=== PATIENT | male | born 1955 | race Caucasian/White ===

== ENCOUNTER → 2019-08-14 10:23 | Outpatient (CLI) | payer MEDICARE, OTHER, SELFPAY ==
[2019-05-09 13:14] VITALS: BMI 26.5
[2019-08-14 12:20] LABS: Absolute Lymphocyte Count 1.13 X10^3/uL (0.83-4.51); Absolute Neutrophil Count 4.6 X10^3/uL (2.0-7.7); Basophil# 0.07 X10^3/uL; Basophil% 1.1 % (0-1); Eosinophil# 0.27 X10^3/uL; Eosinophils% 4.1 % (0-5); Hematocrit 37.7 % (40-54); Hemoglobin 12.5 g/dL (13.0-16.5); Lymphocyte # 1.13 X10^3/ul (4.0); Lymphocyte % 17.1 % (19-41); Mean Corp Hgb Conc 33.2 g/dL (32-36); Mean Corpuscular Hgb 30.3 pg (27.0-32.0); Mean Corpuscular Volume 91.3 fL (80-94); Monocyte# 0.56 X10^3/uL; Monocyte% 8.5 % (0-10); NRBC Flagged by Analyzer 0 % (0-5); Neutrophil # 4.58 X10^3/uL (2.7-7.7); Platelet Count 262 K/mm3 (150-450); RBC Distribution Width CV 12.3 % (11.6-14.6); RBC Distribution Width SD 40.7 fl (35.1-43.9); Red Blood Count 4.13 M/mm3 (4.6-6.2); White Blood Count 6.6 K/mm3 (4.4-11.0)
[2019-08-14 12:30] LABS: ALB/GLOB Ratio 0.8 RATIO (0.9-2.4); AST(SGOT) 10 U/L (15-37); Alanine Aminotransfer ALT/SGPT 13 U/L (16-61); Albumin, Serum 3.4 g/dL (3.2-5.0); Alkaline Phosphatase 93 U/L (45-117); Anion Gap 8 (5-15); BUN 64 mg/dL (7-18); BUN/Creat Ratio 16.9 RATIO (10-20); Calcium,Total 8.8 mg/dL (8.5-10.1); Chloride 106 mmol/L (98-107); Creatinine, Serum 3.79 mg/dL (0.70-1.30); EST Glomerular Filtration Rate 17 mL/min (>60); Est Glom Filt Rate - Afr Amer 21 mL/min (>60); Globulin 4.1 g/dL (2.2-4.2); Glucose 101 mg/dL (74-106); PSA,Total - Annual Screen 3.96 ng/mL (0.00-4.00); Potassium 4.3 mmol/L (3.5-5.1); Protein, Total 7.5 g/dL (6.4-8.2); Sodium Level 141 mmol/L (136-145); Thyroid Stim Hormone (TSH) 0.98 uIU/mL (0.358-3.74)
[2019-08-14 13:09] LABS: Hepatitis C Antibody Non-Reactive (Nonreactive)
== END ==
PROVIDERS: Visit Provider Family Medicine Geriatric Medicine
DX: I10 Essential (primary) hypertension (principal); Z12.5 Encounter for screening for malignant neoplasm of prostate; Z13.89 Encounter for screening for other disorder
CPT/HCPCS: 36415; 80053; 84153; 84443; 85025; 86803; G0103

== ENCOUNTER → 2019-08-15 11:09 | Outpatient (CLI) | payer MEDICARE, OTHER, SELFPAY ==
[2019-05-09 13:14] VITALS: BMI 26.5
[2019-08-15 11:42] LABS: Hematocrit 39.1 % (40-54); Mean Corp Hgb Conc 33.2 g/dL (32-36); Mean Corpuscular Hgb 30.2 pg (27.0-32.0); Mean Corpuscular Volume 90.9 fL (80-94); Mean Platelet Vol. 11.3 fl (6.2-12.0); Platelet Count 273 K/mm3 (150-450); RBC Distribution Width CV 12.5 % (11.6-14.6); RBC Distribution Width SD 41.1 fl (35.1-43.9); White Blood Count 6.4 K/mm3 (4.4-11.0)
[2019-08-15 11:48] LABS: International Normalized Ratio 1.1; Prothrombin Time (Protime)PT. 14.1 SECONDS (11.7-14.9)
[2019-08-15 11:53] LABS: Protein, Urine (Random) 223.6 mg/dL (<11.9); Protein:Creat Ratio 2717 mg/g CRE (0-200)
[2019-08-15 14:19] LABS: Partial Thromboplast Time 33.9 Seconds (24.1-36.2)
== END ==
PROVIDERS: Visit Provider Internal Medicine Nephrology
DX: N18.4 Chronic kidney disease, stage 4 (severe) (principal)
CPT/HCPCS: 36415; 82570; 84156; 85027; 85610; 85730

== ENCOUNTER → 2019-08-20 10:02 | Outpatient (CLI) | payer MEDICARE, OTHER, SELFPAY ==
[2019-05-09 13:14] VITALS: BMI 26.5
[2019-08-20] VITALS (9 sets, daily range): BP systolic 162–222; BP diastolic 51–90; PULSE 50–87; RESP 15–18; TEMP 36.6; O2SAT 93–100; BMI 26.4
--- NOTE | 2019-08-20 | KI_PTH ---
PATIENT: JOSELITO LAWSON LOC: CT U#:[id number] AGE/SX: 70/M ROOM: RE08/20/[address]: Dr. Karina Ervin DO : 1955 BED: DIS: SPEC #: [id number] RECD: 08/20/19 12:12 STATUS: LENNY CHAVISTahir #: [id number] SUSAN: 08/20/19 00:[address]: Karina Ervin DEPT: SURGICAL PATHOLOGY RECD BY: Mame Knight ENTERED: 08/20/19 14:10 SP TYPE: KIDNEY BX OTHR DR: Dr. Damion Leroy MD Tissues: Kidney, NOS Procedures: Electron Microscopy (ACH) Fluorescent Antibody (ACH) Sp St Grp II Kidney (ACH) Kidney Biopsy (ACH) Fluorescent antibody (ACH) add'l HEADER OPERATION: CT guided kidney biopsy PRE-OP DIAGNOSIS: Nephrotic range, proteinuria, R80.8 TISSUE SUBMITTED: Left kidney, 18 gauge core x4 MICROSCOPIC DIAGNOSIS Kidney, left, CT-guided biopsies: Renal tissue showing diffuse glomerulosclerosis, moderate interstitial inflammation and fibrosis, and markedly thickened vasculature; compatible with arterionephrosclerotic chronic renal disease. See comment. COMMENT Correlate clinically with history and onset of symptoms. Findings are compatible with chronic renal disease in the context of atherosclerotic and hypertensive changes. The immunofluorescent findings are nonspecific. CLINICAL INFORMATION: A 64-year-old male for chronic kidney disease stage IV. Evaluated for medical clearance for hernia repair and noticed marked increased creatine at 3.8. Long-standing history of hypertension, diet-controlled since age 39, and tobacco use. Elevated blood pressure despite treatment. Normal complement. SPEP shows no M spike. Bilateral echogenic kidneys. Abnormal PAYAM. Hematuria. Nephrotic range proteinuria. Carotid arteriosclerosis. Peripheral vascular disease. MICROSCOPIC DESCRIPTION Light microscopy examined with H & E, PAS, Page silver and trichrome stains yields renal cortical tissue showing diffuse glomerulosclerosis. There are 22 glomeruli; of which 13 are globally sclerosed. The remaining glomeruli show focal glomerulomegaly and partial sclerosis with thickened feeding vessels. Examination of the arterioles and capillary show significant intimal layer thickening and arteriosclerotic changes with some asymmetry. The interstitium shows marked inflammation comprised primarily of lymphocytes with scattered eosinophils and neutrophils present. Trichrome stain supports moderate interstitial fibrosis. The tubules show extensive atrophy changes with foci of end-stage dilated tubules with heavy Tamm-Horsfall like proteinaceous material; so-called thyroidization changes. Congo red stain is negative for any evidence of amyloid deposition. Renal medullary tissue is also present and shows edematous changes, lipofuscin pigment and lymphocytic infiltrate. Special stain positive controls are reviewed and deemed adequate. IMMUNOFLUORESCENCE: Tissue frozen and submitted for immunofluorescence evaluation yields four glomeruli, of which two are partially sclerosed. IgM shows a 1+ speckled mesangial signal. There is background glomerular and cortex signal with IgG, albumin, fibrin, kappa and lambda. Lambda and kappa also highlight tubule casts; lambda slightly stronger than kappa. C3 shows only focal nonspecific peripheral glomerular signal. IgA and C1q are negative. Positive and negative immunofluorescence controls are reviewed and deemed adequate. ELECTRON MICROSCOPY: Toluidine blue semithin sections yields four glomeruli, of which two are globally sclerosed and two are partially sclerosed. Ultrastructure examination shows marked collapse of capillary loops with expansion and sclerotic changes to the mesangial matrix. There are both glomerular basement membrane and mesangial foci of protein trapping with no evidence of deposits. The podocyte foot processes show variable hypertrophic changes and effacement. The tubules show degenerative changes. GROSS DESCRIPTION The specimen is sent entirely to [facility] for diagnosis. Received in a test tube with poly-transport medium are four cores of vasquez renal tissue ranging in length from 2.1 cm down to 0.8 cm. Each of which is approximately 0.1 cm in width. Numerous glomeruli are seen under the dissecting microscope. The specimen is divided for electron microscopy, immuno-fluorescence and light microscopy.
--- NOTE | 2019-08-20 10:49 | US_ITS ---
PROCEDURES: ULTRASOUND AORTA REASON FOR EXAM: Male, 64 years old. Abdominal aortic aneurysm TECHNIQUE: Ultrasound evaluation of the aorta was performed with real-time and static stern-scale imaging. COMPARISON: None. FINDINGS: There is no elongation or tortuosity of the abdominal aorta. Aorta measures: Proximal 2.5 cm. Middle 2.3 cm. Distal 2.4 cm. Aorta measure transversely: Proximal 2.2 cm. Middle 2.4 cm. Distal 2.6 cm. Right iliac artery measures: 1.0 cm. Right iliac artery measure transversely: 1.0 cm. Left iliac artery measures: 0.9 cm. Left iliac artery measure transversely: 1.0 cm. There is no demonstrated aneurysm.. Scattered echogenic plaque. US/Aorta IMPRESSION: No aneurysm. Scattered plaque. Electronically Signed: Omid Walters MD at 22:37 EDT , Service support ,
--- NOTE | 2019-08-20 11:20 | CT_ITS ---
PROCEDURE: CT GUIDED PERCUTANEOUS KIDNEY BIOPSY. DATE: August 20, 2019. INDICATION: Male, 64 years old. Proteinuria. PHYSICIAN: Cam Mckeon M.D. MEDICATIONS: 2 mg of Versed and 50 mcg of fentanyl intravenously. Conscious sedation protocol was followed. Conscious sedation was started 11:24 AM estimated 11:43 AM. The patient was monitored independently by the department. ACCESS SITE: Lower pole of the left kidney. NEEDLE: 18-gauge core biopsy needle. SPECIMEN: 4 18-gauge cores. EBL: None. COMPLICATIONS: None immediate. RADIATION DOSAGE (If Supplied By Facility): CTDIvol = ( 16 ) mGy, DLP = ( 302.60 ) mGycm The risks, benefits, and alternatives to the procedure and sedation were explained to the patient. The specific risk of hemorrhage requiring further treatment or intervention was detailed and accepted. Written informed consent was obtained. The patient was placed on the CT table in the prone position. Multiple axial images were obtained from the lung base through the caudal extent of the kidneys. An appropriate entry site was identified and a roslyn made on the skin. The skin overlying the [ left] posterior flank was prepped and draped in sterile fashion. 1% lidocaine was administered subcutaneously for local anesthesia. Initially, a 22 gauge needle was advanced and CT images confirmed good needle position. The 22 gauge needle was then exchanged for an 17 gauge introducer needle which was advanced. Repeat CT images confirmed good needle trajectory and tip position. The introducer needle was then advanced into the periphery of the inferior renal pole, and CT images were again obtained to confirm exact tip location. The inner stylet of the introducer needle was then removed and an 18 gauge coaxial needle was advanced thru the introducer needle and biopsy performed. A total of [ 4] passes were performed and the specimen collected was sent to Pathology for further evaluation. The needle was withdrawn. Hemostasis was achieved with manual compression and a sterile dressing was applied. Repeat CT images of the biopsy area was performed which demonstrated no gross bleeding or hematoma. The patient tolerated the procedure well without immediate complications. The patient was transported to the [floor/recovery area] in stable condition. CT/Biopsy/Inj or Needle Placement IMPRESSION: Successful CT guided percutaneous kidney biopsy. Electronically Signed: Cam Mckeon, at 12:40 EDT , Service support ,
[2019-08-20] MEDS: Midazolam 2 MG/2 ML Syringe IV (11:25)
[2019-08-20] MEDS: fentaNYL 100 MCG/2 ML Ampul IV (11:28)
== END ==
PROVIDERS: Family Provider Family Medicine Geriatric Medicine; PCP Family Medicine Geriatric Medicine; Referring Provider Internal Medicine Nephrology; Visit Provider Internal Medicine Nephrology
DX: R80.8 Other proteinuria (principal)
CPT/HCPCS: 50200; 76775; 77012; 88305; 88313; 88346; 88348; 88350; 99156; 99157; J7040; A4216

== ENCOUNTER → 2019-08-26 15:43 | Outpatient (CLI) | payer MEDICARE, OTHER, SELFPAY ==
[2019-05-09 13:14] VITALS: BMI 26.5
[2019-08-20 10:23] VITALS: BMI 26.4
--- NOTE | 2019-08-26 15:45 | CT_ITS ---
STUDY: LOW DOSE CT LUNG CANCER SCREENING REASON FOR EXAM: Male, 64 years old. Screening for lung cancer RADIATION DOSAGE (If Supplied By Facility): CTDIvol = ( 2.55 ) mGy, DLP = ( 103.34 ) mGycm TECHNIQUE: No contrast was administered. Low dose technique was utilized (average mAS-38 and kVp 120). 1.25 mm axial source images with a slice interval of 1.25-mm were reconstructed in lung windows. 2.5 mm axial source images with a slice interval of 2.5-mm were reconstructed in lung windows. 5.0 mm axial source images with a slice interval of 5.0-mm were reconstructed in soft tissue windows. Nodule measured using lung windows on PACS and/or independent workstation with automated measurement of minimum and maximum diameter. Nodule measurement reported as average diameter rounded to the nearest whole number. Growth is defined as an increase ins size of greater than 1.5 mm. COMPARISON: None. Findings: There are no high risk focal pulmonary findings. There is minor right middle lobe and lingular atelectasis. Pleural surfaces and airways are clear. There is severe coronary artery disease. Thoracic spine is intact and aligned. There is superior endplate LUMBAR vertebral body focal compression. CT/Low Dose CT Lung Screening IMPRESSION: 1. LUNG-RADS category 1. Negative screening. Return to screening in 1 year. 2. Advanced coronary artery disease. Cardiology referral advised. IMPORTANT NOTES FOR USE: ACR Lung-RADS Version 1.0 Assessment Categories Release Date: March 17, 2014 Category: Coded 0-4 bases on nodule(s) with highest degree of suspicion. Negative screen is defined as categories 1 and 2; a positive screen is defined as categories 3 and 4. Category 3 and 4A nodules that are unchanged on interval CT should be coded as category 2, and individuals returned to screening in 12 months. Category 4X: Category 3 or 4 nodules with additional imaging findings that increase the suspicion of lung cancer, such as spiculation, GGN that doubles in size in 1 year, enlarged lymph notes, etc. Category Modifiers: S (significant finding unrelated to lung cancer) and C (prior history of treated lung cancer) may be added to the 0-4 Lung-RADS Electronically Signed: Socorro Rasmussen, at 16:36 EDT Tel , Service support ,
== END ==
PROVIDERS: Family Provider Family Medicine Geriatric Medicine; PCP Family Medicine Geriatric Medicine; Referring Provider Family Medicine Geriatric Medicine; Visit Provider Family Medicine Geriatric Medicine
DX: Z12.2 Encounter for screening for malignant neoplasm of respiratory organs (principal); Z87.891 Personal history of nicotine dependence
CPT/HCPCS: G0297

== ENCOUNTER → 2019-09-03 11:47 | Outpatient (CLI) | payer MEDICARE, OTHER, SELFPAY ==
[2019-05-09 13:14] VITALS: BMI 26.5
[2019-08-20 10:23] VITALS: BMI 26.4
[2019-09-03 13:09] LABS: Albumin, Serum 3.4 g/dL (3.2-5.0); BUN 76 mg/dL (7-18); BUN/Creat Ratio 18.5 RATIO (10-20); Chloride 105 mmol/L (98-107); Creatinine, Serum 4.11 mg/dL (0.70-1.30); EST Glomerular Filtration Rate 16 mL/min (>60); Est Glom Filt Rate - Afr Amer 19 mL/min (>60); Glucose 98 mg/dL (74-106); Phosphorus 4.8 mg/dL (2.5-4.9); Potassium 4.6 mmol/L (3.5-5.1); Rheumatoid Factor < 10.0 IU/mL (<15); Sodium Level 138 mmol/L (136-145)
[2019-09-03 13:10] LABS: 24HR. UA Prot. Total Volume 2600 mL; Urine Protein (24 Hour) 182.8 mg/dL (<11.9)
[2019-09-03 13:11] LABS: Creat.Clear Total Volume 2600 mL; Creatinine Clearance 24 ml/min (100-200); Creatinine Serum Creat 4.1 mg/dL (0.8-1.3); Creatinine Urine 55.5 mg/dL (NO RANGE EST.); EST Glomerular Filtration Rate 16 mL/min (>60); Est Glom Filt Rate - Afr Amer 19 mL/min (>60)
[2019-09-04 15:22] LABS: ANTINUCLEAR ANTIBODIES DIRECT Negative (Negative); Anti-dsDNA Ab <1 IU/mL (0-9)
== END ==
PROVIDERS: Visit Provider Internal Medicine Nephrology
DX: N18.4 Chronic kidney disease, stage 4 (severe) (principal); R31.9 Hematuria, unspecified; R80.8 Other proteinuria
CPT/HCPCS: 36415; 80069; 82575; 84156; 86038; 86225; 86431

== ENCOUNTER → 2019-10-16 13:13 | Outpatient (CLI) | payer MEDICARE, OTHER, SELFPAY ==
[2019-08-20 10:23] VITALS: BMI 26.4
[2019-10-16 15:24] LABS: Albumin, Serum 3.4 g/dL (3.2-5.0); BUN 75 mg/dL (7-18); BUN/Creat Ratio 16.9 RATIO (10-20); Calcium,Total 8.8 mg/dL (8.5-10.1); Chloride 108 mmol/L (98-107); Creatinine, Serum 4.45 mg/dL (0.70-1.30); EST Glomerular Filtration Rate 14 mL/min (>60); Est Glom Filt Rate - Afr Amer 17 mL/min (>60); Glucose 111 mg/dL (74-106); Potassium 4.4 mmol/L (3.5-5.1); Sodium Level 142 mmol/L (136-145)
[2019-10-18 13:55] LABS: PTHIN 121.8 pg/mL (18.4-80.1)
== END ==
PROVIDERS: Family Provider Family Medicine Geriatric Medicine; PCP Family Medicine Geriatric Medicine; Visit Provider Internal Medicine Nephrology
DX: N18.4 Chronic kidney disease, stage 4 (severe) (principal)
CPT/HCPCS: 36415; 80069; 83970

== ENCOUNTER → 2019-11-25 13:43 | Outpatient (CLI) | payer MEDICARE, OTHER, SELFPAY ==
[2019-11-06 10:47] VITALS: BMI 27.0
--- NOTE | 2019-11-25 13:45 | ECHOD_ITS ---
Reason For Study: CAD/ASHD Procedure This was a 2D Doppler, Color Flow transthoracic echocardiogram. Exam performed in department. Left Ventricle Normal LV size. Moderate concentric left ventricular hypertrophy. Left ventricular systolic function is normal. The estimated ejection fraction is 55 %. Stage 2 diastolic dysfunction. No regional wall motion abnormalities noted. Right Ventricle Normal RV size. Normal systolic function. Atria The left atrium is mildly enlarged. Normal right atrium. Mitral Valve Normal mitral valve. Tricuspid Valve Normal tricuspid valve. Aortic Valve Trisinus/trileaflet aortic valve. Mild (1+) aortic valve insufficiency. Pulmonic Valve Normal pulmonic valve. Great Vessels Normal aortic root. The pulmonary artery is normal size. Normal inferior vena cava. Pericardium/Pleural No pericardial effusion. MMode/2D Measurements & Calculations LVIDd: 5.7 cm IVSd: 1.6 cm Ao root diam: 3.3 cm LVIDs: 4.2 cm LVPWd: 1.3 cm RVDd: 3.5 cm FS: 27.7 % LAV(MOD-bp): 85.9 ml LA A4 area: 24.6 cm2 LA dimension(2D): 4.1 cm LAV(MOD-bp) Indexed: 42.1 ml/m2 LAV(MOD-sp2): 84.0 ml LAV(MOD-sp4): 84.4 ml RA A4 area: 16.7 cm2 Time Measurements MV dec time: 0.18 sec Doppler Measurements & Calculations MV E max nirav: 107.9 cm/sec Lat Peak E' Nirav: 6.6 cm/sec Med Peak E' Nirav: 7.4 cm/sec MV A max nirav: 89.6 cm/sec E/E' lat: 16.4 E/E' med: 14.7 MV E/A: 1.2 Ao V2 max: 148.6 cm/sec AI max nirav: 475.7 cm/sec LV V1 max: 110.1 cm/sec Ao max P.8 mmHg AI max P.5 mmHg LV V1 max P.8 mmHg AI dec slope: 226.1 cm/sec2 AI P1/2t: 616.2 msec PA V2 max: 88.5 cm/sec Interpretation Summary Normal LV size. Moderate concentric left ventricular hypertrophy. Left ventricular systolic function is normal. The estimated ejection fraction is 55 %. Stage 2 diastolic dysfunction. Mild (1+) aortic valve insufficiency. Ordering Physician: Carlito Keyes Referring Physician: Damion Leroy Chi Performed By: Natasha Mcdaniel, ARASHCS, RVT
== END ==
PROVIDERS: Family Provider Family Medicine Geriatric Medicine; PCP Family Medicine Geriatric Medicine; Referring Provider Internal Medicine Cardiovascular Disease; Visit Provider Internal Medicine Cardiovascular Disease
DX: Z01.810 Encounter for preprocedural cardiovascular examination (principal); I25.10 Atherosclerotic heart disease of native coronary artery without angina pectoris
CPT/HCPCS: 93306

== ENCOUNTER → 2019-12-09 15:52 | Outpatient (CLI) | payer MEDICARE, OTHER, SELFPAY ==
[2019-12-09 14:31] VITALS: BMI 26.2
[2019-12-09 17:09] LABS: Hematocrit 35.4 % (40-54); Hemoglobin 12.2 g/dL (13.0-16.5); Mean Corp Hgb Conc 34.5 g/dL (32-36); Mean Corpuscular Hgb 31.4 pg (27.0-32.0); Mean Corpuscular Volume 91.2 fL (80-94); Mean Platelet Vol. 10.9 fl (6.2-12.0); Platelet Count 261 K/mm3 (150-450); RBC Distribution Width CV 12.3 % (11.6-14.6); RBC Distribution Width SD 40.4 fl (35.1-43.9); Red Blood Count 3.88 M/mm3 (4.6-6.2); White Blood Count 6.3 K/mm3 (4.4-11.0)
[2019-12-09 17:39] LABS: ALB/GLOB Ratio 0.9 RATIO (0.9-2.4); AST(SGOT) 10 U/L (15-37); Alanine Aminotransfer ALT/SGPT 15 U/L (16-61); Albumin, Serum 3.5 g/dL (3.2-5.0); Alkaline Phosphatase 80 U/L (45-117); Anion Gap 7 (5-15); BUN 73 mg/dL (7-18); BUN/Creat Ratio 15.9 RATIO (10-20); Calcium,Total 8.7 mg/dL (8.5-10.1); Chloride 105 mmol/L (98-107); Creatinine, Serum 4.59 mg/dL (0.70-1.30); EST Glomerular Filtration Rate 14 mL/min (>60); Est Glom Filt Rate - Afr Amer 17 mL/min (>60); Globulin 4.1 g/dL (2.2-4.2); Glucose 98 mg/dL (74-106); Potassium 4.3 mmol/L (3.5-5.1); Protein, Total 7.6 g/dL (6.4-8.2); Sodium Level 139 mmol/L (136-145)
== END ==
PROVIDERS: PCP Family Medicine Geriatric Medicine; Referring Provider Surgery; Visit Provider Surgery
DX: Z01.818 Encounter for other preprocedural examination (principal); N18.4 Chronic kidney disease, stage 4 (severe)
CPT/HCPCS: 36415; 80053; 85027

== ENCOUNTER → 2019-12-18 14:33 | Outpatient (CLI) | payer MEDICARE, OTHER, SELFPAY ==
[2019-08-20 10:23] VITALS: BMI 26.4
[2019-12-09 14:31] VITALS: BMI 26.2
[2019-12-18 17:23] LABS: Albumin, Serum 3.3 g/dL (3.2-5.0); BUN 83 mg/dL (7-18); BUN/Creat Ratio 17.7 RATIO (10-20); Calcium,Total 8.6 mg/dL (8.5-10.1); Chloride 104 mmol/L (98-107); Creatinine, Serum 4.69 mg/dL (0.70-1.30); EST Glomerular Filtration Rate 13 mL/min (>60); Est Glom Filt Rate - Afr Amer 16 mL/min (>60); Glucose 98 mg/dL (74-106); Phosphorus 4.2 mg/dL (2.5-4.9); Potassium 4.5 mmol/L (3.5-5.1); Sodium Level 137 mmol/L (136-145)
[2019-12-18 17:30] LABS: Vitamin D,25 Hydroxy 13.5 ng/mL (29.95-100.01)
[2019-12-19 11:25] LABS: PTHIN 196.1 pg/mL (18.4-80.1)
== END ==
PROVIDERS: Family Provider Family Medicine Geriatric Medicine; PCP Family Medicine Geriatric Medicine; Visit Provider Internal Medicine Nephrology
DX: N18.4 Chronic kidney disease, stage 4 (severe) (principal); E55.9 Vitamin D deficiency, unspecified
CPT/HCPCS: 36415; 80069; 82306; 83970

== ENCOUNTER 2020-01-08 10:27 | Day surgery (SDC) | payer MEDICARE, OTHER, SELFPAY ==
--- NOTE | 2019-12-09 04:52 | HP_ITS ---
Intake Vital Signs 12/09/19 Blood Pressure Location Rt brachial 12/09/19 Position Sitting 12/09/19 Height 5 ft 10.5 in 12/09/19 Weight: 185 lb 12/09/19 BMI 26.2 12/09/19 BP 190/67 H 12/09/19 Blood Pressure Location Rt brachial 12/09/19 Position Sitting 12/09/19 Respiration 16 Intake Visit Reasons: Inguinal Hernia Chief Complaint: bilateral inguinal Outbound Sales Representative Required: No Is patient in pain?: Yes (bilateral groin) Allergies atorvastatin [From Lipitor] Adverse Reaction (Verified 12/09/19 14:31) unstable gait, myalgia rosuvastatin [From Crestor] Adverse Reaction (Verified 12/09/19 14:31) unstable gait, myalgia Medications amlodipine 10 mg tablet 10 mg PO DAILY 05/09/19 [History Confirmed 12/09/19] sertraline 50 mg tablet 50 mg PO DAILY 05/09/19 [History Confirmed 12/09/19] Bisoprolol/Hydrochlorothiazide [Bisoprolol-Hctz 10-6.25 mg Tab] 1 ea PO DAILY 08/20/19 [History Confirmed 12/09/19] clonidine HCl 0.1 mg tablet 0.1 mg PO BID tab 11/06/19 [History Confirmed 12/09/19] aspirin 81 mg tablet,delayed release 81 mg PO DAILY 12/09/19 [History Confirmed 12/09/19] PFS Medical History Essential (primary) hypertension (Chronic) Hypercholesteremia (Chronic) Chronic kidney disease, stage 4 (severe) (Chronic) Anxiety (Chronic) History of diverticulitis (Resolved) White coat syndrome with hypertension (Resolved) Myocardial infarction (Inactive) Surgical History History of colonoscopy (Resolved 2009) History of colostomy reversal (Resolved) History of partial colectomy (Resolved) Family History Mother Heart disease Father Hypertension Cardiac arrest Social History (Updated 12/09/19 @ 17:02 by Ronen Joiner MD) Smoking Status: Former smoker quit date: 09/25/18 pack-years: 65 alcohol intake: current alcohol intake frequency: a few times a month HPI HPI HPI: JOSELITO LAWSON, is a 64 M who presents to the office today for HPI HPI Surgical H&P: Yes HPI: JOSELITO LAWSON, is a 64 M who presents to the office today for surgical consultation regarding bilateral inguinal hernias. The patient also has stage IV renal insufficiency. Patient is referred by Dr. Karina Ervin and a written copy of my surgical consult recommendations will be returned to her as well as forwarded on to the patient's primary care physician Dr. Leroy This actually is a very complicated 64-year-old gentleman. By report he is previously had perforated diverticulitis requiring a colectomy that was performed at [place], [place] within a colostomy that was reversed 6 months afterwards. The patient claims that during the first hospitalization he occurred a myocardial infarction.. Unfortunate he likely has a hostile abdomen from the surgical intervention. Most recent laboratory October 16, 2019 performed at the [facility] demonstrates a glucose of 111 BUN of 75 and a creatinine of 4.45 with a estimated GFR of 14. Potassium was 4.4. PTH 121.8. White count 6.4 with a hemoglobin 13 hematocrit of 39.1 platelet count 273,000. To further complicate his presentation his blood pressure today was 190/67. He states that his entire life he has been hypertensive. He states that if he gets below 140 systolic that he becomes dizzy and lightheaded. Combination of Dr. Ervin and Dr. Leroy have been working recently on his malignant hypertension. His previous physician apparently had not ordered routine laboratory and the diagnosis of the stage IV renal insufficiency is newer. The patient was previously seen by Dr. Morgan on May 09, 2019 who recommended bilateral inguinal hernia repair at that time. The patient was not medically fit at that setting. On November 25, 2019 the patient had an echocardiogram showing normal left ventricular size with moderate concentric left ventricular hypertrophy and an ejection fraction of 55%. The patient has been seen by Dr. Carlito Keyes and he is felt to be appropriate for surgical intervention. The patient has had a 4-year history of a very large right inguinal hernia and according to him a new history of a 1-year-old left inguinal hernia. He has concerns that they are becoming more tender and he has additional concerns that they will in the future prohibit him from potentially having a renal transplant. I did have to discuss with him that the next step would likely be a AV fistula to facilitate hemodialysis ROS General General: No weight change, appetite, fatigue, colon cancer, breast cancer or weakness HEENT HEENT: No difficulty swallowing, eye injury, eye surgery, swollen glands or hoarseness Endo Endocrine: No thyroid disease, diabetes mellitus, thyroid cancer, Hair loss, heat intolerance or cold intolerance Skin Skin: No rash or changing moles Breast Breast: No left breast lump, right breast lump, nipple discharge, breast pain, abnormal mammogram, abnormal US or breast enlargement Musc Musculoskeletal: Yes back problems; no arthritis, rheumatoid arthritis, gout or joint pain Cardio Cardiovascular: Yes high blood pressure and heart attack; no murmur, pacemaker, heart disease, atrial fibrillation, heart stent, palpitations, shortness of breat with exertion or chest pain Psych Psychiatric: Yes depression; no anxiety or hearing voices Resp Respiratory: Yes shortness of breath, No sleep apnea, No cough, No COPD, No asthma, No emphysema, No wheezing Gastro Gastrointestinal: No abdominal pain, No nausea or vomiting, No diarrhea, No constipation, No blood in stool, No acid reflux, No hemorrhoids, No ulcers, No gallbladder problem, No black,tarry stools Bean Hematologic: No blood thinners, No blood disorders, No bleeding, No anemia, No blood clots Neuro Neurologic: No system reviewed and no additional complaints, except as docu, No as per HPI, No abnormal walking, No abnormal hearing, No abnormal movements, No abnormal speech, No behavioral changes, No burning sensations, No confusion, No seizure-like activity, No unsteadiness, No dizziness, No localized weakness, No frequent falls, No headache(s), No lack of coordination, No loss of vision, No memory loss, No numbness, No other visual disturbances, No radiating pain, No restless legs, No sensory deficit, No fainting, No tingling, No tremor(s), No weakness, No other Exam Const General: cooperative, comfortable, no acute distress Nutritional Appearance: average body habitus Orientation: alert, awake, oriented x3 HENMT Head: normal to inspection Eyes General: appearance normal, both eyes and all related structures Chest Breast Palpation: No nipple discharge Resp Effort & Inspection: normal respiratory effort Auscultation: clear to auscultation bilaterally Cardio Rate: regular rate Rhythm: regular rhythm Heart Sounds: no murmurs GI Other: Soft, long midline incision, well-healed transverse incision right lower quadrant, slightly tight, normal bowel sounds, Other: Very large bilateral groin hernias right greater than the left. The right side is not completely reducible. The left side is reducible. Bilateral testicles are without mass but are atrophic. The patient's abdominal compartment seems small and difficult to get multiple loops of bowel back reduced inside Skin General: no rashes or lesions noted Neuro Cognition: normal cognition Extrem General: no calf tenderness bilaterally Psych Affect: normal affect Assessment & Plan Problems 1. Essential (primary) hypertension I10 2. Chronic kidney disease, stage 4 (severe) N18.4 3. Non-recurrent bilateral inguinal hernia without obstruction or gangrene K40.20 Plan Complicated 64-year-old gentleman. He has had previous abdominal surgery for perforated diverticulitis that required a diverting colostomy. This would likely lead to a hostile surgical abdomen. He has had a long-term history of malignant hypertension and control is still difficult. He has more recent finding of stage IV chronic renal insufficiency. He has progressively enlarging right greater than left inguinal hernias with significant bowel involvement in each. He claims that over the past 2 months he has had some bowel habit change with progressive constipation which is felt likely be secondary to the hernias. I have initially offered him a staged approach to his inguinal hernias. I do not feel comfortable approaching this laparoscopically because of his likely hostile abdomen. He may indeed have a degree of ascites related to his renal failure. I would propose a Snow approach to the right inguinal hernia. It is of note that I could not get this completely reduced in the office. We will try to perform this under monitored anesthesia care and local anesthetic but no guarantees have been offered to the patient. He is aware that I would anticipate utilizing a mesh repair. Pending his recovery we could then proceed with a staged left inguinal hernia repair. However having reviewed his laboratory now becomes pertinent that he may actually need to have a AV fistula created as his first operative intervention. We will obtain bilateral upper extremity vein mapping.. We will contact Dr. Leroy and Dr. Ervin for ongoing assistance regarding the patient's malignant hypertension. We will inquire of Dr. Ervin her recommendations regarding the order of surgical procedures to be performed. The patient has had an opportunity to ask and have questions answered. We will schedule and proceed at his discretion. If a fistula is requested that the patient will be seen back in the office subsequent to his vein mapping to evaluate and treat for this. Cc: Dr. Damion Leroy and Dr. Karina Joiner M.D., F.A.C.S. Orders Orders: Comprehensive Metabolic Profil Today N18.4, Z01.818 CBC-Complete Blood Cnt No Diff Today Z01.818 Saphenous Vein Mapping, Bilat Today N18.4, Z01.818 Coding Level of Care Code 09550 Diagnoses Essential (primary) hypertension I10 Chronic kidney disease, stage 4 (severe) N18.4 Non-recurrent bilateral inguinal hernia without obstruction or gangrene K40.20 ??Recurrence: non-recurrent 12/09/19 1702 <Electronically signed by Ronen ba MD> Date _ Ronen Joiner MD I have re-examined the patient. There are no clinical changes since date of exam.
[2019-12-09 14:31] VITALS: BMI 26.2
[2020-01-03 13:54] LABS: Hematocrit 33.2 % (40-54); Hemoglobin 11.2 g/dL (13.0-16.5); Mean Corp Hgb Conc 33.7 g/dL (32-36); Mean Corpuscular Hgb 30.7 pg (27.0-32.0); Mean Platelet Vol. 11.1 fl (6.2-12.0); Platelet Count 244 K/mm3 (150-450); RBC Distribution Width CV 12.2 % (11.6-14.6); Red Blood Count 3.65 M/mm3 (4.6-6.2); White Blood Count 7.4 K/mm3 (4.4-11.0)
[2020-01-03 14:13] LABS: Anion Gap 6 (5-15); BUN 81 mg/dL (7-18); BUN/Creat Ratio 16.1 RATIO (10-20); Calcium,Total 8.2 mg/dL (8.5-10.1); Chloride 105 mmol/L (98-107); Creatinine, Serum 5.04 mg/dL (0.70-1.30); EST Glomerular Filtration Rate 12 mL/min (>60); Est Glom Filt Rate - Afr Amer 15 mL/min (>60); Glucose 96 mg/dL (74-106); Potassium 4.4 mmol/L (3.5-5.1); Sodium Level 141 mmol/L (136-145)
[2020-01-08] VITALS (8 sets, daily range): BP systolic 142–198; BP diastolic 61–96; PULSE 45–53; RESP 16–18; TEMP 36.4–36.7; O2SAT 97–99; BMI 27.2
--- NOTE | 2020-01-08 10:37 | EKG12_ITS ---
Test Reason : Blood Pressure : / mmHG Vent. Rate : 051 BPM Atrial Rate : 051 BPM P-R Int : 154 ms QRS Dur : 100 ms QT Int : 494 ms P-R-T Axes : 056 008 -29 degrees QTc Int : 455 ms Sinus bradycardia Nonspecific ST abnormality Abnormal ECG No previous ECGs available Confirmed by AIDE WILSON ([id number]), film editor supervisor TREY ELIZONDO ([id number]) on 01/09/2020 9:50:48 AM Referred By: Ronen Joiner Confirmed By:AIDE WILSON
[2020-01-08] MEDS: Bupivacaine Mpf 0.5% 30 ML VIAL (10:44)
[2020-01-08] MEDS: Lactated Ringers 1,000 ML 100 ML IV (10:52)
--- NOTE | 2020-01-08 10:54 | HP.PCM_ITS ---
Problem List (1) Chronic kidney disease, stage 4 (severe) Status: Chronic History and Physical Date of Admission: 01/08/20 [facility] Medical Records Department [address] [place] [address] History and Physical 01/08/2020 MR#: [id number] Acct: [id number] Name: JOSELITO LAWSON Rep #:[id number] : 1955 64 From: Rocío Tate PA-C PCP: Rad LIVE,Damion Chi Status:PRE SDC Location: SDC Intake Vital Signs 01/08/20 Blood Pressure Location Rt brachial 01/08/20 Position Supine 01/08/20 Height 5 ft 10 in 01/08/20 Weight: 189 lb 01/08/20 BMI 26.2 01/08/20 BP 142/75 H 01/08/20 Blood Pressure Location Rt brachial 01/08/20 Position Supine 01/08/20 Respiration 18 Intake Visit Reasons: Inguinal Hernia Chief Complaint: bilateral inguinal Inside Polisher Required: No Is patient in pain?: Yes (bilateral groin) Allergies atorvastatin [From Lipitor] Adverse Reaction (Verified 12/09/19 14:31) unstable gait, myalgia rosuvastatin [From Crestor] Adverse Reaction (Verified 12/09/19 14:31) unstable gait, myalgia Medications amlodipine 10 mg tablet 10 mg PO DAILY 05/09/19 [History Confirmed 12/09/19] sertraline 50 mg tablet 50 mg PO DAILY 05/09/19 [History Confirmed 12/09/19] Bisoprolol/Hydrochlorothiazide [Bisoprolol-Hctz 10-6.25 mg Tab] 1 ea PO DAILY [History Confirmed 12/09/19] clonidine HCl 0.1 mg tablet 0.1 mg PO BID tab 11/06/19 [History Confirmed 12/09/19] aspirin 81 mg tablet,delayed release 81 mg PO DAILY 12/09/19 [History Confirmed 12/09/19] [facility] Medical History Essential (primary) hypertension (Chronic) Hypercholesteremia (Chronic) Chronic kidney disease, stage 4 (severe) (Chronic) Anxiety (Chronic) History of diverticulitis (Resolved) White coat syndrome with hypertension (Resolved) Myocardial infarction (Inactive) Surgical History History of colonoscopy (Resolved 2009) History of colostomy reversal (Resolved) History of partial colectomy (Resolved) Family History Mother Heart disease Father Hypertension Cardiac arrest Social History (Updated 12/09/19 @ 17:02 by Ronen Joiner MD) Smoking Status: Former smoker quit date: 09/25/18 pack-years: 65 alcohol intake: current alcohol intake frequency: a few times a month HPI HPI Surgical H&P: Yes HPI: Patient is a 64 y/o M I am seeing for an update history and physical. Patient denies recent hospitalization or illnesses. Patient denies previous complications with anesthesia. Patient's previous history per Dr. Joiner: JOSELITO LAWSON, is a 64 M who presents to the office today for surgical consultation regarding bilateral inguinal hernias. The patient also has stage IV renal insufficiency. Patient is referred by Dr. Karina Ervin and a written copy of my surgical consult recommendations will be returned to her as well as forwarded on to the patient's primary care physician Dr. Leroy This actually is a very complicated 64-year-old gentleman. By report he is previously had perforated diverticulitis requiring a colectomy that was performed at [place], [place] within a colostomy that was reversed 6 months afterwards. The patient claims that during the first hospitalization he occurred a myocardial infarction.. Unfortunate he likely has a hostile abdomen from the surgical intervention. Most recent laboratory October 16, 2019 performed at the [facility] demonstrates a glucose of 111 BUN of 75 and a creatinine of 4.45 with a estimated GFR of 14. Potassium was 4.4. PTH 121.8. White count 6.4 with a hemoglobin 13 hematocrit of 39.1 platelet count 273,000. To further complicate his presentation his blood pressure today was 190/67. He states that his entire life he has been hypertensive. He states that if he gets below 140 systolic that he becomes dizzy and lightheaded. Combination of Dr. Ervin and Dr. Leroy have been working recently on his malignant hypertension. His previous physician apparently had not ordered routine laboratory and the diagnosis of the stage IV renal insufficiency is newer. The patient was previously seen by Dr. Morgan on May 09, 2019 who recommended bilateral inguinal hernia repair at that time. The patient was not medically fit at that setting. On November 25, 2019 the patient had an echocardiogram showing normal left ventricular size with moderate concentric left ventricular hypertrophy and an ejection fraction of 55%. The patient has been seen by Dr. Carlito Keyes and he is felt to be appropriate for surgical intervention. The patient has had a 4-year history of a very large right inguinal hernia and according to him a new history of a 1-year-old left inguinal hernia. He has concerns that they are becoming more tender and he has additional concerns that they will in the future prohibit him from potentially having a renal transplant. I did have to discuss with him that the next step would likely be a AV fistula to facilitate hemodialysis ROS General General: No weight change, appetite, fatigue, colon cancer, breast cancer or weakness HEENT HEENT: No difficulty swallowing, eye injury, eye surgery, swollen glands or hoarseness Endo Endocrine: No thyroid disease, diabetes mellitus, thyroid cancer, Hair loss, heat intolerance or cold intolerance Skin Skin: No rash or changing moles Breast Breast: No left breast lump, right breast lump, nipple discharge, breast pain, abnormal mammogram, abnormal US or breast enlargement Musc Musculoskeletal: Yes back problems; no arthritis, rheumatoid arthritis, gout or joint pain Cardio Cardiovascular: Yes high blood pressure and heart attack; no murmur, pacemaker, heart disease, atrial fibrillation, heart stent, palpitations, shortness of breat with exertion or chest pain Psych Psychiatric: Yes depression; no anxiety or hearing voices Resp Respiratory: Yes shortness of breath, No sleep apnea, No cough, No COPD, No asthma, No emphysema, No wheezing Gastro Gastrointestinal: No abdominal pain, No nausea or vomiting, No diarrhea, No constipation, No blood in stool, No acid reflux, No hemorrhoids, No ulcers, No gallbladder problem, No black,tarry stools Bean Hematologic: No blood thinners, No blood disorders, No bleeding, No anemia, No blood clots Neuro Neurologic: No system reviewed and no additional complaints, except as docu, No as per HPI, No abnormal walking, No abnormal hearing, No abnormal movements, No abnormal speech, No behavioral changes, No burning sensations, No confusion, No seizure-like activity, No unsteadiness, No dizziness, No localized weakness, No frequent falls, No headache(s), No lack of coordination, No loss of vision, No memory loss, No numbness, No other visual disturbances, No radiating pain, No restless legs, No sensory deficit, No fainting, No tingling, No tremor(s), No weakness, No other Exam Const General: cooperative, comfortable, no acute distress Nutritional Appearance: average body habitus Orientation: alert, awake, oriented x3 HENMT Head: normal to inspection Eyes General: appearance normal, both eyes and all related structures Chest Breast Palpation: No nipple discharge Resp Effort & Inspection: normal respiratory effort Auscultation: clear to auscultation bilaterally Cardio Rate: regular rate Rhythm: regular rhythm Heart Sounds: no murmurs GI Other: Soft, long midline incision, well-healed transverse incision right lower quadrant. Normal bowel sounds Other: Very large bilateral groin hernias right greater than the left. The right side is not completely reducible. The left side is reducible. Skin General: no rashes or lesions noted Neuro Cognition: normal cognition Extrem General: no calf tenderness bilaterally Psych Affect: normal affect Assessment & Plan Problems 1. Essential (primary) hypertension I10 2. Chronic kidney disease, stage 4 (severe) N18.4 3. Non-recurrent bilateral inguinal hernia without obstruction or gangrene K40.20 Plan: Dr. Joiner will plan to perform an open right inguinal hernia repair with mesh under MAC local. This will be followed by a staged open left inguinal hernia repair at a separate setting. Procedure details risks and benefits have been reviewed. Patient has had the opportunity to ask and have questions answered. Patient verbally understands and agrees with the plan. Code Visit Inpatient E&M: 69947 [facility] L[facility] - Update H&P. No charge.
[2020-01-08] MEDS: Cefazolin 2 GM in 0.9% Normal Saline 100 ML IV (11:15)
--- NOTE | 2020-01-08 11:21 | DCINST_ITS ---
Discharge Diet: Light diet - advance as tolerated - if you have questions about your diet instructions, please talk to you doctor. Discharge Activity: May Not Drive - for 3-5 days or while taking narcotic pain medicine. May shower in (days): 1 Lifting Restrictions: 10 pounds Call your doctor if your incision/area has: Continuous Slow Oozing, Sudden Increased Bleeding, Increased Pain/ Swelling, Increased Redness, Foul Smelling Discharge Call your doctor if you observe: Fever of 101 or Higher Suture Line Care: Avoid Pulling/Pushing, Avoid Pinching/Bending Additional Dressing/Incision Instructions:: Change or remove dressing in 4 days. Leave steri-strips in place for 1 week. Allergies/Adverse Reactions: Allergies atorvastatin [From Lipitor] Adverse Reaction (Verified 01/08/20 10:39) unstable gait, myalgia rosuvastatin [From Crestor] Adverse Reaction (Verified 01/08/20 10:39) unstable gait, myalgia Medications to take at Discharge amlodipine 10 mg tablet 10 mg PO DAILY 05/09/19 sertraline 50 mg tablet 50 mg PO DAILY 05/09/19 Bisoprolol/Hydrochlorothiazide [Bisoprolol-Hctz 10-6.25 mg Tab] 1 ea PO DAILY 08/20/19 clonidine HCl 0.1 mg tablet 0.1 mg PO BID tab 11/06/19 aspirin 81 mg tablet,delayed release 81 mg PO DAILY 12/09/19 Orders to be completed after discharge: Basic Metabolic Profile (BMP) Time Frame: 01/02/20, Facility: [facility], Location: Laboratory Primary Care Physician: Damion Leroy Chi, MD [Primary Care Provider] - Test Results: Test results from this visit will be discussed in further detail at your follow- up appointment, if applicable. Please Follow Up With: Ronen Joiner MD - [phone] When: Call to make an appointment to be seen in about 10 days.
--- NOTE | 2020-01-08 12:25 | HERN_PTH ---
PATIENT: JOSELITO LAWSON LOC: [facility] [place] U#:[id number] AGE/SX: 64/M ROOM: RE01/08/[address]: Dr. Ronen Joiner MD : 1955 BED: DIS: 01/08/2020 SPEC #: [id number] RECD: 01/08/20 13:38 STATUS: LENNY RETahir #: [id number] SUSAN: 01/08/20 12:[address]: Ronen Joiner DEPT: SURGICAL PATHOLOGY RECD BY: Mame Knight ENTERED: 01/08/20 14:08 SP TYPE: Hernia OTHR DR: MD Dr. Damion Worrell Chi, MD Tissues: HERNIA Procedures: Surgery Specimen Level II HEADER OPERATION: Hernia, inguinal with mesh PRE-OP DIAGNOSIS: Nonrecurrent right inguinal hernia without obstruction or gangrene TISSUE SUBMITTED: Hernia sac and contents MICROSCOPIC DIAGNOSIS Soft tissue of left inguinal region, excision: Hernia sac with fibrosis and minimal chronic inflammation. AM:herrera 01/09/20 COMMENT Case has been reviewed in consultation with Dr. Jay who concurs with the above diagnosis. IDC:[email or web address] MICROSCOPIC DESCRIPTION Slides are reviewed. GROSS DESCRIPTION Received in fixative is one container labeled with the patient's name and designated hernia sac and contents. The specimen consists of a piece of vasquez soft tissue measuring 4 x 4 x 1 cm. A small piece of tissue is also noted measuring 1.5 x 0.5 x 0.2 cm. Sections do not reveal any mass lesion. Weight Reducing Technician sections are submitted in one cassette. / KATLYN:herrera 01/08/20 TC:5 CPT: 63937
--- NOTE | 2020-01-08 12:57 | OP.PCM_ITS ---
Problem List (1) Bilateral inguinal hernia without obstruction or gangrene Status: Acute Qualifiers: Recurrence: non-recurrent Qualified Code(s): K40.20 - Bilateral inguinal hernia, without obstruction or gangrene, not specified as recurrent Report of Operation Date of Procedure: 01/08/20 Pre-Operative Diagnosis: Bilateral inguinal hernias without obstruction, symptomatic on the right Post-Operative Diagnosis: Same Surgery/Procedure Performed:: Snow right inguinal herniorrhaphy Description of Surgical Findings:: Timeout and informed consent was obtained. 64-year-old gentleman was taken the operating placement table underwent monitored anesthesia care. Ancef 2 g given intravenously. The right groin was sterilely prepped and draped. 1% lidocaine mixed 50-50 with 0.5% Marcaine was used as a local anesthetic. Throughout the procedure a total of 29 cc was used. Local was instilled. Transverse incision was made in the right groin. Sharp dissection carried down through the subcutaneous tissues. Hemostasis team electrocautery. There was a very large right inguinal hernia with copious amount of large bowel and small bowel. The sac was incised and that allowed for careful reduction of the bowel. No evidence of any injury. Circumferential control was obtained the cord structures. The sac was then tediously dissected free. Having achieved back to the internal ring then as it was an indirect hernia I was able to look inside the sac ~sac to been high ligated with 2-0 Vicryl ligatures x2. The remnants of the sac was submitted as specimen. The direct space indirect space has been dissected free. The transversalis fascia from the pubic tubercle to the internal ring was approximated with a running 3-0 Ethibond. A preshaped keyhole Bard mesh 10 x 4.5 cm was placed around the internal ring and secured its to itself with the Ethibond. It was then places to overlap the pubic tubercle shelving edge of Poupart's and inguinal ligament. The tails were tucked beneath the external oblique laterally. The ileal nerve had been protected with cord structures. The mesh was then secured in place with multiple simple sutures of 3-0 Ethibond. Good coverage and securement was achieved. The external oblique was then approximated with simple sutures of 3-0 Vicryl. Cypress that excellent securement and reduction of the hernia has been achieved. Subcutaneous tissues approximated with running 3-0 Vicryl. Skin edges proximal running septic or 4-0 Monocryl. Steri-Strips Telfa and OpSite dressings applied. Sponge and instrument and needle counts were reported to the surgeon be correct. Blood loss minimal. Specimens hernia sac. Drains none. Blood loss minimal. He was taken to the recovery area in satisfactory edition without apparent complication Ronen Joiner M.D., F.A.C.S. Type of Anesthesia:: Local MAC Anesthesiologist: Marcus Aguilar
== END 2020-01-08 15:27 | disposition home or self-care (01) ==
LOC: SDC 10:27 → AC 10:29
PROVIDERS: PCP Family Medicine Geriatric Medicine; Referring Provider Surgery; Visit Provider Surgery
PROC: (CPT 49505; principal; 2020-01-08 12:10)
DX: K40.20 Bilateral inguinal hernia, without obstruction or gangrene, not specified as recurrent (principal); I12.9 Hypertensive chronic kidney disease with stage 1 through stage 4 chronic kidney disease, or unspecified chronic kidney disease; N18.4 Chronic kidney disease, stage 4 (severe); E78.00 Pure hypercholesterolemia, unspecified; F32.9 Major depressive disorder, single episode, unspecified; F41.9 Anxiety disorder, unspecified; I25.2 Old myocardial infarction; Z79.82 Long term (current) use of aspirin; Z79.899 Other long term (current) drug therapy; Z87.891 Personal history of nicotine dependence; Z90.49 Acquired absence of other specified parts of digestive tract
CPT/HCPCS: 00830; 49505; 36415; 80048; 85027; 88302; 93005; J7120; C1781

== ENCOUNTER → 2020-02-11 13:20 | Outpatient (CLI) | payer MEDICARE, OTHER, SELFPAY ==
[2019-12-09 14:31] VITALS: BMI 26.2
[2020-01-08 10:46] VITALS: BMI 27.2
[2020-02-11 14:18] LABS: Hematocrit 32.1 % (40-54); Hemoglobin 10.7 g/dL (13.0-16.5); Mean Corp Hgb Conc 33.3 g/dL (32-36); Mean Corpuscular Hgb 30.3 pg (27.0-32.0); Mean Corpuscular Volume 90.9 fL (80-94); Mean Platelet Vol. 10.8 fl (6.2-12.0); Platelet Count 252 K/mm3 (150-450); RBC Distribution Width CV 12.4 % (11.6-14.6); RBC Distribution Width SD 40.6 fl (35.1-43.9); Red Blood Count 3.53 M/mm3 (4.6-6.2); White Blood Count 5.7 K/mm3 (4.4-11.0)
[2020-02-11 14:42] LABS: Albumin, Serum 3.1 g/dL (3.2-5.0); BUN 74 mg/dL (7-18); BUN/Creat Ratio 15.4 RATIO (10-20); Calcium,Total 8.2 mg/dL (8.5-10.1); Chloride 103 mmol/L (98-107); Creatinine, Serum 4.82 mg/dL (0.70-1.30); EST Glomerular Filtration Rate 13 mL/min (>60); Est Glom Filt Rate - Afr Amer 16 mL/min (>60); Glucose 89 mg/dL (74-106); PTHIN 198.9 pg/mL (18.4-80.1); Phosphorus 4.3 mg/dL (2.5-4.9); Potassium 4.2 mmol/L (3.5-5.1); Sodium Level 140 mmol/L (136-145)
[2020-02-11 14:46] LABS: Vitamin D,25 Hydroxy 50.2 ng/mL
== END ==
LOC: LAB.FUTURE 13:23 → LAB 13:28
PROVIDERS: PCP Family Medicine Geriatric Medicine; Referring Provider Internal Medicine Nephrology; Visit Provider Internal Medicine Nephrology
DX: N18.4 Chronic kidney disease, stage 4 (severe) (principal); E55.9 Vitamin D deficiency, unspecified; N25.81 Secondary hyperparathyroidism of renal origin
CPT/HCPCS: 36415; 80069; 82306; 83970; 85027

== ENCOUNTER → 2020-02-18 12:58 | Outpatient (CLI) | payer MEDICARE, OTHER, SELFPAY ==
[2020-01-08 10:46] VITALS: BMI 27.2
[2020-02-18 15:34] LABS: Ferritin 88 ng/mL (26-388); Iron 86 ug/dL (65-175); Iron Binding Capacity,Total 231 ug/dL (250-450)
== END ==
PROVIDERS: PCP Family Medicine Geriatric Medicine; Visit Provider Family Medicine Geriatric Medicine
DX: D64.9 Anemia, unspecified (principal)
CPT/HCPCS: 36415; 82728; 83540; 83550

== ENCOUNTER → 2020-02-26 12:58 | Outpatient (CLI) | payer MEDICARE, OTHER, SELFPAY ==
[2020-01-08 10:46] VITALS: BMI 27.2
--- NOTE | 2020-02-26 13:01 | VDUE_ITS ---
Reason For Study: CKD, Pre op Right Arm Left Arm Right cephalic vein is compressible. Left cephalic vein is compressible. Right Cephalic Vein at the shoulder Left Cephalic Vein at the shoulder measures .41 x .44 cm. measures .38 x .39 cm. Right Cephalic Vein mid bicep measures .46 Left Cephalic Vein at mid bicep measures .4 x .51 cm. x .37 cm. Right Cephalic Vein above antecub Left Cephalic Vein above antecub measures .53 measures .52 x .55 cm. x .54 cm. Right Cephalic Vein below antecub Left Cephalic Vein below antecub measures .46 measures .23 x .27 cm. x .44 cm. Right Cephalic Vein in the forearm Left Cephalic Vein in the forearm measures .23 x .25 cm. measures .36 x .37 cm. Right Cephalic Vein at the wrist measures .2 Left Cephalic Vein at the wrist measures .36 x .23 cm. x .37 cm. Right basilic vein is compressible. Left basilic vein is compressible. Right Basilic Vein mid bicep measures .36 Basilic vein at bicep measures .27 x .31 cm. x .37 cm. Basilic vein above antecub measures .34 x .34 Right Basilic Vein above antecub measures .36 cm. x .42 cm. Basilic vein below antecub measures .16 x .16 Right Basilic Vein below antecub measures .26 cm. x .3 cm. Basilic vein in the forearm measures .16 Right Basilic Vein in the forearm x .15 cm. measures .21 x .23 cm. Basilic vein at the wrist measures .11 x .11 Right Basilic Vein at the wrist measures .15 cm. x .16 cm. Brachial Artery .57 x .50 cm. Brachial Artery .51 x .56 cm. Brachial Artery 138.1 cm/s. Brachial Artery 109.0 cm/s. Radial Artery .23 x .26 cm. Radial Artery .22 x .22 cm. Radial Artery 108.7 cm/s. Radial Artery 88.1 cm/s. Interpretation Summary Patent, compressible bilateral cephalic and basilic veins with dimensions as noted. Adequate diameter and flow bilateral radial and brachial arteries Ordering Physician: Ronen Joiner Performed By: Nino Moe RVT ?
== END ==
PROVIDERS: PCP Family Medicine Geriatric Medicine; Referring Provider Surgery; Visit Provider Surgery
DX: Z01.818 Encounter for other preprocedural examination (principal); N18.4 Chronic kidney disease, stage 4 (severe)
CPT/HCPCS: 93970

== ENCOUNTER 2020-03-09 06:00 | Day surgery (SDC) | payer MEDICARE, OTHER, SELFPAY ==
[2020-02-28 09:58] VITALS: BMI 27.2
--- NOTE | 2020-02-28 10:24 | HP_ITS ---
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 Is patient in pain?: No Allergies atorvastatin [From Lipitor] Adverse Reaction (Verified 02/28/20 09:58) unstable gait, myalgia rosuvastatin [From Crestor] Adverse Reaction (Verified 02/28/20 09:58) unstable gait, myalgia Medications amlodipine 10 mg tablet 10 mg PO DAILY 05/09/19 [History Confirmed 02/28/20] sertraline 50 mg tablet 50 mg PO DAILY 05/09/19 [History Confirmed 02/28/20] Bisoprolol/Hydrochlorothiazide [Bisoprolol-Hctz 10-6.25 mg Tab] 1 ea PO DAILY 08/20/19 [History Confirmed 02/28/20] clonidine HCl 0.1 mg tablet 0.1 mg PO BID tab 11/06/19 [History Confirmed 02/28/20] ergocalciferol (vitamin D2) 1,250 mcg (50,000 unit) capsule PO 02/28/20 [History Confirmed 02/28/20] [facility] Medical History Bilateral inguinal hernia without obstruction or gangrene (Acute) Essential (primary) hypertension (Chronic) Hypercholesteremia (Chronic) Chronic kidney disease, stage 4 (severe) (Chronic) Anxiety (Chronic) History of diverticulitis (Resolved) White coat syndrome with hypertension (Resolved) Myocardial infarction (Inactive) Surgical History History of right inguinal hernia repair (Acute ~01/08/20) History of colonoscopy (Resolved 2009) History of colostomy reversal (Resolved) History of partial colectomy (Resolved) Family History Mother Heart disease Father Hypertension Cardiac arrest Social History (Updated 02/28/20 @ 10:[address] Ronen Joiner MD) Smoking Status: Former smoker quit date: 09/25/18 pack-years: 65 alcohol intake: current alcohol intake frequency: a few times a month substance use type: does not use caffeine: Yes what type of physical activity do you participate in: none frequency: does not exercise HPI HPI HPI: JOSELITO LAWSON is a 64 M who presents to the office today for HPI HPI Surgical H&P: Yes HPI: JOSELITO LAWSON is a 64 M who presents to the office today for surgical consultation regarding placement of an arteriovenous fistula for hemodialysis. This is a separate and completely unrelated office appointment during a postoperative period. On January 08, 2020 the patient had a Snow right inguinal herniorrhaphy per myself. That was for a significantly symptomatic right inguinal hernia. He still has a non-surgically treated left inguinal hernia which is intermittently symptomatic. It is felt however that his need for potential hemodialysis secondary to his stage IV chronic renal insufficiency is now of prime concern. There is stage IV disease is chronic and not related to his recent surgical intervention. On February 26, 2020 the patient had bilateral upper extremity vein mapping as noted below. The patient states that he is ambidextrous but more right-handed. It is of note that he has no specific complaints regarding the right inguinal hernia repair at this time. The patient is referred by his carpentry specialist Dr. Karina Ervin and a written copy of my surgical consult and recommendations will be returned to her. The patient's GFR is currently 12 cc/min based upon laboratory February 11, 2020 MR#: [id number]:[id number] Name:JOSELITO LAWSON [facility] #:[id number] : 1955 64From:Ronen Joiner MD Attending Dr: OSMAN Driscolltatus: REG CLI Ordering Dr: Ronen Joiner MDDate: 02/26/20 [facility] Admitted: Reason For Study: CKD, Pre op Right Arm Left Arm Right cephalic vein is compressible. Left cephalic vein is compressible. Right Cephalic Vein at the shoulder Left Cephalic Vein at the shoulder measures .41 x .44 cm. measures .38 x .39 cm. Right Cephalic Vein mid bicep measures .46 Left Cephalic Vein at mid bicep measures .4 x .51 cm. x .37 cm. Right Cephalic Vein above antecub Left Cephalic Vein above antecub measures .53 measures .52 x .55 cm. x .54 cm. Right Cephalic Vein below antecub Left Cephalic Vein below antecub measures .46 measures .23 x .27 cm. x .44 cm. Right Cephalic Vein in the forearm Left Cephalic Vein in the forearm measures .23 x .25 cm. measures .36 x .37 cm. Right Cephalic Vein at the wrist measures .2 Left Cephalic Vein at the wrist measures .36 x .23 cm. x .37 cm. Right basilic vein is compressible. Left basilic vein is compressible. Right Basilic Vein mid bicep measures .36 Basilic vein at bicep measures .27 x .31 cm. x .37 cm. Basilic vein above antecub measures .34 x .34 Right Basilic Vein above antecub measures .36 cm. x .42 cm. Basilic vein below antecub measures .16 x .16 Right Basilic Vein below antecub measures .26 cm. x .3 cm. Basilic vein in the forearm measures .16 Right Basilic Vein in the forearm x .15 cm. measures .21 x .23 cm. Basilic vein at the wrist measures .11 x .11 Right Basilic Vein at the wrist measures .15 cm. x .16 cm. Brachial Artery .57 x .50 cm. Brachial Artery .51 x .56 cm. Brachial Artery 138.1 cm/s. Brachial Artery 109.0 cm/s. Radial Artery .23 x .26 cm. Radial Artery .22 x .22 cm. Radial Artery 108.7 cm/s. Radial Artery 88.1 cm/s. Interpretation Summary Patent, compressible bilateral cephalic and basilic veins with dimensions as noted. Adequate diameter and flow bilateral radial and brachial arteries ROS General General: No weight change, appetite, fatigue, colon cancer, breast cancer or weakness HEENT HEENT: No difficulty swallowing, eye injury, eye surgery, swollen glands or hoarseness Endo Endocrine: No thyroid disease, diabetes mellitus, thyroid cancer, Hair loss, heat intolerance or cold intolerance Skin Skin: No rash or changing moles Breast Breast: No left breast lump, right breast lump, nipple discharge, breast pain, abnormal mammogram, abnormal US or breast enlargement Musc Musculoskeletal: Yes back problems; no arthritis, rheumatoid arthritis, gout or joint pain Cardio Cardiovascular: Yes high blood pressure and heart attack; no murmur, pacemaker, heart disease, atrial fibrillation, heart stent, palpitations, shortness of breat with exertion or chest pain Psych Psychiatric: Yes depression; no anxiety or hearing voices Resp Respiratory: Yes shortness of breath, No sleep apnea, No cough, No COPD, No asthma, No emphysema, No wheezing Gastro Gastrointestinal: No abdominal pain, No nausea or vomiting, No diarrhea, No constipation, No blood in stool, No acid reflux, No hemorrhoids, No ulcers, No gallbladder problem, No black,tarry stools Bean Hematologic: No blood thinners, No blood disorders, No bleeding, No anemia, No blood clots Neuro Neurologic: No weakness Exam Const General: cooperative, comfortable, no acute distress Nutritional Appearance: average body habitus Orientation: alert, awake, oriented x3 HENMT Head: normal to inspection Eyes General: appearance normal, both eyes and all related structures Chest Breast Palpation: No nipple discharge Resp Effort & Inspection: normal respiratory effort Auscultation: clear to auscultation bilaterally Cardio Rate: regular rate Rhythm: regular rhythm Heart Sounds: no murmurs GI Palpation: soft, no hepatosplenomegaly Auscultation: normal bowel sounds Neuro General: alert, awake Cognition: normal cognition Extrem Other: Left upper extremity visualized with ultrasound. The cephalic vein is of nice diameter and is patent and compressible. 3+ left radial artery. Normal ulnar flow Psych Affect: normal affect Assessment & Plan Problems 1. Chronic kidney disease, stage 4 (severe) N18.4 Plan I had a discussion with the patient today regarding dialysis access. It is of note that the patient's had a previous history of perforated diverticulitis requiring a Kartik procedure diverting colostomy and subsequently had a takedown of the colostomy. It is for that reason that I did not offer him a laparoscopic repair of bilateral inguinal hernias simultaneously. It is for that reason that we performed an open Snow right inguinal herniorrhaphy. The patient inquires at this setting regarding peritoneal dialysis catheters. Again based upon his previous history I would have concerns about the potential of a hostile abdomen. He also is presenting during the pandemic. In order to put laparoscopic catheters in he would have to be under general anesthetic potentially placing all operative personnel at risk. My proposal for him is a left forearm radial to cephalic arteriovenous hemodialysis fistula creation which can be done under monitored anesthesia care and local anesthetic. I have described the technique, benefit, risk, alternatives. No guarantees of success have been offered. He has had an opportunity to ask and have questions answered. We will schedule and proceed at his discretion Procedure essential: Yes On 02/04/2020 the [place] Department of Health ([facility]) Public Order signed by [facility] Director Denise Walker M.D., regarding the Management of Non-Essential Surgeries and Procedures for the purpose of preserving Personal Protective Equipment (PPE) and critical hospital capacity and resources within [place] went into effect as of 02/05/2020 at 5:00PM. According to the [facility] Public Order: This action will remain in full force and effect until the State of Emergency declared by the Governor no longer exists or the Director of the [facility] rescinds or modifies this Order. This [facility] order stated all non-essential or elective surgeries and procedures that utilize PPE should be delayed unless there is undue risk to the current or future health of a patient. After reviewing the aforementioned [facility] Public Order and the patients clinical case, I have determined that the scheduled procedure meets the criteria to go forward. Reason for performing procedure: There is a threat to the patient?s life if the surgery or procedure is not performed. There is a threat of permanent dysfunction of an extremity or organ system. There is a risk of metastasis or progression of staging. There is a risk of rapidly worsening to severe symptoms (time sensitive). Avoidance of placing tunneled dialysis catheters placing operative personnel at the head neck and placing prosthetic device increasing his risk for infection and sepsis to be avoided. Cc: Dr. Karina Joiner M.D., F.A.C.S. Medications Discontinued: aspirin Discontinued Reason: Pt no longer taking 81 mg PO DAILY Coding Level of Care Code Attention Manager Project Diagnoses Chronic kidney disease, stage 4 (severe) N18.4 Comment [id number] 02/28/20 1024 <Electronically signed by Ronen ba MD> Date _ Ronen Joiner MD I have re-examined the patient. There are no clinical changes since date of exam.
[2020-03-09 06:43] VITALS: BP 168/66; PULSE 57; RESP 16; TEMP 37.1; O2SAT 98; BMI 27.6
[2020-03-09] MEDS: 0.45% Normal Saline 1,000 ML 15 ML IV (06:50)
--- NOTE | 2020-03-09 07:31 | DCINST_ITS ---
Discharge Diet: Renal Diet Discharge Activity: May Not Drive - for 2-3 days or while taking narcotic pain medications., May Shower, May Take a Tub Bath - in 5 days. Lifting Restrictions: 5 pounds Keep extremity elevated above heart level: - - Keep arm elevated above the heart level for 3 days. Additional Activity Instructions:: Exercise hand vigorously with a stress ball. Call your doctor if your incision/area has: Continuous Slow Oozing, Sudden Increased Bleeding - apply pressure and call your doctor., Increased Pain/ Swelling, Increased Redness, Foul Smelling Discharge Call your doctor if you observe: Fever of 101 or Higher Suture Line Care: Avoid Pulling/Pushing, Avoid Pinching/Bending Cleanse incision/area with: Keep Dressing Clean & Dry Additional Dressing/Incision Instructions:: Change or remove dressing in two days. May protect with a gauze bandaid. You may remove the steri strips in 8 days. Allergies/Adverse Reactions: Allergies atorvastatin [From Lipitor] Adverse Reaction (Verified 03/05/20 10:42) unstable gait, myalgia rosuvastatin [From Crestor] Adverse Reaction (Verified 03/05/20 10:42) unstable gait, myalgia Medications to take at Discharge amlodipine 10 mg tablet 10 mg PO DAILY 05/09/19 sertraline 50 mg tablet 50 mg PO DAILY 05/09/19 Bisoprolol/Hydrochlorothiazide [Bisoprolol-Hctz 10-6.25 mg Tab] 1 ea PO DAILY 08/20/19 clonidine HCl 0.1 mg tablet 0.1 mg PO BID tab 11/06/19 ergocalciferol (vitamin D2) 1,250 mcg (50,000 unit) capsule 1,250 mg PO DAILY 02/28/20 Primary Care Physician: Damion Leroy Chi, MD [Primary Care Provider] - Test Results: Test results from this visit will be discussed in further detail at your follow- up appointment, if applicable. Please Follow Up With: Ronen Joiner MD - [phone] When: Call to make an appointment for suture removal and follow up in 3 weeks.
[2020-03-09] MEDS: Heparin Injection (Vial) 5,000 UNIT/ML VIAL 5000 UNIT (08:00)
[2020-03-09] MEDS: Bupivacaine Mpf 0.5% 30 ML VIAL (08:40)
--- NOTE | 2020-03-09 08:44 | OP.PCM_ITS ---
Problem List (1) Chronic kidney disease, stage 4 (severe) Status: Chronic Report of Operation Date of Procedure: 03/09/20 Pre-Operative Diagnosis: Stage IV chronic renal insufficiency unrelated to recent hernia repair Post-Operative Diagnosis: Same Surgery/Procedure Performed:: Left forearm radiocephalic arteriovenous fistula creation Description of Surgical Findings:: Timeout and informed consent was obtained. 64-year-old gent was taken the operating placed by the table. He underwent monitored anesthesia care. Clean case no antibiotics required. The left forearm was sterilely prepped and draped. 1% lidocaine mixed 50-50 with 0.5% Marcaine was used as a local anesthetic. Throughout the procedure a total of 10 cc was used. A transverse oblique incision was made the radial aspect of the left forearm sharp blunt dissection was used to identify the cephalic vein it was circumferentially dissected free and then it was marked. Sharp and blunt dissection was used to identify the radial artery. This was carefully elevated. The patient then received 8000 units of heparin weight-based. The vein was secured distally with a Hemoclip. It was spatulated. Peripheral vascular clamps were placed on the radial artery. A 11 blade was used to make an arteriotomy which was extended with Dye scissors. A end-to-side anastomosis created with a running 7-0 Prolene. Prior to completion of there is good antegrade retrograde flow. The anastomosis was completed. There was good flow of the fistula. The hand appeared to be nice and viable. Subcutaneous flaps were raised so as to not interfere with the fistula and the vein was slightly mobilized to allow for even better position alignment. The wound was closed with a deep layer of interrupted 3-0 Vicryl. Skin edges ap proximated running septic or 4-0 Monocryl. Steri-Strips Telfa OpSite dressings applied. Sponge and instrument and needle counts reported to the surgeon to be correct. Specimens none. Blood loss minimal. Drains none. The patient was taken to the recovery area at the sites of the condition without apparent complication Ronen Joiner M.D., F.A.C.S. Type of Anesthesia:: Local MAC Anesthesiologist: Kathia Kirkland
[2020-03-09 08:51] VITALS: BP 166/98; BP 168/66; PULSE 57; RESP 20; TEMP 36.4; O2SAT 100
[2020-03-09 08:55] VITALS: BP 168/66; BP 187/64; PULSE 60; RESP 16; O2SAT 100
[2020-03-09 09:00] VITALS: BP 168/66; BP 185/78; PULSE 57; RESP 16; O2SAT 99
[2020-03-09 09:06] VITALS: BP 168/66; BP 191/77; PULSE 58; RESP 16; TEMP 36.6; O2SAT 99
[2020-03-09] MEDS: Acetaminophen 325 MG Tablet 650 MG PO (09:39)
[2020-03-09 10:11] VITALS: BP 168/66
== END 2020-03-09 10:15 | disposition home or self-care (01) ==
LOC: SDC 06:02 → AC 06:04
PROVIDERS: PCP Family Medicine Geriatric Medicine; Referring Provider Surgery; Visit Provider Surgery
PROC: (CPT 36821; principal; 2020-03-09 07:15)
DX: I12.9 Hypertensive chronic kidney disease with stage 1 through stage 4 chronic kidney disease, or unspecified chronic kidney disease (principal); N18.4 Chronic kidney disease, stage 4 (severe); Z99.2 Dependence on renal dialysis; K40.90 Unilateral inguinal hernia, without obstruction or gangrene, not specified as recurrent; E78.00 Pure hypercholesterolemia, unspecified; G47.30 Sleep apnea, unspecified; F32.9 Major depressive disorder, single episode, unspecified; F41.9 Anxiety disorder, unspecified; Z79.82 Long term (current) use of aspirin; Z79.899 Other long term (current) drug therapy; I25.2 Old myocardial infarction; Z87.891 Personal history of nicotine dependence
CPT/HCPCS: 36821

== ENCOUNTER → 2020-04-20 13:23 | Outpatient (CLI) | payer MEDICARE, OTHER, SELFPAY ==
[2020-04-20 12:57] VITALS: BMI 27.6
[2020-04-20 15:08] LABS: Hematocrit 33.5 % (40-54); Hemoglobin 10.9 g/dL (13.0-16.5); Mean Corp Hgb Conc 32.5 g/dL (32-36); Mean Corpuscular Hgb 30.5 pg (27.0-32.0); Mean Corpuscular Volume 93.8 fL (80-94); Mean Platelet Vol. 11.5 fl (6.2-12.0); Platelet Count 250 K/mm3 (150-450); RBC Distribution Width CV 12.7 % (11.6-14.6); RBC Distribution Width SD 43.6 fl (35.1-43.9); Red Blood Count 3.57 M/mm3 (4.6-6.2); White Blood Count 5.8 K/mm3 (4.4-11.0)
[2020-04-20 15:57] LABS: Albumin, Serum 3.1 g/dL (3.2-5.0); BUN 88 mg/dL (7-18); BUN/Creat Ratio 14.8 RATIO (10-20); Calcium,Total 8.4 mg/dL (8.5-10.1); Chloride 107 mmol/L (98-107); Creatinine, Serum 5.95 mg/dL (0.70-1.30); EST Glomerular Filtration Rate 10 mL/min (>60); Est Glom Filt Rate - Afr Amer 12 mL/min (>60); Glucose 91 mg/dL (74-106); Phosphorus 5.2 mg/dL (2.5-4.9); Potassium 4.5 mmol/L (3.5-5.1); Sodium Level 141 mmol/L (136-145)
[2020-04-21 09:27] LABS: PTHIN 256.3 pg/mL (18.4-80.1)
== END ==
PROVIDERS: PCP Family Medicine Geriatric Medicine; Referring Provider Internal Medicine Nephrology; Visit Provider Internal Medicine Nephrology
DX: N18.4 Chronic kidney disease, stage 4 (severe) (principal); D64.9 Anemia, unspecified; N25.81 Secondary hyperparathyroidism of renal origin
CPT/HCPCS: 36415; 80069; 83970; 85027

== ENCOUNTER → 2020-05-27 15:31 | Outpatient (CLI) | payer MEDICARE, OTHER, SELFPAY ==
[2020-04-20 12:57] VITALS: BMI 27.6
[2020-05-27 15:54] LABS: Hematocrit 33.6 % (40-54); Hemoglobin 11.1 g/dL (13.0-16.5); Mean Corpuscular Hgb 30.6 pg (27.0-32.0); Mean Corpuscular Volume 92.6 fL (80-94); Mean Platelet Vol. 10.5 fl (6.2-12.0); Platelet Count 238 K/mm3 (150-450); RBC Distribution Width CV 12.5 % (11.6-14.6); RBC Distribution Width SD 43.2 fl (35.1-43.9); Red Blood Count 3.63 M/mm3 (4.6-6.2); White Blood Count 6.1 K/mm3 (4.4-11.0)
[2020-05-27 16:33] LABS: Albumin, Serum 3.1 g/dL (3.2-5.0); BUN 91 mg/dL (7-18); BUN/Creat Ratio 14.5 RATIO (10-20); Calcium,Total 8.1 mg/dL (8.5-10.1); Chloride 107 mmol/L (98-107); Creatinine, Serum 6.26 mg/dL (0.70-1.30); EST Glomerular Filtration Rate 10 mL/min (>60); Est Glom Filt Rate - Afr Amer 12 mL/min (>60); Glucose 105 mg/dL (74-106); Phosphorus 5.2 mg/dL (2.5-4.9); Sodium Level 139 mmol/L (136-145)
[2020-05-28 09:13] LABS: PTHIN 245.6 pg/mL (18.4-80.1)
[2020-05-28 09:31] LABS: Hepatitis B Surface Antigen Non-Reactive (Nonreactive)
== END ==
PROVIDERS: PCP Family Medicine Geriatric Medicine; Referring Provider Internal Medicine Nephrology; Visit Provider Internal Medicine Nephrology
DX: N18.5 Chronic kidney disease, stage 5 (principal); N25.81 Secondary hyperparathyroidism of renal origin
CPT/HCPCS: 36415; 80069; 83970; 85027; 87340

== ENCOUNTER → 2020-11-11 17:15 | Outpatient (CLI) | payer MEDICARE, OTHER, SELFPAY ==
[2020-04-20 12:57] VITALS: BMI 27.6
== END ==
PROVIDERS: PCP Family Medicine Geriatric Medicine; Visit Provider Internal Medicine Nephrology
DX: U07.1 COVID-19 (principal)
CPT/HCPCS: 87635; C9803; U0003

== ENCOUNTER → 2020-12-02 14:43 | Outpatient (CLI) | payer MEDICARE, OTHER, SELFPAY ==
[2020-04-20 12:57] VITALS: BMI 27.6
[2020-12-02 16:37] LABS: Absolute Lymphocyte Count 1.88 X10^3/uL (0.83-4.51); Absolute Neutrophil Count 3.6 X10^3/uL (2.0-7.7); Basophil# 0.04 X10^3/uL; Basophil% 0.6 % (0-1); Eosinophil# 0.31 X10^3/uL; Eosinophils% 4.9 % (0-5); Hematocrit 30.1 % (40-54); Hemoglobin 10.5 g/dL (13.0-16.5); Lymphocyte # 1.88 X10^3/ul (4.0); Lymphocyte % 29.7 % (19-41); Mean Corp Hgb Conc 34.9 g/dL (32-36); Mean Corpuscular Volume 97.4 fL (80-94); Mean Platelet Vol. 10.4 fl (6.2-12.0); Monocyte# 0.52 X10^3/uL; Monocyte% 8.2 % (0-10); NRBC Flagged by Analyzer 0 % (0-5); Neutrophil # 3.55 X10^3/uL (2.7-7.7); Platelet Count 302 K/mm3 (150-450); RBC Distribution Width CV 12.5 % (11.6-14.6); RBC Distribution Width SD 43.3 fl (35.1-43.9); Red Blood Count 3.09 M/mm3 (4.6-6.2); White Blood Count 6.3 K/mm3 (4.4-11.0)
[2020-12-02 17:16] LABS: Vitamin D,25 Hydroxy 51.4 ng/mL
[2020-12-02 17:21] LABS: ALB/GLOB Ratio 0.8 RATIO (0.9-2.4); AST(SGOT) 13 U/L (15-37); Alanine Aminotransfer ALT/SGPT 26 U/L (16-61); Albumin, Serum 3.5 g/dL (3.2-5.0); Alkaline Phosphatase 84 U/L (45-117); Anion Gap 10 (5-15); BUN 66 mg/dL (7-18); BUN/Creat Ratio 8.3 RATIO (10-20); Calcium,Total 8.7 mg/dL (8.5-10.1); Chloride 103 mmol/L (98-107); Creatinine, Serum 7.96 mg/dL (0.70-1.30); EST Glomerular Filtration Rate 7 mL/min (>60); Est Glom Filt Rate - Afr Amer 9 mL/min (>60); Globulin 4.2 g/dL (2.2-4.2); Glucose 89 mg/dL (74-106); Protein, Total 7.7 g/dL (6.4-8.2); Sodium Level 136 mmol/L (136-145); Thyroid Stim Hormone (TSH) 1.04 uIU/mL (0.358-3.74)
== END ==
PROVIDERS: PCP Family Medicine Geriatric Medicine; Visit Provider Family Medicine Geriatric Medicine
DX: I10 Essential (primary) hypertension (principal); E55.9 Vitamin D deficiency, unspecified; Z12.5 Encounter for screening for malignant neoplasm of prostate
CPT/HCPCS: 36415; 80053; 82306; 84153; 84443; 85025; G0103

== ENCOUNTER 2020-12-28 01:29 | Inpatient (IN) | payer MEDICARE, OTHER, SELFPAY ==
[2020-04-20 12:57] VITALS: BMI 27.6
[2020-12-28] VITALS (45 sets, daily range): BP systolic 100–181; BP diastolic 45–106; PULSE 91–130; RESP 12–36; TEMP 35.7–37.1; O2SAT 89–100; BMI 27.2; BMI 26.6
--- NOTE | 2020-12-28 01:34 | RAD_ITS ---
STUDY: X-RAY CHEST REASON FOR EXAM: Male, 65 years old. C/O SOB AND BACK PAIN TECHNIQUE: Single AP portable view of the chest. COMPARISON: None. FINDINGS: The lungs are normally expanded with bilateral diffuse interstitial opacities and curly B lines consistent with interstitial pneumonia versus interstitial pulmonary edema. There is no demonstrated pleural abnormality. There is borderline cardiomegaly. Normal mediastinum and prince. Normal visualized pulmonary arteries. There is atherosclerotic calcification of the aortic arch with tortuosity. Normal visualized thoracic spine. There is degenerative osteoarthritis of the bilateral shoulders. There is no demonstrated abnormality of the visualized soft tissue structures of the upper abdomen. RAD/Chest 1 View (Portable) IMPRESSION: Diffuse interstitial pneumonitis versus interstitial pulmonary edema, clinical correlation recommended. Electronically Signed: Enedelia Arriola MD at 1:58 EST , Service support ,
--- NOTE | 2020-12-28 01:34 | EKG12_ITS ---
Test Reason : REPEAT Blood Pressure : / mmHG Vent. Rate : 123 BPM Atrial Rate : 123 BPM P-R Int : 152 ms QRS Dur : 112 ms QT Int : 324 ms P-R-T Axes : 065 054 248 degrees QTc Int : 463 ms Sinus tachycardia Incomplete left bundle branch block Left ventricular hypertrophy with repolarization abnormality Abnormal ECG Confirmed by CRAMEN LIVE, ANNIKA ([id number]), deputy editor in chief TREY ELIZONDO ([id number]) on 12/29/2020 8:27:07 AM Referred By: CLARA Confirmed By:ANNIKA MORALES MD
--- NOTE | 2020-12-28 01:45 | ED.VISSUMM ---
- ER Visit Summary Date of Service: 12/28/20 Chief Complaint: Shortness of breath History of Present Illness: The patient is a 65 M who presents with shortness of breath. He states that started this afternoon. He states that shortness of breath is worse with exertion and better with rest. He denies a cough or fever. He has no other URI-like symptoms. He denies any chest pain but does state he has some burning. This started only after he vomited on the car on the way here. He was positive for coronavirus in October along with his . He has a history of end-stage renal disease and he was on dialysis but he states he stopped it 1 month ago because he felt fine and did not return for any subsequent dialysis treatments. [place] any leg swelling. Physical Examination: Vital signs reviewed. HEENT exam unremarkable. Heart is tachycardic and regular rhythm without murmurs. Lungs have rales in the bases bilaterally. The patient is also tachypneic. Abdomen is soft and nontender. Extremities reveal no edema. Skin exam normal. Neurologic exam normal. Test Results: ABG shows a pH of 7.38/26/63/15.7. EKG is sinus tachycardia with a rate of 122. There are nonspecific ST-T wave changes with some lateral ST depressions. Chest x-ray shows interstitial pneumonitis versus pulmonary edema. Hemoglobin is 10.3, potassium 5.5, BUN 84 and creatinine 9.25. Creatinine glucose 148. INR 1.2. D-dimer 0.89 and troponin is 4.21. BNP is 2593. CTA of the chest shows no evidence of PE or dissection. There are bilateral pleural effusions and CHF noted. Emergency Department Course and Treatment: Upon arrival the patient was placed on nasal cannula oxygen. His initial chest x-ray showed either interstitial pneumonitis or pulmonary edema. My concern is with his recent Covid diagnosis is that he could be in CHF due to a possible PE. He does have EKG changes as well. Once his laboratory studies returned with a high troponin patient was given aspirin and started on a heparin infusion. When he returned from CAT scan his respiratory rate increased and his pulse ox dropped into the high 80s on nasal cannula oxygen. He was then started on BiPAP and was given sublingual nitroglycerin and morphine. His heart rate went down to the 1 teens and his respiratory rate improved. I did discuss with cardiology, Dr. Davis. He was in agreement with the current treatment plan but did not want any antiplatelet started until after cardiac catheterization will be performed later this morning. An echocardiogram was also recommended as well. I did discuss with the hospitalist for an ICU admission. He requested I speak with nephrology. I did speak with his front end developer javascript html css, Dr. Ervin. She is aware that the patient has been noncompliant with his dialysis. Since his respiratory status is stable on BiPAP and his heart rate is decreasing she is going to set up for dialysis to be done later this morning as I do not feel it needs to be emergently performed currently at 3:45 AM. The patient will be admitted to ICU on BiPAP. Treatment Plan: [] Disposition: Admit Impression: NSTEMI, CHF, acute respiratory failure Critical care time 55 minutes This note was generated with [employer] dictation software. It may contain incorrect words, spelling, and punctuation that were not noted in review of the chart prior to signing ED Disposition - Plan for ED Patient: Referrals: Damion Leroy Chi, MD [Primary Care Provider] -
[2020-12-28 01:56] LABS: Absolute Neutrophil Count 8.9 X10^3/uL (2.0-7.7); Basophil# 0.03 X10^3/uL; Basophil% 0.3 % (0-1); Eosinophil# 0.03 X10^3/uL; Eosinophils% 0.3 % (0-5); Hematocrit 30.8 % (40-54); Hemoglobin 10.3 g/dL (13.0-16.5); Lymphocyte % 9.1 % (19-41); Mean Corp Hgb Conc 33.4 g/dL (32-36); Mean Corpuscular Hgb 33.1 pg (27.0-32.0); Mean Platelet Vol. 10.5 fl (6.2-12.0); Monocyte# 0.96 X10^3/uL; Monocyte% 8.8 % (0-10); NRBC Flagged by Analyzer 0 % (0-5); Platelet Count 224 K/mm3 (150-450); RBC Distribution Width CV 13.7 % (11.6-14.6); RBC Distribution Width SD 49.8 fl (35.1-43.9); Red Blood Count 3.11 M/mm3 (4.6-6.2)
[2020-12-28 02:06] LABS: Allen Test Positive; Base Excess -10 mmol/L (-2 to +2); Bicarbonate 15.7 mmol/L (22-26); Blood Gas Specimen Type ART; FI02 21; PO2 63 mmHG (75-100); SITE R Radial; SO2 92 % (95-99); Total Carbon Dioxide 17 mmol/L; pCO2 26.8 mmHg (35-45); pH 7.38 (7.35-7.45)
[2020-12-28 02:06] LABS: International Normalized Ratio 1.2; Prothrombin Time (Protime)PT. 15.1 SECONDS (11.7-14.9)
[2020-12-28 02:13] LABS: Partial Thromboplast Time 31.9 Seconds (24.1-36.2)
[2020-12-28 02:14] LABS: D-Dimer Quantitative (DVT/PE) 0.89 FEU/ug/m (0.27-0.49)
[2020-12-28 02:20] LABS: ALB/GLOB Ratio 0.9 RATIO (0.9-2.4); AST(SGOT) 37 U/L (15-37); Alanine Aminotransfer ALT/SGPT 22 U/L (16-61); Albumin, Serum 3.8 g/dL (3.2-5.0); Alkaline Phosphatase 80 U/L (45-117); Anion Gap 11 (5-15); BUN 84 mg/dL (7-18); BUN/Creat Ratio 9.1 RATIO (10-20); Calcium,Total 9.2 mg/dL (8.5-10.1); Chloride 107 mmol/L (98-107); Creatinine, Serum 9.25 mg/dL (0.70-1.30); EST Glomerular Filtration Rate 6 mL/min (>60); Est Glom Filt Rate - Afr Amer 7 mL/min (>60); Estimated Creatinine Clearance 8.11 ml/min; Globulin 4.4 g/dL (2.2-4.2); Glucose 148 mg/dL (74-106); Potassium 5.5 mmol/L (3.5-5.1); Protein, Total 8.2 g/dL (6.4-8.2); Sodium Level 136 mmol/L (136-145)
--- NOTE | 2020-12-28 02:23 | CT_ITS ---
STUDY: CTA CHEST REASON FOR EXAM: Male, 65 years old. SOB/ELEV DDIMER.Hx of HTN, HLD, [place] and dialysis RADIATION DOSAGE (If Supplied By Facility): CTDIvol = ( 10.34 ) mGy, DLP = ( 537.37 ) mGycm TECHNIQUE: The examination was performed with the intravenous administration of IV 100mL Isovue-370. Post-processing of the angiographic images was performed, with multiplanar reformation and 3D reconstruction. Individualized dose optimization techniques were used for this CT. COMPARISON: None. FINDINGS: Normal enhancement of the main pulmonary artery and right and left pulmonary arteries. Normal enhancement of the bilateral peripheral pulmonary arteries. There is no demonstrated pulmonary embolism. There is atherosclerotic calcification of the aortic arch with tortuosity. There is no demonstrated aortic dissection. Normal heart and pericardium. Normal mediastinum. Normal hilar regions. Normal visualized trachea and bronchi. The lungs are well expanded. Diffuse interstitial thickening through the subcarinal region with airspace disease suggestive of pulmonary edema. Patchy groundglass opacities scattered through the lung aguilar and bilateral lower lobes does not exclude superimposed multifocal pneumonitis. Mild to moderate bilateral pleural effusions, right larger than left. Normal chest wall structures. Normal osseous structures. Normal visualized upper abdomen. CT/CTA Chest W/WO Contrast IMPRESSION: Negative CTA chest examination, without a demonstrated pulmonary embolism or arterial dissection. Bilateral pleural effusions with likely congestive heart failure/interstitial pulmonary edema. Possible superimposed multifocal pneumonitis. Clinical correlation recommended. Electronically Signed: Enedelia Arriola MD at 3:16 EST , Service support ,
[2020-12-28] MEDS: Aspirin 81 MG TAB.CHEW 324 MG PO (02:45)
[2020-12-28] MEDS: HEPARIN/D5w 25,000 UNITS 25,000 UNITS/250 ML IV.SOLN. 12 UNITS IV (02:47)
[2020-12-28] MEDS: Heparin Injection (Vial) 5,000 UNIT/ML VIAL 6000 UNIT IV (02:49)
--- NOTE | 2020-12-28 03:01 | ED.RN ---
pt's pulse ox 86 percent,resp 30's. o2 was increased to 5l nc. md made aware. order to place pt on bipap. rt made aware.
[2020-12-28] MEDS: Morphine 4 MG/ML Syringe IV (03:07)
[2020-12-28] MEDS: Nitroglycerin SL (ED/IMG/CATH) 0.4 MG TABLET SUBLINGUAL (03:09)
--- NOTE | 2020-12-28 03:13 | ED.RN ---
PT ON BIPAP FI02 45%, I--18,E--9, PULSE OX 93%.
--- NOTE | 2020-12-28 03:32 | CPS ---
increased fio2 to 55% due to low sat-dr aware
[2020-12-28] MEDS: Nitroglycerin Oint 1 INCH PACKET TD (04:14)
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
[2020-12-28] MEDS: Ondansetron 4 MG/2 ML Vial IV (04:30)
--- NOTE | 2020-12-28 04:44 | EKG12_ITS ---
Test Reason : CP Blood Pressure : / mmHG Vent. Rate : 122 BPM Atrial Rate : 122 BPM P-R Int : 140 ms QRS Dur : 110 ms QT Int : 342 ms P-R-T Axes : 051 023 197 degrees QTc Int : 487 ms Sinus tachycardia Possible Left atrial enlargement Left ventricular hypertrophy with repolarization abnormality Abnormal ECG Confirmed by CARMEN LIVE, ANNIKA ([id number]), editor index TREY ELIZONDO ([id number]) on 12/29/2020 8:27:21 AM Referred By: CLARA Confirmed By:ANNIKA MORALES MD
[2020-12-28 04:54] LABS: Cholesterol 267 mg/dL (200); High Density Lipoprotein 56 mg/dL; Triglycerides 141 mg/dL; Very Low Density Lipoprotein 28 mg/dL (5-40)
[2020-12-28] MEDS: Morphine 2 MG/ML Syringe IV (05:06)
[2020-12-28] MEDS: 0.9% Saline Lock 10 ML Syringe IV ×3 (05:10→13:10)
[2020-12-28 05:50] LABS: Reflex Lactate? Y
--- NOTE | 2020-12-28 06:54 | PCS.PANDOC ---
PANDEMIC DOCUMENTATION INITIATED: Date: 12/28/20 Time: 042
--- NOTE | 2020-12-28 07:29 | PN_ITS ---
Patient Problems: Active and Suspected Problems (Last Reviewed 12/28/20 @ 05:[address] Raul Griffin MD) Flash pulmonary edema (Acute) Non-STEMI (non-ST elevated myocardial infarction) (Acute) Heart failure with preserved ejection fraction (Acute) End stage renal disease (Acute) Reason for Visit: Acute congestive heart failure Pulmonary edema Acute non-STEMI Subjective: Patient is a 65-year-old gentleman with multiple comorbidities admitted with aggressive shortness of breath and assessment of acute congestive heart failure made admitted to the intensive care unit for further management Objective: GENERAL: cooperative HEENT: Atraumatic; EYES; Anicteric, Normal Conjunctiva NECK; supple, normal thyroid, RESPIRATORY: Diminished to auscultation CARDIOVASCULAR: Regular S1 S2, GI: soft, normoactive bowel sounds, : No Renal angle tenderness; EXTREMITIES: No edema, no clubbing, MUSCULOSKELETAL: no muscle waisting NEURO: Awake; no lateralizing signs. SKIN: No Rash PSYCH; Flat affect Vitals/I&O's: Vital Signs Temp Pulse Resp BP Pulse Ox 96.2 F L 91 17 119/67 98 12/28/20 04:45 12/28/20 06:30 12/28/20 06:30 12/28/20 06:30 12/28/20 06:30 Oxygen Flow Rate (L/min) 6 Oxygen Delivery Method Bi-pap Weight: 84.1 kg Body Mass Index (BMI) 26.6 Intake and Output for Last 24 Hours 12/26/20 12/27/20 12/28/20 23:59 23:59 23:59 Intake Total 23.6 / 23.6 Output Total 0 / 0 Balance 23.6 / 23.6 Laboratory Results 12/28/20 01:45: WBC 11.0, RBC 3.11 L, Hgb 10.3 L, Hct 30.8 L, MCV 99.0 H, MCH 33.1 H, MCHC 33.4, RDW Std Deviation 49.8 H, RDW Coeff of Steven 13.7, Plt Count 224, MPV 10.5, Immature Gran % (Auto) 0.500, Neut % (Auto) 81.0 H, Lymph % (Auto) 9.1 L, [place] % (Auto) 8.8, Eos % (Auto) 0.3, Baso % (Auto) 0.3, Absolute Neuts (auto) 8.9 H, Absolute Lymphs (auto) 1.00, Nucleated RBC % 0 12/28/20 01:45: PT 15.1 H, INR 1.2, APTT 31.9, D-Dimer Quant (PE/DVT) 0.89 H* 12/28/20 01:45: Sodium 136, Potassium 5.5 H, Chloride 107, Carbon Dioxide 18.0 L , Anion Gap 11, BUN 84 H, Creatinine 9.25 H*, Estim Creat Clear Calc 8.11, Est GFR (MDRD) Af Amer 7 L, Est GFR (MDRD) Non-Af 6 L, BUN/Creatinine Ratio 9.1 L, Glucose 148 H, Calcium 9.2, Total Bilirubin 0.60, AST 37, ALT 22, Alkaline Phosphatase 80, Troponin I 4.210 H*, Total Protein 8.2, Albumin 3.8, Globulin 4.4 H, Albumin/Globulin Ratio 0.9 12/28/20 01:45: Lactic Acid 2.0 12/28/20 01:45: B-Natriuretic Peptide 2593.0 H 12/28/20 01:45: Triglycerides 141, Cholesterol 267 H, LDL Cholesterol 183 H, VLDL Cholesterol 28, HDL Cholesterol 56 12/28/20 02:00: Specimen Type ART, Sample Site R Radial, pH 7.38, Bicarbonate Actual 15.7 L, Total CO2 17, Base Excess -10 L, O2 Saturation 92 L, O2 % 21, ABG pCO2 26.8 L, ABG pO2 63 L, Sherif Test Positive 12/28/20 04:40: Troponin I 6.620 H* Current Medications Acetaminophen (Acetaminophen 325 Mg Tablet) 650 mg PO Q6H PRN PRN PRN Reason: Pain Score 1-10/Temp > 100.7 F Amlodipine Besylate (Amlodipine 10 Mg Tablet) 10 mg PO DAILY [facility] Aspirin (Aspirin 81 Mg Tab.Chew) 81 mg PO DAILY@0800 [facility] Heparin Sodium (Porcine) (Heparin Injection (Vial) 5,000 Unit/Ml Vial) 0 unit IV UD PRN; Protocol PRN Reason: dose adjustment Heparin Sodium/Dextrose () 25,000 units in 250 mls @ 12 mls/hr IV .[id number] [facility]; Protocol Last Titration: 12/28/20 04:45 Dose: 1,200 units/hr, 12 mls/hr Documented by: Sodium Chloride () 250 mls @ 15 mls/hr IV .[id number] PRN PRN Reason: Saline Flush Sodium Chloride () 250 mls @ 15 mls/hr IV .[id number] PRN PRN Reason: Additional IVPB Infusion Melatonin (Melatonin 3 Mg Tablet) 3 mg PO QHS PRN PRN PRN Reason: INSOMNIA Morphine Sulfate (Morphine 2 Mg/Ml Syringe) 2 mg IV Q4H PRN PRN PRN Reason: Dyspnea Last Admin: 12/28/20 05:06 Dose: 2 mg Documented by: Multivit/Ca Carb/B Cmplx/FA/Prenat (Folic Acid/Vitamin B Comp W-C 1 Capsule) 1 capsule PO DAILY [facility] Ondansetron HCl (Ondansetron 4 Mg/2 Ml Vial) 4 mg IV Q8H PRN PRN PRN Reason: NAUSEA/VOMITING Last Admin: 12/28/20 04:30 Dose: 4 mg Documented by: Sertraline HCl (Sertraline 50 Mg Tablet) 50 mg PO DAILY [facility] Sodium Chloride (0.9% Saline Lock 10 Ml Syringe) 10 - 40 ml IV UD PRN PRN Reason: SALINE FLUSH Last Admin: 12/28/20 05:10 Dose: 30 ml Documented by: STROKE Vital Signs/Narrative: Vital Signs Temp Pulse Resp BP BP Pulse Ox 12/28/20 06:30 91 17 119/67 98 12/28/20 06:00 96 17 123/74 H 97 12/28/20 05:30 103 H 19 H 147/83 H 97 12/28/20 05:15 104 H 19 H 153/86 H 95 12/28/20 05:00 114 H 29 H 149/82 H 89 12/28/20 04:45 96.2 F L 118 H 35 H 143/86 H 91 12/28/20 04:44 90 12/28/20 04:38 120 H 12/28/20 04:14 108 H 154/93 H 12/28/20 04:09 97.6 F L 106 H 24 H 151/78 H 100 12/28/20 03:32 112 H 27 H 93 Medical Necessity - Tobacco Use Smoking Status: Former smoker Assessment/Plan All Active Problems (Last Reviewed 12/28/20 @ 05:[address] Raul Griffin MD) Flash pulmonary edema (Acute) Non-STEMI (non-ST elevated myocardial infarction) (Acute) Heart failure with preserved ejection fraction (Acute) End stage renal disease (Acute) Patient is a 65-year-old gentleman with multiple comorbidities admitted with aggressive shortness of breath and assessment of acute congestive heart failure made admitted to the intensive care unit for further management 1. Acute on chronic congestive heart failure with preserved ejection fraction Imaging studies obtained on admission demonstrated interstitial pulmonary edema consistent with acute congestive heart failure. Admitted to the intensive care unit where patient fluid overload is currently being managed with dialysis. 2. Acute non-STEMI ?Troponin on admission was 4.2 has risen to 10.6. With heparin, aspirin. Patient not on statin therapy due to reported allergies to atorvastatin as well as rosuvastatin consult placed to cardiology. Plan is for patient to undergo left heart catheterization following dialysis 3. Hypertension - Blood pressure controlled, home medications continued with dose adjustment as needed 4. Depression with anxiety ?patient is on SSRI sertraline 5. DVT prophylaxis - Patient on heparin Advance planning; did discuss with the patientregarding advanced directives as well as CODE STATUS. Did explain the various scenarios involved ( FULL CODE, DNR CCA, DNR CCA with no intubation, and DNR CC and what each meant) patient code with CPR and intubation if needed. Order was placed. Time spent on discussion 18 minutes. Clinical Impression(s) from Imaging Studies Chest X-Ray 12/28/20 01:34 IMPRESSION: Diffuse interstitial pneumonitis versus interstitial pulmonary edema, clinical correlation recommended. Electronically Signed: Enedelia Arriola MD at 1:58 EST , Service support , Chest CTA 12/28/20 02:23 IMPRESSION: Negative CTA chest examination, without a demonstrated pulmonary embolism or arterial dissection. Bilateral pleural effusions with likely congestive heart failure/interstitial pulmonary edema. Possible superimposed multifocal pneumonitis. Clinical correlation recommended. Electronically Signed: Enedelia Arriola MD at 3:16 EST , Service support , Inpatient E&M: 21490 Subs Hosp L3 Procedures: 46221 Advncd Care Plan 30 Min
--- NOTE | 2020-12-28 07:38 | EKG12_ITS ---
Test Reason : AM EKG Blood Pressure : / mmHG Vent. Rate : 110 BPM Atrial Rate : 110 BPM P-R Int : 152 ms QRS Dur : 110 ms QT Int : 348 ms P-R-T Axes : 047 060 -75 degrees QTc Int : 470 ms Sinus tachycardia Anterior infarct , age undetermined ST & T wave abnormality, consider inferior ischemia Abnormal ECG Confirmed by CARMEN LIVE, ANNIKA ([id number]), food expeditor TREY ELIZONDO ([id number]) on 12/29/2020 8:31:36 AM Referred By: CARMEN Confirmed By:ANNIKA MORALES MD
[2020-12-28] MEDS: proMETHazine 25 MG/ML Syringe 12.5 MG IM (07:59)
--- NOTE | 2020-12-28 08:01 | CON.PCM_ITS ---
Reason for Consult Date of Consultation: 12/28/20 Reason for Consultation: Abnormal cardiac enzymes History of Present Illness: The patient is a 65 year old M with a history of end-stage renal disease, hypertension, medication and treatment noncompliance who presented to the hospital this weekend with generalized fatigue shortness of breath and appearing to need dialysis. He had a cardiac enzyme performed which was noted to be markedly abnormal. He however denies any chest pain or shortness of breath or paroxysmal nocturnal dyspnea or pedal edema. He has complained of fatigue. His electrocardiogram which was performed demonstrated sinus tachycardia with a rate of 110 bpm and evidence of left ventricular hypertrophy. He has had a previous history of calcified coronary arteries noted on his CT scan. Cardiology was called to evaluate him. [] Past Medical History Allergies/Adverse Reactions: Allergies atorvastatin [From Lipitor] Adverse Reaction (Verified 12/28/20 01:32) unstable gait, myalgia rosuvastatin [From Crestor] Adverse Reaction (Verified 12/28/20 01:32) unstable gait, myalgia Home Medications: Ambulatory Orders Medication Instructions Recorded amlodipine 10 mg tablet 10 mg PO DAILY 05/09/19 sertraline 50 mg tablet 50 mg PO DAILY 05/09/19 Calcium Acetate 667 mg PO TID 12/28/20 Vit B Comp No.3/Folic/C/Biotin 1 ea PO DAILY 12/28/20 [Nephro-Tyson Rx Tablet] Past Medical History (Chronic Problems): Chronic Problems (Last Reviewed 12/28/20 @ 05:[address] Raul Griffin MD) Bilateral inguinal hernia without obstruction or gangrene (Chronic) Essential (primary) hypertension (Chronic) Hypercholesteremia (Chronic) - *Family History Maternal Family History: Family History (Last Reviewed 12/28/20 @ 05:[address] Raul Griffin MD) Mother Heart disease Father Hypertension Cardiac arrest Smoking Status: Former smoker Alcohol: None Drugs: None Review of Systems - Review of Systems General: Reports: Fatigue. Denies: Fever, Night Sweats HEENT: Denies: Vision Change Cardiovascular: Reports: Shortness of Breath. Denies: Chest Discomfort, Orthopnea, PND, Peripheral Edema, Palpitations, Lightheadedness, Dizziness, Near Syncope, Syncope Respiratory: Denies: Cough, Sputum Production, Hemoptysis Gastrointestinal: Denies: Hematemesis, Hematochezia, Melena Genitourinary: Denies: Dysuria, Hematuria Skin: Denies: Rash Neurological: Reports: Weakness Psychiatric: Denies: Anxiety Endocrine: Denies: Unexplained Weight Loss Hematologic/ Lymphatic: Reports: Anemia Subjectve: Pleasant gentleman in no distress at this particular time. Objective: Vital Signs Temp Pulse Resp BP Pulse Ox 96.2 F L 91 17 119/67 98 12/28/20 04:45 12/28/20 06:30 12/28/20 06:30 12/28/20 06:30 12/28/20 06:30 Oxygen Flow Rate (L/min) 6 Oxygen Delivery Method Bi-pap Weight: 185 lb 6.54 oz Body Mass Index (BMI) 26.6 Intake and Output for Last 24 Hours 12/26/20 12/27/20 12/28/20 23:59 23:59 23:59 Intake Total 23.6 / 23.6 Output Total 0 / 0 Balance 23.6 / 23.6 General: Awake, Alert, Oriented x 3 HEENT: PERRL, EOMI, Sclera Non Icteric Neck: Supple, Good ROM, No Lymph Node Enlargement Lungs: Clear to auscultation Cardiovascular: Regular Rhythm, Normal S1, Normal S2, No Murmurs, No Rubs, No Gallops Vascular: No Carotid Bruits, Normal Femoral Pulses, Normal Radial Pulses, Normal Dorsalis Pedal Pulse, Normal Posterior Tibial Pulses Abdomen: Bowel Sounds Present, Soft, Non Tender, No HSM, No Organomegaly Extremities: No Cyanosis, No Clubbing, No edema Musculoskeletal: No Erythema Skin: No Rashes Lymphatic: No Lymph Node Enlargement Neurological: No Focal Motor or Sensory Deficit Psych/Mental Status: Appropriate 12/28/20 01:45: WBC 11.0, RBC 3.11 L, Hgb 10.3 L, Hct 30.8 L, MCV 99.0 H, MCH 33.1 H, MCHC 33.4, Plt Count 224, MPV 10.5, Immature Gran % (Auto) 0.500, Neut % (Auto) 81.0 H, Lymph % (Auto) 9.1 L, Evans % (Auto) 8.8, Eos % (Auto) 0.3, Baso % (Auto) 0.3, Absolute Neuts (auto) 8.9 H, Nucleated RBC % 0 12/28/20 01:45: PT 15.1 H, INR 1.2, APTT 31.9, D-Dimer Quant (PE/DVT) 0.89 H* 12/28/20 01:45: Sodium 136, Potassium 5.5 H, Chloride 107, Carbon Dioxide 18.0 L , Anion Gap 11, BUN 84 H, Creatinine 9.25 H*, Est GFR (MDRD) Af Amer 7 L, Est GFR (MDRD) Non-Af 6 L, BUN/Creatinine Ratio 9.1 L, Glucose 148 H, Calcium 9.2, Total Bilirubin 0.60, Troponin I 4.210 H* 12/28/20 01:45: Lactic Acid 2.0 12/28/20 01:45: B-Natriuretic Peptide 2593.0 H 12/28/20 01:45: Triglycerides 141, Cholesterol 267 H, LDL Cholesterol 183 H, VLDL Cholesterol 28, HDL Cholesterol 56 12/28/20 02:00: pH 7.38, Bicarbonate Actual 15.7 L, Base Excess -10 L, O2 Saturation 92 L, ABG pCO2 26.8 L, ABG pO2 63 L, Sherif Test Positive 12/28/20 04:40: Troponin I 6.620 H* Rhythm: EKG: Sinus tachycardia with no acute changes ECHO: Pending Stress Test: Cardiac Cath: PCI: CT Surgery: Holter monitor: EPS: PPM: CXR: Chest CT Scan: Assessment/Plan 1. Non-ST elevation myocardial infarction * He presents with a non-ST elevation myocardial infarction. These numbers appear to be rather high for demand ischemia. He has previously documented calcified coronary arteries. At this juncture my recommendation be for us to dialyze him today since he has skipped dialysis for over a month. * We will then plan on performing a left heart catheterization later today and then have him dialyzed afterwards. Depending on the results further recommendations will be made. * 2. Hypertension * His blood pressure appears to be under good control at this particular time I would not recommend that we make any other major changes. * An echocardiogram will be performed to assess his ventricular function. * 3. End-stage renal disease * He does have evidence of end-stage renal disease and has not been compliant with dialysis. He is getting dialysis today and hopefully he will be encouraged to continue with the same. * * Thank you for allowing me to participate in the care of your patient. Please don't hesitate to call if any issues arise. * * * * Addendum: Cardiac catheterization performed with limited contrast demonstrates a 60 to 70% distal left main stenosis with aneurysmal dilatation of the proximal LAD. Mild LAD disease. Mild left circumflex disease. Totally occluded right coronary artery with [id number] collaterals. Based on the above angiographic findings would seek an opinion regarding bypass surgery. Certainly his renal dialysis does pose significant concern for the above.
--- NOTE | 2020-12-28 08:07 | ECHOL_ITS ---
Reason For Study: CAD Procedure This was a limited 2D transthoracic echocardiogram. Patient was scanned in supine position during reflux assessment. s/p LHC-/ Jacquard Loom Fixer. Exam performed in department. Left Ventricle Normal LV size. Mild concentric left ventricular hypertrophy. The estimated ejection fraction is 30 %. Infero-Basal: Akinetic. Mid-inferoseptal : Akinetic. Right Ventricle Normal RV size. Normal systolic function. Atria Normal left atrium. Normal right atrium. Mitral Valve There is moderate mitral annular calcification. Mild (1+) eccentric mitral valve insufficiency. Tricuspid Valve Normal tricuspid valve. Aortic Valve Trisinus/trileaflet aortic valve. Pulmonic Valve Normal pulmonic valve. Great Vessels Normal aortic root. The pulmonary artery is normal size. Inferior vena cava collapse with respiration. Pericardium/Pleural No pericardial effusion. MMode/2D Measurements & Calculations LVIDd: 5.5 cm IVSd: 1.3 cm LAV(MOD-sp4): 61.6 ml LVIDs: 4.3 cm LVPWd: 1.4 cm FS: 21.1 % LVAd ap4: 36.8 cm2 SV(MOD-sp4): 52.7 ml SV(sp4-el): 53.5 ml EDV(MOD-sp4): 124.1 ml EDV(sp4-el): 129.0 ml LVAs ap4: 26.2 cm2 ESV(MOD-sp4): 71.5 ml ESV(sp4-el): 75.5 ml EF(MOD-sp4): 42.4 % EF(sp4-el): 41.5 % LA A4 area: 21.1 cm2 RA A4 area: 10.5 cm2 Doppler Measurements & Calculations TR max ruslan: 189.7 cm/sec TR max P.4 mmHg Interpretation Summary Normal LV size. Mild concentric left ventricular hypertrophy. The estimated ejection fraction is 30 %. Infero-Basal: Akinetic. There is moderate mitral annular calcification. Compared to previous study, the left ventricular systolic function has worsened.. Ordering Physician: Carlito Keyes Referring Physician: LYSSA PHAM Performed By: Talia Chaidez, RDCS, RVT
--- NOTE | 2020-12-28 08:43 | CASEMGMT ---
Pt had stated to admitting RN Nikkie is POA, he has LW/POA forms but unable to bring in forms at this time. JHON Figueroa
[2020-12-28 09:15] LABS: Partial Thromboplast Time 91.2 Seconds (24.1-36.2)
--- NOTE | 2020-12-28 11:06 | PCM.CONS.R ---
Consultation - Renal 12/28/20 PCP/ Referring MD: Requesting physician: [] Primary care physician: Dr. Damion Leroy MD Reason for Consultation:: ESRD HD TTS. Last dialysis Nov 28, 2020 due to noncompliance - History of Present Illness History of Present Illness: The patient is a 65 year old M with ESRD due to chronic hypertensive, arterionephrosclerosis, noncompliant with dialysis with last treatment on 11/28/20 admitted via ED for CHF, SOB, NSTEMI with troponin 4.4 increased to 10. He was called multiple times by the dialysis center to come in for his treatments but refused. I called patient as well and told them he at risk for sudden cardiac at home if did not come for his dialysis. STates felt fine without dialysis up until Monday morning when his symptoms worsened. States feels weak after dialysis. Offered home dialysis that is more gentler dialysis but refused. Offered kidney transplant referral but declined that as well. He is under going hemodialysis with minimal fluid removal tolerated at 1kg so far. His tachycardia improved as well as his hypoxia. He was placed on BIPAP in ER. He was diagnosed with COVID 11/11/20. He is scheduled for a heart cath later today. - Allergies Allergies: Allergies atorvastatin [From Lipitor] Adverse Reaction (Verified 12/28/20 01:32) unstable gait, myalgia rosuvastatin [From Crestor] Adverse Reaction (Verified 12/28/20 01:32) unstable gait, myalgia - Current Medications Current Medications: Current Medications Acetaminophen (Acetaminophen 325 Mg Tablet) 650 mg PO Q6H PRN PRN PRN Reason: Pain Score 1-10/Temp > 100.7 F Amlodipine Besylate (Amlodipine 10 Mg Tablet) 10 mg PO DAILY [facility] Aspirin (Aspirin 81 Mg Tab.Chew) 81 mg PO DAILY@0800 [facility] Heparin Sodium (Porcine) (Heparin Injection (Vial) 5,000 Unit/Ml Vial) 0 unit IV UD PRN; Protocol PRN Reason: dose adjustment Heparin Sodium/Dextrose () 25,000 units in 250 mls @ 12 mls/hr IV .[id number] [facility]; Protocol Last Titration: 12/28/20 09:16 Dose: 1,100 units/hr, 11 mls/hr Documented by: Sodium Chloride () 250 mls @ 15 mls/hr IV .[id number] PRN PRN Reason: Saline Flush Sodium Chloride () 250 mls @ 15 mls/hr IV .[id number] PRN PRN Reason: Additional IVPB Infusion Melatonin (Melatonin 3 Mg Tablet) 3 mg PO QHS PRN PRN PRN Reason: INSOMNIA Morphine Sulfate (Morphine 2 Mg/Ml Syringe) 2 mg IV Q4H PRN PRN PRN Reason: Dyspnea Last Admin: 12/28/20 05:06 Dose: 2 mg Documented by: Multivit/Ca Carb/B Cmplx/FA/Prenat (Folic Acid/Vitamin B Comp W-C 1 Capsule) 1 capsule PO DAILY [facility] Ondansetron HCl (Ondansetron 4 Mg/2 Ml Vial) 4 mg IV Q8H PRN PRN PRN Reason: NAUSEA/VOMITING Last Admin: 12/28/20 04:30 Dose: 4 mg Documented by: Sertraline HCl (Sertraline 50 Mg Tablet) 50 mg PO DAILY [facility] Sodium Chloride (0.9% Saline Lock 10 Ml Syringe) 10 - 40 ml IV UD PRN PRN Reason: SALINE FLUSH Last Admin: 12/28/20 05:10 Dose: 30 ml Documented by: - Past Medical History Past Medical History (Chronic Problems): Chronic Problems (Last Updated 12/28/20 @ 16:00 by Alanna Bee) Bilateral inguinal hernia without obstruction or gangrene (Chronic) Essential (primary) hypertension (Chronic) Hypercholesteremia (Chronic) - Social History Smoking Status: Former smoker Alcohol: None Drugs: None - Family History Maternal Family History: Family History (Last Reviewed 12/28/20 @ 05:[address] Raul Griffin MD) Mother Heart disease Father Hypertension Cardiac arrest Review of Systems Constitutional: Denies: Anorexia, Chills, Fever, Weakness, Fatigue Cardiovascular: Denies: Chest Pain, Edema, Heaviness, Syncope Respiratory: Reports: Shortness of Breath, Shortness of breath at rest. Denies: Cough Gastrointestinal: Reports: Nausea, - - dry heaves. Denies: Abdominal Pain Genitourinary: Denies: Dysuria Musculoskeletal: Reports: Back Pain Neurological: Denies: Tremor, Seizures Hematologic/ Lymphatic: Reports: Anemia Patient Problems: Active and Suspected Problems (Last Updated 12/28/20 @ 16:00 by Alanna Bee) Flash pulmonary edema (Acute) Non-STEMI (non-ST elevated myocardial infarction) (Acute) End stage renal disease (Acute) - Physical Exam Vitals/I&O's: Vital Signs Temp Pulse Resp BP Pulse Ox 97.1 F L 110 H 17 103/62 99 12/28/20 08:00 12/28/20 10:00 12/28/20 10:00 12/28/20 10:00 12/28/20 10:00 Oxygen Flow Rate (L/min) 6 Oxygen Delivery Method Nasal Cannula Weight: 84.1 kg Body Mass Index (BMI) 26.6 Intake and Output for Last 24 Hours 12/26/20 12/27/20 12/28/20 23:59 23:59 23:59 Intake Total 77.8 / 77.8 Output Total 0 / 0 Balance 77.8 / 77.8 General: Alert, Oriented x3, Cooperative Lungs: Clear to auscultation Cardiovascular: Tachycardic Abdomen: Bowel Sounds Present, Soft, Non Tender, Non-Distended Extremities: No edema Neurological: Cranial nerves II-XII grossly intact Psych/Mental Status: Normal Affect, Appropriate, Alert and oriented to time, place, person, mood and affect Laboratory Results 12/28/20 01:45: WBC 11.0, RBC 3.11 L, Hgb 10.3 L, Hct 30.8 L, MCV 99.0 H, MCH 33.1 H, MCHC 33.4, RDW Std Deviation 49.8 H, RDW Coeff of Steven 13.7, Plt Count 224, MPV 10.5, Immature Gran % (Auto) 0.500, Neut % (Auto) 81.0 H, Lymph % (Auto) 9.1 L, [place] % (Auto) 8.8, Eos % (Auto) 0.3, Baso % (Auto) 0.3, Absolute Neuts (auto) 8.9 H, Absolute Lymphs (auto) 1.00, Nucleated RBC % 0 12/28/20 01:45: PT 15.1 H, INR 1.2, APTT 31.9, D-Dimer Quant (PE/DVT) 0.89 H* 12/28/20 01:45: Sodium 136, Potassium 5.5 H, Chloride 107, Carbon Dioxide 18.0 L, Anion Gap 11, BUN 84 H, Creatinine 9.25 H*, Estim Creat Clear Calc 8.11, Est GFR (MDRD) Af Amer 7 L, Est GFR (MDRD) Non-Af 6 L, BUN/Creatinine Ratio 9.1 L, Glucose 148 H, Calcium 9.2, Total Bilirubin 0.60, AST 37, ALT 22, Alkaline Phosphatase 80, Troponin I 4.210 H*, Total Protein 8.2, Albumin 3.8, Globulin 4.4 H, Albumin/Globulin Ratio 0.9 12/28/20 01:45: Lactic Acid 2.0 12/28/20 01:45: B-Natriuretic Peptide 2593.0 H 12/28/20 01:45: Triglycerides 141, Cholesterol 267 H, LDL Cholesterol 183 H, VLDL Cholesterol 28, HDL Cholesterol 56 12/28/20 02:00: Specimen Type ART, Sample Site R Radial, pH 7.38, Bicarbonate Actual 15.7 L, Total CO2 17, Base Excess -10 L, O2 Saturation 92 L, O2 % 21, ABG pCO2 26.8 L, ABG pO2 63 L, Sherif Test Positive 12/28/20 04:40: Troponin I 6.620 H* 12/28/20 08:13: Troponin I 10.600 H* 12/28/20 08:51: APTT 91.2 H* Clinical Impression(s) from Imaging Studies Chest X-Ray 12/28/20 01:34 IMPRESSION: Diffuse interstitial pneumonitis versus interstitial pulmonary edema, clinical correlation recommended. Electronically Signed: Enedelia Arriola MD at 1:58 EST , Service support , Chest CTA 12/28/20 02:23 IMPRESSION: Negative CTA chest examination, without a demonstrated pulmonary embolism or arterial dissection. Bilateral pleural effusions with likely congestive heart failure/interstitial pulmonary edema. Possible superimposed multifocal pneumonitis. Clinical correlation recommended. Electronically Signed: Enedelia Arriola MD at 3:16 EST , Service support , Current Medications Acetaminophen (Acetaminophen 325 Mg Tablet) 650 mg PO Q6H PRN PRN PRN Reason: Pain Score 1-10/Temp > 100.7 F Amlodipine Besylate (Amlodipine 10 Mg Tablet) 10 mg PO DAILY [facility] Aspirin (Aspirin 81 Mg Tab.Chew) 81 mg PO DAILY@0800 [facility] Heparin Sodium (Porcine) (Heparin Injection (Vial) 5,000 Unit/Ml Vial) 0 unit IV UD PRN; Protocol PRN Reason: dose adjustment Heparin Sodium/Dextrose () 25,000 units in 250 mls @ 12 mls/hr IV .[id number] [facility]; Protocol Last Titration: 12/28/20 09:16 Dose: 1,100 units/hr, 11 mls/hr Documented by: Sodium Chloride () 250 mls @ 15 mls/hr IV .[id number] PRN PRN Reason: Saline Flush Sodium Chloride () 250 mls @ 15 mls/hr IV .[id number] PRN PRN Reason: Additional IVPB Infusion Melatonin (Melatonin 3 Mg Tablet) 3 mg PO QHS PRN PRN PRN Reason: INSOMNIA Morphine Sulfate (Morphine 2 Mg/Ml Syringe) 2 mg IV Q4H PRN PRN PRN Reason: Dyspnea Last Admin: 12/28/20 05:06 Dose: 2 mg Documented by: Multivit/Ca Carb/B Cmplx/FA/Prenat (Folic Acid/Vitamin B Comp W-C 1 Capsule) 1 capsule PO DAILY [facility] Ondansetron HCl (Ondansetron 4 Mg/2 Ml Vial) 4 mg IV Q8H PRN PRN PRN Reason: NAUSEA/VOMITING Last Admin: 12/28/20 04:30 Dose: 4 mg Documented by: Sertraline HCl (Sertraline 50 Mg Tablet) 50 mg PO DAILY [facility] Sodium Chloride (0.9% Saline Lock 10 Ml Syringe) 10 - 40 ml IV UD PRN PRN Reason: SALINE FLUSH Last Admin: 12/28/20 05:10 Dose: 30 ml Documented by: Assessment/Plan All Active Problems (Last Updated 12/28/20 @ 16:00 by Alanna Bee) Acute HFrEF (heart failure with reduced ejection fraction) (Acute) Ischemic cardiomyopathy (Acute) Flash pulmonary edema (Acute) Non-STEMI (non-ST elevated myocardial infarction) (Acute) End stage renal disease (Acute) 1. ESRD noncompliance with HD TTS. Last dialysis Nov 28. Dialysis today for CHF, hypoxia vs pna. Off BIPAP. 2. NSTEMI +troponin, cardiology consult, cath today 3. HTN stable 4. STach, CTA negative for PE 5. COVID positive 11/11/20
--- NOTE | 2020-12-28 12:30 | CASEMGMT ---
ADELITA CM Note: attempted x 2 to see patient. He is receiving dialysis, then will be going to slab miller operator. Will defer assessment today. Austen FOOTEN RN ACM
--- NOTE | 2020-12-28 13:03 | NURSING ---
to landscape and yardwork laborer, landscape and yardwork laborer staff in attendance
--- NOTE | 2020-12-28 13:09 | DIALYSIS ---
HD x 3 hours and 45 minutes complete. Tolerated tx well. Ran on 2k bath. UF of 1327ml. Used left forearm access. [employer] removed post tx and pressure applied x 10 minutes. Hemostasis achieved. Fresh gauze and tape applied. Report was given to ADELITA Mendoza.
--- NOTE | 2020-12-28 14:16 | CL.D_ITS ---
Patient Name: JOSELITO LAWSON Study Date: 12/28/2020 Performing: Carlito Keyes MD Ht: 70 inches 178 cm : 1955 Wt: 185.4 lbs 84 kg Age: 65 Gender: male BSA: 2.02 PROCEDURE(S) PERFORMED [id number] CLINICAL PROFILE AND INDICATIONS Indications: Suspected CAD Heart Failure: None Stress/Imaging Stress/Image Study Performed: No CONCLUSIONS Distal left main coronary artery of 60 to 70% with proximal LAD aneurysmal formation. RECOMMENDATIONS Consider CABG or high risk PCI DESCRIPTION OF PROCEDURE The patient arrived to the procedure lab. The risks and benefits of the procedure as well as a full d escription of our services here and current unavailability of surgical backup were fully explained to the patient and/or their significant other prior to the catheterization. The Timeout was completed, verifying the correct patient and procedure. The patient's procedural site was prepped and draped in the usual fashion. Local anesthetic was given subcutaneously to right radial region with Lidocaine 2% . Using a modified Seldinger technique, arterial access was obtained via the right radial artery, a 6 Fr sheath was inserted. Left Coronary Artery selective angiography was performed in multiple views u sing a 5 Fr. 4.0 [place]ale catheter. Right Coronary Artery selective angiography was then performed in mu ltiple views using a 5 Fr. 4.0 [place]ale catheter. LV to AO pullback pressures were then recorded.The art erial sheath was pulled and a TR Band was applied for hemostasis 13cc air CORONARY ANGIOGRAPHY DOMINANCE: Co- Dominant LEFT HEART ASSESSMENT Left Ventricular Ejection Fraction: by Echo pending % LEFT MAIN: Distal left main coronary artery of 60 to 70% with proximal LAD aneurysmal formation. LEFT ANTERIOR DESCENDING ARTERY: Mild luminal irregularities CIRCUMFLEX ARTERY: Mild luminal irregularities RIGHT CORONARY ARTERY: PROX RCA: is occluded COLLATERAL FLOW: Collateral flow from Left to Right COMPLICATIONS No Complications PROCEDURE MEDICATIONS Fentanyl 50 mcg IV Versed 1 mg IV Oxygen: 2 L/min via nasal cannula Heparin diluted in 23cc Heparinized saline. Patient given 10cc IA of this solution. 12/28/2020 13:43:1 8 Verapamil 2.5mg, Ntg 100mcgs, 2000 units of Heparin diluted in 23cc Heparinized saline. Patient give n 10cc IA of this solution. 12/28/2020 13:43:18 SUMMARY OF HEMODYNAMIC DATA Time AIR REST ECG 13:19:44 Art 144/60 (77) 13:43:04 AO 115/63 (80) SA 13:51:36 LV 109/6, 13 13:55:53 LV 115/5, 14 13:55:58 LVp 109/6, 17 13:56:03 AOp 117/60 (78) 13:56:09 Signed By Carlito Keyes MD On 12/28/2020 2:15:44 PM Carlito Keyes MD
--- NOTE | 2020-12-28 15:04 | EKG12_ITS ---
Test Reason : AM EKG Blood Pressure : / mmHG Vent. Rate : 097 BPM Atrial Rate : 097 BPM P-R Int : 134 ms QRS Dur : 100 ms QT Int : 410 ms P-R-T Axes : 059 048 206 degrees QTc Int : 520 ms Sinus rhythm with occasional Premature ventricular complexes Left ventricular hypertrophy with repolarization abnormality Prolonged QT Abnormal ECG Confirmed by DUNIA LIVE, ANA ([id number]), scientific editor TREY ELIZONDO ([id number]) on 01/01/2021 8:55:42 AM Referred By: CARMEN Confirmed By:MALINDA DUQUE MD
[2020-12-28] MEDS: amLODIPine 10 MG Tablet PO (16:05)
--- NOTE | 2020-12-28 17:18 | NURSING ---
report called to FLEET SERVICE CLERK. to [id number] per bed
[2020-12-28] MEDS: Sertraline 50 MG Tablet PO (17:59)
[2020-12-29] VITALS (12 sets, daily range): BP systolic 117–156; BP diastolic 56–88; PULSE 90–111; RESP 16–18; TEMP 36.8–37.6; O2SAT 91–97
--- NOTE | 2020-12-29 03:07 | PHA.PHARE_ITS ---
Consult Pharmacy has been consulted to manage selected antiobiotic: Vancomycin Type of Consult: New start Suspected Infection: Other Prior Doses of Antibiotics Received/Current Regimen: Medications Vancomycin HCl 2,000 mg/ (Sodium Chloride) 540 mls @ 250 mls/hr IV X1 ONE Stop: 12/29/20 03:39 Last Admin: 12/29/20 02:15 Dose: 250 mls/hr Labs: Sodium 136 mmol/L (136-145) 12/28/20 01:45 Potassium 5.5 mmol/L (3.5-5.1) H 12/28/20 01:45 Chloride 107 mmol/L (98-107) 12/28/20 01:45 Carbon Dioxide 18.0 mmol/L (21.0-32.0) L 12/28/20 01:45 Anion Gap 11 (5-15) 12/28/20 01:45 BUN 84 mg/dL (7-18) H 12/28/20 01:45 Creatinine 9.25 mg/dL (0.70-1.30) H* 12/28/20 01:45 Est GFR (MDRD) Af Amer 7 mL/min (>60) L 12/28/20 01:45 Est GFR (MDRD) Non-Af 6 mL/min (>60) L 12/28/20 01:45 BUN/Creatinine Ratio 9.1 RATIO (10-20) L 12/28/20 01:45 Glucose 148 mg/dL (74-106) H 12/28/20 01:45 Microbiology: Microbiology 12/28/20 01:52 Blood Culture (Wb) - Anticubital Left Bacteria Detection (PCR) - Preliminary Coag Negative Staph 12/28/20 01:52 Blood Culture (Wb) - Anticubital Left Blood Culture - Preliminary Weight used for dosin.1 kg Estimated Creatinine Clearance: 8.11 Goal Trough: 15-20 mcg/mL Pharmacy Plan for Drug Dosing: Vancomycin loading dose of 2000mg was given 12/29/20. Next dose will be scheduled for after next dialysis session, and further dosing will be determined by pre- dialysis vancomycin levels. Pharmacy Service will continue to monitor and adjust dosing as required.
[2020-12-29 05:18] LABS: Absolute Lymphocyte Count 1.82 X10^3/uL (0.83-4.51); Absolute Neutrophil Count 4.3 X10^3/uL (2.0-7.7); Basophil# 0.05 X10^3/uL; Basophil% 0.7 % (0-1); Eosinophils% 2.8 % (0-5); Hematocrit 27.3 % (40-54); Lymphocyte # 1.82 X10^3/ul (4.0); Lymphocyte % 25.7 % (19-41); Mean Corpuscular Hgb 31.7 pg (27.0-32.0); Mean Corpuscular Volume 96.1 fL (80-94); Mean Platelet Vol. 10.8 fl (6.2-12.0); Monocyte# 0.65 X10^3/uL; Monocyte% 9.2 % (0-10); NRBC Flagged by Analyzer 0 % (0-5); Neutrophil # 4.33 X10^3/uL (2.7-7.7); Neutrophil % 61.3 % (47-70); Platelet Count 211 K/mm3 (150-450); RBC Distribution Width CV 13.8 % (11.6-14.6); RBC Distribution Width SD 49.2 fl (35.1-43.9); Red Blood Count 2.84 M/mm3 (4.6-6.2); White Blood Count 7.1 K/mm3 (4.4-11.0)
[2020-12-29 06:10] LABS: ALB/GLOB Ratio 0.7 RATIO (0.9-2.4); AST(SGOT) 68 U/L (15-37); Alanine Aminotransfer ALT/SGPT 22 U/L (16-61); Albumin, Serum 2.8 g/dL (3.2-5.0); Alkaline Phosphatase 63 U/L (45-117); Anion Gap 10 (5-15); BUN 51 mg/dL (7-18); Calcium,Total 7.8 mg/dL (8.5-10.1); Chloride 99 mmol/L (98-107); Creatinine, Serum 6.37 mg/dL (0.70-1.30); EST Glomerular Filtration Rate 9 mL/min (>60); Est Glom Filt Rate - Afr Amer 11 mL/min (>60); Estimated Creatinine Clearance 11.78 ml/min; Globulin 3.8 g/dL (2.2-4.2); Glucose 86 mg/dL (74-106); Potassium 4.3 mmol/L (3.5-5.1); Protein, Total 6.6 g/dL (6.4-8.2); Sodium Level 136 mmol/L (136-145)
--- NOTE | 2020-12-29 07:46 | PN_ITS ---
Patient Problems: Active and Suspected Problems (Last Updated 12/28/20 @ 16:00 by Alanna Bee) Flash pulmonary edema (Acute) Non-STEMI (non-ST elevated myocardial infarction) (Acute) End stage renal disease (Acute) Reason for Visit: Acute non-STEMI Pulmonary edema Subjective: -12/29/2020 underwent left heart catheterization on 12/28/2020 was treated distal left main coronary artery with 60 to 70% lesion with proximal LAD aneurysmal formation -Cultures obtained on admission came back positive for coagulase-negative staph awaiting final identification and sensitivities?? Contaminant Objective: GENERAL: cooperative HEENT: Atraumatic; EYES; Anicteric, Normal Conjunctiva NECK; supple, normal thyroid, RESPIRATORY: Diminished to auscultation CARDIOVASCULAR: Regular S1 S2, GI: soft, normoactive bowel sounds, : No Renal angle tenderness; EXTREMITIES: No edema, no clubbing, MUSCULOSKELETAL: no muscle waisting NEURO: Awake; no lateralizing signs. SKIN: No Rash PSYCH; Flat affect Vitals/I&O's: Vital Signs Temp Pulse Resp BP Pulse Ox 99.3 F H 97 16 134/76 H 93 12/29/20 06:23 12/29/20 07:00 12/29/20 06:23 12/29/20 06:23 12/29/20 06:23 Oxygen Flow Rate (L/min) 2 Oxygen Delivery Method Room Air Weight: 83.3 kg Body Mass Index (BMI) 26.6 Intake and Output for Last 24 Hours 12/27/20 12/28/20 12/29/20 23:59 23:59 23:59 Intake Total 96.87 / 96.87 660 / 660 Output Total 1327 / 1327 Balance -1230.13 / -1230.13 660 / 660 Microbiology Past 72 Hours 12/28/20 01:52 Blood Culture (Wb) - Anticubital Left Bacteria Detection (PCR) - Final Coag Negative Staph 12/28/20 01:52 Blood Culture (Wb) - Anticubital Left Blood Culture - Preliminary Laboratory Results 12/28/20 08:13: Troponin I 10.600 H* 12/28/20 08:51: APTT 91.2 H* 12/29/20 05:00: Sodium 136, Potassium 4.3, Chloride 99, Carbon Dioxide 27.0, Anion Gap 10, BUN 51 H, Creatinine 6.37 H, Estim Creat Clear Calc 11.78, Est GFR (MDRD) Af Amer 11 L, Est GFR (MDRD) Non-Af 9 L, BUN/Creatinine Ratio 8.0 L, Gluc ose 86, Calcium 7.8 L, Magnesium 2.0, Total Bilirubin 0.50, AST 68 H, ALT 22, Alkaline Phosphatase 63, Total Protein 6.6, Albumin 2.8 L, Globulin 3.8, Albumin/Globulin Ratio 0.7 L 12/29/20 05:00: WBC 7.1, RBC 2.84 L, Hgb 9.0 L, Hct 27.3 L, MCV 96.1 H, MCH 31.7, MCHC 33.0, RDW Std Deviation 49.2 H, RDW Coeff of Steven 13.8, Plt Count 211, MPV 10.8, Immature Gran % (Auto) 0.300, Neut % (Auto) 61.3, Lymph % (Auto) 25.7, Davis % (Auto) 9.2, Eos % (Auto) 2.8, Baso % (Auto) 0.7, Absolute Neuts (auto) 4.3, Absolute Lymphs (auto) 1.82, Nucleated RBC % 0 Current Medications Acetaminophen (Acetaminophen 325 Mg Tablet) 650 mg PO Q6H PRN PRN PRN Reason: Pain Score 1-10/Temp > 100.7 F Amlodipine Besylate (Amlodipine 10 Mg Tablet) 10 mg PO DAILY [facility] Last Admin: 12/28/20 16:05 Dose: 10 mg Documented by: Aspirin (Aspirin 81 Mg Tab.Chew) 81 mg PO DAILY@0800 [facility] Heparin Sodium (Porcine) (Heparin Injection (Vial) 5,000 Unit/Ml Vial) 0 unit IV UD PRN; Protocol PRN Reason: dose adjustment Sodium Chloride () 250 mls @ 15 mls/hr IV .[id number] PRN PRN Reason: Saline Flush Sodium Chloride () 250 mls @ 15 mls/hr IV .[id number] PRN PRN Reason: Additional IVPB Infusion Vancomycin IV Pharmacy to Dose (1 ea/ Sodium Chloride) 500 mls @ 250 mls/hr IV PRN PRN; Protocol PRN Reason: Rx to Dose Melatonin (Melatonin 3 Mg Tablet) 3 mg PO QHS PRN PRN PRN Reason: INSOMNIA Morphine Sulfate (Morphine 2 Mg/Ml Syringe) 2 mg IV Q4H PRN PRN PRN Reason: Dyspnea Last Admin: 12/28/20 05:06 Dose: 2 mg Documented by: Multivit/Ca Carb/B Cmplx/FA/Prenat (Folic Acid/Vitamin B Comp W-C 1 Capsule) 1 capsule PO DAILY [facility] Last Admin: 12/28/20 17:59 Dose: Not Given Documented by: Ondansetron HCl (Ondansetron 4 Mg/2 Ml Vial) 4 mg IV Q8H PRN PRN PRN Reason: NAUSEA/VOMITING Last Admin: 12/28/20 04:30 Dose: 4 mg Documented by: Sertraline HCl (Sertraline 50 Mg Tablet) 50 mg PO DAILY [facility] Last Admin: 12/28/20 17:59 Dose: 50 mg Documented by: Sodium Chloride (0.9% Saline Lock 10 Ml Syringe) 10 - 40 ml IV UD PRN PRN Reason: SALINE FLUSH Last Admin: 12/28/20 13:10 Dose: 10 ml Documented by: STROKE Vital Signs/Narrative: Vital Signs Temp Pulse Resp BP Pulse Ox 12/29/20 07:00 97 12/29/20 06:23 99.3 F H 98 16 134/76 H 93 Medical Necessity - Tobacco Use Smoking Status: Former smoker Assessment/Plan All Active Problems (Last Updated 12/28/20 @ 16:00 by Alanna Bee) Acute HFrEF (heart failure with reduced ejection fraction) (Acute) Ischemic cardiomyopathy (Acute) Flash pulmonary edema (Acute) Non-STEMI (non-ST elevated myocardial infarction) (Acute) End stage renal disease (Acute) Patient is a 65-year-old gentleman with multiple comorbidities admitted with aggressive shortness of breath and assessment of acute congestive heart failure made admitted to the intensive care unit for further management 1. Acute on chronic congestive heart failure with preserved ejection fraction Imaging studies obtained on admission demonstrated interstitial pulmonary edema consistent with acute congestive heart failure. Admitted to the intensive care unit where patient fluid overload is currently being managed with dialysis. 2. Acute non-STEMI ?Troponin on admission was 4.2 has risen to 10.6. With heparin, aspirin. Patient not on statin therapy due to reported allergies to atorvastatin as well as rosuvastatin consult placed to cardiology. Plan is for patient to undergo left heart catheterization following dialysis -12/29/2020 underwent left heart catheterization on 12/28/2020 was treated distal left main coronary artery with 60 to 70% lesion with proximal LAD aneurysmal formation. Was discussed with cardiology Dr. Keyes. Plan is for patient's films to be reviewed cardiothoracic surgery for decision to be made regarding treatment options (bypass, high risk PCI and or medical management) 3. Hypertension - Blood pressure controlled, home medications continued with dose adjustment as needed 4. Depression with anxiety ?patient is on SSRI sertraline 5. DVT prophylaxis - Patient on heparin 6. End-stage renal disease ?Patient is a hemodialysis consult placed to patient's chief of party Dr. Ervin for dialysis orders Inpatient E&M: [id number] [facility] L3
--- NOTE | 2020-12-29 08:45 | PN.CARD_ITS ---
Subjectve: Patient seen and evaluated. Appears to doing much better this morning. Underwent dialysis yesterday. Objective: Vital Signs Temp Pulse Resp BP Pulse Ox 99.3 F H 97 16 134/76 H 91 12/29/20 06:23 12/29/20 07:00 12/29/20 06:23 12/29/20 06:23 12/29/20 07:04 Oxygen Flow Rate (L/min) 2 Oxygen Delivery Method Room Air Weight: 183 lb 10.321 oz Body Mass Index (BMI) 26.6 Intake and Output for Last 24 Hours 12/27/20 12/28/20 12/29/20 23:59 23:59 23:59 Intake Total 96.87 / 96.87 660 / 660 Output Total 1327 / 1327 Balance -1230.13 / -1230.13 660 / 660 General: Awake, Alert, Oriented x 3 HEENT: PERRL, EOMI, Sclera Non Icteric Neck: Supple, Good ROM, No Lymph Node Enlargement Lungs: Clear to auscultation Cardiovascular: Regular Rhythm, Normal S1, Normal S2, No Murmurs, No Rubs, No Gallops Vascular: No Carotid Bruits, Normal Femoral Pulses, Normal Radial Pulses, Normal Dorsalis Pedal Pulse, Normal Posterior Tibial Pulses Abdomen: Bowel Sounds Present, Soft, Non Tender, No HSM, No Organomegaly Extremities: No Cyanosis, No Clubbing, No edema Musculoskeletal: No Erythema Skin: No Rashes Neurological: No Focal Motor or Sensory Deficit 12/28/20 08:13: Troponin I 10.600 H* 12/28/20 08:51: APTT 91.2 H* 12/29/20 05:00: Sodium 136, Potassium 4.3, Chloride 99, Carbon Dioxide 27.0, Anion Gap 10, BUN 51 H, Creatinine 6.37 H, Est GFR (MDRD) Af Amer 11 L, Est GFR (MDRD) Non-Af 9 L, BUN/Creatinine Ratio 8.0 L, Glucose 86, Calcium 7.8 L, Magnesium 2.0, Total Bilirubin 0.50 12/29/20 05:00: WBC 7.1, RBC 2.84 L, Hgb 9.0 L, Hct 27.3 L, MCV 96.1 H, MCH 31.7, MCHC 33.0, Plt Count 211, MPV 10.8, Immature Gran % (Auto) 0.300, Neut % (Auto) 61.3, Lymph % (Auto) 25.7, Jasper % (Auto) 9.2, Eos % (Auto) 2.8, Baso % (Auto) 0.7, Absolute Neuts (auto) 4.3, Nucleated RBC % 0 Rhythm: EKG: ECHO: Stress Test: Cardiac Cath: PCI: CT Surgery: Holter monitor: EPS: PPM: CXR: Chest CT Scan: Medical Necessity - Tobacco Use Smoking Status: Former smoker Assessment/Plan 1. Non-ST elevation myocardial infarction Cardiac catheterization performed with limited contrast demonstrates a 60 to 70% distal left main stenosis with aneurysmal dilatation of the proximal LAD. Mild LAD disease. Mild left circumflex disease. Totally occluded right coronary artery with ppyr-wa-[id number] collaterals. Based on the above angiographic findings would seek an opinion regarding bypass surgery. The films are being evaluated by cardiac surgery and a decision will be made later on this afternoon. Certainly his renal dialysis does pose significant concern for the above. * 2. Hypertension * His blood pressure appears to be under good control at this particular time I would not recommend that we make any other major changes. * An echocardiogram was performed to assess his ventricular function and there is demonstrated an ejection fraction of approximately 30%. * 3. End-stage renal disease * He does have evidence of end-stage renal disease and has not been compliant with dialysis. He is getting dialysis today and hopefully he will be encouraged to continue with the same. * * Thank you for allowing me to participate in the care of your patient. Please don't hesitate to call if any issues arise. *
[2020-12-29] MEDS: Folic Acid/Vitamin B Comp W-C 1 Capsule 1 CAP PO (09:06)
[2020-12-29] MEDS: Sertraline 50 MG Tablet PO (09:06)
[2020-12-29] MEDS: Aspirin 81 MG TAB.CHEW PO (09:06)
--- NOTE | 2020-12-29 10:50 | CASEMGMT ---
ADELITA SULLIVAN assessment: Face to Face with patient for initial transition planning/care coordination assessment. RN NATE introduced self and role at [facility], pt voices understanding and consents to assessment at this time. Pt is sitting up in bed in no distress getting dialysis at this time. Pt is A/Ox 4 at this time and answers all questions appropriately at this time. Care providers, pharmacy, and demographics verified at this time. Presentation: SOB since this afternoon, vomited in car on way here. No cough. 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 LNOK: Nikkie Frazier, Living Arrangements: Pt states lives with in 1 story home and states no concerns at home at this time. Pt states is independent with ADL's. Transportation: Pt states drives self and states no transportation concerns at this time. DME/HHC: Pt states no current DME or need for any at this time. Pt states no hx of HHC or SNF in the past. Pt states has OP dialysis set up with [facility] on TTS at 1040. Pt states no concerns with going home at time of discharge. Pt states is retired. Pt states does not smoke cigarettes or drink ETOH. Pt states no further concerns/needs at this time. CM to follow for any further discharge planning/needs. Advised pt to ask for CM if any further questions/concerns/needs arise, voices understanding. Pt Goal: Home Plan: Possible transfer to tertiary facility for CABG vs High risk PCI. [place] ADELITA SULLIVAN
--- NOTE | 2020-12-29 11:28 | PN.RENAL_ITS ---
Patient Problems: Active and Suspected Problems (Last Updated 12/28/20 @ 16:00 by Alanna Bee) Flash pulmonary edema (Acute) Non-STEMI (non-ST elevated myocardial infarction) (Acute) End stage renal disease (Acute) Subjective: currently undergoing dialysis. BP stable. Short of breath lying flat in bed. Denies chest pain. - Physical Exam Vitals/I&O's: Vital Signs Temp Pulse Resp BP Pulse Ox 98.3 F 90 18 117/85 H 92 12/29/20 09:00 12/29/20 11:00 12/29/20 09:00 12/29/20 09:00 12/29/20 09:00 Oxygen Flow Rate (L/min) 2 Oxygen Delivery Method Room Air Weight: 83.3 kg Body Mass Index (BMI) 26.6 Intake and Output for Last 24 Hours 12/27/20 12/28/20 12/29/20 23:59 23:59 23:59 Intake Total 96.87 / 96.87 660 / 660 Output Total 1327 / 1327 Balance -1230.13 / -1230.13 660 / 660 General: Alert, Oriented x3, Cooperative, No apparent distress Lungs: Clear to auscultation Cardiovascular: Regular rate Extremities: No edema Psych/Mental Status: Alert and oriented to time, place, person, mood and affect Microbiology Past 72 Hours 12/28/20 01:52 Blood Culture (Wb) - Anticubital Left Bacteria Detection (PCR) - Final Coag Negative Staph 12/28/20 01:52 Blood Culture (Wb) - Anticubital Left Blood Culture - Preliminary Coag Negative Staph Laboratory Results 12/28/20 01:45: Sodium 136, Potassium 5.5 H, Chloride 107, Carbon Dioxide 18.0 L , Anion Gap 11, BUN 84 H, Creatinine 9.25 H*, Estim Creat Clear Calc 8.11, Est GFR (MDRD) Af Amer 7 L, Est GFR (MDRD) Non-Af 6 L, BUN/Creatinine Ratio 9.1 L, Glucose 148 H, Calcium 9.2, Total Bilirubin 0.60, AST 37, ALT 22, Alkaline Phosphatase 80, Troponin I 4.210 H*, Total Protein 8.2, Albumin 3.8, Globulin 4.4 H, Albumin/Globulin Ratio 0.9 12/29/20 05:00: Sodium 136, Potassium 4.3, Chloride 99, Carbon Dioxide 27.0, Anion Gap 10, BUN 51 H, Creatinine 6.37 H, Estim Creat Clear Calc 11.78, Est GFR (MDRD) Af Amer 11 L, Est GFR (MDRD) Non-Af 9 L, BUN/Creatinine Ratio 8.0 L, Glucose 86, Calcium 7.8 L, Magnesium 2.0, Total Bilirubin 0.50, AST 68 H, ALT 22, Alkaline Phosphatase 63, Total Protein 6.6, Albumin 2.8 L, Globulin 3.8, Albumin/Globulin Ratio 0.7 L 12/29/20 05:00: WBC 7.1, RBC 2.84 L, Hgb 9.0 L, Hct 27.3 L, MCV 96.1 H, MCH 31.7, MCHC 33.0, RDW Std Deviation 49.2 H, RDW Coeff of Steven 13.8, Plt Count 211, MPV 10.8, Immature Gran % (Auto) 0.300, Neut % (Auto) 61.3, Lymph % (Auto) 25.7, Faulkner % (Auto) 9.2, Eos % (Auto) 2.8, Baso % (Auto) 0.7, Absolute Neuts (auto) 4.3, Absolute Lymphs (auto) 1.82, Nucleated RBC % 0 Current Medications Acetaminophen (Acetaminophen 325 Mg Tablet) 650 mg PO Q6H PRN PRN PRN Reason: Pain Score 1-10/Temp > 100.7 F Aspirin (Aspirin 81 Mg Tab.Chew) 81 mg PO DAILY@0800 [facility] Last Admin: 12/29/20 09:06 Dose: 81 mg Documented by: Carvedilol (Carvedilol 6.25 Mg Tablet) 6.25 mg PO BID [facility] Last Admin: 12/29/20 09:07 Dose: Not Given Documented by: Heparin Sodium (Porcine) (Heparin Injection (Vial) 5,000 Unit/Ml Vial) 0 unit IV UD PRN; Protocol PRN Reason: dose adjustment Sodium Chloride () 250 mls @ 15 mls/hr IV .[id number] PRN PRN Reason: Saline Flush Sodium Chloride () 250 mls @ 15 mls/hr IV .[id number] PRN PRN Reason: Additional IVPB Infusion Vancomycin IV Pharmacy to Dose (1 ea/ Sodium Chloride) 500 mls @ 250 mls/hr IV PRN PRN; Protocol PRN Reason: Rx to Dose Melatonin (Melatonin 3 Mg Tablet) 3 mg PO QHS PRN PRN PRN Reason: INSOMNIA Morphine Sulfate (Morphine 2 Mg/Ml Syringe) 2 mg IV Q4H PRN PRN PRN Reason: Dyspnea Last Admin: 12/28/20 05:06 Dose: 2 mg Documented by: Multivit/Ca Carb/B Cmplx/FA/Prenat (Folic Acid/Vitamin B Comp W-C 1 Capsule) 1 capsule PO DAILY [facility] Last Admin: 12/29/20 09:06 Dose: 1 capsule Documented by: Ondansetron HCl (Ondansetron 4 Mg/2 Ml Vial) 4 mg IV Q8H PRN PRN PRN Reason: NAUSEA/VOMITING Last Admin: 12/28/20 04:30 Dose: 4 mg Documented by: Sertraline HCl (Sertraline 50 Mg Tablet) 50 mg PO DAILY [facility] Last Admin: 12/29/20 09:06 Dose: 50 mg Documented by: Sodium Chloride (0.9% Saline Lock 10 Ml Syringe) 10 - 40 ml IV UD PRN PRN Reason: SALINE FLUSH Last Admin: 12/28/20 13:10 Dose: 10 ml Documented by: Medical Necessity - Tobacco Use Smoking Status: Former smoker Assessment/Plan All Active Problems (Last Updated 12/28/20 @ 16:00 by Alanna Bee) Acute HFrEF (heart failure with reduced ejection fraction) (Acute) Ischemic cardiomyopathy (Acute) Flash pulmonary edema (Acute) Non-STEMI (non-ST elevated myocardial infarction) (Acute) End stage renal disease (Acute) 1. ESRD noncompliance with HD TTS. Dialysis today s/p heart cath yesterday. Return back to TTS scheduled. Next dialysis Th. 2. NSTEMI +troponin, s/p cath. EF 30% 3. HTN stable
--- NOTE | 2020-12-29 14:45 | DIALYSIS ---
hemodialysis x 3 hours. -1500ml off. stable t/o. tolerated well. Hemostasis x 10min. gauze/tape applied. Report to Flex
--- NOTE | 2020-12-29 14:52 | PCM.RX.CS ---
Consult Pharmacy has been consulted to manage selected antiobiotic: Vancomycin Type of Consult: Follow-up Labs: Sodium 136 mmol/L (136-145) 12/29/20 05:00 Potassium 4.3 mmol/L (3.5-5.1) 12/29/20 05:00 Chloride 99 mmol/L (98-107) 12/29/20 05:00 Carbon Dioxide 27.0 mmol/L (21.0-32.0) 12/29/20 05:00 Anion Gap 10 (5-15) 12/29/20 05:00 BUN 51 mg/dL (7-18) H 12/29/20 05:00 Creatinine 6.37 mg/dL (0.70-1.30) H 12/29/20 05:00 Est GFR (MDRD) Af Amer 11 mL/min (>60) L 12/29/20 05:00 Est GFR (MDRD) Non-Af 9 mL/min (>60) L 12/29/20 05:00 BUN/Creatinine Ratio 8.0 RATIO (10-20) L 12/29/20 05:00 Glucose 86 mg/dL (74-106) 12/29/20 05:00 Microbiology: Microbiology 12/28/20 01:52 Blood Culture (Wb) - Anticubital Left Bacteria Detection (PCR) - Final Coag Negative Staph 12/28/20 01:52 Blood Culture (Wb) - Anticubital Left Blood Culture - Preliminary Coag Negative Staph Goal Trough: 15-20 mcg/mL Pharmacy Plan for Drug Dosing: DAILY ASSESSMENT Current Vancomcyin Dose: 2000mg IV x1 12/29 @0215 Number of Doses Received: 1 Current Renal Function: HD patient //Mon schedule Renal Function Trend: HD Lab/Micro: BCx 11/21 coag (-) staph (poss contam??) Any Change in Vanc Plan: 750mg IV x1 today after HD completed Pending Level: 12/31/20 with AM labs Pharmacy Service will continue to monitor and adjust dosing as required.
[2020-12-29] MEDS: Carvedilol 6.25 MG Tablet PO (21:21)
[2020-12-30] VITALS (7 sets, daily range): BP systolic 136–141; BP diastolic 55–62; PULSE 74–90; RESP 18; TEMP 36.5–37.1; O2SAT 92–94
[2020-12-30 06:09] LABS: Absolute Lymphocyte Count 1.52 X10^3/uL (0.83-4.51); Absolute Neutrophil Count 3.6 X10^3/uL (2.0-7.7); Basophil# 0.04 X10^3/uL; Basophil% 0.6 % (0-1); Eosinophil# 0.52 X10^3/uL; Hematocrit 27.5 % (40-54); Hemoglobin 8.9 g/dL (13.0-16.5); Lymphocyte # 1.52 X10^3/ul (4.0); Lymphocyte % 23.4 % (19-41); Mean Corp Hgb Conc 32.4 g/dL (32-36); Mean Corpuscular Hgb 31.1 pg (27.0-32.0); Mean Corpuscular Volume 96.2 fL (80-94); Mean Platelet Vol. 10.6 fl (6.2-12.0); Monocyte# 0.78 X10^3/uL; NRBC Flagged by Analyzer 0 % (0-5); Neutrophil # 3.63 X10^3/uL (2.7-7.7); Neutrophil % 55.8 % (47-70); Platelet Count 241 K/mm3 (150-450); RBC Distribution Width CV 13.3 % (11.6-14.6); RBC Distribution Width SD 47.3 fl (35.1-43.9); Red Blood Count 2.86 M/mm3 (4.6-6.2); White Blood Count 6.5 K/mm3 (4.4-11.0)
[2020-12-30 06:43] LABS: ALB/GLOB Ratio 0.7 RATIO (0.9-2.4); AST(SGOT) 38 U/L (15-37); Alanine Aminotransfer ALT/SGPT 23 U/L (16-61); Albumin, Serum 2.9 g/dL (3.2-5.0); Alkaline Phosphatase 62 U/L (45-117); Anion Gap 7 (5-15); BUN 36 mg/dL (7-18); BUN/Creat Ratio 6.7 RATIO (10-20); Chloride 101 mmol/L (98-107); Creatinine, Serum 5.35 mg/dL (0.70-1.30); EST Glomerular Filtration Rate 11 mL/min (>60); Est Glom Filt Rate - Afr Amer 14 mL/min (>60); Estimated Creatinine Clearance 14.02 ml/min; Globulin 3.9 g/dL (2.2-4.2); Glucose 97 mg/dL (74-106); Potassium 4.1 mmol/L (3.5-5.1); Protein, Total 6.8 g/dL (6.4-8.2); Sodium Level 135 mmol/L (136-145)
--- NOTE | 2020-12-30 07:51 | PN.CARD_ITS ---
Subjectve: Patient seen and evaluated. Appears to be doing better this morning. Objective: Vital Signs Temp Pulse Resp BP Pulse Ox 98.7 F 74 18 141/62 H 92 12/30/20 03:35 12/30/20 07:00 12/30/20 03:35 12/30/20 03:35 12/30/20 06:56 Oxygen Flow Rate (L/min) 2 Oxygen Delivery Method Room Air Weight: 180 lb 8.937 oz Body Mass Index (BMI) 26.6 Intake and Output for Last 24 Hours 12/28/20 12/29/20 12/30/20 23:59 23:59 23:59 Intake Total 96.87 / 96.87 1555 / 1555 150 / 150 Output Total 1327 / 1327 1500 / 1500 Balance -1230.13 / -1230.13 55 / 55 150 / 150 General: Awake, Alert, Oriented x 3 HEENT: PERRL, EOMI, Sclera Non Icteric Neck: Supple, Good ROM, No Lymph Node Enlargement Lungs: Clear to auscultation Cardiovascular: Regular Rhythm, Normal S1, Normal S2, No Murmurs, No Rubs, No Gallops 12/28/20 01:45: Sodium 136, Potassium 5.5 H, Chloride 107, Carbon Dioxide 18.0 L , Anion Gap 11, BUN 84 H, Creatinine 9.25 H*, Est GFR (MDRD) Af Amer 7 L, Est GFR (MDRD) Non-Af 6 L, BUN/Creatinine Ratio 9.1 L, Glucose 148 H, Calcium 9.2, Total Bilirubin 0.60, Troponin I 4.210 H* 12/30/20 05:45: WBC 6.5, RBC 2.86 L, Hgb 8.9 L, Hct 27.5 L, MCV 96.2 H, MCH 31.1, MCHC 32.4, Plt Count 241, MPV 10.6, Immature Gran % (Auto) 0.200, Neut % (Auto) 55.8, Lymph % (Auto) 23.4, Dickinson % (Auto) 12.0 H, Eos % (Auto) 8.0 H, Baso % (Auto) 0.6, Absolute Neuts (auto) 3.6, Nucleated RBC % 0 12/30/20 05:45: Sodium 135 L, Potassium 4.1, Chloride 101, Carbon Dioxide 27.0, Anion Gap 7, BUN 36 H, Creatinine 5.35 H, Est GFR (MDRD) Af Amer 14 L, Est GFR (MDRD) Non-Af 11 L, BUN/Creatinine Ratio 6.7 L, Glucose 97, Calcium 8.0 L, Total Bilirubin 0.60 Rhythm: EKG: ECHO: Stress Test: Cardiac Cath: PCI: CT Surgery: Holter monitor: EPS: PPM: CXR: Chest CT Scan: Medical Necessity - Tobacco Use Smoking Status: Former smoker Assessment/Plan 1. Non-ST elevation myocardial infarction Cardiac catheterization performed with limited contrast demonstrates a 60 to 70% distal left main stenosis with aneurysmal dilatation of the proximal LAD. Mild LAD disease. Mild left circumflex disease. Totally occluded right coronary artery with [id number] collaterals. Based on the above angiographic findings would seek an opinion regarding bypass surgery. The films are being evaluated by cardiac surgery and they would like to see him as an outpatient to consider all the options. It is felt that at this time he is stable enough to be discharged for outpatient follow-up. * 2. Hypertension * His blood pressure appears to be under good control at this particular time I would not recommend that we make any other major changes. * An echocardiogram was performed to assess his ventricular function and there is demonstrated an ejection fraction of approximately 30%. * 3. End-stage renal disease * He does have evidence of end-stage renal disease and has not been compliant with dialysis. He is getting dialysis today and hopefully he will be encouraged to continue with the same. * * Thank you for allowing me to participate in the care of your patient. Please don't hesitate to call if any issues arise. *
--- NOTE | 2020-12-30 07:56 | DCINST_ITS ---
- Discharge Diagnoses Current Active Problems: Current Active and Chronic Problems (Last Updated 12/28/20 @ 16:00 by Alanna Bee) Flash pulmonary edema (Acute) Non-STEMI (non-ST elevated myocardial infarction) (Acute) End stage renal disease (Acute) Bilateral inguinal hernia without obstruction or gangrene (Chronic) Essential (primary) hypertension (Chronic) Hypercholesteremia (Chronic) You will use the following diet at home:: Cardiac Your food should be the consistency of: Regular Discharge Activity: Return to Normal Activity Allergies/Adverse Reactions: Allergies atorvastatin [From Lipitor] Adverse Reaction (Verified 12/28/20 01:32) unstable gait, myalgia rosuvastatin [From Crestor] Adverse Reaction (Verified 12/28/20 01:32) unstable gait, myalgia Medications to take at Discharge sertraline 50 mg tablet 50 mg PO DAILY 05/09/19 Calcium Acetate 667 mg PO TID 12/28/20 Vit B Comp No.3/Folic/C/Biotin [Nephro-Tyson Rx Tablet] 1 ea PO DAILY 12/28/20 Aspirin [Aspirin, Baby] 81 mg PO DAILY@0800 #90 tab.chew 12/30/20 Carvedilol [Coreg (Beta Natasha)] 6.25 mg PO BID #180 tab 12/30/20 Losartan Potassium 25 mg PO DAILY #90 tab 12/30/20 The following prescriptions were given: Aspirin [Aspirin, Baby] 81 mg PO DAILY@0800 #90 tab.chew Transmission Status: Received by [facility] 181 Carvedilol [Coreg (Beta Natasha)] 6.25 mg PO BID #180 tab Transmission Status: Received by [facility] 181 Losartan Potassium 25 mg PO DAILY #90 tab Transmission Status: Received by [facility] [id number] Orders to be completed after discharge: Cardiovascular/Thoracic Surgery Location: None Selected Primary Care Physician: Damion Leroy Chi, MD [Primary Care Provider] - Please follow up with your Primary Care Physician in: in 1-2 weeks Test Results: Test results from this visit will be discussed in further detail at your follow- up appointment, if applicable. Please Follow Up With: Carlito Keyes MD When: in 1-2 weeks to refer to cardiothoracic surgery as outpatient Proposed Discharge Date: 12/30/20
[2020-12-30] MEDS: Aspirin 81 MG TAB.CHEW PO (10:10)
[2020-12-30] MEDS: Carvedilol 6.25 MG Tablet PO (10:10)
[2020-12-30] MEDS: Sertraline 50 MG Tablet PO (10:10)
[2020-12-30] MEDS: Folic Acid/Vitamin B Comp W-C 1 Capsule 1 CAP PO (10:10)
--- NOTE | 2020-12-30 10:41 | DS.PCM_ITS ---
Discharge Date and Diagnosis - Problem List Patient Problems: Active and Suspected Problems (Last Updated 12/30/20 @ 08:06 by Alanna Bee) Non-STEMI (non-ST elevated myocardial infarction) (Acute) End stage renal disease (Acute) Date of Admission: 12/28/20 Date of Discharge: 12/30/20 - Primary Discharge Diagnosis Acute Problems: Active Problems (Last Updated 12/30/20 @ 08:06 by Alanna Bee) Non-STEMI (non-ST elevated myocardial infarction) (Acute) End stage renal disease (Acute) - Secondary Discharge Diagnosis Chronic Problems: Chronic Problems (Last Updated 12/30/20 @ 08:06 by Alanna Bee) Atherosclerotic heart disease of [place] coronary artery without angina pectoris (Chronic) Essential (primary) hypertension (Chronic) Hypercholesteremia (Chronic) Hospital Course and Treatment Imaging Results: Clinical Impression(s) from Imaging Studies Chest X-Ray 12/28/20 01:34 IMPRESSION: Diffuse interstitial pneumonitis versus interstitial pulmonary edema, clinical correlation recommended. Electronically Signed: Enedelia Arriola MD at 1:58 EST , Service support , Chest CTA 12/28/20 02:23 IMPRESSION: Negative CTA chest examination, without a demonstrated pulmonary embolism or arterial dissection. Bilateral pleural effusions with likely congestive heart failure/interstitial pulmonary edema. Possible superimposed multifocal pneumonitis. Clinical correlation recommended. Electronically Signed: Enedelia Arriola MD at 3:16 EST , Service support , 2D ECHO Normal LV size. Mild concentric left ventricular hypertrophy. The estimated ejection fraction is 30 %. Infero-Basal: Akinetic. There is moderate mitral annular calcification. Compared to previous study, the left ventricular systolic function has worsened. . Summary of Care Provided: Patient is a 65-year-old gentleman with multiple comorbidities admitted with aggressive shortness of breath and assessment of acute congestive heart failure made admitted to the intensive care unit for further management 1. Acute on chronic congestive heart failure with preserved ejection fraction Imaging studies obtained on admission demonstrated interstitial pulmonary edema consistent with acute congestive heart failure. Admitted to the intensive care unit where patient fluid overload is currently being managed with dialysis. -Echo demonstrated EF of 30% patient was discharged on 25 mg of losartan 2. Acute non-STEMI ?Troponin on admission was 4.2 has risen to 10.6. With heparin, aspirin. Patient not on statin therapy due to reported allergies to atorvastatin as well as rosuvastatin consult placed to cardiology. Plan is for patient to undergo left heart catheterization following dialysis -12/29/2020 underwent left heart catheterization on 12/28/2020 was treated distal left main coronary artery with 60 to 70% lesion with proximal LAD aneurysmal formation. Was discussed with cardiology Dr. Keyes. Plan is for patient's films to be reviewed cardiothoracic surgery for decision to be made regarding treatment options (bypass, high risk PCI and or medical management) -12/30/2020; was discharged home with plans for patient to be evaluated by cardiothoracic surgery regarding bypass and options. Patient was instructed to call Dr. Keyes's office to get the date and time for the appointment 3. Hypertension - Blood pressure controlled, home medications continued with dose adjustment as needed 4. Depression with anxiety ?patient is on SSRI sertraline 5. DVT prophylaxis - Patient on heparin 6. 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 Ervin for dialysis orders 7. Bacteremia ?Bland to be contaminant blood cultures came back 1 out of 2 bottles for coagulase-negative staph. Patient Problems: Active and Suspected Problems (Last Updated 12/30/20 @ 08:06 by Alanna Bee) Non-STEMI (non-ST elevated myocardial infarction) (Acute) End stage renal disease (Acute) Objective: GENERAL: cooperative HEENT: Atraumatic; EYES; Anicteric, Normal Conjunctiva NECK; supple, normal thyroid, RESPIRATORY: Diminished to auscultation CARDIOVASCULAR: Regular S1 S2, GI: soft, normoactive bowel sounds, : No Renal angle tenderness; EXTREMITIES: No edema, no clubbing, MUSCULOSKELETAL: no muscle waisting NEURO: Awake; no lateralizing signs. SKIN: No Rash PSYCH; Flat affect - Physical Exam Vitals/I&O's: Vital Signs Temp Pulse Resp BP Pulse Ox 97.7 F L 88 18 136/55 H 94 12/30/20 09:35 12/30/20 09:35 12/30/20 09:35 12/30/20 09:35 12/30/20 09:35 Oxygen Flow Rate (L/min) 2 Oxygen Delivery Method Room Air Weight: 81.9 kg Body Mass Index (BMI) 26.6 Intake and Output for Last 24 Hours 12/28/20 12/29/20 12/30/20 23:59 23:59 23:59 Intake Total 96.87 / 96.87 1555 / 1555 150 / 150 Output Total 1327 / 1327 1500 / 1500 Balance -1230.13 / -1230.13 55 / 55 150 / 150 Microbiology Past 72 Hours 12/28/20 01:52 Blood Culture (Wb) - Anticubital Left Bacteria Detection (PCR) - Final Coag Negative Staph 12/28/20 01:52 Blood Culture (Wb) - Anticubital Left Blood Culture - Final Staphylococcus haemolyticus 12/28/20 01:45 Blood Culture (Wb) - Right Wrist Blood Culture - Preliminary No growth in 48 hours. Laboratory Results 12/28/20 01:45: Sodium 136, Potassium 5.5 H, Chloride 107, Carbon Dioxide 18.0 L , Anion Gap 11, BUN 84 H, Creatinine 9.25 H*, Estim Creat Clear Calc 8.11, Est GFR (MDRD) Af Amer 7 L, Est GFR (MDRD) Non-Af 6 L, BUN/Creatinine Ratio 9.1 L, Glucose 148 H, Calcium 9.2, Total Bilirubin 0.60, AST 37, ALT 22, Alkaline Phosphatase 80, Troponin I 4.210 H*, Total Protein 8.2, Albumin 3.8, Globulin 4.4 H, Albumin/Globulin Ratio 0.9 12/30/20 05:45: WBC 6.5, RBC 2.86 L, Hgb 8.9 L, Hct 27.5 L, MCV 96.2 H, MCH 31.1, MCHC 32.4, RDW Std Deviation 47.3 H, RDW Coeff of Steven 13.3, Plt Count 241, MPV 10.6, Immature Gran % (Auto) 0.200, Neut % (Auto) 55.8, Lymph % (Auto) 23.4, Kleberg % (Auto) 12.0 H, Eos % (Auto) 8.0 H, Baso % (Auto) 0.6, Absolute Neuts (auto) 3.6, Absolute Lymphs (auto) 1.52, Nucleated RBC % 0 12/30/20 05:45: Sodium 135 L, Potassium 4.1, Chloride 101, Carbon Dioxide 27.0, Anion Gap 7, BUN 36 H, Creatinine 5.35 H, Estim Creat Clear Calc 14.02, Est GFR (MDRD) Af Amer 14 L, Est GFR (MDRD) Non-Af 11 L, BUN/Creatinine Ratio 6.7 L, Glucose 97, Calcium 8.0 L, Total Bilirubin 0.60, AST 38 H, ALT 23, Alkaline Phosphatase 62, Total Protein 6.8, Albumin 2.9 L, Globulin 3.9, Albumin/Globulin Ratio 0.7 L Current Medications Acetaminophen (Acetaminophen 325 Mg Tablet) 650 mg PO Q6H PRN PRN PRN Reason: Pain Score 1-10/Temp > 100.7 F Aspirin (Aspirin 81 Mg Tab.Chew) 81 mg PO DAILY@0800 [facility] Last Admin: 12/30/20 10:10 Dose: 81 mg Documented by: Carvedilol (Carvedilol 6.25 Mg Tablet) 6.25 mg PO BID [facility] Last Admin: 12/30/20 10:10 Dose: 6.25 mg Documented by: Heparin Sodium (Porcine) (Heparin Injection (Vial) 5,000 Unit/Ml Vial) 0 unit IV UD PRN; Protocol PRN Reason: dose adjustment Sodium Chloride () 250 mls @ 15 mls/hr IV .[id number] PRN PRN Reason: Saline Flush Sodium Chloride () 250 mls @ 15 mls/hr IV .[id number] PRN PRN Reason: Additional IVPB Infusion Vancomycin IV Pharmacy to Dose (1 ea/ Sodium Chloride) 500 mls @ 250 mls/hr IV PRN PRN; Protocol PRN Reason: Rx to Dose Melatonin (Melatonin 3 Mg Tablet) 3 mg PO QHS PRN PRN PRN Reason: INSOMNIA Morphine Sulfate (Morphine 2 Mg/Ml Syringe) 2 mg IV Q4H PRN PRN PRN Reason: Dyspnea Last Admin: 12/28/20 05:06 Dose: 2 mg Documented by: Multivit/Ca Carb/B Cmplx/FA/Prenat (Folic Acid/Vitamin B Comp W-C 1 Capsule) 1 capsule PO DAILY [facility] Last Admin: 12/30/20 10:10 Dose: 1 capsule Documented by: Ondansetron HCl (Ondansetron 4 Mg/2 Ml Vial) 4 mg IV Q8H PRN PRN PRN Reason: NAUSEA/VOMITING Last Admin: 12/28/20 04:30 Dose: 4 mg Documented by: Sertraline HCl (Sertraline 50 Mg Tablet) 50 mg PO DAILY [facility] Last Admin: 12/30/20 10:10 Dose: 50 mg Documented by: Sodium Chloride (0.9% Saline Lock 10 Ml Syringe) 10 - 40 ml IV UD PRN PRN Reason: SALINE FLUSH Last Admin: 12/28/20 13:10 Dose: 10 ml Documented by: Discharge Diet: Low fat/ Low Cholesterol Discharge Activity: Return to Normal Activity Home Medications: Medications to take at Discharge sertraline 50 mg tablet 50 mg PO DAILY 05/09/19 Calcium Acetate 667 mg PO TID 12/28/20 Vit B Comp No.3/Folic/C/Biotin [Nephro-Tyson Rx Tablet] 1 ea PO DAILY 12/28/20 Aspirin [Aspirin, Baby] 81 mg PO DAILY@0800 #90 tab.chew 12/30/20 Carvedilol [Coreg (Beta Natasha)] 6.25 mg PO BID #180 tab 12/30/20 Losartan Potassium 25 mg PO DAILY #90 tab 12/30/20 Following Prescriptions Were Given to Patient: Aspirin [Aspirin, Baby] 81 mg PO DAILY@0800 #90 tab.chew [id number] Carvedilol [Coreg (Beta Natasha)] 6.25 mg PO BID #180 tab [facility]: [id number] Losartan Potassium 25 mg PO DAILY #90 tab Transmission Status: [id number] Other Amb Orders: Cardiovascular/Thoracic Surgery Location: None Selected Primary Care Physician: Damion Leroy Chi, MD [Primary Care Provider] - Please follow up with your Primary Care Physician in: in 1-2 weeks Please Follow Up With: Carlito Keyes MD When: in 1-2 weeks to refer to cardiothoracic surgery as outpatient Disposition: Home Minutes spent on discharge:: 35 Patient Condition:: Stable Meaningful Use Info Meaningful Use Diagnoses (Choose all that apply): AMI, CHF - AMI/Post PCI/Angioplasty Aspirin given w/in 24hrs of arrival?: Yes ASA at discharge?: Yes Antiplatelet Therapy at Discharge:: Yes Statins at discharge?: No Reason statins not ordered:: Allergy Aguilar/ARB at discharge?: Yes Beta Natasha at discharge?: Yes Done w/ Acute SD measure.: Yes Documented LVEF (%): 30 - CHF AGUILAR/ARB ordered at discharge?: Yes Documented LVEF (%): 30 Inpatient E&M: [id number] Disch Hosp
--- NOTE | 2020-12-30 11:45 | PHA.DC.MC ---
Pharmacy Service has performed discharge medication reconciliation and counseling for this patient. 1. ASPIRIN 81MG PO DAILYCM 2. CARVEDILOL 6.25MG PO BIDCM 3. LOSARTAN 25MG PO DAILY The patient's discharge medication list was reviewed for discrepancies and discrepancies were resolved. Home Medications sertraline 50 mg tablet 50 mg PO DAILY 05/09/19 Calcium Acetate 667 mg PO TID 12/28/20 Vit B Comp No.3/Folic/C/Biotin [Nephro-Tyson Rx Tablet] 1 ea PO DAILY 12/28/20 Aspirin [Aspirin, Baby] 81 mg PO DAILY@0800 #90 tab.chew 12/30/20 Carvedilol [Coreg (Beta Natasha)] 6.25 mg PO BID #180 tab 12/30/20 Losartan Potassium 25 mg PO DAILY #90 tab 12/30/20 The patient was counseled on the following discharge medications and changes in medications for homegoing were reviewed. The Reason for Use, instructions for use, and potential side effects were reviewed for all new medications. The patient's questions regarding all of their medications were answered. The patient was able to verbally demonstrate an understanding of their discharge medications. Patient counseled by splicing technician, Camila.
--- NOTE | 2020-12-31 14:12 | CASEMGMT ---
Addendum entered by Lissy Azevedo 01/01/21 11:41: Pt called this RN NATE back and states has been doing 'alright' since discharge. Pt states has been 'taking it easy'. Pt states no questions regarding discharge instructions/medications at this time. Pt states has f/u with Dr. Leroy 01/[address] Keyes 01/06 and plans to keep. Pt states is planning on seeing cardiothoracic surgeon as well. Pt states no suggestions for [facility] at this time and states 'I was very satisfied with the quality of care I received, all my questions were answered, and if I needed something, they got it to me right away.' Pt voices no further questions/concerns/needs at this time and thanks this RN NATE for the call at this time. Yanick UREÑA CM Original Note: ADELITA SULLIVAN Discharge F/U Phone Call LACE:10 Strata: 3 Discharge date: 12/30/20 Call date: 12/31/20 Call time: [id number] Attempted to reach pt without success at this time, message left for pt to call this RN NATE back if/when able. Yanick UREÑA CM Admission dx: Acute exacerbation of Heart Failure
== END 2020-12-30 12:12 | disposition home or self-care (01) | DRG 280 ==
LOC: ED 02:13 → ICU 04:20 → PCU 12-29 15:41
PROVIDERS: Admitting Provider Hospitalist; Emergency Provider Emergency Medicine; PCP Family Medicine Geriatric Medicine; Visit Provider Internal Medicine
DX: I21.4 Non-ST elevation (NSTEMI) myocardial infarction (principal); I50.33 Acute on chronic diastolic (congestive) heart failure; N18.6 End stage renal disease; J96.01 Acute respiratory failure with hypoxia; J96.02 Acute respiratory failure with hypercapnia; I13.2 Hypertensive heart and chronic kidney disease with heart failure and with stage 5 chronic kidney disease, or end stage renal disease; I25.10 Atherosclerotic heart disease of native coronary artery without angina pectoris; I25.5 Ischemic cardiomyopathy; E78.00 Pure hypercholesterolemia, unspecified; F32.9 Major depressive disorder, single episode, unspecified; F41.9 Anxiety disorder, unspecified; Z91.15 Patient's noncompliance with renal dialysis; Z99.2 Dependence on renal dialysis; Z79.899 Other long term (current) drug therapy; I25.2 Old myocardial infarction; Z86.16 Personal history of COVID-19; Z87.891 Personal history of nicotine dependence
CPT/HCPCS: 36600; 71045; 71275; 80053; 80061; 82803; 83605; 83735; 83880; 84484; 85025; 85379; 85610; 85730; 87040; 87077; 87149; 87186; 90937; 93005; 93308; 93454; 94002; 99152; 99153; 99251; 99285; J7040; J7050; Q9967; A4216; C1769; G0257; G0463; J2405

== ENCOUNTER 2021-01-06 07:22 | Emergency (ER) | payer MEDICARE, OTHER, SELFPAY ==
[2020-12-28 04:38] VITALS: BMI 26.6
[2021-01-06] VITALS (18 sets, daily range): BP systolic 66–220; BP diastolic 46–104; PULSE 83–132; RESP 12–41; TEMP 36.1–36.6; O2SAT 92–100; BMI 26.2
--- NOTE | 2021-01-06 07:30 | EKG12_ITS ---
Test Reason : REPEAT Blood Pressure : / mmHG Vent. Rate : 093 BPM Atrial Rate : 093 BPM P-R Int : 166 ms QRS Dur : 106 ms QT Int : 386 ms P-R-T Axes : -23 053 260 degrees QTc Int : 479 ms Normal sinus rhythm Incomplete left bundle branch block Left ventricular hypertrophy with repolarization abnormality Abnormal ECG Confirmed by CARMEN LIVE, ANNIKA ([id number]), editor book TREY ELIZONDO ([id number]) on 01/11/2021 10:40:20 AM Referred By: GINGER Confirmed By:ANNIKA MORALES MD
--- NOTE | 2021-01-06 07:30 | RAD_ITS ---
STUDY: X-RAY CHEST REASON FOR EXAM: Male, 65 years old. substernal chest pain. pain woke pt up. pt room air sat 86 TECHNIQUE: Single AP portable view of the chest. COMPARISON: 12/28/2020. FINDINGS: Cardiomegaly. Pulmonary vascular congestion. Aorta slightly calcified. Extensive multifocal airspace opacities predominating at the right perihilar region. COPD. Small right pleural effusion. Upper abdomen unremarkable. Osseous structures intact. No pneumothorax. RAD/Chest 1 View (Portable) IMPRESSION: Increasing bilateral airspace opacities predominating at the right perihilar region (potential infection/edema) Small right pleural effusion Electronically Signed: Pete Jett DO at 8:05 EST Tel , Service support ,
[2021-01-06 07:35] LABS: Absolute Lymphocyte Count 2.58 X10^3/uL (0.83-4.51); Absolute Neutrophil Count 5.1 X10^3/uL (2.0-7.7); Basophil# 0.09 X10^3/uL; Eosinophil# 0.41 X10^3/uL; Eosinophils% 4.6 % (0-5); Hematocrit 33.4 % (40-54); Hemoglobin 10.8 g/dL (13.0-16.5); Lymphocyte # 2.58 X10^3/ul (4.0); Lymphocyte % 29.2 % (19-41); Mean Corp Hgb Conc 32.3 g/dL (32-36); Mean Corpuscular Hgb 32.4 pg (27.0-32.0); Mean Corpuscular Volume 100.3 fL (80-94); Mean Platelet Vol. 10.5 fl (6.2-12.0); Monocyte# 0.63 X10^3/uL; Monocyte% 7.1 % (0-10); NRBC Flagged by Analyzer 0 % (0-5); Neutrophil % 57.6 % (47-70); Platelet Count 375 K/mm3 (150-450); RBC Distribution Width CV 13.9 % (11.6-14.6); RBC Distribution Width SD 50.1 fl (35.1-43.9); Red Blood Count 3.33 M/mm3 (4.6-6.2); White Blood Count 8.9 K/mm3 (4.4-11.0)
--- NOTE | 2021-01-06 07:35 | EKG12_ITS ---
Test Reason : CHEST PAIN Blood Pressure : / mmHG Vent. Rate : 111 BPM Atrial Rate : 111 BPM P-R Int : 146 ms QRS Dur : 116 ms QT Int : 346 ms P-R-T Axes : 052 052 253 degrees QTc Int : 470 ms Sinus tachycardia Possible Left atrial enlargement Left ventricular hypertrophy with QRS widening and repolarization abnormality Abnormal ECG Confirmed by CARMEN LIVE, ANNIKA ([id number]), pictures editor TREY ELIZONDO ([id number]) on 01/11/2021 10:40:39 AM Referred By: GINGER Confirmed By:ANNIKA MORALES MD
[2021-01-06] MEDS: Nitroglycerin Infusion 250 ML 3 MG CONT INF (07:36)
--- NOTE | 2021-01-06 07:44 | ED.RN ---
pt coughing up pink frothy phlegm
[2021-01-06 07:55] LABS: Allen Test Positive; Base Excess -4 mmol/L (-2 to +2); Bicarbonate 24.2 mmol/L (22-26); Blood Gas Specimen Type ART; FI02 100; O2 Delivery Device BiPAP; PO2 69 mmHG (75-100); SITE R Radial; SO2 89 % (95-99); Total Carbon Dioxide 26 mmol/L; pCO2 60.7 mmHg (35-45); pH 7.21 (7.35-7.45)
[2021-01-06 08:02] LABS: BNP,B-Type NATRIURETIC PEPTIDE 1410.5 pg/mL (0-100)
[2021-01-06 08:14] LABS: Anion Gap 9 (5-15); BUN 69 mg/dL (7-18); BUN/Creat Ratio 9.2 RATIO (10-20); Calcium,Total 8.3 mg/dL (8.5-10.1); Chloride 101 mmol/L (98-107); Creatinine, Serum 7.52 mg/dL (0.70-1.30); EST Glomerular Filtration Rate 8 mL/min (>60); Est Glom Filt Rate - Afr Amer 9 mL/min (>60); Estimated Creatinine Clearance 10.61 ml/min; Glucose 219 mg/dL (74-106); Potassium 4.6 mmol/L (3.5-5.1); Sodium Level 139 mmol/L (136-145)
--- NOTE | 2021-01-06 08:35 | RAD_ITS ---
STUDY: X-RAY CHEST REASON FOR EXAM: Male, 65 years old. ETT PLACEMENT #3 OF 4 TECHNIQUE: Single AP portable view of the chest. COMPARISON: 01/06/2021 at 08 31 FINDINGS: Endotracheal tube with the tip proximal a 7 cm above the feliciano. Nasogastric tube with the tip below the diaphragm. No change in the alveolar opacity throughout both lungs consistent with bilateral pneumonia, pulmonary edema, or ARDS. There is no demonstrated pleural abnormality. There is moderate cardiac enlargement. Normal mediastinum and prince. Normal visualized pulmonary arteries. Normal visualized aortic arch and descending thoracic aorta. Normal visualized thoracic spine. Normal visualized ribs, clavicles, and shoulders. There is no demonstrated abnormality of the visualized soft tissue structures of the upper abdomen. RAD/Chest 1 View IMPRESSION: 1. Endotracheal tube with the tip approximate 7 cm above the feliciano. 2. Nasogastric tube with the tip below the diaphragm. 3. No change in bilateral pneumonia, pulmonary edema, or ARDS. Electronically Signed: Donnell Rivas MD at 9:15 EST Tel , Service support ,
--- NOTE | 2021-01-06 08:35 | RAD_ITS ---
STUDY: X-RAY CHEST REASON FOR EXAM: Male, 65 years old. ETT PLACEMENT #2 OF 4 TECHNIQUE: Single AP portable view of the chest. COMPARISON: 01/06/2021 at 08 31 FINDINGS: Endotracheal tube with the tip approximate centimeters above the feliciano which is unchanged. Nasogastric tube with the tip below the diaphragm which is unchanged. No change in the alveolar opacity throughout both lungs consistent with bilateral pneumonia, pulmonary edema, or mass. There is no demonstrated pleural abnormality. There is moderate cardiac enlargement. Normal mediastinum and prince. Normal visualized pulmonary arteries. Normal visualized aortic arch and descending thoracic aorta. Normal visualized thoracic spine. Normal visualized ribs, clavicles, and shoulders. There is no demonstrated abnormality of the visualized soft tissue structures of the upper abdomen. RAD/Chest 1 View IMPRESSION: 1. Endotracheal tube with the tip approximate 8 centimeters above the feliciano. 2. Nasogastric tube with the tip below the diaphragm. 3. No change in bilateral pneumonia, pulmonary edema, or ARDS. Electronically Signed: Donnell Rivas MD at 9:17 EST Tel , Service support ,
--- NOTE | 2021-01-06 08:35 | RAD_ITS ---
STUDY: X-RAY CHEST REASON FOR EXAM: Male, 65 years old. ETT PLACEMENT #4 OF 4 TECHNIQUE: Single AP portable view of the chest. COMPARISON: 01/06/2021 at 08 31 FINDINGS: Endotracheal tube with tip approximate 7 cm above the feliciano. Nasogastric tube with the tip below the diaphragm. No change in the alveolar opacity throughout both lungs consistent with bilateral pneumonia, probably edema, or areas. There is no demonstrated pleural abnormality. There is moderate cardiac enlargement. Normal mediastinum and prince. Normal visualized pulmonary arteries. Normal visualized aortic arch and descending thoracic aorta. Normal visualized thoracic spine. Normal visualized ribs, clavicles, and shoulders. There is no demonstrated abnormality of the visualized soft tissue structures of the upper abdomen. RAD/Chest 1 View IMPRESSION: 1. Endotracheal tube the tip approximately 7 cm above the feliciano. 2. Nasogastric tube with the tip below the diaphragm. 3. No change in bilateral pneumonia, pulmonary edema, or ARDS Electronically Signed: Donnell Rivas MD at 9:14 EST Tel , Service support ,
--- NOTE | 2021-01-06 08:35 | RAD_ITS ---
STUDY: X-RAY CHEST REASON FOR EXAM: Male, 65 years old. ETT AND OG PLACEMENT #1 OF 4 TECHNIQUE: Single AP portable view of the chest. COMPARISON: 01/06/2021 at 07 41 FINDINGS: Interval placement of endotracheal tube with the tip approximate 8 cm above the feliciano. Interval placement of nasogastric tube with the tip below the diaphragm. Alveolar opacity throughout both lungs consistent with bilateral pneumonia, pulmonary edema, or ARDS per There is no demonstrated pleural abnormality. There is moderate cardiac enlargement. Normal mediastinum and prince. Normal visualized pulmonary arteries. Normal visualized aortic arch and descending thoracic aorta. Normal visualized thoracic spine. Normal visualized ribs, clavicles, and shoulders. There is no demonstrated abnormality of the visualized soft tissue structures of the upper abdomen. RAD/Chest 1 View IMPRESSION: 1. Interval placement of endotracheal tube with tip approximately 8 cm above the feliciano. 2. Interval placement of nasogastric tube with the tip below the diaphragm. 3. Bilateral pneumonia, pulmonary edema, or ARDS. Electronically Signed: Donnell Rivas MD at 9:11 EST Tel , Service support ,
--- NOTE | 2021-01-06 08:50 | EKG12_ITS ---
Test Reason : CHEST PAIN Blood Pressure : / mmHG Vent. Rate : 130 BPM Atrial Rate : 130 BPM P-R Int : 146 ms QRS Dur : 122 ms QT Int : 312 ms P-R-T Axes : 060 071 -78 degrees QTc Int : 459 ms Sinus tachycardia Septal infarct , age undetermined Marked ST abnormality, possible lateral subendocardial injury Abnormal ECG Confirmed by CARMEN LIVE, ANNIKA ([id number]), editor in chief newspaper TREY ELIZONDO ([id number]) on 01/11/2021 10:40:55 AM Referred By: GINGER Confirmed By:ANNIKA MORALES MD
[2021-01-06] MEDS: Propofol 10MG/Ml 1,000 MG/100 ML Bottle 5.3 MG CONT INF (09:20)
[2021-01-06] MEDS: Furosemide 100 MG/10 ML Vial 80 MG IV (09:20)
--- NOTE | 2021-01-06 09:25 | ED.RN ---
[id number]/101 115 89 on bipap 0814- suction large amount pink frothy sputum 0816- 168/101 114 36 89 bagged- rocuronium 50 0818- 7 .5 ett tube [address] aparicio-color change,bilateral breath sounds 0820 diprovan 10 mcg/kg/min 0824- bagging cook exchange to exchange --faulty cuff 0825--propofol 15-- 7.5 ett tube thru cook exchange 0828-tube pulled cuff leak-o color change 168/101 126 94 bagged 0830-- 209/113 121 30 [address] reintub[address] aparicio -good color change beath sounds diminished on left. stat portable 0832-199/108 124 93 bagged 0834 #16 ng tube per es. good air bolus 0835-cxr 0564-ccv-fnjjzoq tube to 25. bilateral ana
--- NOTE | 2021-01-06 09:30 | EKG12_ITS ---
Test Reason : CHEST PAIN Blood Pressure : / mmHG Vent. Rate : 129 BPM Atrial Rate : 129 BPM P-R Int : 144 ms QRS Dur : 116 ms QT Int : 294 ms P-R-T Axes : 071 067 -25 degrees QTc Int : 430 ms Sinus tachycardia Septal infarct , age undetermined Marked ST abnormality, possible lateral subendocardial injury Abnormal ECG Confirmed by CARMEN LIVE, ANNIKA ([id number]), newspaper editor managing TREY ELIZONDO ([id number]) on 01/12/2021 11:39:42 AM Referred By: GINGER Confirmed By:ANNIKA MORALES MD
[2021-01-06 09:31] LABS: Allen Test Positive; Base Excess 0 mmol/L (-2 to +2); Bicarbonate 27.3 mmol/L (22-26); Blood Gas Specimen Type ART; FI02 90; Mode AC; O2 Delivery Device Adult Vent; PEEP 8; PO2 74 mmHG (75-100); RR 14; SITE R Brach; SO2 92 % (95-99); Total Carbon Dioxide 29 mmol/L; Vt 500; pCO2 60.7 mmHg (35-45); pH 7.26 (7.35-7.45)
--- NOTE | 2021-01-06 09:45 | ED.RN ---
all drips stopped due to bp-fentynl initiated
--- NOTE | 2021-01-06 09:50 | ED.RN ---
continued 0837-advanced ett tube to 25. cxr 0839 cxr-advanced tube to 27 0848-- 184/101 111 16 95 0848 184/101 11 16 0900 bed change complete- large copious amount brown /101 115 20 99 0901- 186/99 113 0906 titrate propofol 0915-- temp fowler 180/96 110 95 %-- lasix 80 0934 106/67 95 93 %
[2021-01-06] MEDS: fentaNYL 100 MCG/2 ML Ampul IV (09:59)
--- NOTE | 2021-01-06 10:00 | ED.VIS.GEN ---
History of Present Illness Chief Complaint: Chest Pain Detail of Chief Complaint: Respiratory distress, chest pain Informant: Patient Onset: Today Narrative: Patient presents via EMS secondary to chest pain and shortness of breath. Patient reportedly was recently admitted to the hospital with an NSTEMI and CHF. EMS tell us that family had reported his cath was abnormal and plan was to have his images reviewed by a cardiothoracic surgeon at [facility]. Patient reportedly woke this morning with chest pressure and shortness of breath. He complained that he could not catch his breath. - Past Medical History (1) End stage renal disease Status: Chronic (2) Ischemic cardiomyopathy Status: Chronic (3) Non-STEMI (non-ST elevated myocardial infarction) Status: Chronic (4) Atherosclerotic heart disease of [place] coronary artery without angina pectoris Status: Chronic (5) Essential (primary) hypertension Status: Chronic (6) Hypercholesteremia Status: Chronic Past Medical History - Allergies and Home Meds Allergies/Adverse Reactions: Allergies atorvastatin [From Lipitor] Adverse Reaction (Verified 01/06/21 07:29) unstable gait, myalgia rosuvastatin [From Crestor] Adverse Reaction (Verified 01/06/21 07:29) unstable gait, myalgia Primary Care Physician: Damion Leroy Chi, MD [Primary Care Provider] - Prior records reviewed: Yes Lives: Spouse/ Significant Other Smoking Status: Former smoker Review of Systems ROS: Unable to Obtain - Due to patient's respiratory distress unable to answer questions Physical Exam Vital Signs/Narrative: Vital Signs Temp Pulse Resp BP Pulse Ox 01/06/21 09:58 97.1 F L 85 18 129/68 H 97 01/06/21 09:56 88 18 129/88 H 96 01/06/21 09:55 89 18 119/67 94 01/06/21 09:47 80/49 L 01/06/21 09:44 87 16 69/48 L 93 01/06/21 09:40 90 16 66/46 L 95 01/06/21 09:22 90 16 80/49 L 95 01/06/21 07:59 211/98 H 01/06/21 07:49 211/98 H 01/06/21 07:42 218/104 H 01/06/21 07:36 128 H 220/101 H 01/06/21 07:30 129 H 41 H 92 01/06/21 07:22 97.8 F 132 H 38 H 214/103 H 92 Inital Vital Signs reviewed: Yes General: Well nourished, Well developed Head: Normocephalic Eyes: EOMI ENT: Moist mucous membranes Cardiovascular: Tachycardia Respiratory: - - Crackles and diminished air movement throughout Abdomen: Soft, Nontender Extremities: No edema - Nods to questions Skin: Diaphoresis Neurological: Alert, - Diagnostic/Tx/Re-eval Chest X-Ray - ED: 1 View, Read by ED Physician, CHF Impressions Chest X-Ray 01/06/21 08:35 IMPRESSION: 1. Endotracheal tube with the tip approximate 8 centimeters above the feliciano. 2. Nasogastric tube with the tip below the diaphragm. 3. No change in bilateral pneumonia, pulmonary edema, or ARDS. Electronically Signed: Donnell Rivas MD at 9:17 EST Tel , Service support , 01/06/21 07:30 Chest 1 View (Portable) [RAD] Stat 01/06/21 08:35 Chest 1 View [RAD] Stat Chest 1 View [RAD] Stat Chest 1 View [RAD] Stat Chest 1 View [RAD] Stat Laboratory Results 01/06/21 01/06/21 01/06/21 07:25 07:25 07:25 WBC 8.9 RBC 3.33 L Hgb 10.8 L Hct 33.4 L MCV 100.3 H MCH 32.4 H MCHC 32.3 RDW Std Deviation 50.1 H RDW Coeff of Steven 13.9 Plt Count 375 MPV 10.5 Immature Gran % (Auto) 0.500 Neut % (Auto) 57.6 Lymph % (Auto) 29.2 [place] % (Auto) 7.1 Eos % (Auto) 4.6 Baso % (Auto) 1.0 Absolute Neuts (auto) 5.1 Absolute Lymphs (auto) 2.58 Nucleated RBC % 0 Specimen Type Sample Site pH Bicarbonate Actual Total CO2 Base Excess O2 Saturation O2 % ABG pCO2 ABG pO2 Sherif Test Respiration Rate O2 Delivery Device Vent Mode Tidal Volume POC PEEP Sodium 139 Potassium 4.6 Chloride 101 Carbon Dioxide 29.0 Anion Gap 9 BUN 69 H Creatinine 7.52 H* Estim Creat Clear Calc 10.61 Est GFR (MDRD) Af Amer 9 L Est GFR (MDRD) Non-Af 8 L BUN/Creatinine Ratio 9.2 L Glucose 219 H Calcium 8.3 L Troponin I 0.158 H B-Natriuretic Peptide 1410.5 H 01/06/21 01/06/21 07:48 09:26 WBC RBC Hgb Hct MCV MCH MCHC RDW Std Deviation RDW Coeff of Steven Plt Count MPV Immature Gran % (Auto) Neut % (Auto) Lymph % (Auto) [place] % (Auto) Eos % (Auto) Baso % (Auto) Absolute Neuts (auto) Absolute Lymphs (auto) Nucleated RBC % Specimen Type ART ART Sample Site R Radial R Brach pH 7.21 L 7.26 L Bicarbonate Actual 24.2 27.3 H Total CO2 26 29 Base Excess -4 L 0 O2 Saturation 89 L 92 L O2 % 100 90 ABG pCO2 60.7 H 60.7 H ABG pO2 69 L 74 L Sherif Test Positive Positive Respiration Rate 14 O2 Delivery Device BiPAP Adult Vent Vent Mode AC Tidal Volume 500 POC PEEP 8 Sodium Potassium Chloride Carbon Dioxide Anion Gap BUN Creatinine Estim Creat Clear Calc Est GFR (MDRD) Af Amer Est GFR (MDRD) Non-Af BUN/Creatinine Ratio Glucose Calcium Troponin I B-Natriuretic Peptide - Medical Decision Making Patient placed on BiPAP as well as a nitro drip on arrival as he was significantly hypertensive. Blood work was sent. After approximately 30 minutes patient had mild improvement in his symptoms, but was coughing up pink frothy sputum. Sats were around 90% on 100% FiO2 with the BiPAP. Patient was given 80 mg of IV Lasix. Decision was made to intubate the patient. Patient was given 20 mg of etomidate. Because he was biting down rocuronium was given. ET tube was placed using glide scope. Unfortunately balloon had become snagged on his tooth and would not fill with significant pressure. We attempted to change the tube out over a Cook exchange catheter but would coil in the back of his throat. This was removed and patient was reintubated with a new tube. At this time patient's vent settings include respiratory rate 14, volume 500, PEEP 8, FiO2 100%. Patient was placed on propofol drip for sedation. Nitro drip was continued. After a time period the blood pressure did drop. Propofol and nitroglycerin drips were stopped. Patient was placed on fentanyl drip for sedation. Blood pressure has improved to 105-115 systolic range. Propofol is being reintroduced. Multiple EKGs were obtained throughout the patient's ED stay. EKG #1 reveals sinus tachycardia with a rate of 129. Significant artifact is noted with deep lateral ST depression. EKG #2 reveals sinus tachycardia at 130. Again significant ST depression noted in the lateral precordial leads. EKG #3 obtained after intubation. This revealed sinus tachycardia with a rate of 111. ST depression laterally is improving. EKG #4 reveals sinus rhythm at [address] depression is continuing to improve. No ST elevation. ABG #1 was obtained on BiPAP. pH equals 7.209, PCO2 60.7, PO2 68.7, sat 88.6%. ABG #2 obtained after being placed on the ventilator. pH equals 7.262, PCO2 60.7, PO2 73.9, sat equals 91.7%. I spoke with Dr. Kwok, on-call for cardiology. He did feel that because the patient's images were being sent to [facility] for review we should see if they have a bed available to accept this patient. I spoke with Dr. Joel Ramirez, ICU at [facility]. Patient has been accepted. We are contacting transport at this time. has been at bedside and updated throughout. - Critical Care Time Critical care time (excluding procedures): 75-104 minutes ED Disposition - Plan for ED Patient: Disposition: [facility] Diagnosis: Pulmonary edema, Respiratory failure Referrals: Damion Leroy Chi, MD [Primary Care Provider] -
--- NOTE | 2021-01-06 10:06 | NURSING ---
DR GEORGIE MILES
--- NOTE | 2021-01-06 10:19 | NURSING ---
LIFEFLIGHT 10 MIN [facility] BED 3 NURSE TO NURSE,
== END 2021-01-06 11:17 | disposition short-term general hospital (02) ==
PROVIDERS: Emergency Provider Emergency Medicine; PCP Family Medicine Geriatric Medicine
DX: J81.1 Chronic pulmonary edema (principal); J96.90 Respiratory failure, unspecified, unspecified whether with hypoxia or hypercapnia; I13.2 Hypertensive heart and chronic kidney disease with heart failure and with stage 5 chronic kidney disease, or end stage renal disease; N18.6 End stage renal disease; I25.10 Atherosclerotic heart disease of native coronary artery without angina pectoris; I25.5 Ischemic cardiomyopathy; E78.00 Pure hypercholesterolemia, unspecified; Z79.82 Long term (current) use of aspirin; Z79.899 Other long term (current) drug therapy; I25.2 Old myocardial infarction; Z87.891 Personal history of nicotine dependence
CPT/HCPCS: 31500; 31720; 36600; 71045; 80048; 82803; 83880; 84484; 85025; 93005; 94002; 96365; 96366; 96367; 96375; 99251; 99285; J7040; J7050; A4216; G0463; J1940; J3010

== ENCOUNTER → 2021-04-14 12:52 | Outpatient (CLI) | payer MEDICARE, OTHER, SELFPAY ==
[2021-02-12 13:02] VITALS: BMI 24.7
--- NOTE | 2021-04-14 12:59 | ECHOD_ITS ---
Reason For Study: CHF Procedure This was a 2D Doppler, Color Flow transthoracic echocardiogram. Exam performed in department. Left Ventricle Normal LV size. Moderate concentric left ventricular hypertrophy. Left ventricular systolic function is normal. The estimated ejection fraction is 55 %. Stage 1 diastolic dysfunction. No regional wall motion abnormalities noted. Right Ventricle Normal RV size. Normal systolic function. Atria Normal left atrium. Normal right atrium. Mitral Valve Normal mitral valve. Mild (1+) eccentric mitral valve insufficiency. Tricuspid Valve Normal tricuspid valve. Aortic Valve Normal aortic valve. Trisinus/trileaflet aortic valve. Mild (1+) aortic valve insufficiency. Pulmonic Valve Normal pulmonic valve. Great Vessels Normal aortic root. The pulmonary artery is normal size. Normal inferior vena cava. Pericardium/Pleural No pericardial effusion. MMode/2D Measurements & Calculations LVIDd: 5.5 cm IVSd: 1.4 cm LA dimension: 4.3 cm LVIDs: 4.1 cm LVPWd: 1.5 cm FS: 25.3 % LAV(MOD-bp): 61.7 ml LVAd ap4: 36.5 cm2 SV(MOD-sp4): 63.9 ml LAV(MOD-bp) Indexed: 30.2 ml/m2 LVLd ap4: 8.7 cm LAV(MOD-sp2): 55.3 ml EDV(MOD-sp4): 129.7 ml LAV(MOD-sp4): 56.4 ml EDV(sp4-el): 130.2 ml LVAs ap4: 23.3 cm2 LVLs ap4: 7.6 cm ESV(MOD-sp4): 65.8 ml ESV(sp4-el): 60.5 ml EF(MOD-sp4): 49.3 % EF(sp4-el): 53.5 % SV(sp4-el): 69.6 ml LA A4 area: 20.1 cm2 RA A4 area: 10.2 cm2 Time Measurements MV dec time: 0.28 sec Doppler Measurements & Calculations MV E max nirav: 78.1 cm/sec Lat Peak E' Nirav: 9.2 cm/sec Med Peak E' Nirav: 6.6 cm/sec MV A max nirav: 121.6 cm/sec E/E' lat: 8.5 E/E' med: 11.8 MV E/A: 0.64 MV V2 max: 106.8 cm/sec MV P1/2t max nirav: 85.7 cm/sec Ao V2 max: 154.0 cm/sec MV max P.6 mmHg MV P1/2t: 101.6 msec Ao max P.5 mmHg MV V2 mean: 57.0 cm/sec MV mean P.5 mmHg MV dec slope: 247.2 cm/sec2 MV V2 VTI: 33.1 cm MVA(P1/2t): 2.2 cm2 AI max nirav: 501.9 cm/sec LV V1 max: 101.7 cm/sec MR max nirav: 500.4 cm/sec AI max P.8 mmHg LV V1 max P.1 mmHg MR max P.2 mmHg AI dec slope: 285.8 cm/sec2 AI P1/2t: 514.4 msec PA V2 max: 120.4 cm/sec ECHO/Echo Complete Interpretation Summary Normal LV size. Left ventricular systolic function is normal. The estimated ejection fraction is 55 %. Moderate concentric left ventricular hypertrophy. Stage 1 diastolic dysfunction. Mild (1+) aortic valve insufficiency. Ordering Physician: Randy Martins Referring Physician: Damion Leroy Chi Performed By: Wilbert Lorenzo RCS
== END ==
PROVIDERS: PCP Family Medicine Geriatric Medicine; Referring Provider Nurse Practitioner Family; Visit Provider Nurse Practitioner Family
DX: I25.10 Atherosclerotic heart disease of native coronary artery without angina pectoris (principal); I25.5 Ischemic cardiomyopathy; I50.9 Heart failure, unspecified; Z95.1 Presence of aortocoronary bypass graft
CPT/HCPCS: 93306

== ENCOUNTER 2021-12-15 12:56 | Outpatient (CLI) | payer MEDICARE, OTHER, SELFPAY ==
[2021-12-15 16:11] LABS: Absolute Lymphocyte Count 1.54 X10^3/uL (0.83-4.51); Basophil# 0.07 X10^3/uL; Basophil% 1.3 % (0-1); Eosinophil# 0.25 X10^3/uL; Eosinophils% 4.6 % (0-5); Hematocrit 40.4 % (40-54); Hemoglobin 13.6 g/dL (13.0-16.5); Lymphocyte # 1.54 X10^3/ul (0.83-4.51); Lymphocyte % 28.6 % (19-41); Mean Corp Hgb Conc 33.7 g/dL (32-36); Mean Corpuscular Hgb 33.3 pg (27.0-32.0); Mean Platelet Vol. 10.6 fl (6.2-12.0); Monocyte% 9.3 % (0-10); NRBC Flagged by Analyzer 0 % (0-5); Neutrophil # 3.02 X10^3/uL (2.7-7.7); Platelet Count 265 K/mm3 (150-450); RBC Distribution Width CV 13.4 % (11.6-14.6); RBC Distribution Width SD 48.1 fl (35.1-43.9); Red Blood Count 4.08 M/mm3 (4.6-6.2); White Blood Count 5.4 K/mm3 (4.4-11.0)
[2021-12-15 16:32] LABS: Vitamin D,25 Hydroxy 31.3 ng/mL
[2021-12-16 08:14] LABS: PSA,Total - Annual Screen 5.24 ng/mL (0.00-4.00); Thyroid Stim Hormone (TSH) 0.83 uIU/mL (0.358-3.74)
== END 2021-12-15 23:59 | disposition short-term general hospital (02) ==
LOC: POLAB3 12:57
PROVIDERS: PCP Family Medicine Geriatric Medicine; Visit Provider Family Medicine Geriatric Medicine
DX: I10 Essential (primary) hypertension (principal); E55.9 Vitamin D deficiency, unspecified; Z12.5 Encounter for screening for malignant neoplasm of prostate
CPT/HCPCS: 36415; 82306; 84153; 84443; 85025; G0103

== ENCOUNTER → 2022-12-21 | Outpatient (CLI) | payer MEDICARE, OTHER, SELFPAY ==
[2022-12-21 17:52] LABS: Absolute Lymphocyte Count 1.73 X10^3/uL (0.83-4.51); Absolute Neutrophil Count 2.5 X10^3/uL (2.0-7.7); Basophil# 0.05 X10^3/uL; Eosinophil# 0.19 X10^3/uL; Eosinophils% 3.9 % (0-5); Hematocrit 42.5 % (40-54); Hemoglobin 14.8 g/dL (13.0-16.5); Lymphocyte # 1.73 X10^3/ul (0.83-4.51); Lymphocyte % 35.4 % (19-41); Mean Corp Hgb Conc 34.8 g/dL (32-36); Mean Corpuscular Hgb 33.6 pg (27.0-32.0); Mean Corpuscular Volume 96.6 fL (80-94); Mean Platelet Vol. 11.1 fl (6.2-12.0); Monocyte# 0.37 X10^3/uL; Monocyte% 7.6 % (0-10); NRBC Flagged by Analyzer 0 % (0-5); Neutrophil # 2.54 X10^3/uL (2.7-7.7); Neutrophil % 51.9 % (47-70); Platelet Count 229 K/mm3 (150-450); RBC Distribution Width CV 13.2 % (11.6-14.6); RBC Distribution Width SD 46.8 fl (35.1-43.9); White Blood Count 4.9 K/mm3 (4.4-11.0)
[2022-12-21 18:16] LABS: ALB/GLOB Ratio 0.8 RATIO (0.9-2.4); AST(SGOT) 15 U/L (15-37); Alanine Aminotransfer ALT/SGPT 19 U/L (16-61); Albumin, Serum 3.4 g/dL (3.2-5.0); Alkaline Phosphatase 83 U/L (45-117); Anion Gap 10 (5-15); BUN 46 mg/dL (7-18); BUN/Creat Ratio 6.5 RATIO (10-20); Calcium,Total 8.3 mg/dL (8.5-10.1); Chloride 94 mmol/L (98-107); EST Glomerular Filtration Rate 8 mL/min (>60); Est Glom Filt Rate - Afr Amer 10 mL/min (>60); Globulin 4.2 g/dL (2.2-4.2); Glucose 105 mg/dL (74-106); PSA,Total - Annual Screen 5.17 ng/mL (0.00-4.00); Potassium 4.2 mmol/L (3.5-5.1); Protein, Total 7.6 g/dL (6.4-8.2); Sodium Level 138 mmol/L (136-145); Thyroid Stim Hormone (TSH) 0.97 uIU/mL (0.358-3.74)
== END | disposition home or self-care (01) ==
LOC: POLAB3 13:11
PROVIDERS: PCP Family Medicine Geriatric Medicine; Visit Provider Family Medicine Geriatric Medicine
DX: R53.83 Other fatigue (principal); E55.9 Vitamin D deficiency, unspecified; Z12.5 Encounter for screening for malignant neoplasm of prostate
CPT/HCPCS: 36415; 80053; 82306; 84153; 84443; 85025; G0103

== ENCOUNTER → 2023-01-09 | Outpatient (CLI) | payer MEDICARE, OTHER, SELFPAY | END | disposition home or self-care (01) | LOC: LAB 11:34 | PROVIDERS: PCP Family Medicine Geriatric Medicine; Referring Provider Registered Nurse; Visit Provider Registered Nurse | DX: R97.20 Elevated prostate specific antigen [PSA] (principal) | CPT/HCPCS: 36415; 84153 ==

== ENCOUNTER → 2023-02-27 | Outpatient (CLI) | payer MEDICARE, OTHER, SELFPAY ==
--- NOTE | 2023-02-27 | PROSBIL_PTH ---
PATIENT: JOSELITO LAWSON LOC: [facility] U#:[id number] AGE/SX: 67/M ROOM: RE02/27/[address]: Dr. Jagdish Rowan MD : 1955 BED: DIS: 02/27/2023 SPEC #: [id number] RECD: 02/27/23 16:12 STATUS: LENNY MARTINEZ #: [id number] SUSAN: 02/27/23 00:[address]: Jagdish Rowan DEPT: SURGICAL PATHOLOGY RECD BY: Bryn Castellano ENTERED: 02/28/23 10:01 SP TYPE: PROST BX PETRA DR: Dr. Damion Leroy MD Tissues: A - PROSTATE RIGHT B - PROSTATE RIGHT C - PROSTATE RIGHT D - PROSTATE LEFT E - PROSTATE LEFT F - PROSTATE LEFT Procedures: PROSTATE BX HEADER OPERATION: Prostate biopsy PRE-OP DIAGNOSIS: Elevated PSA TISSUE SUBMITTED: A - Right apex, B - Right mid, C - Right base, D - Left apex, E - Left mid, F - Left base MICROSCOPIC DIAGNOSIS A. Right prostate, apex, core biopsy: Prostatic tissue, negative for malignancy. Focal basal cell hyperplasia. B. Right prostate, mid, core biopsy: Prostatic adenocarcinoma. [place] grade: 3+3=6 Number of cores involved: 1/2 Proportion of tissue involved: ~20% Perineural invasion: Not identified. Greatest tumor length: 0.3 cm Focal chronic inflammation and basal cell hyperplasia. See comment. C. Right prostate, base, core biopsy: Prostatic adenocarcinoma. [place] grade: 3+4=7 Number of cores involved: 2/2 Proportion of tissue involved: ~40% Perineural invasion: Present, focal. Greatest tumor length: 0.9 cm, discontinuous Focal high-grade prostatic intraepithelial neoplasia (HGPIN). D. Left prostate, apex, core biopsy: Prostatic adenocarcinoma. [place] grade: 3+3=6 Number of cores involved: 2/2 Proportion of tissue involved: ~ 5% Perineural invasion: Not identified. Greatest tumor length: 0.2 cm, discontinuous. See comment. E. Left prostate, mid, core biopsy: Prostatic tissue, negative for malignancy. Focal basal cell hyperplasia. F. Left prostate, base, core biopsy: Prostatic tissue, negative for malignancy. SJ:herrera 03/01/2023 COMMENT B & D - Immunohistochemistry ([id number]) supports the above diagnosis. Case has been reviewed in consultation with Dr. Morgan who concurs with the above diagnosis. IDC:AM MICROSCOPIC DESCRIPTION Slides are reviewed. GROSS DESCRIPTION A - Received is one container designated prostate, right apex. The specimen consists of two elongated fragments of light vasquez-white soft tissue each measuring 1.0 cm in length and 0.1 cm in diameter. The specimen is totally submitted in one cassette. B - Received is one container designated prostate, right mid. The specimen consists of two elongated fragments of light vasquez-white soft tissue each measuring 1.0 cm in length and 0.1 cm in diameter. The specimen is totally submitted in one cassette. C - Received is one container designated prostate, right base. The specimen consists of two elongated fragments of light vasquez-white soft tissue each measuring 1.2 cm in length and 0.1 cm in diameter. The specimen is totally submitted in one cassette. D - Received is one container designated prostate, left apex. The specimen consists of two elongated fragments of light vasquez-white soft tissue measuring 0.2 and 0.5 cm in length and 0.1 cm in diameter. The specimen is totally submitted in one cassette. E - Received is one container designated prostate, left mid. The specimen consists of two elongated fragments of light vasquez-white soft tissue each measuring 1.4 cm in length and 0.1 cm in diameter. The specimen is totally submitted in one cassette. F - Received is one container designated prostate, left base. The specimen consists of two elongated fragments of light vasquez-white soft tissue each measuring 1.5 cm in length and 0.1 cm in diameter. The specimen is totally submitted in one cassette. / SJ:rg 02/28/2023 TC:0 [facility]: [id number]
--- NOTE | 2023-02-27 | IMM_PTH ---
PATIENT: JOSELITO LAWSON LOC: [facility] U#:[id number] AGE/SX: 67/M ROOM: RE02/27/[address]: Dr. Jagdish Rowan MD : 1955 BED: DIS: 02/27/2023 SPEC #: [id number] RECD: 03/01/23 13:46 STATUS: LENNY REQ #: [id number] SUSAN: 02/27/23 00:[address]: Jagdish Rowan DEPT: IMMUNOHISTOCHEMISTRY RECD BY: Rosie Camargo ENTERED: 03/01/23 13:47 SP TYPE: IMMUNO OTHR DR: Dr. Damion Leroy MD Tissues: B - PROSTATE RIGHT D - PROSTATE LEFT Procedures: 34BE12 (add) P40 (add) 34BE12 (initial) PHYSICIAN & INSTITUTION [place] [id number] SPECIMEN INFORMATION: Tissue Source: B - Right prostate, mid, core biopsy, D - Left prostate, apex, core biopsy Clinical Info: Elevated PSA Specimen Number: [id number] B&D CPT code: 94336, 22574 x3 METHODOLOGY: Deparaffinized sections of prefer/formalin-fixed tissue or PAP/DQ stained slides are incubated with monoclonal/polyclonal antibodies/oligonucleotide probes. Localization is made via biotin free immunoperoxidase method. Appropriate controls are performed and reacted as expected. Results on target cell population are indicated in the following table: RESULTS: ANTIBODY / CLONE RESULT Block B P40 (BC28) negative 34BE12 (34BE12) negative Block D P40 (BC28) negative 34BE12 (34BE12) negative These tests were developed and their performance characteristics determined by [facility]. They may not have been cleared or approved by the U.S. Food and Drug Administration. The FDA has determined that such clearance or approval is not necessary. The above immunohistochemical/dualISH markers are ordered and reviewed by the Pathologist. INTERPRETATION: B. Right prostate, mid, core biopsy: Adenocarcinoma. D. Left prostate, apex, core biopsy: Adenocarcinoma. SJ:herrera 03/02/2023
== END | disposition home or self-care (01) ==
LOC: LABSPEC 16:19
PROVIDERS: PCP Family Medicine Geriatric Medicine; Referring Provider Urology; Visit Provider Urology
DX: C61 Malignant neoplasm of prostate (principal); R97.20 Elevated prostate specific antigen [PSA]
CPT/HCPCS: 88305; 88341; 88342; G0416

== ENCOUNTER → 2023-07-31 | Outpatient (CLI) | payer MEDICARE, OTHER, SELFPAY ==
[2023-07-31 15:14] LABS: PSA,Total- Diagnostic 4.82 ng/mL (0.0-4.0)
== END | disposition home or self-care (01) ==
LOC: LAB 13:21
PROVIDERS: PCP Family Medicine Geriatric Medicine; Referring Provider Urology; Visit Provider Urology
DX: C61 Malignant neoplasm of prostate (principal)
CPT/HCPCS: 36415; 84153

== ENCOUNTER 2023-08-31 09:11 | Emergency (ER) | payer MEDICARE, OTHER, SELFPAY ==
[2023-08-31 09:12] VITALS: BP 195/79; PULSE 80; RESP 16; TEMP 36.2; O2SAT 95; BMI 26.3
[2023-08-31 09:25] VITALS: BP 194/124; PULSE 75; RESP 14; O2SAT 96
--- NOTE | 2023-08-31 09:36 | CT_ITS ---
STUDY: CT BRAIN WITHOUT CONTRAST REASON FOR EXAM: Male, 68 years old. Headache RADIATION DOSAGE (If Supplied By Facility): CTDIvol = ( 44.99 ) mGy, DLP = ( 863.60 ) mGycm TECHNIQUE: Transaxial CT imaging of the brain was performed without administration of intravenous contrast material. Individualized dose optimization techniques were used for this CT. COMPARISON: No relevant priors. FINDINGS: Normal soft tissue structures. Normal calvarium. There is calcification of the bilateral cavernous carotid arteries. There is mild cerebral atrophy with widening of the extra-axial spaces and ventricular dilatation. There are areas of decreased attenuation within the white matter tracts of the supratentorial brain, consistent with microvascular disease changes. There are bilateral punctate basal ganglia calcifications. The periphery of the left-sided basal ganglia bordering the external capsule and putamen there is a low attenuating foci compatible with prior lacunar infarct. There is a subtle prior lacunar infarct in the right-sided periventricular white matter. Normal brainstem. There is mild cerebellar atrophy. There is no intracranial hemorrhage. There are no findings of an acute ischemic infarction. Normal visualized paranasal sinuses. CT/Brain/Head without Contrast IMPRESSION: Mild atrophy. Chronic involutional change. Prior bilateral basal ganglia infarcts. No visualized acute hemorrhage infarct or edema. Electronically Signed: Usha Mcneil MD at 10:32 EDT ,
--- NOTE | 2023-08-31 09:36 | EKG12_ITS ---
Test Reason : HIGH BP Blood Pressure : / mmHG Vent. Rate : 073 BPM Atrial Rate : 073 BPM P-R Int : 162 ms QRS Dur : 102 ms QT Int : 428 ms P-R-T Axes : 060 034 112 degrees QTc Int : 471 ms Normal sinus rhythm Possible Left atrial enlargement Left ventricular hypertrophy with repolarization abnormality ( Mayank product ) Possible Inferior infarct , age undetermined Abnormal ECG Confirmed by CARMEN LIVE, ANNIKA ([id number]), publishing editor BERTO DIAZ ([id number]) on 09/04/2023 2:22:09 PM Referred By: Confirmed By:ANNIKA MORALES MD
--- NOTE | 2023-08-31 09:40 | EX.ED.DYSGE1 ---
HPI History of Present Illness Chief Complaint: Hypertension Narrative Narrative: 68-year-old male presenting with high blood pressure. He states his blood pressure was greater than 200/100 this morning. He took amlodipine 10 mg and then took a second 5 mg amlodipine. He was supposed to do dialysis today because he has dialysis on Monday//Monday. He did not go this morning because he had pressure in his head. He denies a headache but states it felt like the top of his head was going to blow off. He initially stated that he was not dizzy but his states he was dizzy earlier when he was walking around. He did not go to dialysis today. His headache is better when he sits and rests. His dizziness is better as well. When he gets up and moves these are both worse. Denies chest pain or shortness of breath. He states his blood pressure was in the 170 range systolic last evening but does not remember the diastolic. [facility] Medical History Acute HFrEF (heart failure with reduced ejection fraction) Anxiety Atherosclerotic heart disease of [place] coronary artery without angina pectoris Bilateral carotid artery stenosis Bilateral inguinal hernia without obstruction or gangrene Chronic systolic (congestive) heart failure ESRD (end stage renal disease) on dialysis Essential (primary) hypertension Flash pulmonary edema History of diverticulitis History of non-ST elevation myocardial infarction (NSTEMI) (12/28/20) Hypercholesteremia Ischemic cardiomyopathy Myocardial infarction Postoperative ileus (01/15/21) White coat syndrome with hypertension Home Medications sertraline 50 mg tablet 50 mg PO DAILY mood 05/09/19 [History Last Taken 08/20/19 08:30] vitamin B comp no.3-folic acid 1 mg-vit C 60 mg-biotin 300 mcg tablet 1 ea PO DAILY 12/28/20 [History Last Taken Unknown] aspirin 81 mg chewable tablet 81 mg PO DAILY@0800 ##90 12/30/20 [Rx Last Taken Unknown] omega-3 fatty acids 1,000 mg capsule 1,000 mg PO DAILY 05/18/22 [History Last Taken Unknown] amlodipine 10 mg tablet 10 mg PO DAILY 12/02/22 [History Last Taken Unknown] carvedilol 3.125 mg tablet 3.125 mg PO BID #180 tabs 01/23/23 [Rx Last Taken Unknown] Deja mercadoOi-uuq-FY-[id number]-NN-0-nga-chc-itiv oil 400 mcg-500 unit capsule (ProRenal QD) 1 cap PO DAILY 06/16/23 [History Last Taken Unknown] carvedilol 6.25 mg tablet 6.25 mg PO BID #60 tabs 08/31/23 [Rx Last Taken Unknown] Allergy/AdvReac Type Severity Reaction Status Date / Time Seasonal Allergies: Uncoded Allergy Intermediate Unknown Verified 08/31/23 09:12 ezetimibe [From Zetia] AdvReac Intermediate unstable Verified 08/31/23 09:12 gait, myalgia, joint pain atorvastatin [From Lipitor] AdvReac unstable Verified 08/31/23 09:12 gait, myalgia rosuvastatin [From Crestor] AdvReac unstable Verified 08/31/23 09:12 gait, myalgia Family History Mother Heart disease Father Hypertension Cardiac arrest Surgical History H/O coronary artery bypass surgery (01/11/21) History of colonoscopy (2009) History of colostomy reversal History of left heart catheterization (12/28/20) History of partial colectomy History of right inguinal hernia repair (01/08/20) S/P arteriovenous (AV) fistula creation Social History Smoking Status: Former smoker quit date: 09/25/18 pack-years: 64 how long ago did patient quit smokin years ago alcohol intake: never substance use type: does not use caffeine: Yes Type: coffee Number of servings: 2 what type of physical activity do you participate in: none frequency: does not exercise ROS ROS ED Constitutional Constitutional ED: Denies chills, fever(s) or sweats Eyes Eyes: Denies blurry vision or change in vision ENT ENT ED: Denies ear pain or sore throat Cardiovascular Cardiovascular: Reports other Details: Lightheadedness ; Denies chest pain, palpitations or racing heartbeat Respiratory/Chest Respiratory/Chest: Denies cough, dyspnea or sputum Gastrointestinal Gastrointestinal: Denies abdominal pain, constipation, diarrhea, nausea or vomiting Genitourinary Genitourinary ED: Denies dysuria, hematuria or urinary frequency Musculoskeletal Musculoskeletal: Denies arthralgias, myalgias or neck pain Integumentary Denies abscess, Abrasions or rash Neurologic Neurologic: Reports headache(s); Denies paresthesias or weakness Psychiatric Psychiatric: Denies anxiety, depression, suicidal ideation or suicidal thoughts Endocrine Endocrinology: Denies polydipsia or polyuria EXAM Physical Exam Const Vital Signs: 08/31/23 09:12 08/31/23 09:21 08/31/23 09:25 Temperature 97.2 F L Temperature Source Temporal Pulse Rate 80 75 Respiratory Rate 16 14 Respiratory Effort Normal Non-Labored Respiratory Pattern Normal Blood Pressure 195/79 H 194/124 H Blood Pressure Mean 117 147 Pulse Ox 95 96 Oxygen Delivery Method Room Air Room Air 08/31/23 09:36 08/31/23 10:45 08/31/23 11:13 Temperature Temperature Source Pulse Rate 72 Respiratory Rate 12 Respiratory Effort Respiratory Pattern Blood Pressure 182/72 H 182/72 H Blood Pressure Mean 108 108 Pulse Ox 94 Oxygen Delivery Method Room Air Room Air Positive well nourished General Appearance ED: NAD; Negative for pallor HEENT Reports moist mucous membranes Eyes PERRL and EOMs intact bilaterally Neck no lymphadenopathy Resp normal respiratory effort and clear to auscultation bilaterally Auscultation: Negative for rales, rhonchi or wheezes Cardio regular rate and regular rhythm Neuro oriented x3, CN's II-XII intact bilaterally and no sensory deficits noted Neuro Narrative: No focal neurologic deficits or lateralizing signs or symptoms. Sensorium / Orientation: alert Motor Exam: strength 5/5 throughout Psych mental status grossly normal Skin no rashes or lesions noted and no wounds General Skin Exam: Negative for jaundice or pallor MDM MDM MDM Narrative Medical decision making narrative: Patient presenting with hypertension, dizziness/lightheadedness, headache. Differential includes intracranial hemorrhage, hypertensive emergency, ACS, dehydration, electrolyte normalities. CBC will be obtained to assess white blood cell count, hemoglobin, platelets. BMP to assess renal function and electrolytes. High-sensitivity troponin and EKG to assess for ischemia/dysrhythmia. Chest x-ray to rule out pneumonia. CT brain will be obtained to rule intracranial bleed. Patient given 5 mg of amlodipine initially. Will reevaluate. CBC shows white blood cell count 5.7. Hemoglobin stable 14.4. Platelets normal at 214. Creatinine is elevated at 9.26 expected for end-stage renal disease. Electrolytes are unremarkable. High-sensitivity troponin 61. EKG on my interpretation shows normal sinus rhythm with a ventricular rate of 73 bpm without sign of ischemic change or ectopy. Chest x-ray on my interpretation shows no acute process. Radiologist interprets this and agrees. Patient was given 5 mg of hydralazine and his blood pressures come down to 182/72. He is not feeling dizzy currently. CT brain was negative. 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 She recommended increasing his carvedilol from 3.125-6.25 twice a day. She felt that the patient should go to dialysis right after he leaves the hospital. She feels that he should take more fluid off when he does dialysis but he has been resistant to this. She feels this would help his blood pressure. This was discussed with him and he states that he will try to make it to dialysis today. Impression: 1. Hypertension 2. End-stage renal disease on dialysis 3. Dizziness Lab Data Attestation: I reviewed the patient's lab results. Labs: Laboratory Results - last 24 hr 08/31/23 09:45 WBC 5.7 RBC 4.55 L Hgb 14.4 Hct 43.2 MCV 94.9 H MCH 31.6 MCHC 33.3 RDW Std Deviation 42.8 RDW Coeff of Steven 12.3 Plt Count 214 MPV 9.9 Immature Gran % (Auto) 0.000 Neut % (Auto) 62.3 Lymph % (Auto) 23.1 [place] % (Auto) 9.0 Eos % (Auto) 4.9 Baso % (Auto) 0.7 Absolute Neuts (auto) 3.5 Absolute Lymphs (auto) 1.31 Nucleated RBC % 0 Sodium 137 Potassium 4.9 Chloride 100 Carbon Dioxide 31.0 Anion Gap 6 BUN 65 H Creatinine 9.26 H* Estim Creat Clear Calc 8.26 Est GFR (MDRD) Af Amer 7 L Est GFR (MDRD) Non-Af 6 L BUN/Creatinine Ratio 7.0 L Glucose 114 H Calcium 8.5 Troponin I High Sens 61 Radiography Diagnostic Testing: Clinical Impression(s) from Imaging Studies Brain CT 08/31/23 09:36 IMPRESSION: Mild atrophy. Chronic involutional change. Prior bilateral basal ganglia infarcts. No visualized acute hemorrhage infarct or edema. Electronically Signed: Usha Mcneil MD at 10:32 EDT , Chest X-Ray 08/31/23 09:45 IMPRESSION: Status post sternotomy no visualized acute focal infiltrate. Electronically Signed: Usha Mcneil MD at 10:03 EDT , Discharge Plan Triage Chief Complaint: Hypertension ED Provider: Inocencio Valles Dx/Rx/DC Orders Instructions: ED Hypertension, Established Prescriptions: New carvedilol 6.25 mg tablet 6.25 mg PO BID Qty: 60 0RF Rx Instructions: must administer with a meal/food No Action sertraline 50 mg tablet 50 mg PO DAILY omega-3 fatty acids 1,000 mg capsule 1,000 mg PO DAILY amlodipine 10 mg tablet 10 mg PO DAILY ProRenal QD 400-500 mcg-unit capsule 1 cap PO DAILY Patient Comments: TAKE 1 CAPSULE BY MOUTH EVERY DAY vit B comp no.4-jbsfb-S-biotin 1 EACH tablet 1 ea PO DAILY aspirin 81 MG tablet,chewable 81 mg PO DAILY@0800 Qty: 90 0RF carvedilol 3.125 mg tablet 3.125 mg PO BID Qty: 180 3RF Rx Instructions: must administer with a meal/food Primary Care Provider: Damion Leroy Chi Referrals: Damion Leroy Chi, MD [Primary Care Provider] - Disposition Disposition: Home, Self Care Discharge Date/Time: 08/31/23 11:15
--- NOTE | 2023-08-31 09:45 | RAD_ITS ---
STUDY: X-RAY CHEST REASON FOR EXAM: Male, 68 years old. Chest pain TECHNIQUE: Single AP portable view x2 of the chest. COMPARISON: Prior comparison studies are not available for review at this time. FINDINGS: The lungs are clear and expanded. There is no demonstrated pleural abnormality. Sternal cerclage wires are present from a prior sternotomy. There is mild cardiac enlargement. There is no visualized focal consolidation or pleural effusion. Normal mediastinum and prince. Normal visualized pulmonary arteries. Normal visualized aortic arch and descending thoracic aorta. There are diffuse degenerative changes of the visualized thoracic spine. Normal visualized ribs, clavicles, and shoulders. There is no demonstrated abnormality of the visualized soft tissue structures of the upper abdomen. RAD/Chest 1 View (Portable) IMPRESSION: Status post sternotomy no visualized acute focal infiltrate. Electronically Signed: Usha Mcneil MD at 10:03 EDT Reading Location ID and State: [facility] / [place] Tel , Service support ,
[2023-08-31] MEDS: hydrALAZINE 20 MG/ML Vial 5 MG IV (09:49)
[2023-08-31 09:58] LABS: Absolute Lymphocyte Count 1.31 X10^3/uL (0.83-4.51); Absolute Neutrophil Count 3.5 X10^3/uL (2.0-7.7); Basophil# 0.04 X10^3/uL; Basophil% 0.7 % (0-1); Eosinophil# 0.28 X10^3/uL; Eosinophils% 4.9 % (0-5); Hematocrit 43.2 % (40-54); Hemoglobin 14.4 g/dL (13.0-16.5); Lymphocyte # 1.31 X10^3/ul (0.83-4.51); Lymphocyte % 23.1 % (19-41); Mean Corp Hgb Conc 33.3 g/dL (32-36); Mean Corpuscular Hgb 31.6 pg (27.0-32.0); Mean Corpuscular Volume 94.9 fL (80-94); Mean Platelet Vol. 9.9 fl (6.2-12.0); Monocyte# 0.51 X10^3/uL; NRBC Flagged by Analyzer 0 % (0-5); Neutrophil # 3.54 X10^3/uL (2.7-7.7); Neutrophil % 62.3 % (47-70); Platelet Count 214 K/mm3 (150-450); RBC Distribution Width CV 12.3 % (11.6-14.6); RBC Distribution Width SD 42.8 fl (35.1-43.9); Red Blood Count 4.55 M/mm3 (4.6-6.2); White Blood Count 5.7 K/mm3 (4.4-11.0)
[2023-08-31 10:11] LABS: Anion Gap 6 (5-15); BUN 65 mg/dL (7-18); Calcium,Total 8.5 mg/dL (8.5-10.1); Chloride 100 mmol/L (98-107); Creatinine, Serum 9.26 mg/dL (0.70-1.30); EST Glomerular Filtration Rate 6 mL/min (>60); Est Glom Filt Rate - Afr Amer 7 mL/min (>60); Estimated Creatinine Clearance 8.26 ml/min; Glucose 114 mg/dL (74-106); Potassium 4.9 mmol/L (3.5-5.1); Sodium Level 137 mmol/L (136-145); Troponin-I HS 61 pg/mL (3.0-78.0)
[2023-08-31 10:45] VITALS: BP 182/72; PULSE 72; RESP 12; O2SAT 94
[2023-08-31 11:13] VITALS: BP 182/72
== END 2023-08-31 11:15 | disposition home or self-care (01) ==
PROVIDERS: Emergency Provider Student in an Organized Health Care Education/Training Program; PCP Family Medicine Geriatric Medicine; Visit Provider Student in an Organized Health Care Education/Training Program
DX: I13.2 Hypertensive heart and chronic kidney disease with heart failure and with stage 5 chronic kidney disease, or end stage renal disease (principal); Z99.2 Dependence on renal dialysis; I50.22 Chronic systolic (congestive) heart failure; N18.6 End stage renal disease; I25.10 Atherosclerotic heart disease of native coronary artery without angina pectoris; R51.9 Headache, unspecified; R42 Dizziness and giddiness; I25.5 Ischemic cardiomyopathy; E78.00 Pure hypercholesterolemia, unspecified; I25.2 Old myocardial infarction; Z87.891 Personal history of nicotine dependence; Z79.82 Long term (current) use of aspirin; Z79.899 Other long term (current) drug therapy; Z95.1 Presence of aortocoronary bypass graft
CPT/HCPCS: 70450; 71045; 80048; 84484; 85025; 93005; 96374; 99284; A4216

== ENCOUNTER → 2023-12-27 | Outpatient (CLI) | payer MEDICARE, OTHER, SELFPAY ==
[2023-12-27 14:50] LABS: Absolute Lymphocyte Count 1.84 X10^3/uL (0.83-4.51); Absolute Neutrophil Count 3.1 X10^3/uL (2.0-7.7); Basophil# 0.07 X10^3/uL; Basophil% 1.2 % (0-1); Eosinophil# 0.23 X10^3/uL; Eosinophils% 3.9 % (0-5); Hematocrit 42.7 % (40-54); Lymphocyte # 1.84 X10^3/ul (0.83-4.51); Lymphocyte % 31.1 % (19-41); Mean Corp Hgb Conc 35.1 g/dL (32-36); Mean Corpuscular Hgb 34.2 pg (27.0-32.0); Mean Corpuscular Volume 97.3 fL (80-94); Mean Platelet Vol. 10.7 fl (6.2-12.0); Monocyte# 0.62 X10^3/uL; Monocyte% 10.5 % (0-10); NRBC Flagged by Analyzer 0 % (0-5); Neutrophil # 3.14 X10^3/uL (2.7-7.7); Platelet Count 224 K/mm3 (150-450); Red Blood Count 4.39 M/mm3 (4.6-6.2); White Blood Count 5.9 K/mm3 (4.4-11.0)
[2023-12-27 15:06] LABS: Vitamin D,25 Hydroxy 28.3 ng/mL
[2023-12-27 15:24] LABS: ALB/GLOB Ratio 0.8 RATIO (0.9-2.4); AST(SGOT) 4 U/L (15-37); Alanine Aminotransfer ALT/SGPT < 6 U/L (16-61); Albumin, Serum 3.5 g/dL (3.2-5.0); Alkaline Phosphatase 104 U/L (45-117); Anion Gap 8 (5-15); BUN 60 mg/dL (7-18); BUN/Creat Ratio 7.3 RATIO (10-20); Calcium,Total 9.1 mg/dL (8.5-10.1); Chloride 97 mmol/L (98-107); EST Glomerular Filtration Rate 7 mL/min (>60); Est Glom Filt Rate - Afr Amer 8 mL/min (>60); Globulin 4.4 g/dL (2.2-4.2); Glucose 107 mg/dL (74-106); PSA,Total - Annual Screen 5.24 ng/mL (0.00-4.00); Potassium 4.9 mmol/L (3.5-5.1); Protein, Total 7.9 g/dL (6.4-8.2); Sodium Level 136 mmol/L (136-145); Thyroid Stim Hormone (TSH) 0.88 uIU/mL (0.358-3.74)
== END | disposition home or self-care (01) ==
LOC: POLAB3 13:16
PROVIDERS: PCP Family Medicine Geriatric Medicine; Visit Provider Family Medicine Geriatric Medicine
DX: Z12.5 Encounter for screening for malignant neoplasm of prostate (principal); I10 Essential (primary) hypertension; E55.9 Vitamin D deficiency, unspecified
CPT/HCPCS: 36415; 80053; 82306; 84153; 84443; 85025; G0103

== ENCOUNTER → 2024-01-29 | Outpatient (CLI) | payer MEDICARE, OTHER, SELFPAY ==
[2024-01-29 15:45] LABS: PSA,Total- Diagnostic 5.86 ng/mL (0.0-4.0)
== END | disposition home or self-care (01) ==
LOC: LAB 14:23
PROVIDERS: PCP Family Medicine Geriatric Medicine; Referring Provider Urology; Visit Provider Urology
DX: C61 Malignant neoplasm of prostate (principal)
CPT/HCPCS: 36415; 84153

== ENCOUNTER → 2024-05-10 | Outpatient (CLI) | payer MEDICARE, OTHER, SELFPAY ==
--- NOTE | 2024-05-10 12:52 | CDU_ITS ---
Reason For Study: Carotid Stenosis Rt. Velocities/BP Lt. Velocities/BP Prox CCA 45.0/10.0 cm/sec. Prox CCA 86.7/8.1 cm/sec. Mid CCA 45.9/10.0 cm/sec. Mid CCA 72.0/10.6 cm/sec. Dist CCA 45.9/7.2 cm/sec. Dist CCA 53.5/5.6 cm/sec. Prox ICA 74.0/13.9 cm/sec. Prox ICA 99.0/19.2 cm/sec. Mid ICA 92.1/16.6 cm/sec. Mid ICA 102.8/17.1 cm/sec. Dist ICA 91.6/11.3 cm/sec. Dist ICA 79.8/14.9 cm/sec. Rt. ICA/CCA = 2.0. Lt. ICA/CCA = 1.4. Prox ECA 390.9/29.2 cm/sec. Prox ECA 214.1/9.3 cm/sec. Rt. Vert. 49.4/6.6 cm/sec. Lt. Vert. 48.6/6.9 cm/sec. Right Extracranial There is heterogeneous, smooth atherosclerotic plaque noted in the right common carotid artery. There is heterogeneous, irregular atherosclerotic plaque noted in the right internal carotid artery. There is heterogeneous, irregular atherosclerotic plaque noted in the right external carotid artery. Antegrade flow is noted in the right vertebral artery. Left Extracranial There is heterogeneous, irregular atherosclerotic plaque noted in the left common carotid artery. There is heterogeneous, irregular atherosclerotic plaque noted in the left internal carotid artery. There is heterogeneous, irregular atherosclerotic plaque noted in the left external carotid artery. Antegrade flow is noted in the left vertebral artery. Procedure Carotid Duplex [id number]. This is a Carotid Duplex examination using B-mode, color flow and specral Doppler. The exam was diagnostic. Exam performed in department. VL/Carotid Duplex Ultrasound Interpretation Summary Mild (<50%) stenosis right extracranial internal carotid. Mild (<50%) stenosis left extracranial internal carotid. Patent and antegrade vertebrals bilaterally. Ordering Physician: Divina Edwards Referring Physician: Damion Leroy Chi Performed By: Marcus Durán RVT
--- NOTE | 2024-05-10 12:52 | AVDS_ITS ---
Reason For Study: AVF Malfunction LEFT LT ARM Rad A INFLOW PSV/EDV = 190.0/82.1 cm/s Vol Flow = 556.6 ml/min Prox Anastomosis PSV/EDV = 361.1/167.4 cm/s Vol Flow = 631.3 ml/min Prox Graft PSV/EDV = 118.9/46.4 cm/s Vol Flow = 1775 ml/min Mid Graft PSV/EDV = 100.3/58.3 cm/s Vol Flow = 2475 ml/min Dist Graft PSV/EDV = 66.0/40.5 cm/s Vol Flow = 3199 ml/min Cephalic V OUTFLOW PSV/EDV = 30.2/20.6 cm/s Vol Flow = 481.1 ml/min AVF Duplex w/ B Mode, Color and Pulsed Wave Doppler. VL/AV Fistula/Dialysis Graft Scan Interpretation Summary Patent left radio-cephalic fistula with normal velocities and adequate diameter /flow volumes Ordering Physician: Divina Edwards Referring Physician: Damion Leroy Chi Performed By: Marcus Durán RVT
--- NOTE | 2024-05-10 12:52 | ART_ITS ---
Reason For Study: BLE Claudication Procedure A bilateral lower extremity continuous wave Doppler with analog waveform analysis,segmental pressures,and ankle brachial indexes with exercise. Left Segmental Pressures Left calf = 150mmHg. Left posterior tibial artery = 128mmHg. Left dorsalis pedis artery = 114mmHg. Left digit = 50 mmHg. The left posterior tibial artery waveforms are triphasic. The left dorsalis pedis waveforms are biphasic. Right Segmental Pressures Right brachial= 139mmHg. Right calf = 146mmHg. Right posterior tibial artery = 97mmHg. Right dorsalis pedis artery = 89mmHg. Right digit = 54 mmHg. The right posterior tibial artery waveforms are monophasic. The right dorsalis pedis waveforms are monophasic. Indices The right ankle brachial index by the posterior tibial artery is 0.70. The right ankle brachial index by the dorsalis pedis is 0.64. The right digital-brachial index is 0.39. The right post exercise ankle brachial index is 0.41. The left ankle brachial index by the posterior tibial artery is 0.92. The left ankle brachial index by the dorsalis pedis is 0.82. The left digital-brachial index is 0.36. The left post exercise ankle brachial index is 0.64. VL/Lower Ext Art Exam w/ Exercise Interpretation Summary Right ALICE 0.7, moderate arterial insufficiency. Doppler/PVR waveforms and segme ntal pressures reveal infrapopliteal disease Right lower extremity with abnormal response to exercise and post exercise ALICE in the severe category. Left ALICE 0.92, mild arterial insufficiency. Doppler/PVR waveforms and segmental pressures reveal infrapopliteal disease. Left lower extremity with abnormal response to exercise and post exercise ALICE i n the moderate category. Ordering Physician: Divina Edwards Referring Physician: Damion Leroy Chi Performed By: Marcus Durán RVAria
== END | disposition home or self-care (01) ==
LOC: CVS 12:52
PROVIDERS: PCP Family Medicine Geriatric Medicine; Referring Provider Physician Assistant; Visit Provider Physician Assistant
DX: I73.9 Peripheral vascular disease, unspecified (principal); N18.6 End stage renal disease; I65.23 Occlusion and stenosis of bilateral carotid arteries; Z99.2 Dependence on renal dialysis
CPT/HCPCS: 93880; 93924; 93990

== ENCOUNTER 2024-06-03 09:13 | Day surgery (SDC) | payer MEDICARE, OTHER, SELFPAY ==
[2024-05-31 07:29] VITALS: BMI 26.6
[2024-06-03 09:30] LABS: Hematocrit 44.6 % (40-54); Hemoglobin 14.7 g/dL (13.0-16.5); Mean Corpuscular Hgb 32.5 pg (27.0-32.0); Mean Corpuscular Volume 98.5 fL (80-94); Mean Platelet Vol. 10.2 fl (6.2-12.0); Platelet Count 210 K/mm3 (150-450); RBC Distribution Width CV 13.3 % (11.6-14.6); Red Blood Count 4.53 M/mm3 (4.6-6.2); White Blood Count 5.8 K/mm3 (4.4-11.0)
[2024-06-03 09:56] LABS: Anion Gap 9 (5-15); BUN 60 mg/dL (7-18); BUN/Creat Ratio 6.2 RATIO (10-20); Calcium,Total 9.2 mg/dL (8.5-10.1); Chloride 96 mmol/L (98-107); Creatinine, Serum 9.74 mg/dL (0.70-1.30); EST Glomerular Filtration Rate 6 mL/min (>60); Est Glom Filt Rate - Afr Amer 7 mL/min (>60); Estimated Creatinine Clearance 7.75 ml/min; Glucose 113 mg/dL (74-106); Sodium Level 135 mmol/L (136-145)
--- NOTE | 2024-06-03 11:59 | HP.PCM_ITS ---
HPI - General HPI Narrative JOSELITO LAWSON, is a 69 M who presents with left wrist cephalic fistula with poor clearance, some prolonged bleeding. Duplex was fairly normal. [facility] Medical History (Updated 06/03/24 @ 12:[address] Pete Enamorado MD) Bilateral carotid artery stenosis ESRD (end stage renal disease) on dialysis History of non-ST elevation myocardial infarction (NSTEMI) (12/28/20) Chronic systolic (congestive) heart failure Postoperative ileus (01/15/21) Atherosclerotic heart disease of [place] coronary artery without angina pectoris Acute HFrEF (heart failure with reduced ejection fraction) Ischemic cardiomyopathy Flash pulmonary edema Bilateral inguinal hernia without obstruction or gangrene Hypercholesteremia Essential (primary) hypertension White coat syndrome with hypertension Myocardial infarction History of diverticulitis Anxiety Home Medications ?Medication ?Instructions ?Recorded ?Last Taken ?Type sertraline 50 mg tablet 50 mg PO DAILY mood 05/09/19 06/03/24 History aspirin 81 mg chewable tablet 81 mg PO DAILY@0800 ##90 12/30/20 06/03/24 Rx omega-3 fatty acids 1,000 mg 1,000 mg PO DAILY 05/18/22 06/03/24 History capsule amlodipine 10 mg tablet 10 mg PO DAILY 12/02/22 06/03/24 History mv,[id number]-[id number]-[id number]-ihlz 1 cap PO DAILY 06/16/23 06/03/24 History oil 400 mcg-500 unit capsule (ProRenal QD) carvedilol 6.25 mg tablet 6.25 mg PO BID #60 tabs 09/01/23 06/03/24 Rx Allergy/AdvReac Type Severity Reaction Status Date / Time Seasonal Allergies: Uncoded Allergy Intermediate Unknown Verified 04/24/24 10:59 ezetimibe (From Zetia) AdvReac Intermediate unstable Verified 04/24/24 10:59 gait, myalgia, joint pain atorvastatin (From Lipitor) AdvReac unstable Verified 04/24/24 10:59 gait, myalgia rosuvastatin (From Crestor) AdvReac unstable Verified 04/24/24 10:59 gait, myalgia Family History Mother Heart disease Father Hypertension Cardiac arrest Surgical History H/O coronary artery bypass surgery (01/11/21) History of left heart catheterization (12/28/20) S/P arteriovenous (AV) fistula creation History of right inguinal hernia repair (01/08/20) History of colonoscopy (2009) History of colostomy reversal History of partial colectomy Social History Smoking Status: Former smoker quit date: 09/25/18 pack-years: 64 how long ago did patient quit smokin years ago alcohol intake: never substance use type: does not use caffeine: Yes Type: coffee Number of servings: 2 what type of physical activity do you participate in: none frequency: does not exercise ROS Constitutional Constitutional: Denies chills, fever(s), frequent falls, lethargy or weakness Eyes Eyes: Denies blind spots, change in vision or loss of vision ENT HEENT: Denies bleeding gums, hoarseness or sore throat Cardiovascular Cardiovascular: Denies abdominal pain, bluish discoloration of hand/feet, chest pain with activity, claudication, cold extremities, cyanosis, dyspnea on exertion, erythema on extremities, irregular heart rhythm, leg edema, leg ulcers, numbness in extremities or weakness in extremities Respiratory/Chest Respiratory/Chest: Denies cough, excessive phlegm production, shortness of breath at rest, shortness of breath with exertion or wheezing Gastrointestinal Gastrointestinal: Denies anorexia, change in stool character, constipation, diarrhea, melena or rectal bleeding Genitourinary Genitourinary: Denies dysuria or hematuria Musculoskeletal Musculoskeletal: Denies abnormal gait Integumentary Integumentary: Reports other Details: ; Denies erythema, non-healing lesions or wounds Neurologic Neurologic: Denies abnormal speech, focal weakness, headache(s), loss of vision, numbness, paresthesias or sensory deficit Hematologic/Lymphatic Hematologic/Lymphatic: Denies easy bleeding, easy bruising or lymphadenopathy Vital Signs Vital Signs Vital Signs: Weight Weight: 196 lb Body Mass Index (BMI) 26.6 Physical Exam Const alert, oriented x3, no apparent distress and healthy appearing General Appearance: cooperative; Negative for combative or lethargic Orientation / Consciousness: awake Exam Limitations: no limitations HEENT Head and Scalp: normocephalic and atraumatic Eyes EOMs intact bilaterally General Eye: normal appearance of both eyes Neck full ROM, no lymphadenopathy, thyroid normal and No no carotid bruits General: trachea midline; Negative for lymphadenopathy or tenderness Thyroid: thyroid normal Lymph Lymphatic: Negative for no lymphadenopathy noted Resp normal respiratory effort, no use of accessory muscles and clear to auscultation bilaterally Effort and Inspection: Negative for labored, stridor or audible wheezes Cardio regular rate and regular rhythm Peripheral Pulses: brachial pulses present and radial pulses present Back/Spine Cervical Spine: cervical ROM normal Extremity full ROM, normal capillary refill and no clubbing, cyanosis or edema Skin no rashes or lesions noted and no wounds Neuro oriented x3, CN's II-XII intact bilaterally, no focal motor deficits and no sensory deficits noted Psych thought process normal, cooperative, affect normal, speech normal and activity/motor behavior normal Results Lab / Micro Data 06/03/24 09:17 06/03/24 09:17 Labs: Laboratory Results - last 24 hr 06/03/24 09:17: WBC 5.8, RBC 4.53 L, Hgb 14.7, Hct 44.6, MCV 98.5 H, MCH 32.5 H, MCHC 33.0, RDW Std Deviation 49.0 H, RDW Coeff of Steven 13.3, Plt Count 210, MPV 10.2, Sodium 135 L, Potassium 5.0, Chloride 96 L, Carbon Dioxide 30.0, Anion Gap 9, BUN 60 H, Creatinine 9.74 H*, Estim Creat Clear Calc 7.75, Est GFR (MDRD) Af Amer 7 L, Est GFR (MDRD) Non-Af 6 L, BUN/Creatinine Ratio 6.2 L, Glucose 113 H, Calcium 9.2 Assessment & Plan Assessment/Plan (1) Dialysis AV fistula malfunction: QUALIFIERS: Encounter type: subsequent encounter Qualified Code(s): T82.590D - Other mechanical complication of surgically created arteriovenous fistula, subsequent encounter PLAN: -fistulagram
--- NOTE | 2024-06-03 13:27 | PCM.OPRPT ---
Report of Operation Date of Procedure: 06/03/24 Pre-Operative Diagnosis: fistula malfunction Post-Operative Diagnosis: same, left innominate vein compression Surgery/Procedure Performed:: fistulagram left upper extremity IVUS left subclavian vein, left innominate vein, SVC, IVC Description of Surgical Findings:: significant compression, 80%, left innominate vein Surgeon: Pete Enamorado Type of Anesthesia: Local and Sedation,Conscious Estimated Blood Loss (mL): 3 Description of Procedure: HPI: Patient is a 69-year-old male with end-stage renal disease currently on dialysis via left radiocephalic fistula created approximately a 4 years prior. Little working well until recently it was noted during his sessions he had some diminished clearance as well as some prolonged bleeding. He had a noninvasive vascular study which revealed no significant abnormality. He presents now for several possible intervention. Description of procedure: Upon obtaining informed consent and verification correct patient procedure site patient taken to the [facility] was positioned prepped and draped in usual sterile fashion. Timeouts performed conscious sedation administered Versed and fentanyl. Skin overlying the cephalic fistula was anesthetized 1% lidocaine the vessel accessed and ultrasound guidance with micropuncture needle and wire. This then exchanged for micropuncture sheath through which hand-injection fistulogram venous outflow angiogram was performed. The micropuncture sheath was then exchanged for a short 6 [place] sheath. [employer] wire was then advanced through the 6 [place] sheath and positioned in the subclavian vein. Through the 6 [place] sheath a Man catheter was advanced into the subclavian vein and subtraction angiography performed of the central venous structures. This revealed what appeared to be significant stenosis of the left innominate vein. The dialysis circuit otherwise was satisfactory in appearance with widely patent arterial anastomosis and inflow segment, large caliber fistula and dominant outflow via cephalic vein throughout the upper arm with normal cephalic arch. The axillary and subclavian vein were normal in appearance with no significant chest wall collaterals. Given the abnormality of the innominate vein was felt that intravascular ultrasound assessment was warranted. Given the access at the wrist and the caliber of the fistula at this location was felt that a larger sheath, particularly if intervention was required, was not advisable. Next the right groin was prepped and draped and under ultrasound guidance the right common femoral vein accessed with micropuncture needle wire. This exchanged for micropuncture sheath through which a glide advantage wire advanced traversing the inferior vena cava and altered into the superior vena cava. The micropuncture sheath was then exchanged out for a 10 [place] sheath next the glide advantage wire was used to navigate the left innominate vein ultimately the left subclavian vein. 8 [place] intravascular shunt probe was then advanced and recorded pullback performed of the left, subclavian vein, innominate vein, superior vena cava. This confirmed approximately 80% compression of the innominate vein with mildly dilated reference vessels both proximal to and distal to the compressed segment. Reference sizes were obtained and they were larger than the treatable vessel caliber with the stents available in the [facility] supply. In fact it is possible that the vein caliber is beyond what could be safely treated with any stent so further discussion with [facility] regarding stent size options will be undertaken with possible return for intervention. Nylon pursestring suture was then placed at the wrist puncture site and a 6 [place] sheath withdrawn followed by 2 minutes of manual pressure with satisfactory stasis noted. The femoral access sheath was withdrawn a minute pressure held with satisfactory stasis noted. Patient taken recovery for better try to discharge to home.
== END 2024-06-03 15:37 | disposition home or self-care (01) ==
PROVIDERS: PCP Family Medicine Geriatric Medicine; Referring Provider Surgery Trauma Surgery; Visit Provider Surgery Trauma Surgery
DX: T82.590D Other mechanical complication of surgically created arteriovenous fistula, subsequent encounter (principal); I13.2 Hypertensive heart and chronic kidney disease with heart failure and with stage 5 chronic kidney disease, or end stage renal disease; N18.6 End stage renal disease; I50.22 Chronic systolic (congestive) heart failure; E78.00 Pure hypercholesterolemia, unspecified; Z87.891 Personal history of nicotine dependence; I25.10 Atherosclerotic heart disease of native coronary artery without angina pectoris; Z99.2 Dependence on renal dialysis; F41.9 Anxiety disorder, unspecified; Z79.899 Other long term (current) drug therapy; Z79.82 Long term (current) use of aspirin; Y71.8 Miscellaneous cardiovascular devices associated with adverse incidents, not elsewhere classified
CPT/HCPCS: 36415; 36901; 37252; 37253; 76937; 80048; 85027; 99152; 99153; C1753; C1769; C1894; J7040; Q9967

== ENCOUNTER → 2024-06-26 | Outpatient (CLI) | payer MEDICARE, OTHER, SELFPAY ==
[2024-06-26 15:59] LABS: Absolute Lymphocyte Count 1.78 X10^3/uL (0.83-4.51); Basophil# 0.07 X10^3/uL; Basophil% 1.3 % (0-1); Eosinophils% 3.6 % (0-5); Hematocrit 44.6 % (40-54); Hemoglobin 15.3 g/dL (13.0-16.5); Lymphocyte # 1.78 X10^3/ul (0.83-4.51); Lymphocyte % 32.1 % (19-41); Mean Corp Hgb Conc 34.3 g/dL (32-36); Mean Corpuscular Hgb 35.3 pg (27.0-32.0); Mean Corpuscular Volume 102.8 fL (80-94); Mean Platelet Vol. 10.6 fl (6.2-12.0); Monocyte# 0.51 X10^3/uL; Monocyte% 9.2 % (0-10); NRBC Flagged by Analyzer 0 % (0-5); Neutrophil # 2.97 X10^3/uL (2.7-7.7); Neutrophil % 53.6 % (47-70); Platelet Count 235 K/mm3 (150-450); RBC Distribution Width CV 13.6 % (11.6-14.6); RBC Distribution Width SD 50.5 fl (35.1-43.9); Red Blood Count 4.34 M/mm3 (4.6-6.2); White Blood Count 5.5 K/mm3 (4.4-11.0)
[2024-06-26 16:31] LABS: Vitamin D,25 Hydroxy 36.9 ng/mL
[2024-06-26 16:36] LABS: Thyroid Stim Hormone (TSH) 0.88 uIU/mL (0.358-3.74)
== END | disposition home or self-care (01) ==
PROVIDERS: PCP Family Medicine Geriatric Medicine; Referring Provider Family Medicine Geriatric Medicine; Visit Provider Family Medicine Geriatric Medicine
DX: I10 Essential (primary) hypertension (principal); E55.9 Vitamin D deficiency, unspecified
CPT/HCPCS: 36415; 82306; 84443; 85025

== ENCOUNTER 2024-07-01 09:07 | Observation (INO) | payer MEDICARE, OTHER, SELFPAY ==
[2024-07-01] VITALS (10 sets, daily range): BP systolic 158–183; BP diastolic 46–69; PULSE 63–72; RESP 16; TEMP 36.6; O2SAT 95–100; BMI 28.1
--- NOTE | 2024-07-01 09:01 | CON.PCM.CA_ITS ---
Assessment & Plan Assessment/Plan (1) Chest pain at rest: PLAN: Patient has a history of chest discomfort noted at rest. I would recomme nd that we pursue a cardiac catheterization. The risk benefits alternatives have been explained to him he understands and agrees to proceed. Addendum: At 11:06 AM. Cardiac catheterization demonstrated the following: Left main coronary artery is noted to be normal. Left anterior descending artery is totally occluded in the midsegment. Competitive flow is noted. COX to the LAD is patent. Saphenous vein graft to the right coronary artery is patent. [place] right coronary artery is occluded. [place] circumflex artery has a first obtuse marginal branch with a 70 to 80% mid segment stenosis and a tortuous vessel. Saphenous vein graft to the obtuse marginal branch is presumed occluded Based on the above angiographic findings will recommend aggressive medical therapy and depending on the clinical findings further recommendations will be made (2) H/O coronary artery bypass surgery: PLAN: He is status post coronary bypass surgery, with a COX to the LAD and a saphenous vein graft to the PDA and obtuse marginal branch. We will continue to evaluate the above with a cardiac catheterization and depending on the findings further recommendations will be made. (3) Essential (primary) hypertension: PLAN: He does have a history of hypertension. His blood pressure appears to be under good control on the current medical therapy. (4) Ischemic cardiomyopathy: PLAN: He does have a previous history of ischemic cardiomyopathy. We will reevaluate with an echocardiogram to reassess his ventricular function. (5) ESRD (end stage renal disease) on dialysis: PLAN: He does have a history of end-stage renal disease. He is on dialysis Monday. The plan will be to have a cardiac catheterization today and then have him have his regular dialysis tomorrow. HPI Consult Data Date of Consult: 07/01/24 HPI Narrative HPI Narrative: JOSELITO LAWSON, is a 69 M who presents for an outpatient stress test and is noted to have chest discomfort with EKG changes during the testing. He has a history of hypertension, hyperlipidemia, chronic kidney disease who underwent kidney biopsy in August 2019. He does have a significant tobacco history and underwent a CAT scan of his lungs which demonstrated calcified coronary arteries. He underwent a pharmacologic myocardial perfusion stress test which demonstrated no evidence of ischemia or infarction, diaphragmatic attenuation artifact was noted. He was admitted on 12/28/2020 to [facility] for non-ST elevated myocardial infarction. He underwent a heart catheterization that showed distal left main coronary artery of 60 to 70% stenosis with proximal LAD aneurysmal formation, mild LAD disease, mild LCx disease, and totally occluded RCA with [id number] collateral flow. He was discharged for bypass evaluation. He returned to Emergency Department on 01/06/2021 with shortness of breath and chest pain and was intubated. He was transferred to [facility] and underwent coronary artery bypass surgery with Dr. Robles on 01/18/2021 with a left internal mammary artery to LAD, reverse saphenous vein graft to obtuse marginal, and reverse saphenous vein graft to posterior descending coronary artery. He gets dialysis , Mon, and Monday. He does feel that he has not gotten the energy back that he should have from h is CABG three years ago. Prior to his CABG he was fatigued. He does not feel that this is any worse just that it has not gotten any better. He does not have any chest discomfort/heaviness/tightness. He does try to walk routinely. He does not have any worsening symptoms of shortness of breath. He denies any PND. He does not have any orthopnea. He does not have any symptoms of congestive heart failure. He does not have any palpitations that he is aware of. He does not have any lightheadedness or dizziness. He does not have any near-syncope or syncope. He does not have any lower extremity edema. He does have symptoms of claudication of his legs. Due to the above he was scheduled to undergo a stress test and was noted to have the EKG changes which referred to above. He was admitted for urgent cardiac catheterization [facility] Medical History Bilateral carotid artery stenosis ESRD (end stage renal disease) on dialysis History of non-ST elevation myocardial infarction (NSTEMI) (12/28/20) Chronic systolic (congestive) heart failure Postoperative ileus (01/15/21) Atherosclerotic heart disease of [place] coronary artery without angina pectoris Acute HFrEF (heart failure with reduced ejection fraction) Ischemic cardiomyopathy Flash pulmonary edema Bilateral inguinal hernia without obstruction or gangrene Hypercholesteremia Essential (primary) hypertension White coat syndrome with hypertension Myocardial infarction History of diverticulitis Anxiety Home Medications ?Medication ?Instructions ?Recorded ?Last Taken ?Type sertraline 50 mg tablet 50 mg PO DAILY mood 05/09/19 06/03/24 History aspirin 81 mg chewable tablet 81 mg PO DAILY@0800 ##90 12/30/20 06/03/24 Rx Deja [id number] 1 cap PO DAILY 06/16/23 06/03/24 History oil 400 mcg-500 unit capsule (ProRenal QD) carvedilol 6.25 mg tablet 6.25 mg PO BID #60 tabs 09/01/23 06/03/24 Rx amlodipine 10 mg tablet 5 mg PO DAILY 06/14/24 Unknown History cilostazol 50 mg tablet 50 mg PO BID #60 tabs 06/26/24 Unknown Rx Allergy/AdvReac Type Severity Reaction Status Date / Time Seasonal Allergies: Uncoded Allergy Intermediate Unknown Verified 06/26/24 15:56 ezetimibe (From Zetia) AdvReac Intermediate unstable Verified 06/26/24 15:56 gait, myalgia, joint pain atorvastatin (From Lipitor) AdvReac unstable Verified 06/26/24 15:56 gait, myalgia rosuvastatin (From Crestor) AdvReac unstable Verified 06/26/24 15:56 gait, myalgia Family History Mother Heart disease Father Hypertension Cardiac arrest Surgical History H/O coronary artery bypass surgery (01/11/21) History of left heart catheterization (12/28/20) S/P arteriovenous (AV) fistula creation History of right inguinal hernia repair (01/08/20) History of colonoscopy (2009) History of colostomy reversal History of partial colectomy Social History Smoking Status: Former smoker quit date: 09/25/18 pack-years: 64 how long ago did patient quit smokin years ago alcohol intake: never substance use type: does not use caffeine: Yes Type: coffee Number of servings: 2 what type of physical activity do you participate in: none frequency: does not exercise ROS Constitutional Constitutional: Denies fever(s) or weight loss Eyes Eyes: Reports systems reviewed and no addt'l complaints, except as documented ENT HEENT: Reports systems reviewed and no addt'l complaints, except as documented Cardiovascular Cardiovascular: Reports chest pain at rest, dyspnea at rest and dyspnea on exer tion; Denies chest pain with activity, edema, palpitations or paroxysmal nocturnal dyspnea Respiratory/Chest Respiratory/Chest: Reports shortness of breath at rest and shortness of breath with exertion; Denies dyspnea on exertion or productive cough Gastrointestinal Gastrointestinal: Denies change in bowel habits, nausea, vomiting or weight changes Genitourinary Genitourinary: Denies difficulty urinating Musculoskeletal Musculoskeletal: Denies joint stiffness or muscle weakness Integumentary Integumentary: Denies lesions Neurologic Neurologic: Denies dizziness or syncope Psychiatric Psychiatric: Denies anxiety Endocrine Endocrinology: Denies excessive sweating or fatigue Hematologic/Lymphatic Hematologic/Lymphatic: Denies anemia Allergic/Immunologic Allergic/Immunologic: Denies seasonal rhinorrhea Physical Exam Const alert, oriented x3 and no apparent distress General Appearance: cooperative HEENT hearing grossly normal bilaterally Head and Scalp: atraumatic Eyes EOMs intact bilaterally Neck General: normal visual inspection Chest inspection of chest normal and palpation of chest normal Resp normal respiratory effort Auscultation: clear to auscultation bilaterally Cardio regular rate, regular rhythm, S1 normal heart sound and S2 normal heart sound Jugular Venous Distention: JVD GI normal to inspection, nondistended, normoactive bowel sounds Extremity normal capillary refill and no pedal edema Peripheral Pulses: Yes pulses 2+ throughout and femoral pulses present Skin no rashes or lesions noted Neuro oriented x3 and CN's II-XII intact bilaterally Psych Appearance: grossly normal and appropriate Risk Stratification Risk Stratification Applicable: Yes Age >/= 65: Yes >/= 3 CAD Risk Factors (HTN, HLD, DM, family hx of CAD, or current smoker): Yes Aspirin Use in the Past 7 Days: Yes Severe Angina (>/= episodes in 24 hours): Yes EKG ST Changes >/= 0.5mm: Yes Positive Cardiac Marker: No JERARDO Risk Stratification Score: 5 JERARDO % Risk: 25% Risk Cardiology Labs/Tests Rhythm: EKG: ECHO: Stress Test: Cardiac Cath: PCI: CT Surgery: Holter monitor: EPS: PPM: CXR: Chest CT Scan:
[2024-07-01] MEDS: Carvedilol 6.25 MG Tablet PO (09:58)
[2024-07-01] MEDS: amLODIPine 5 MG Tablet PO ×2 (09:58→16:51)
--- NOTE | 2024-07-01 11:20 | CL.D_ITS ---
Patient Name: JOSELITO LAWSON Study Date: 07/01/2024 Performing: Carlito Keyes MD Ht: 70 inches 177.8 cm : 1955 Wt: 196.21 lbs 89 kg Age: 69 Gender: male BSA: 2.07 PROCEDURE(S) PERFORMED [id number])LHC/COR/CABG CLINICAL PROFILE AND INDICATIONS Indications: Worsening Angina Heart Failure: None Stress/Imaging Date: 07/01/24Stress Test with SPECT MPI: Negative CAD Presentations: Unstable angina. CONCLUSIONS Coronary artery disease with patent COX to the LAD saphenous vein graft to the right coronary artery is patent with a normal stress test on the perfusion scan. Disease is noted in the circumflex artery and the saphenous vein graft to the OM was not found. Due to renal failure limited dye use was applied. RECOMMENDATIONS Will maximize medical therapy. DESCRIPTION OF PROCEDURE The patient arrived to the procedure lab. The risks and benefits of the procedure as well as a full description of our services here and current unavailability of surgical backup were fully explained to the patient and/or their significant other prior to the catheterization. The Timeout was completed, verifying the correct patient and procedure. The patient's procedural site was prepped and draped in the usual fashion. Local anesthetic was given subcutaneously to right groin region with Lidocaine 2%. Using a modified Seldinger technique, arterial access was obtained via the right femoral artery, a 5Fr sheath was inserted. katie johnson Left Coronary Artery selective angiography was performed in multiple views using a 5 Fr. JL 5 catheter. Right Coronary Artery selective angiography was then performed in multiple views using a 5 Fr. 3DRC (Og) catheter. Saphenous Vein graft to the RPDA selective angiography was performed in multiple views using a 5 Fr. 3DRC (Og) catheter. Left internal mammary artery graft to the LAD selective angiography was performed in multiple views using a 5 Fr. 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 CIRCUMFLEX ARTERY: Is a medium size vessel with the first obtuse marginal branch which has 2 side branches with a superior branch having a 70 to 80% stenosis and a tortuous vessel with a AV groove branch with mild disease RIGHT CORONARY ARTERY: is occluded GRAFTS: Saphenous Vein graft to the RPDA is patent COX graft to the Mid LAD is patent COMPLICATIONS No Complications PROCEDURE MEDICATIONS Versed 1 mg IV Fentanyl 50 mcg IV Oxygen: 2 L/min via nasal cannula Baby Aspirin (81mg) 1 Tabs PO @ 07/01/2024 10:46:51 SUMMARY OF HEMODYNAMIC DATA Time AIR REST ECG 10:25:36 AO 144/44 (88) SA 10:47:46 11:10:42 Signed By Carlito Keyes MD On 07/01/2024 11:19:07 Carlito Keyes MD
--- NOTE | 2024-07-01 11:41 | STRESSREP ---
Stress Test Report Pharmacologic myocardial perfusion stress test. 69-year-old man with a history of coronary artery bypass surgery Resting EKG demonstrates sinus rhythm with a rate of 68 bpm. Resting blood pressure is 138/82 mmHg. 0.4 mg of regadenoson was infused per usual protocol followed by rapid intravenous saline flush injection. Continuous EKG monitoring was performed. The maximum heart rate was 96 bpm which was 64% of max impacted heart rate the maximum workload was 1 metabolic equivalent. At rest there were no ST or T wave changes noted to suggest ischemia and at peak infusion approximately 1.[address] depression were noted in leads II, III and aVF suggesting of ischemia and also patient did have some discomfort. Patient required 1 tablet of sublingual nitroglycerin before the chest pain dissipated. The final blood pressure was 164/70 mmHg. Myocardial perfusion protocol. 11 mCi of technetium 99m sestamibi was injected at rest. 0.4 mg of regadenoson was infused per usual protocol. At peak infusion 33 mCi of technetium 99m sestamibi was injected stress images were obtained stress and rest images were reconstructed and compared in the short axis vertical long and horizontal long axis. Gated images were also obtained. Perfusion SPECT analysis: Review of the stress images demonstrate normal uptake of tracer noted in all areas of the myocardium. The resting images similar demonstrated normal uptake of tracer noted in all areas of the myocardium. No areas of reversibility are noted to suggest ischemia and no previous infarct is noted. Gated SPECT analysis: The gated ejection fraction is 52%. Conclusion: Normal pharmacologic myocardial perfusion stress test. Preserved ejection fraction.
[2024-07-01 12:37] LABS: Hematocrit 42.7 % (40-54); Hemoglobin 14.5 g/dL (13.0-16.5); Mean Corpuscular Hgb 34.2 pg (27.0-32.0); Mean Corpuscular Volume 100.7 fL (80-94); Mean Platelet Vol. 10.4 fl (6.2-12.0); Platelet Count 203 K/mm3 (150-450); RBC Distribution Width CV 13.6 % (11.6-14.6); RBC Distribution Width SD 49.1 fl (35.1-43.9); Red Blood Count 4.24 M/mm3 (4.6-6.2); White Blood Count 6.5 K/mm3 (4.4-11.0)
[2024-07-01 13:16] LABS: ALB/GLOB Ratio 0.8 RATIO (0.9-2.4); AST(SGOT) 21 U/L (15-37); Alanine Aminotransfer ALT/SGPT 15 U/L (16-61); Albumin, Serum 3.4 g/dL (3.2-5.0); Alkaline Phosphatase 70 U/L (45-117); Anion Gap 9 (5-15); BUN 62 mg/dL (7-18); BUN/Creat Ratio 6.4 RATIO (10-20); Chloride 94 mmol/L (98-107); Creatinine, Serum 9.64 mg/dL (0.70-1.30); EST Glomerular Filtration Rate 6 mL/min (>60); Est Glom Filt Rate - Afr Amer 7 mL/min (>60); Estimated Creatinine Clearance 8.01 ml/min; Glucose 97 mg/dL (74-106); Potassium 5.3 mmol/L (3.5-5.1); Protein, Total 7.4 g/dL (6.4-8.2); Sodium Level 132 mmol/L (136-145)
--- NOTE | 2024-07-01 16:27 | DCINST_ITS ---
Discharge Instructions Diet Discharge Diet: No restrictions (You may continue your normal diet.) Activity Discharge Activity: Return to Normal Activity Lifting Restrictions: 10 pounds and also avoid any pushing or pulling for 3 days after your test. Additional Activity Instructions:: You must have someone drive you home. Do not drive until instructed by your doctor. You must have someone stay with you all night after your test. Rest in bed or on the couch until the next morning. Limit the number of times you go up and down stairs the day of your test. Apply pressure to the puncture site if you sneeze or cough. Dressing / Incision Call your doctor if your incision/area has: Increased Pain/ Swelling, Increased Redness, Foul Smelling Discharge and Swelling at the incision site Call your doctor if you observe: Fever of 101 or Higher Additional Dressing/Incision Instructions:: Keep the dressing (bandage) on until the next morning. You may then shower, but do not take a tub bath for 5 days after your test. It is normal to have some tenderness and discomfort at the puncture site. Sometimes bruising also occurs. However, if pain, numbness, or coldness occurs below the puncture site (in your leg, toes, arms or fingers) call your doctor at once. You may have a small, marble sized knot at the puncture site. This is normal. Do not rub it. It will go away in 4-6 weeks. Bleeding can occur from the area where the puncture was done. Blood may spurt or drip from the site. If blood spurts, apply pressure right away to stop bleeding and call 911. Although rare, bleeding into the tissue (hematoma) can also occur. If this happens, a large, firm area goose egg under the skin will appear. If any of these occur, lie down as flat as you can and have someone apply firm pressure to the cath site with a gauze pad or a clean washcloth for 10-15 minutes. Call 911 or go to the Emergency Department. Follow Up Care When: Please go for dialysis tomorrow at your usual time. Test Results: Test results from this visit will be discussed in further detail at your follow- up appointment, if applicable. Discharge Plan Admission Admit Date/Time: 07/01/24 09:07 Attending Provider: Carlito Keyes Primary Care Provider: Damion Leroy Chi Discharge Orders/Prescriptions Prescriptions: New isosorbide mononitrate 30 mg tablet extended release 24 hr 30 mg PO DAILY Qty: 60 3RF Continued sertraline 50 mg tablet 50 mg PO DAILY amlodipine 10 mg tablet 10 mg PO DAILY ProRenal QD 400-500 mcg-unit capsule 1 cap PO DAILY Patient Comments: TAKE 1 CAPSULE BY MOUTH EVERY DAY cilostazol 50 mg tablet 50 mg PO BID Qty: 60 2RF aspirin 81 MG tablet,chewable 81 mg PO DAILY@0800 Qty: 90 0RF carvedilol 12.5 mg tablet 12.5 mg PO BID Discontinued carvedilol 6.25 mg tablet 6.25 mg PO BID Qty: 60 0RF Rx Instructions: must administer with a meal/food Referrals / Follow Up: Damion Leroy Chi, MD [Primary Care Provider] - Disposition Disposition (needs filled in before D/C Order can be placed): Home, Self Care
== END 2024-07-01 18:40 | disposition home or self-care (01) ==
PROVIDERS: Admitting Provider Internal Medicine Cardiovascular Disease; PCP Family Medicine Geriatric Medicine; Referring Provider Physician Assistant Medical; Visit Provider Internal Medicine Cardiovascular Disease
DX: I25.110 Atherosclerotic heart disease of native coronary artery with unstable angina pectoris (principal); I13.2 Hypertensive heart and chronic kidney disease with heart failure and with stage 5 chronic kidney disease, or end stage renal disease; N18.6 End stage renal disease; I50.22 Chronic systolic (congestive) heart failure; I73.9 Peripheral vascular disease, unspecified; Z87.891 Personal history of nicotine dependence; E78.00 Pure hypercholesterolemia, unspecified; I25.5 Ischemic cardiomyopathy; I25.82 Chronic total occlusion of coronary artery; Z99.2 Dependence on renal dialysis; Z95.1 Presence of aortocoronary bypass graft; Z79.899 Other long term (current) drug therapy
CPT/HCPCS: 78452; 80053; 85027; 93017; 93455; 99152; 99153; A9500; C1760; J7040; Q9967; A4216; C1769; J2785

== ENCOUNTER → 2024-08-07 | Outpatient (CLI) | payer MEDICARE, OTHER, SELFPAY ==
[2024-08-07 18:21] LABS: PSA,Total- Diagnostic 5.96 ng/mL (0.0-4.0)
== END | disposition home or self-care (01) ==
PROVIDERS: PCP Family Medicine Geriatric Medicine; Referring Provider Nurse Practitioner; Visit Provider Nurse Practitioner
DX: C61 Malignant neoplasm of prostate (principal)
CPT/HCPCS: 36415; 84153

== ENCOUNTER 2024-09-11 23:26 | Inpatient (IN) | payer MEDICARE, OTHER, SELFPAY ==
[2024-09-11 23:27] VITALS: BP 175/88; PULSE 97; RESP 22; TEMP 37.2; O2SAT 89; BMI 28.8
[2024-09-11 23:42] VITALS: PULSE 92; RESP 23; O2SAT 90
--- NOTE | 2024-09-11 23:44 | EKG12_ITS ---
Test Reason : DYSRHYTHMIA Blood Pressure : / mmHG Vent. Rate : 089 BPM Atrial Rate : 089 BPM P-R Int : 150 ms QRS Dur : 112 ms QT Int : 392 ms P-R-T Axes : 058 -29 072 degrees QTc Int : 476 ms Normal sinus rhythm Minimal voltage criteria for LVH, may be normal variant ( [place] product ) Nonspecific ST abnormality Abnormal ECG Confirmed by CARMEN LIVE, ANNIKA ([id number]), news editor TREY ELIZONDO ([id number]) on 09/12/2024 9:27:06 AM Referred By: Confirmed By:ANNIKA MORALES MD
--- NOTE | 2024-09-11 23:44 | ED.VIS.DYS ---
HPI History of Present Illness Chief Complaint: Shortness of Breath Narrative Narrative: 69-year-old male past medical history of hypertension, hypercholesterolemia, end-stage renal disease on dialysis every Monday, , and Monday. Patient presents with a few days of not feeling well. He missed dialysis on Monday, yesterday and was supposed to have it again today, but he was not feeling well. He vomited before he came. He states has been short of breath today. He has occasional cough. No fevers or chills. No exacerbating or alleviating factors. [facility] Medical History (Updated 09/12/24 @ 00:53 by Adam Cast MD) Bilateral carotid artery stenosis ESRD (end stage renal disease) on dialysis History of non-ST elevation myocardial infarction (NSTEMI) (12/28/20) Chronic systolic (congestive) heart failure Postoperative ileus (01/15/21) Atherosclerotic heart disease of [place] coronary artery without angina pectoris Acute HFrEF (heart failure with reduced ejection fraction) Ischemic cardiomyopathy Flash pulmonary edema Bilateral inguinal hernia without obstruction or gangrene Hypercholesteremia Essential (primary) hypertension White coat syndrome with hypertension Myocardial infarction History of diverticulitis Anxiety Home Medications ?Medication ?Instructions ?Recorded ?Last Taken ?Type sertraline 50 mg tablet 50 mg PO DAILY mood 05/09/19 06/03/24 History aspirin 81 mg chewable tablet 81 mg PO DAILY@0800 ##90 12/30/20 06/03/24 Rx mv,[id number] 1 cap PO DAILY 06/16/23 06/03/24 History oil 400 mcg-500 unit capsule (ProRenal QD) amlodipine 10 mg tablet 10 mg PO DAILY 06/14/24 Unknown History carvedilol 12.5 mg tablet 12.5 mg PO BID 07/01/24 Unknown History Allergy/AdvReac Type Severity Reaction Status Date / Time Seasonal Allergies: Uncoded Allergy Intermediate Unknown Verified 09/11/24 23:27 ezetimibe (From Zetia) AdvReac Intermediate unstable Verified 09/11/24 23:27 gait, myalgia, joint pain isosorbide AdvReac Intermediate Dizziness Verified 09/11/24 23:27 atorvastatin (From Lipitor) AdvReac unstable Verified 09/11/24 23:27 gait, myalgia rosuvastatin (From [facility]) AdvReac unstable Verified 09/11/24 23:27 gait, myalgia Family History Mother Heart disease Father Hypertension Cardiac arrest Surgical History H/O coronary artery bypass surgery (01/11/21) History of left heart catheterization (12/28/20) S/P arteriovenous (AV) fistula creation History of right inguinal hernia repair (01/08/20) History of colonoscopy (2009) History of colostomy reversal History of partial colectomy Social History Smoking Status: Former smoker quit date: 09/25/18 pack-years: 65 how long ago did patient quit smokin years ago alcohol intake: never substance use type: does not use caffeine: Yes Type: coffee Number of servings: 2 what type of physical activity do you participate in: none frequency: does not exercise ROS ROS ED ROS Narrative Constitutional: No fever, no chills. HEENT: No sore throat. No neck pain. No loss of vision. No rhinorrhea. Cardiovascular: No chest pain. No palpitations. No pedal edema. Respiratory: Occasional cough, positive shortness of breath. Abdominal: No abdominal pain. Positive nausea and vomiting. Slight diarrhea in the morning. Genitourinary: No dysuria. No hematuria. Musculoskeletal: No myalgias. No arthralgias. Neurologic: No headaches. No dizziness. No lightheadedness. Skin: No rash. No change in color. Psychiatric: No depression. No anxiety. EXAM Physical Exam Narrative Exam Narrative: Afebrile. Vital signs noted. Regular rate and rhythm. Lungs are clear to auscultation bilaterally, moving a fair amount of air. Mild tachypnea. Abdomen soft nontender with normal active bowel sounds. Neurological examination shows him to be awake, alert, exam nonfocal and nonlateralizing, moves all extremities. Const Vital Signs: 09/11/24 23:27 09/11/24 23:42 09/11/24 23:45 Temperature 99 F Temperature Source Oral Pulse Rate 97 92 91 Respiratory Rate 22 H 23 H 35 H Respiratory Effort Blood Pressure 175/88 H Blood Pressure Mean 117 Pulse Ox 89 90 Oxygen Delivery Method Room Air Oxygen Flow Rate (L/min) 09/11/24 23:47 09/12/24 00:00 09/12/24 00:15 Temperature Temperature Source Pulse Rate 86 88 Respiratory Rate 22 H 22 H Respiratory Effort Short of Breath Blood Pressure Blood Pressure Mean Pulse Ox 91 92 Oxygen Delivery Method Oxygen Flow Rate (L/min) 09/12/24 00:30 09/12/24 00:45 09/12/24 01:00 Temperature Temperature Source Pulse Rate 88 88 Respiratory Rate 29 H 28 H Respiratory Effort Blood Pressure 184/84 H Blood Pressure Mean 117 Pulse Ox 91 91 Oxygen Delivery Method Oxygen Flow Rate (L/min) 09/12/24 01:02 09/12/24 01:06 Temperature 98.7 F Temperature Source Pulse Rate 88 Respiratory Rate 29 H Respiratory Effort Blood Pressure 184/84 H Blood Pressure Mean 117 Pulse Ox 94 Oxygen Delivery Method Nasal Cannula Oxygen Flow Rate (L/min) 2 MDM MDM MDM Narrative Medical decision making narrative: Differential diagnosis includes but not limited to pneumonia versus fluid overload from missing dialysis versus other electrolyte imbalance. He does not have a history of COPD or CHF according to him, but his problem list does list congestive heart failure. His pulse ox ranges from 89 to 92% on room air with good waveform. I reviewed his laboratory work and he has normal white count of 10.9 with hemoglobin stable at 12.2, hematocrit 36.1, platelet count normal at 216. Potassium slightly elevated at 5.3 with a BUN of 99 and creatinine 13.3 consistent with his end-stage renal disease. Glucose 112. AST is low at 14 which I think is nonspecific, lipase normal at 27 so I doubt pancreatitis. Chest x-ray 1 view interpreted by myself does show fluid overload. EKG was obtained and interpreted by myself independently as normal sinus rhythm at 89 bpm without ectopy or acute ST changes. No STEMI. No significant change from previous EKG, I do not see peaked T waves when compared to previous. Regardless, patient will be given Kayexalate 15 g orally. As he has a low pulse ox, he was placed on oxygen for comfort. I do feel that he requires observation and will need dialysis tomorrow. I paged his automobile accessories installer, Dr. Ervin. I have not heard a response as of yet. I discussed patient with Dr. Mcgill for admission to the PCU. Disposition is admit in stable condition. History & Record Review Discussion w/independent historian: Patient Lab Data Attestation: I reviewed the patient's lab results. Labs: Laboratory Results - last 24 hr 09/11/24 23:42 WBC 10.9 RBC 3.61 L Hgb 12.2 L Hct 36.1 L MCV 100.0 H MCH 33.8 H MCHC 33.8 RDW Std Deviation 47.5 H RDW Coeff of Steven 13.2 Plt Count 216 MPV 10.3 Immature Gran % (Auto) 0.600 Neut % (Auto) 82.1 H Lymph % (Auto) 8.3 L [place] % (Auto) 8.0 Eos % (Auto) 0.7 Baso % (Auto) 0.3 Absolute Neuts (auto) 8.9 H Absolute Lymphs (auto) 0.90 Nucleated RBC % 0 Sodium 138 Potassium 5.3 H Chloride 98 Carbon Dioxide 26.0 Anion Gap 14 BUN 99 H Creatinine 13.30 H* Estim Creat Clear Calc 5.87 Est GFR (MDRD) Af Amer 5 L Est GFR (MDRD) Non-Af 4 L BUN/Creatinine Ratio 7.4 L Glucose 112 H Calcium 8.7 Total Bilirubin 0.70 AST 14 L ALT 16 Alkaline Phosphatase 67 Total Protein 7.4 Albumin 3.2 Globulin 4.2 Albumin/Globulin Ratio 0.8 L Lipase 27 Management Discussion w/another healthcare provider: Hospitalist Discharge Plan Dx/Rx/DC Orders Clinical Impression: ESRD (end stage renal disease) on dialysis, Missed dialysis, Hyperkalemia, SOB (shortness of breath), Hypoxia, Fluid overload Disposition Disposition: Acute Care [facility]
[2024-09-11 23:45] VITALS: PULSE 91; RESP 35
[2024-09-11 23:52] LABS: Absolute Neutrophil Count 8.9 X10^3/uL (2.0-7.7); Basophil# 0.03 X10^3/uL; Basophil% 0.3 % (0-1); Eosinophil# 0.08 X10^3/uL; Eosinophils% 0.7 % (0-5); Hematocrit 36.1 % (40-54); Hemoglobin 12.2 g/dL (13.0-16.5); Lymphocyte % 8.3 % (19-41); Mean Corp Hgb Conc 33.8 g/dL (32-36); Mean Corpuscular Hgb 33.8 pg (27.0-32.0); Mean Platelet Vol. 10.3 fl (6.2-12.0); Monocyte# 0.87 X10^3/uL; NRBC Flagged by Analyzer 0 % (0-5); Neutrophil # 8.91 X10^3/uL (2.7-7.7); Neutrophil % 82.1 % (47-70); Platelet Count 216 K/mm3 (150-450); RBC Distribution Width CV 13.2 % (11.6-14.6); RBC Distribution Width SD 47.5 fl (35.1-43.9); Red Blood Count 3.61 M/mm3 (4.6-6.2); White Blood Count 10.9 K/mm3 (4.4-11.0)
--- NOTE | 2024-09-11 23:59 | RAD_ITS ---
EXAM: XR CHEST, 1 VIEW CLINICAL INDICATION: Shortness of breath TECHNIQUE: Frontal view of the chest. COMPARISON: No relevant prior studies available. FINDINGS: LUNGS AND PLEURAL SPACES: Heterogeneous airspace disease at the lung bases bilaterally. Background of emphysema pleural parenchymal scarring at the lung bases. Additional blunting of the right costophrenic angle raising concern for pleural effusion. No pneumothorax. Bronchial wall thickening centrally concerning for bronchitis. HEART: Unremarkable. Cardiac silhouette not enlarged. MEDIASTINUM: Central airways and mediastinal contour are unremarkable. BONES/JOINTS: Degenerative changes of are spine and acromioclavicular joints. Disrupted most caudal sternotomy wire. No acute fracture. SOFT TISSUES: Unremarkable. LYMPH NODES: Redemonstration of a large right hilar region which may represent adenopathy or pulmonary arterial enlargement. RAD/Chest 1 View (Portable) IMPRESSION: 1. Concern for at least a small size right pleural effusion with adjacent passive atelectasis. 2. Atelectasis versus infiltrate/aspiration at the lung bases. 3. Smoking related lung changes suspected. Electronically Signed: Burak Alejandro MD at 1:30 EDT ,
[2024-09-12] VITALS (26 sets, daily range): BP systolic 69–284; BP diastolic 54–84; PULSE 77–93; RESP 12–29; TEMP 36.4–37.5; O2SAT 91–100; BMI 29.0; BMI 28.0
[2024-09-12 00:16] LABS: ALB/GLOB Ratio 0.8 RATIO (0.9-2.4); AST(SGOT) 14 U/L (15-37); Alanine Aminotransfer ALT/SGPT 16 U/L (16-61); Albumin, Serum 3.2 g/dL (3.2-5.0); Alkaline Phosphatase 67 U/L (45-117); Anion Gap 14 (5-15); BUN 99 mg/dL (7-18); BUN/Creat Ratio 7.4 RATIO (10-20); Calcium,Total 8.7 mg/dL (8.5-10.1); Chloride 98 mmol/L (98-107); EST Glomerular Filtration Rate 4 mL/min (>60); Est Glom Filt Rate - Afr Amer 5 mL/min (>60); Estimated Creatinine Clearance 5.87 ml/min; Globulin 4.2 g/dL (2.2-4.2); Glucose 112 mg/dL (74-106); Lipase 27 U/L (13-75); Potassium 5.3 mmol/L (3.5-5.1); Protein, Total 7.4 g/dL (6.4-8.2); Sodium Level 138 mmol/L (136-145)
[2024-09-12] MEDS: Sodium Polystyrene Sulfonate 15 GM/60 ML UDC PO (00:24)
--- NOTE | 2024-09-12 01:12 | HP.PCM.HOS_ITS ---
HPI - General General Date of Admission: 09/12/24 Date of Service: 09/12/24 Chief Complaint: Nausea and Vomiting with Missed HD. HPI Narrative JOSELITO LAWSON, is a 69 M with a past medical history of essential hypertension, hyperlipidemia; with intolerance to multiple statins and Zetia, overweight; with BMI of 28.9 this admission, former history of chronic tobacco abuse (quit 2017), ESRD on HD; (); followed by Dr. Ervin of the nephrology service, CAD; s/p NSTEMI (2020), history of CABG x 3 (2020), Chronic Systolic CHF; with history of flash pulmonary edema, ischemic cardiomyopathy, history of bilateral carotid stenosis, history of sigmoid diverticulitis, history of partial colectomy, history of colostomy; s/p reversal, history of postoperative ileus, history of bilateral inguinal hernia; s/p Right inguinal hernia repair, depression with anxiety; on sertraline and OA who presents to [facility] ER complaining of nausea and vomiting with missed HD. Mr. Lawson reports his symptoms began approximately four days prior to admission with generally not feeling well and then began to have viral-GI type illness with nausea and bilious emesis that caused him to skip his HD session on Tuesday, September 10, 2024. He then felt worse and skipped his makeup HD a second time and began to feel increasingly SOB. He denies associated fever, chills, nausea, vomiting, constipation or chest pain but he does admit to chronic non-bloody diarrhea that he has attributed to the pill he takes before HD. He states he still makes urine but not a significant amount. He denies other recent illness, recent antibiotic exposure or known sick contacts. In the ER he was noted to have uncontrolled hypertension of 184/84 mmHg present on admission complicated by chest x-ray suggestive of volume overload and AE of Chronic Systolic CHF evidenced by elevated BNP of 3,175.5 pg/ml present on admission likely due to repeatedly missing HD with creatinine of 13.3 mg/dL and BUN of 99 mg/dL plus mild hyperkalemia of 5.3 mmol/L present on admission and he was then admitted to the PCU for ongoing care for stay this is expected to extend beyond 2 midnights. COUNT INCLUDES THE [facility] Medical History (Updated 09/12/24 @ 05:[address] Davis Davies, DO) Bilateral carotid artery stenosis ESRD (end stage renal disease) on dialysis History of non-ST elevation myocardial infarction (NSTEMI) (12/28/20) Chronic systolic (congestive) heart failure Postoperative ileus (01/15/21) Atherosclerotic heart disease of [place] coronary artery without angina pectoris Acute HFrEF (heart failure with reduced ejection fraction) Ischemic cardiomyopathy Flash pulmonary edema Bilateral inguinal hernia without obstruction or gangrene Hypercholesteremia Essential (primary) hypertension White coat syndrome with hypertension Myocardial infarction History of diverticulitis Anxiety Home Medications ?Medication ?Instructions ?Recorded ?Last Taken ?Type sertraline 50 mg tablet 50 mg PO DAILY mood 05/09/19 06/03/24 History aspirin 81 mg chewable tablet 81 mg PO DAILY@0800 ##90 12/30/20 06/03/24 Rx jess,[id number]-[id number] 1 cap PO DAILY 06/16/23 06/03/24 History oil 400 mcg-500 unit capsule (ProRenal QD) amlodipine 10 mg tablet 10 mg PO DAILY 06/14/24 Unknown History carvedilol 12.5 mg tablet 12.5 mg PO BID 07/01/24 Unknown History Allergy/AdvReac Type Severity Reaction Status Date / Time Seasonal Allergies: Uncoded Allergy Intermediate Unknown Verified 09/11/24 23:27 ezetimibe (From Zetia) AdvReac Intermediate unstable Verified 09/11/24 23:27 gait, myalgia, joint pain isosorbide AdvReac Intermediate Dizziness Verified 09/11/24 23:27 atorvastatin (From Lipitor) AdvReac unstable Verified 09/11/24 23:27 gait, myalgia rosuvastatin (From Crest[facility]) AdvReac unstable Verified 09/11/24 23:27 gait, myalgia Family History Mother Heart disease Father Hypertension Cardiac arrest Surgical History H/O coronary artery bypass surgery (01/11/21) History of left heart catheterization (12/28/20) S/P arteriovenous (AV) fistula creation History of right inguinal hernia repair (01/08/20) History of colonoscopy (2009) History of colostomy reversal History of partial colectomy Social History Smoking Status: Former smoker quit date: 09/25/18 pack-years: 65 how long ago did patient quit smokin years ago alcohol intake: never substance use type: does not use caffeine: Yes Type: coffee Number of servings: 2 what type of physical activity do you participate in: none frequency: does not exercise ROS ROS Narrative Review of systems: Constitutional: Patient denies fever and chills. Eyes: Patient denies changes in vision or discharge from eyes. ENT: Patient denies runny nose, sore throat or ear pain. Resp: Patient admits to SOB but he denies cough. CV: Patient denies chest pain, palpitations or heart racing. GI: Patient denies nausea or vomiting. : Patient denies dysuria or hematuria. MSK: Patient denies arthralgias or myalgias. Skin: Patient denies rash, abscess or jaundice. Psych: Patient denies symptoms of uncontrolled depression or anxiety. Neuro: Patient was noted to have headache but he denies paresthesias or focal neurologic deficits. Allergy: Patient denies lip swelling, tongue swelling or urticaria. Hematology: Patient denies easy bleeding or easy bruisability. Endocrinology: Patient denies polyuria, polydipsia and polyphagia. 14 point ROS otherwise negative except for positives noted above in HPI. Vital Signs Vital Signs Vital Signs: 09/11/24 23:27 09/11/24 23:42 09/11/24 23:45 Temperature 99 F Temperature Source Oral Pulse Rate 97 92 91 Respiratory Rate 22 H 23 H 35 H Respiratory Effort Blood Pressure 175/88 H Blood Pressure Mean 117 Pulse Ox 89 90 Oxygen Delivery Method Room Air Oxygen Flow Rate (L/min) 09/11/24 23:47 09/12/24 00:00 09/12/24 00:15 Temperature Temperature Source Pulse Rate 86 88 Respiratory Rate 22 H 22 H Respiratory Effort Short of Breath Blood Pressure Blood Pressure Mean Pulse Ox 91 92 Oxygen Delivery Method Oxygen Flow Rate (L/min) 09/12/24 00:30 09/12/24 00:45 09/12/24 01:00 Temperature Temperature Source Pulse Rate 88 88 Respiratory Rate 29 H 28 H Respiratory Effort Blood Pressure 184/84 H Blood Pressure Mean 117 Pulse Ox 91 91 Oxygen Delivery Method Oxygen Flow Rate (L/min) 09/12/24 01:02 09/12/24 01:06 Temperature 98.7 F Temperature Source Pulse Rate 88 Respiratory Rate 29 H Respiratory Effort Blood Pressure 184/84 H Blood Pressure Mean 117 Pulse Ox 94 Oxygen Delivery Method Nasal Cannula Oxygen Flow Rate (L/min) 2 Weight Weight: 201 lb 3.2 oz Body Mass Index (BMI) 28.8 Physical Exam Const alert, oriented x3, no apparent distress and average body habitus General Appearance: cooperative HEENT normocephalic, head/scalp atraumatic, hearing grossly normal bilaterally and moist oral mucous membranes Eyes PERRL and EOMs intact bilaterally Neck no lymphadenopathy and supple Resp Resp Narrative: Diminished breath sounds throughout. Cardio regular rate and regular rhythm GI normal to inspection, nondistended, normoactive bowel sounds, soft to palpation, non-tender and non-distended Extremity normal to inspection, full ROM and no clubbing, cyanosis or edema Skin Skin Narrative: Patient has no evidence of rash, abscess or jaundice. Neuro oriented x3, CN's II-XII intact bilaterally, moves all extremities and no focal motor deficits Sensorium / Orientation: awake, alert, oriented to person, oriented to place and oriented to time Speech: speech normal Psych affect normal Results Medical Records Data Attestation: I reviewed the patient's medical records Lab / Micro Data Attestation: I reviewed the patient's lab results. 09/12/24 05:23 09/11/24 23:42 Labs: Laboratory Results - last 24 hr 09/11/24 23:42: WBC 10.9, RBC 3.61 L, Hgb 12.2 L, Hct 36.1 L, MCV 100.0 H, MCH 33.8 H, MCHC 33.8, RDW Std Deviation 47.5 H, RDW Coeff of Steven 13.2, Plt Count 216, MPV 10.3, Immature Gran % (Auto) 0.600, Neut % (Auto) 82.1 H, Lymph % (Auto) 8.3 L, [place] % (Auto) 8.0, Eos % (Auto) 0.7, Baso % (Auto) 0.3, Absolute Neuts (auto) 8.9 H, Absolute Lymphs (auto) 0.90, Nucleated RBC % 0, Sodium 138, Potassium 5.3 H, Chloride 98, Carbon Dioxide 26.0, Anion Gap 14, BUN 99 H, C reatinine 13.30 H*, Estim Creat Clear Calc 5.87, Est GFR (MDRD) Af Amer 5 L, Est GFR (MDRD) Non-Af 4 L, BUN/Creatinine Ratio 7.4 L, Glucose 112 H, Calcium 8.7, Total Bilirubin 0.70, AST 14 L, ALT 16, Alkaline Phosphatase 67, Total Protein 7.4, Albumin 3.2, Globulin 4.2, Albumin/Globulin Ratio 0.8 L, Lipase 27 Imaging [facility] Imaging Services [address] [place] [address] Chest 1 View (Portable) MR#: [id number] Acct: [id number] Name: JOSELITO LAWSON Rep #: [id number] : 1955 M 69 From: Burak Alejandro MD PCP: Dr. Damion Leroy MD Status: ADM IN Study: Chest 1 View (Portable) Date of Exam: 09/11/24 Exam# [id number] Ordering Dr: Adam Cast MD EXAM: XR CHEST, 1 VIEW CLINICAL INDICATION: Shortness of breath TECHNIQUE: Frontal view of the chest. COMPARISON: No relevant prior studies available. FINDINGS: LUNGS AND PLEURAL SPACES: Heterogeneous airspace disease at the lung bases bilaterally. Background of emphysema pleural parenchymal scarring at the lung bases. Additional blunting of the right costophrenic angle raising concern for pleural effusion. No pneumothorax. Bronchial wall thickening centrally concerning for bronchitis. HEART: Unremarkable. Cardiac silhouette not enlarged. MEDIASTINUM: Central airways and mediastinal contour are unremarkable. BONES/JOINTS: Degenerative changes of are spine and acromioclavicular joints. Disrupted most caudal sternotomy wire. No acute fracture. SOFT TISSUES: Unremarkable. LYMPH NODES: Redemonstration of a large right hilar region which may represent adenopathy or pulmonary arterial enlargement. RAD/Chest 1 View (Portable) IMPRESSION: 1. Concern for at least a small size right pleural effusion with adjacent passive atelectasis. 2. Atelectasis versus infiltrate/aspiration at the lung bases. 3. Smoking related lung changes suspected. Electronically Signed: Burak Alejandro MD at 1:30 EDT , CC: Dr. Adam Cast MD; Dr. Damion Leroy MD ~ Dairy Quality Assurance Officer: Signed Assessment & Plan Assessment/Plan (1) Heart failure, systolic, chronic, etiology unknown: (2) Fluid overload: QUALIFIERS: Hypervolemia type: unspecified Qualified Code(s): E 87.70 - Fluid overload, unspecified (3) Hypoxia: (4) SOB (shortness of breath): (5) Hyperkalemia: (6) Missed dialysis: (7) ESRD (end stage renal disease) on dialysis: (8) Viral gastroenteritis: (9) Nausea and vomiting: QUALIFIERS: Vomiting type: unspecified Qualified Code(s): R11.2 - Nausea with vomiting, unspecified (10) History of non-ST elevation myocardial infarction (NSTEMI): (11) H/O coronary artery bypass surgery: PLAN: Plan 1. Chest x-ray suggestive of volume overload with AE of Chronic Systolic CHF; with elevated BNP of 3,175.5 pg/mL present on admission likely due to repeatedly missing HD with creatinine of 13.3 mg/dL and BUN of 99 mg/dL with hyperkalemia of 5.3 mmol/L present on admission in the setting of ESRD on HD; (T-Th-Sat) - Admit to PCU. Patient treated with oral Kayexalate in the ER. Give Tylenol as needed for [id number] (level 1-5/10) pain or fever. Give morphine IV as needed for severe (level 6-10/10) pain. Finally, we will consult nephrology to see this patient on-rounds in the AM so he can have HD with help appreciated in advance. 2. Uncontrolled hypertension of 184/84 mmHg present on admission complicating #1 - Please continue home regimen plus IV Hydralazine prn for systolic blood pressure > 160 mmHg. 3. Chronic Systolic CHF; with history of flash pulmonary edema with known ischemic cardiomyopathy compounding #1 & #2 - BNP pending to evaluate for possible acute exacerbation. 4. Viral gastroenteritis with nausea, vomiting and non-bloody diarrhea causing patient to miss hemodialysis precipitating #1 - #3 - Check stool studies and place on enteric precautions. Give Zofran IV prn for nausea and vomiting. Give Phenergan IM for breakthrough nausea and vomiting. 5. CAD; s/p NSTEMI (2020) - Noted. 6. History of CABG x 3 (2020) - Noted. 7. Hyperlipidemia; with intolerance to multiple statins and Zetia - Noted. 8. Overweight; with BMI of 28.9 this admission - Weight loss will be recommended. Check TSH. 9. Former history of chronic tobacco abuse (quit 2017) - Noted. 10. History of bilateral carotid stenosis - Noted. 11. History of sigmoid diverticulitis - Noted. 12. History of partial colectomy - Noted. 13. History of colostomy; s/p reversal - Noted. 14. History of postoperative ileus - Noted. 15. History of bilateral inguinal hernia; s/p Right inguinal hernia repair - Stable. 16. Depression with anxiety; on sertraline - Resume sertraline as previous. 17. OA - Give Tylenol as needed. 18. DVT prophylaxis - Heparin 5,000 units SQ 3 times daily plus SCDs. Total time: Approximately (but not less than) 75 minutes.
[2024-09-12 02:24] LABS: BNP,B-Type NATRIURETIC PEPTIDE 3175.5 pg/mL (0-100)
[2024-09-12 05:33] LABS: Absolute Lymphocyte Count 0.63 X10^3/uL (0.83-4.51); Absolute Neutrophil Count 8.4 X10^3/uL (2.0-7.7); Basophil# 0.03 X10^3/uL; Basophil% 0.3 % (0-1); Eosinophil# 0.02 X10^3/uL; Eosinophils% 0.2 % (0-5); Hematocrit 36.7 % (40-54); Hemoglobin 12.1 g/dL (13.0-16.5); Lymphocyte # 0.63 X10^3/ul (0.83-4.51); Lymphocyte % 6.3 % (19-41); Mean Corpuscular Hgb 32.7 pg (27.0-32.0); Mean Corpuscular Volume 99.2 fL (80-94); Mean Platelet Vol. 10.1 fl (6.2-12.0); Monocyte# 0.83 X10^3/uL; Monocyte% 8.3 % (0-10); NRBC Flagged by Analyzer 0 % (0-5); Neutrophil % 84.5 % (47-70); Platelet Count 204 K/mm3 (150-450); RBC Distribution Width CV 13.2 % (11.6-14.6)
[2024-09-12] MEDS: Heparin Injection (Vial) 5,000 UNIT/ML VIAL 5000 UNIT SC ×3 (05:44→22:28)
--- NOTE | 2024-09-12 06:04 | ECHOD_ITS ---
Reason For Study: CHF Procedure This was a 2D Doppler, Color Flow transthoracic echocardiogram. Patient scanned sitting due to nausea from dialysis. Exam performed portable in patient room. Left Ventricle Normal LV size. Severe concentric left ventricular hypertrophy. The left ventricular ejection fraction is 50 %. Stage 1 diastolic dysfunction. There is mild global hypokinesis of the left ventricle. Right Ventricle Normal RV size. Normal systolic function. Mitral Valve There is mild to moderate mitral annular calcification. Mild (1+) eccentric mitral valve insufficiency. Aortic Valve Trisinus/trileaflet aortic valve. Mild focal aortic valve calcification. Trivial aortic valve insufficiency. Pulmonic Valve Normal pulmonic valve. Great Vessels Normal aortic root. Pericardium/Pleural No pericardial effusion. MMode/2D Measurements & Calculations LVIDd: 5.0 cm IVSd: 1.9 cm Ao root diam: 2.8 cm LVIDs: 3.4 cm LVPWd: 1.9 cm FS: 31.9 % LAV(MOD-bp): 61.2 ml SV(MOD-sp4): 50.6 ml LVAd ap4: 36.6 cm2 LAV(MOD-bp) Indexed: 29.2 ml/m2 LVLd ap4: 9.1 cm LAV(MOD-sp2): 84.5 ml EDV(MOD-sp4): 119.7 ml LAV(MOD-sp4): 36.8 ml EDV(sp4-el): 125.9 ml LVAs ap4: 24.5 cm2 LVLs ap4: 7.4 cm ESV(MOD-sp4): 69.1 ml ESV(sp4-el): 68.3 ml EF(MOD-sp4): 42.3 % EF(sp4-el): 45.8 % SV(sp4-el): 57.6 ml LA dimension(2D): 4.7 cm LA A4 area: 16.3 cm2 RA A4 area: 12.8 cm2 Time Measurements MV dec time: 0.13 sec Doppler Measurements & Calculations MV E max nirav: 113.9 cm/sec Lat Peak E' Nirav: 9.0 cm/sec Med Peak E' Nirav: 4.9 cm/sec MV A max nirav: 128.0 cm/sec E/E' lat: 12.6 E/E' med: 23.5 MV E/A: 0.89 MV V2 max: 162.4 cm/sec Ao V2 max: 189.9 cm/sec MV max P.5 mmHg MV dec slope: 929.0 cm/sec2 Ao max P.4 mmHg MV V2 mean: 110.6 cm/sec Ao V2 mean: 135.8 cm/sec MV mean P.4 mmHg Ao mean P.3 mmHg MV V2 VTI: 43.8 cm Ao V2 VTI: 35.6 cm AV (velocity ratio): 0.80 AI max nirav: 471.7 cm/sec LV V1 max: 147.8 cm/sec PA V2 max: 130.9 cm/sec AI max P.0 mmHg LV V1 max P.7 mmHg PA V2 mean: 88.7 cm/sec AI dec slope: 382.5 cm/sec2 LV V1 mean P.0 mmHg AI P1/2t: 361.2 msec LV V1 mean: 114.7 cm/sec LV V1 VTI: 28.4 cm ECHO/Echo Complete Interpretation Summary Normal LV size. The left ventricular ejection fraction is 50 %. Severe concentric left ventricular hypertrophy. Stage 1 diastolic dysfunction. Mild focal aortic valve calcification. Trivial aortic valve insufficiency. Ordering Physician: Davis Davies Referring Physician: Damion Leroy Chi Performed By: Lzi Akers RCS
[2024-09-12 06:17] LABS: ALB/GLOB Ratio 0.7 RATIO (0.9-2.4); AST(SGOT) 17 U/L (15-37); Alanine Aminotransfer ALT/SGPT 20 U/L (16-61); Alkaline Phosphatase 65 U/L (45-117); Anion Gap 13 (5-15); BUN 101 mg/dL (7-18); BUN/Creat Ratio 7.3 RATIO (10-20); Calcium,Total 8.6 mg/dL (8.5-10.1); Chloride 98 mmol/L (98-107); EST Glomerular Filtration Rate 4 mL/min (>60); Est Glom Filt Rate - Afr Amer 5 mL/min (>60); Estimated Creatinine Clearance 5.63 ml/min; Globulin 4.1 g/dL (2.2-4.2); Glucose 130 mg/dL (74-106); Magnesium 2.7 mg/dL (1.6-2.6); Potassium 5.2 mmol/L (3.5-5.1); Protein, Total 7.1 g/dL (6.4-8.2); Sodium Level 134 mmol/L (136-145); Thyroid Stim Hormone (TSH) 0.564 uIU/mL (0.358-3.740)
--- NOTE | 2024-09-12 08:06 | CON.PCM.RE_ITS ---
Assessment & Plan Assessment/Plan (1) ESRD (end stage renal disease) on dialysis: PLAN: dialysis today (2) SOB (shortness of breath): (3) Viral gastroenteritis: (4) Nausea and vomiting: QUALIFIERS: Vomiting type: unspecified Qualified Code(s): R11.2 - Nausea with vomiting, unspecified (5) Noncompliance of patient with renal dialysis: (6) Essential (primary) hypertension: (7) Ischemic cardiomyopathy: HPI Consult Data Date of Consult: 09/12/24 HPI Narrative Reason for Consultation: ESRD dialysis TTS HPI Narrative: JOSELITO LAWSON, is a 69 M with ESRD due to arterionephrosclerosis, hypertension on HD TTS missed dialysis Monday due to complaints of shortness of breath from allergies , missed rescheduled dialysis Monday due to nausea, vomiting, diarrhea. He was instructed to go to ER if not feeling well. He has a history of noncompliance, hyperkalemia. 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 He is admitted from ED for viral gastroenteritis, fluid overload. His dialysis is arranged to be done today in the hospital. Potassium 5.2 today. BUN 101, creatinine 13.9 due to missed treatments. [facility] Medical History (Updated 09/12/24 @ 08:[address] Karina Ervin, ) Bilateral carotid artery stenosis ESRD (end stage renal disease) on dialysis History of non-ST elevation myocardial infarction (NSTEMI) (12/28/20) Chronic systolic (congestive) heart failure Postoperative ileus (01/15/21) Atherosclerotic heart disease of [place] coronary artery without angina pectoris Acute HFrEF (heart failure with reduced ejection fraction) Ischemic cardiomyopathy Flash pulmonary edema Bilateral inguinal hernia without obstruction or gangrene Hypercholesteremia Essential (primary) hypertension White coat syndrome with hypertension Myocardial infarction History of diverticulitis Anxiety Home Medications ?Medication ?Instructions ?Recorded ?Last Taken ?Type sertraline 50 mg tablet 50 mg PO DAILY mood 05/09/19 06/03/24 History aspirin 81 mg chewable tablet 81 mg PO DAILY@0800 ##90 12/30/20 06/03/24 Rx mv,[id number]-[id number] 1 cap PO DAILY 06/16/23 06/03/24 History oil 400 mcg-500 unit capsule (ProRenal QD) amlodipine 10 mg tablet 10 mg PO DAILY 06/14/24 Unknown History carvedilol 12.5 mg tablet 12.5 mg PO BID 07/01/24 Unknown History Allergy/AdvReac Type Severity Reaction Status Date / Time Seasonal Allergies: Uncoded Allergy Intermediate Unknown Verified 09/11/24 23:27 ezetimibe (From Zetia) AdvReac Intermediate unstable Verified 09/11/24 23:27 gait, myalgia, joint pain isosorbide AdvReac Intermediate Dizziness Verified 09/11/24 23:27 atorvastatin (From Lipitor) AdvReac unstable Verified 09/11/24 23:27 gait, myalgia rosuvastatin (From Crestor) AdvReac unstable Verified 09/11/24 23:27 gait, myalgia Family History Mother Heart disease Father Hypertension Cardiac arrest Surgical History H/O coronary artery bypass surgery (01/11/21) History of left heart catheterization (12/28/20) S/P arteriovenous (AV) fistula creation History of right inguinal hernia repair (01/08/20) History of colonoscopy (2009) History of colostomy reversal History of partial colectomy Social History Smoking Status: Former smoker quit date: 09/25/18 pack-years: 64 how long ago did patient quit smokin years ago alcohol intake: never substance use type: does not use caffeine: Yes Type: coffee Number of servings: 2 what type of physical activity do you participate in: none frequency: does not exercise ROS Constitutional Constitutional: Reports malaise and weakness; Denies chills or fever(s) Cardiovascular Cardiovascular: Denies chest pain Respiratory/Chest Respiratory/Chest: Reports dyspnea on exertion Gastrointestinal Gastrointestinal: Reports anorexia, diarrhea, nausea and vomiting; Denies abdominal pain Genitourinary Genitourinary: Denies difficulty urinating Physical Exam Const alert and oriented x3 Resp clear to auscultation bilaterally Cardio regular rate GI non-tender and non-distended Auscultation: normoactive bowel sounds Palpation: soft Extremity General Extremity: AV fistula Neuro no focal motor deficits Sensorium / Orientation: awake and alert Psych cooperative Lab / Micro Data 10/24/24 05:23 09/12/24 05:23 Labs: Laboratory Results - last 24 hr 09/11/24 23:42: WBC 10.9, RBC 3.61 L, Hgb 12.2 L, Hct 36.1 L, MCV 100.0 H, MCH 33.8 H, MCHC 33.8, RDW Std Deviation 47.5 H, RDW Coeff of Steven 13.2, Plt Count 216, MPV 10.3, Immature Gran % (Auto) 0.600, Neut % (Auto) 82.1 H, Lymph % (Auto) 8.3 L, [place] % (Auto) 8.0, Eos % (Auto) 0.7, Baso % (Auto) 0.3, Absolute Neuts (auto) 8.9 H, Absolute Lymphs (auto) 0.90, Nucleated RBC % 0, Sodium 138, Potassium 5.3 H, Chloride 98, Carbon Dioxide 26.0, Anion Gap 14, BUN 99 H, C reatinine 13.30 H*, Estim Creat Clear Calc 5.87, Est GFR (MDRD) Af Amer 5 L, Est GFR (MDRD) Non-Af 4 L, BUN/Creatinine Ratio 7.4 L, Glucose 112 H, Calcium 8.7, Total Bilirubin 0.70, AST 14 L, ALT 16, Alkaline Phosphatase 67, B-Natriuretic Peptide 3175.5 H, Total Protein 7.4, Albumin 3.2, Globulin 4.2, Albumin/Globulin Ratio 0.8 L, Lipase 27 09/12/24 05:23: WBC 10.0, RBC 3.70 L, Hgb 12.1 L, Hct 36.7 L, MCV 99.2 H, MCH 32.7 H, MCHC 33.0, RDW Std Deviation 48.0 H, RDW Coeff of Steven 13.2, Plt Count 204, MPV 10.1, Immature Gran % (Auto) 0.400, Neut % (Auto) 84.5 H, Lymph % (Auto) 6.3 L, [place] % (Auto) 8.3, Eos % (Auto) 0.2, Baso % (Auto) 0.3, Absolute Neuts (auto) 8.4 H, Absolute Lymphs (auto) 0.63 L, Nucleated RBC % 0, Sodium 134 L, Potassium 5.2 H, Chloride 98, Carbon Dioxide 23.0, Anion Gap 13, BUN 101 H*, Creatinine 13.90 H*, Estim Creat Clear Calc 5.63, Est GFR (MDRD) Af Amer 5 L, E st GFR (MDRD) Non-Af 4 L, BUN/Creatinine Ratio 7.3 L, Glucose 130 H, Calcium 8.6, Magnesium 2.7 H, Total Bilirubin 0.80, AST 17, ALT 20, Alkaline Phosphatase 65, Total Protein 7.1, Albumin 3.0 L, Globulin 4.1, Albumin/Globulin Ratio 0.7 L , TSH 0.564 Micro: Microbiology 09/12/24 04:15 Stool Stool Lactoferrin - Final Imaging Radiology Impression Chest X-Ray 09/11/24 23:59 IMPRESSION: 1. Concern for at least a small size right pleural effusion with adjacent passive atelectasis. 2. Atelectasis versus infiltrate/aspiration at the lung bases. 3. Smoking related lung changes suspected. Electronically Signed: Burak Alejandro MD at 1:30 EDT ,
[2024-09-12] MEDS: 0.9% Normal Saline 1,000 ML IV.SOLN. 1000 ML OPERA.SITE (09:13)
[2024-09-12] MEDS: PureFlow B 2K Dialysis Soln 1 BAG 6 BAG PF (09:13)
--- NOTE | 2024-09-12 11:20 | CASEMGMT ---
ADELITA SULLIVAN Assessment: Face to Face with pt for initial transition planning/care coordination assessment. ADELITA SULLIVAN introduced self and role at [facility], pt voices understanding and consents to assessment. Pt is A&O x4 and answers all questions appropriately at this time. Pt sitting up in bed with dialysis nurses at bedside receiving dialysis. Care providers, pharmacy, and demographics verified/updated. Admitting Dx: uncontrolled HTN Strata Score: 2 PCP:[facility] Specialists:[facility]; pt could not recall other specialists [facility]erred [facility] Pres[facility] Benef[facility]: yes LNOK: Nikkie Frazier, Living Arrangements: Pt lives with in a single story home with a total of 3 steps to enter. Pt reports he is I in ADLs and denies concerns at home. Transportation: Pt drives self and denies concerns with transportation. DME:None HHC/SNF: Denies hx of Pt states no concerns with going home at time of dc. Pt states he should not have missed dialysis and he realizes this now. Pt has dialysis T// at [facility] at 1030am. Pt denies any need for any services such as monitoring of BP or other vitals. Pt does not use AD to ambulate. PT ordered to eval. 6 clicks =24. Pt states no further concerns/needs. CM to follow. Advised pt to ask CM if any further question/concerns/needs arise, voices understanding. Pt Goal: Home Plan: Home, follow therapy and for oxygen needs. Handoff given to CUSTOM FURRIERADELITA Ponce RN, CM
[2024-09-12] MEDS: 0.9% Saline Lock 10 ML Syringe IV ×2 (13:04→15:46)
[2024-09-12] MEDS: Carvedilol 12.5 MG Tablet PO ×2 (14:15→22:29)
[2024-09-12] MEDS: amLODIPine 10 MG Tablet PO (14:15)
[2024-09-12] MEDS: Sertraline 50 MG Tablet PO (14:15)
[2024-09-12] MEDS: Aspirin 81 MG TAB.CHEW PO (14:15)
[2024-09-12] MEDS: hydrALAZINE 20 MG/ML Vial 10 MG IV (15:46)
--- NOTE | 2024-09-12 15:51 | CHAPLAIN ---
Type of Pastoral Visit _x__ Initial Visit ___ Follow-up Visit ___ On-call Visit ___ General Patient Visit ___ Spiritual Assessment ___ Family Conference ___ Bereavement ___ Rapid Response ___ Code Blue ___ Other (describe below) Pastoral Care Referral From ___ Patient _x__ Family ___ Nurse ___ Physician ___ Play Back Operator ___ Supervisor Machining ___ Other (describe below) Sacrament/Intervention _x__ Active listening ___ Anointing ___ Sikh ___ Bereavement ___ Communion ___ Deya exploration ___ ___ Life review _x__ Prayer ___ Reconciliation ___ Sacrament of Sick _x__ Supportive presence ___ Wedding ___ Other (describe below) Pastoral Comments patient and spouse are in the room; pt looks like he has some discomfort and in fact admits that to this shore worker; pt and spouse are in the room and the spouse indicates more of the story on why the patient has been admitted; pt states that he just wants to get comfortable and out of this situation; both agree that prayer would be helpful and welcomed
[2024-09-13 04:56] VITALS: BP 142/44; PULSE 78; RESP 18; TEMP 36.3; O2SAT 94
[2024-09-13] MEDS: Heparin Injection (Vial) 5,000 UNIT/ML VIAL 5000 UNIT SC (05:10)
[2024-09-13 05:52] LABS: Absolute Lymphocyte Count 1.56 X10^3/uL (0.83-4.51); Absolute Neutrophil Count 3.9 X10^3/uL (2.0-7.7); Basophil# 0.04 X10^3/uL; Basophil% 0.6 % (0-1); Eosinophil# 0.13 X10^3/uL; Eosinophils% 2.1 % (0-5); Hematocrit 36.7 % (40-54); Hemoglobin 12.5 g/dL (13.0-16.5); Lymphocyte # 1.56 X10^3/ul (0.83-4.51); Lymphocyte % 24.6 % (19-41); Mean Corp Hgb Conc 34.1 g/dL (32-36); Mean Corpuscular Hgb 33.8 pg (27.0-32.0); Mean Corpuscular Volume 99.2 fL (80-94); Mean Platelet Vol. 11.1 fl (6.2-12.0); Monocyte# 0.65 X10^3/uL; Monocyte% 10.3 % (0-10); NRBC Flagged by Analyzer 0 % (0-5); Neutrophil # 3.92 X10^3/uL (2.7-7.7); Neutrophil % 61.9 % (47-70); Platelet Count 209 K/mm3 (150-450); RBC Distribution Width CV 13.2 % (11.6-14.6); RBC Distribution Width SD 47.5 fl (35.1-43.9); White Blood Count 6.3 K/mm3 (4.4-11.0)
[2024-09-13] MEDS: Sodium Chloride 0.65% 1 SPRAY SPRAY.BTL NASAL (06:45)
[2024-09-13 07:29] LABS: Anion Gap 10 (5-15); BUN 74 mg/dL (7-18); BUN/Creat Ratio 6.8 RATIO (10-20); Calcium,Total 8.9 mg/dL (8.5-10.1); Chloride 101 mmol/L (98-107); EST Glomerular Filtration Rate 5 mL/min (>60); Est Glom Filt Rate - Afr Amer 6 mL/min (>60); Estimated Creatinine Clearance 7.07 ml/min; Glucose 89 mg/dL (74-106); Potassium 4.5 mmol/L (3.5-5.1); Sodium Level 136 mmol/L (136-145)
[2024-09-13 08:00] VITALS: BP 154/57; PULSE 77; RESP 18; TEMP 37; O2SAT 91
[2024-09-13 08:48] VITALS: O2SAT 93
[2024-09-13] MEDS: amLODIPine 10 MG Tablet PO (09:11)
[2024-09-13] MEDS: Aspirin 81 MG TAB.CHEW PO (09:11)
[2024-09-13] MEDS: Carvedilol 12.5 MG Tablet PO (09:11)
[2024-09-13] MEDS: Sertraline 50 MG Tablet PO (09:12)
--- NOTE | 2024-09-13 13:05 | DCINST_ITS ---
Discharge Instructions Diet Discharge Diet: Renal Diet Activity Discharge Activity: Return to Normal Activity Dressing / Incision Call your doctor if you observe: Fever of 101 or Higher, Shortness of breath, Dizziness, Fainting spells, Swelling in the ankles, Chest pain and Increased palpitations (irregular heartbeat) Follow Up Care Test Results: Test results from this visit will be discussed in further detail at your follow- up appointment, if applicable. Discharge Plan Admission Admit Date/Time: 09/12/24 01:35 Attending Provider: Gene Richardson Primary Care Provider: Damion Leroy Chi Consulting Providers: Karina Ervin; Davis Davies Discharge Orders/Prescriptions Prescriptions: Continued sertraline 50 mg tablet 50 mg PO DAILY amlodipine 10 mg tablet 10 mg PO DAILY ProRenal QD 400-500 mcg-unit capsule 1 cap PO DAILY Patient Comments: TAKE 1 CAPSULE BY MOUTH EVERY DAY aspirin 81 MG tablet,chewable 81 mg PO DAILY@0800 Qty: 90 0RF carvedilol 12.5 mg tablet 12.5 mg PO BID Referrals / Follow Up: Damion Leroy Chi, MD [Primary Care Provider] - Within 1 Week Karina Ervin DO [Med Staff - Consulting] - Disposition Disposition (needs filled in before D/C Order can be placed): Home, Self Care
--- NOTE | 2024-09-13 13:24 | PCM.DC.SUM ---
Providers Date of Admission: 09/12/24 Primary Care Physician: Dr. Damion Leroy MD Consultations 09/12/24 02:27 Consult: Nephrology Routine Consulting Provider: Karina Ervin Reason for Consult: Missed HD with Mild Hyperkalemia. EMERGENT Consult: No MD Notified: Yes Date Notified: 09/12/24 Time Notified: 06:33 Method of Notification: Text Reason For Visit: UNCONTROLLED HYPERTENSION WITH VOLUME Diagnosis Discharge Diagnosis (1) ESRD (end stage renal disease) on dialysis: Status: Chronic Code(s): N18.6 - End stage renal disease; Z99.2 - Dependence on renal dialysis (2) SOB (shortness of breath): Status: Acute Code(s): R06.02 - Shortness of breath (3) Viral gastroenteritis: Status: Acute Code(s): A08.4 - Viral intestinal infection, unspecified (4) Nausea and vomiting: Status: Acute Code(s): R11.2 - Nausea with vomiting, unspecified Qualifiers: Vomiting type: unspecified Qualified Code(s): R11.2 - Nausea with vomiting, unspecified (5) Noncompliance of patient with renal dialysis: Status: Acute Code(s): Z91.158 - Patient's noncompliance with renal dialysis for other reason (6) Essential (primary) hypertension: Status: Chronic Code(s): I10 - Essential (primary) hypertension (7) Ischemic cardiomyopathy: Status: Chronic Code(s): I25.5 - Ischemic cardiomyopathy Medications at Discharge Home Medications sertraline 50 mg tablet 50 mg PO DAILY mood 05/09/19 aspirin 81 mg chewable tablet 81 mg PO DAILY@0800 ##90 12/30/20 Deja mercadoUn-[id number] oil 400 mcg-500 unit capsule (ProRenal QD) 1 cap PO DAILY 06/16/23 amlodipine 10 mg tablet 10 mg PO DAILY 06/14/24 carvedilol 12.5 mg tablet 12.5 mg PO BID 07/01/24 Hospital Course Operations None Procedures 2-D Echocardiogram Summary of Care Provided Minutes Spent on Discharge: 33 Hospital Course: Per HPI: JOSELITO LAWSON, is a 69 M with a past medical history of essential hypertension, hyperlipidemia; with intolerance to multiple statins and Zetia, overweight; with BMI of 28.9 this admission, former history of chronic tobacco abuse (quit 2017), ESRD on HD; (); followed by Dr. Ervin of the nephrology service, CAD; s/p NSTEMI (2020), history of CABG x 3 (2020), Chronic Systolic CHF; with history of flash pulmonary edema, ischemic cardiomyopathy, history of bilateral carotid stenosis, history of sigmoid diverticulitis, history of partial colectomy, history of colostomy; s/p reversal, history of postoperative ileus, history of bilateral inguinal hernia; s/p Right inguinal hernia repair, depression with anxiety; on sertraline and OA who presents to [facility] ER complaining of nausea and vomiting with missed HD. Mr. Lawson reports his symptoms began approximately four days prior to admission with generally not feeling well and then began to have viral-GI type illness with nausea and bilious emesis that caused him to skip his HD session on Tuesday, September 10, 2024. He then felt worse and skipped his makeup HD a second time and began to feel increasingly SOB. He denies associated fever, chills, nausea, vomiting, constipation or chest pain but he does admit to chronic non-bloody diarrhea that he has attributed to the pill he takes before HD. He states he still makes urine but not a significant amount. He denies other recent illness, recent antibiotic exposure or known sick contacts. In the ER he was noted to have uncontrolled hypertension of 184/84 mmHg present on admission complicated by chest x-ray suggestive of volume overload and AE of Chronic Systolic CHF evidenced by elevated BNP of 3,175.5 pg/ml present on admission likely due to repeatedly missing HD with creatinine of 13.3 mg/dL and BUN of 99 mg/dL plus mild hyperkalemia of 5.3 mmol/L present on admission and he was then admitted to the PCU for ongoing care for stay this is expected to extend beyond 2 midnights. Hospital course: 1. Acute on chronic systolic CHF secondary to volume overload from missed dialysis with uncontrolled hypertension also due to his missed dialysis?69-year-old male who is on dialysis on Monday, , Saturdays presents to the hospital with increasing shortness of breath, and uncontrolled hypertension. He is not very compliant with his dialysis and will miss several days throughout the month and does not often make up those days. He was not feeling well and skipped his Monday dialysis this week and then presented to the hospital with increased shortness of breath. On arrival he did require 2 L of oxygen so had some respiratory insufficiency with with hypoxia. He was also having some nausea and vomiting and nonbloody diarrhea consistent with a viral gastroenteritis though this appears to have resolved today. He did receive dialysis yesterday and is now off of oxygen and his blood pressure is much more controlled. He does have a dialysis session tomorrow and nephrology does not plan on doing any more dialysis today. I discussed with him the plan for possible discharge as he improve much faster than anticipated secondary to the likely etiology being his missed dialysis, and he expressed understanding of the risk benefits of going home and would like to go home today. 2. Essential hypertension, coronary artery disease status post CABG, hyperlipidemia, all chronic medical conditions which complicates his care. His home medications were continued where appropriate Physical Exam Narrative General: Alert, Oriented x3, Cooperative, No apparent distress HEENT: Atraumatic, PERRLA, EOMI, Normocephalic Oral: Moist Mucosa Neck: Supple, No JVD Lungs: Diminished, Normal air movement, No rhonchi, No wheeze, No rales Cardiovascular: Regular rate, Regular Rhythm, Normal S1, Normal S2, No murmurs Abdomen: Soft, Non Tender, Non-Distended, No Hepato-splenomegaly Extremities: No edema, Capillary Refill Less than 3 Seconds Skin: No rashes, No breakdown Musculoskeletal: No Tenderness to Palpation of Joints or Extremities Neurological: No focal neurological deficits, Motor Exam 5/5 strength throughout, Sensory exam intact to light touch and pain Psych/Mental Status: Normal Affect, Appropriate Weight / BMI Weight Weight: 195 lb 8.8 oz Body Mass Index (BMI) 28.0 ABG / Lab / Microbiology Data 09/13/24 05:00 09/13/24 05:00 Laboratory: Laboratory Results - last 24 hr 09/13/24 05:00: WBC 6.3, RBC 3.70 L, Hgb 12.5 L, Hct 36.7 L, MCV 99.2 H, MCH 33.8 H, MCHC 34.1, RDW Std Deviation 47.5 H, RDW Coeff of Steven 13.2, Plt Count 209, MPV 11.1, Immature Gran % (Auto) 0.500, Neut % (Auto) 61.9, Lymph % (Auto) 24.6, [place] % (Auto) 10.3 H, Eos % (Auto) 2.1, Baso % (Auto) 0.6, Absolute Neuts (auto) 3.9, Absolute Lymphs (auto) 1.56, Nucleated RBC % 0, Sodium 136, Potassium 4.5, Chloride 101, Carbon Dioxide 25.0, Anion Gap 10, BUN 74 H, Creatinine 10.90 H*, Estim Creat Clear Calc 7.07, Est GFR (MDRD) Af Amer 6 L, Est GFR (MDRD) Non-Af 5 L, BUN/Creatinine Ratio 6.8 L, Glucose 89, Calcium 8.9 Microbiology: Microbiology 09/12/24 04:15 Stool Stool Lactoferrin - Final 09/12/24 04:15 Stool Enteric Bacteriology - Final Radiography Diagnostic Testing: Radiology Impression Echocardiogram 09/12/24 06:04 Interpretation Summary Normal LV size. The left ventricular ejection fraction is 50 %. Severe concentric left ventricular hypertrophy. Stage 1 diastolic dysfunction. Mild focal aortic valve calcification. Trivial aortic valve insufficiency. Ordering Physician: Davis Davies Referring Physician: Damion Leroy Chi Performed By: Liz Akers RCS D/C Instructions Discharge Diet: Renal Diet Call your doctor if you observe: Fever of 101 or Higher, Shortness of breath, Dizziness, Fainting spells, Swelling in the ankles, Chest pain and Increased palpitations (irregular heartbeat) Meaningful Use Info Meaningful Use Meaningful Use Diagnoses (Choose all that apply): None applicable Ischemic Stroke Statin Dosing Therapy Reference: STATIN DOSE THERAPY REFERENCE: * Patients > 75 years receive moderate or high dose statin therapy. * Patients 75 years or YOUNGER should receive HIGH intensity statin dose unless contraindicated. You will be required to document reason for non-treatment if statin daily dose does not meet guidelines. HIGH DOSE STATIN THERAPY DAILY Atorvastatin > than or = to 40 mg Rosuvastatin > than or = to 20 mg Amlodipine + Atorvastatin > than or = to 2.5/40 mg Ezetimibe + Simvastatin 10/80 mg Simvastatin 80mg Discharge Plan Admission Admit Date/Time: 09/12/24 01:35 Attending Provider: Gene Richardson Primary Care Provider: Damion Leroy Chi Consulting Providers: Karina Ervin; Davis Davies Discharge Orders/Prescriptions Prescriptions: Continued sertraline 50 mg tablet 50 mg PO DAILY amlodipine 10 mg tablet 10 mg PO DAILY ProRenal QD 400-500 mcg-unit capsule 1 cap PO DAILY Patient Comments: TAKE 1 CAPSULE BY MOUTH EVERY DAY aspirin 81 MG tablet,chewable 81 mg PO DAILY@0800 Qty: 90 0RF carvedilol 12.5 mg tablet 12.5 mg PO BID Referrals / Follow Up: Karina Ervin DO [Med Staff - Consulting] - Damion Leroy Chi, MD [Primary Care Provider] - Within 1 Week Disposition Disposition (needs filled in before D/C Order can be placed): Home, Self Care Charges/Coding Visit Charges Inpatient E&M: 45309 Disch Hosp >30min
--- NOTE | 2024-09-13 14:14 | CASEMGMT ---
Patient has order for discharge. RN CM in to discuss needs at discharge, at bedside. Patient denies needs or help at discharge. Patient had no further questions or concerns.
[2024-09-13 15:00] VITALS: BP 137/56; PULSE 78; RESP 18; TEMP 36.8; O2SAT 95
== END 2024-09-13 15:20 | disposition home or self-care (01) | DRG 640 ==
LOC: ED 09-12 01:13 → PCU 09-12 01:46
PROVIDERS: Admitting Provider Internal Medicine; Emergency Provider Emergency Medicine; PCP Family Medicine Geriatric Medicine; Visit Provider Family Medicine
DX: E87.79 Other fluid overload (principal); N18.6 End stage renal disease; I50.23 Acute on chronic systolic (congestive) heart failure; I13.2 Hypertensive heart and chronic kidney disease with heart failure and with stage 5 chronic kidney disease, or end stage renal disease; F32.A Depression, unspecified; Z99.2 Dependence on renal dialysis; I25.10 Atherosclerotic heart disease of native coronary artery without angina pectoris; I25.5 Ischemic cardiomyopathy; E78.00 Pure hypercholesterolemia, unspecified; Z91.158 Patient's noncompliance with renal dialysis for other reason; I25.2 Old myocardial infarction; F41.9 Anxiety disorder, unspecified; A08.4 Viral intestinal infection, unspecified; E66.3 Overweight; Z68.28 Body mass index [BMI] 28.0-28.9, adult; Z95.1 Presence of aortocoronary bypass graft; Z90.49 Acquired absence of other specified parts of digestive tract; Z79.82 Long term (current) use of aspirin; Z79.899 Other long term (current) drug therapy; Z87.891 Personal history of nicotine dependence
CPT/HCPCS: 36415; 71045; 80048; 80053; 83630; 83690; 83735; 83880; 84443; 85025; 87177; 87209; 87506; 90937; 93005; 93306; 99284; J7030; A4216; G0257

== ENCOUNTER 2024-09-17 08:31 | Inpatient (IN) | payer MEDICARE, OTHER, SELFPAY ==
[2024-09-17] VITALS (38 sets, daily range): BP systolic 98–212; BP diastolic 58–111; PULSE 72–122; RESP 12–72; TEMP 36.1–37.2; O2SAT 78–100; BMI 28.5; BMI 28.4; BMI 27.2
--- NOTE | 2024-09-17 08:46 | EKG12_ITS ---
Test Reason : sob Blood Pressure : */* mmHG Vent. Rate : 117 BPM Atrial Rate : 117 BPM P-R Int : 144 ms QRS Dur : 118 ms QT Int : 348 ms P-R-T Axes : 55 -43 86 degrees QTcB Int : 485 ms Poor data quality, interpretation may be adversely affected Sinus tachycardia Possible Left atrial enlargement Left axis deviation Left ventricular hypertrophy with QRS widening ( Mayank product ) Abnormal ECG Confirmed by CARMEN LIVE, ANNIKA ([id number]), market editor TREY ELIZONDO ([id number]) on 09/18/2024 6:00:22 AM Referred By: Confirmed By: ANNIKA MORALES MD
--- NOTE | 2024-09-17 08:46 | RAD_ITS ---
INDICATION: Dyspnea EXAMINATION/TECHNIQUE: X-RAY - XR Chest 1 View COMPARISON: September 11, 2024 FINDINGS: LINES/DEVICES: None. LUNGS: There are bilateral patchy opacities, right greater than left, that have progressed since the prior examination. There are bilateral pleural effusions. No pneumothorax. MEDIASTINUM AND CARDIOVASCULAR STRUCTURES: There are sternotomy wires. Cardiac silhouette not enlarged. Central airways and mediastinal contour are unremarkable. BONES AND SOFT TISSUES: Unremarkable. RAD/Chest 1 View (Portable) IMPRESSION: Interval worsening of bilateral patchy opacities, right greater than left, may reflect some combination of edema, pneumonia and/or atelectasis. Small bilateral pleural effusions. Electronically Signed: Tianna Dominguez MD at 9:37 EDT ,
--- NOTE | 2024-09-17 08:52 | ED.VIS.DYS ---
HPI History of Present Illness Chief Complaint: Shortness of Breath Informant: patient Onset/Context/Timing Onset: Today Context: sudden Timing: Continuous Quality: Positive for - (I cannot catch my breath) Worsened by: Nothing Relieved by: Nothing Associated Symptoms sweats; Negative for cough, fever or chills Chest Pain: Positive for None Narrative Narrative: Patient presents with shortness of breath that began today. Patient states it woke him up out of his sleep. Patient states he does dialysis on Tuesdays, , and Saturdays. Patient was recently admitted to the hospital for congestive heart failure exacerbation. Patient denies any swelling. Patient denies any cough. Patient denies any chest pain. Patient states nothing makes his breathing worse and nothing makes it any better. Patient denies any fevers or chills. PE Risk Factors: Negative for Cancer, Prior DVT or PE, Recent surgery or Recent travel [facility] Medical History (Updated 09/17/24 @ 12:[address] Pete Dover, DO) Bilateral carotid artery stenosis ESRD (end stage renal disease) on dialysis History of non-ST elevation myocardial infarction (NSTEMI) (12/28/20) Chronic systolic (congestive) heart failure Postoperative ileus (01/15/21) Atherosclerotic heart disease of [place] coronary artery without angina pectoris Acute HFrEF (heart failure with reduced ejection fraction) Ischemic cardiomyopathy Flash pulmonary edema Bilateral inguinal hernia without obstruction or gangrene Hypercholesteremia Essential (primary) hypertension White coat syndrome with hypertension Myocardial infarction History of diverticulitis Anxiety Home Medications ?Medication ?Instructions ?Recorded ?Last Taken ?Type sertraline 50 mg tablet 50 mg PO DAILY mood 05/09/19 06/03/24 History aspirin 81 mg chewable tablet 81 mg PO DAILY@0800 ##90 12/30/20 06/03/24 Rx [id number] 1 cap PO DAILY 06/16/23 06/03/24 History oil 400 mcg-500 unit capsule (ProRenal QD) amlodipine 10 mg tablet 10 mg PO DAILY 06/14/24 Unknown History carvedilol 12.5 mg tablet 12.5 mg PO BID 07/01/24 Unknown History Allergy/AdvReac Type Severity Reaction Status Date / Time Seasonal Allergies: Uncoded Allergy Intermediate Unknown Verified 09/11/24 23:27 ezetimibe (From Zetia) AdvReac Intermediate unstable Verified 09/11/24 23:27 gait, myalgia, joint pain isosorbide AdvReac Intermediate Dizziness Verified 09/11/24 23:27 atorvastatin (From Lipitor) AdvReac unstable Verified 09/11/24 23:27 gait, myalgia rosuvastatin (From Crestor) AdvReac unstable Verified 09/11/24 23:27 gait, myalgia Family History Mother Heart disease Father Hypertension Cardiac arrest Surgical History H/O coronary artery bypass surgery (01/11/21) History of left heart catheterization (12/28/20) S/P arteriovenous (AV) fistula creation History of right inguinal hernia repair (01/08/20) History of colonoscopy (2009) History of colostomy reversal History of partial colectomy Social History Smoking Status: Former smoker quit date: 09/25/18 pack-years: 65 how long ago did patient quit smokin years ago alcohol intake: never substance use type: does not use caffeine: Yes Type: coffee Number of servings: 2 what type of physical activity do you participate in: none frequency: does not exercise ROS ROS ED Constitutional Constitutional ED: Denies chills or fever(s) Eyes Eyes: Denies blurry vision or change in vision ENT ENT ED: Denies rhinorrhea or sore throat Cardiovascular Cardiovascular: Denies chest pain or palpitations Respiratory/Chest Respiratory/Chest: Reports dyspnea; Denies cough Gastrointestinal Gastrointestinal: Denies nausea or vomiting Genitourinary Genitourinary ED: Denies dysuria or hematuria Musculoskeletal Musculoskeletal: Denies back pain or neck pain Integumentary Denies abscess or rash Neurologic Neurologic: Denies headache(s) or weakness Allergic/Immunologic Allergic/Immunologic ED: Denies mouth swelling or urticaria EXAM Physical Exam Const Vital Signs: 09/17/24 08:32 09/17/24 08:39 09/17/24 08:40 Temperature 97.3 F L Temperature Source Temporal Pulse Rate 119 H 121 H Respiratory Rate 39 H Respiratory Effort Respiratory Depth Respiratory Pattern Blood Pressure Blood Pressure Mean Pulse Ox 86 86 Oxygen Delivery Method Non-Rebreather Non-Rebreather Bi-pap Oxygen Flow Rate (L/min) 15 15 Fraction of Inspired Oxygen (FIO2) 100 09/17/24 08:45 09/17/24 08:46 09/17/24 08:46 Temperature 98.9 F Temperature Source Oral Pulse Rate 118 H 117 H Respiratory Rate 42 H 44 H Respiratory Effort Respiratory Depth Respiratory Pattern Tachypnea Blood Pressure 132/78 H Blood Pressure Mean 96 Pulse Ox 92 92 Oxygen Delivery Method Bi-pap Bi-pap Oxygen Flow Rate (L/min) Fraction of Inspired Oxygen (FIO2) 100 09/17/24 08:46 09/17/24 09:37 09/17/24 10:00 Temperature 98.9 F Temperature Source Temporal Pulse Rate 116 H 114 H Respiratory Rate 34 H 34 H Respiratory Effort Short of Breath Labored Respiratory Depth Shallow Respiratory Pattern Tachypnea Blood Pressure 210/98 H 202/78 H Blood Pressure Mean 135 119 Pulse Ox 92 94 Oxygen Delivery Method Room Air Bi-pap Bi-pap Oxygen Flow Rate (L/min) Fraction of Inspired Oxygen (FIO2) 09/17/24 10:02 09/17/24 11:00 Temperature 97.8 F Temperature Source Core Pulse Rate 114 H 100 Respiratory Rate 28 H Respiratory Effort Respiratory Depth Respiratory Pattern Blood Pressure 202/88 H 200/98 H Blood Pressure Mean 132 Pulse Ox 100 Oxygen Delivery Method Bi-pap Oxygen Flow Rate (L/min) Fraction of Inspired Oxygen (FIO2) Positive well nourished and well developed General Appearance ED: well developed and NAD HEENT Reports moist mucous membranes Neck supple, no meningeal signs and no JVD Resp Auscultation: rales diffuse and rhonchi throughout Cardio regular rhythm Rate: tachycardic GI non-tender and non-distended Palpation: soft Extremity normal to inspection General Extremety ED: Negative for edema or tenderness General Extremity: Negative for edema Neuro oriented x3, CN's II-XII intact bilaterally and no sensory deficits noted Nya Coma Scale: document GCS findings Spontaneous Obeys Commands Oriented 15 Sensorium / Orientation: alert Motor Exam: strength 5/5 throughout Psych mental status grossly normal MDM MDM MDM Narrative Medical decision making narrative: Differential diagnosis includes congestive heart failure, pneumonia, pneumothorax, cardiac dysrhythmia, cardiac ischemia, electrolyte abnormality, pulmonary embolism, and acute kidney injury. EKG will be obtained to assess for cardiac dysrhythmia and cardiac ischemia. Chest x-ray will be obtained to assess for pneumonia and congestive heart failure. CBC will be obtained to assess for leukocytosis and anemia. Basic metabolic profile will be obtained to assess for electrolyte abnormality and renal function. BNP will be obtained to assess for congestive heart failure. High-sensitivity troponin will be obtained to assess for cardiac ischemia. 2-hour repeat high-sensitivity troponin will be obtained to assess for ongoing cardiac ischemia. D-dimer will be obtained to assess for pulmonary embolism. Lab Data Attestation: I reviewed the patient's lab results. Lab results narrative: CBC was reviewed and was within normal limits. PT with INR and PTT were reviewed and were within normal limits. Basic metabolic profile was reviewed. BUN was elevated at 86 and creatinine was 11.20. These are consistent with previous results. Glucose was elevated at 209. D-dimer was reviewed and was elevated at 1.78. Serum lactate was reviewed and was normal at 1.4. High-sensitivity troponin was reviewed and was slightly elevated at 159. BNP was reviewed and was elevated at 12/27/2006. 2-hour repeat high-sensitivity troponin was reviewed and was elevated at 547. Labs: Laboratory Results - last 24 hr 09/17/24 09/17/24 09/17/24 08:52 10:20 11:12 WBC 11.0 RBC 4.45 L Hgb 15.3 Hct 44.3 MCV 99.6 H MCH 34.4 H MCHC 34.5 RDW Std Deviation 45.6 H RDW Coeff of Steven 12.8 Plt Count 312 MPV 10.2 Immature Gran % (Auto) 0.500 Neut % (Auto) 64.3 Lymph % (Auto) 24.5 [place] % (Auto) 6.3 Eos % (Auto) 3.6 Baso % (Auto) 0.8 Absolute Neuts (auto) 7.1 Absolute Lymphs (auto) 2.69 Nucleated RBC % 0 PT 13.9 INR 1.1 APTT 26.1 D-Dimer Quant (PE/DVT) 1.78 H* Sodium 138 Potassium 4.8 Chloride 98 Carbon Dioxide 27.0 Anion Gap 13 BUN 86 H Creatinine 11.20 H* Estim Creat Clear Calc 6.93 Est GFR (MDRD) Af Amer 6 L Est GFR (MDRD) Non-Af 5 L BUN/Creatinine Ratio 7.7 L Glucose 209 H Lactic Acid 1.4 Calcium 8.8 Troponin I High Sens 159 H* 547 H* B-Natriuretic Peptide 2707.0 H ABG Data Attestation: I personally reviewed and interpreted this ABG as follows: Interpretation: Arterial blood gas was obtained. There is a pH is 7.235, pCO2 was 69.9, pO2 was 55.6, bicarb was 29.6. Oxygen saturation was 81.4% on BiPAP. Radiography Chest X-Ray - ED: 1 View, CHF, Right Infiltrate, Right Effusion and Left Effusion CTA PE Study: No Evidence of PE and No Evidence of Dissection Diagnostic Testing: Clinical Impression(s) from Imaging Studies Chest X-Ray 09/17/24 08:46 IMPRESSION: Interval worsening of bilateral patchy opacities, right greater than left, may reflect some combination of edema, pneumonia and/or atelectasis. Small bilateral pleural effusions. Electronically Signed: Tianna Dominguez MD at 9:37 EDT , Chest CTA 09/17/24 09:37 IMPRESSION: No evidence of pulmonary embolism. Mild-moderate bilateral pleural effusions with moderate-severe asymmetric pulmonary edema and pneumonia. Electronically Signed: Gregoria Hewitt MD at 11:42 EDT , Portable chest x-ray was obtained. There is 1 view. On my independent interpretation, there are bilateral patchy opacities, worse on the right. This may be pulmonary edema or pneumonia. There are small bilateral pleural effusions. Radiologist also interpreted the x-rays and agrees. Because of the elevated D-dimer, CTA of the chest was obtained. There is no evidence of pulmonary embolism or aortic dissection. There are mild to moderate bilateral pleural effusions. There is asymmetric [place] edema and pneumonia. This was interpreted by the radiologist and was also independently reviewed by myself. EKG Initial EKG: Attestation: I personally reviewed and interpreted this EKG as follows: Interpretation: Sinus Tachycardia (117) and Non-Specific ST Changes Comments: EKG was obtained. On my independent interpretation, it shows sinus tachycardia with a rate of 117. PA interval is normal 144 ms. QRS interval was normal at 118 ms. QTc interval is 485 ms. There is left axis deviation -43. There are nonspecific ST-T wave changes. Prior EKG tracings: available for review Prior: Unchanged (09/12/2024) Management Discussion w/another healthcare provider: Hospitalist Treatment and Re-Evaluation :: Patient was given a DuoNeb aerosol here. Patient states he does urinate but only urinates small amounts. Patient is given a dose of Lasix. Patient was placed on nitroglycerin paste. Patient was given aspirin. Patient was advised of his findings. Patient was started on Rocephin and Zithromax. Patient is feeling better on reevaluation. Patient's vital signs are improving. Case was discussed with the hospitalist. She will admit the patient to ICU. Patient understood and was agreeable with the plan. All questions were answered. Critical Care Time Critical Care Time: Yes Critical care time (excluding procedures): 30-74 minutes (42), Including time spent:, Discussing w/Patient &/or Family/Gang Rider, Arranging Admission or Transfer and Performing Direct Patient Care at Bedside Discharge Plan Triage Chief Complaint: Shortness of Breath ED Provider: Pete Dover Dx/Rx/DC Orders Clinical Impression: Pneumonia, ESRD (end stage renal disease) on dialysis, Hypoxia, Pulmonary edema, Heart failure, systolic, chronic, etiology unknown Prescriptions: No Action sertraline 50 mg tablet 50 mg PO DAILY amlodipine 10 mg tablet 10 mg PO DAILY ProRenal QD 400-500 mcg-unit capsule 1 cap PO DAILY Patient Comments: TAKE 1 CAPSULE BY MOUTH EVERY DAY aspirin 81 MG tablet,chewable 81 mg PO DAILY@0800 Qty: 90 0RF carvedilol 12.5 mg tablet 12.5 mg PO BID Primary Care Provider: Damion Leroy Chi Referrals: Damion Leroy Chi, MD [Primary Care Provider] - Print Language: Sudanese Disposition Disposition: Acute Care Hospital [facility]
[2024-09-17 09:00] LABS: Absolute Lymphocyte Count 2.69 X10^3/uL (0.83-4.51); Absolute Neutrophil Count 7.1 X10^3/uL (2.0-7.7); Basophil# 0.09 X10^3/uL; Basophil% 0.8 % (0-1); Eosinophil# 0.39 X10^3/uL; Eosinophils% 3.6 % (0-5); Hematocrit 44.3 % (40-54); Hemoglobin 15.3 g/dL (13.0-16.5); Lymphocyte # 2.69 X10^3/ul (0.83-4.51); Lymphocyte % 24.5 % (19-41); Mean Corp Hgb Conc 34.5 g/dL (32-36); Mean Corpuscular Hgb 34.4 pg (27.0-32.0); Mean Corpuscular Volume 99.6 fL (80-94); Mean Platelet Vol. 10.2 fl (6.2-12.0); Monocyte# 0.69 X10^3/uL; Monocyte% 6.3 % (0-10); NRBC Flagged by Analyzer 0 % (0-5); Neutrophil # 7.07 X10^3/uL (2.7-7.7); Neutrophil % 64.3 % (47-70); Platelet Count 312 K/mm3 (150-450); RBC Distribution Width CV 12.8 % (11.6-14.6); RBC Distribution Width SD 45.6 fl (35.1-43.9); Red Blood Count 4.45 M/mm3 (4.6-6.2)
[2024-09-17] MEDS: Ipratropium/Albuterol Sulfate 3 ML AMPUL.NEB INHALATION ×2 (09:03→19:15)
[2024-09-17 09:27] LABS: D-Dimer Quantitative (DVT/PE) 1.78 FEU/ug/m (0.27-0.49)
[2024-09-17 09:34] LABS: Anion Gap 13 (5-15); BUN 86 mg/dL (7-18); BUN/Creat Ratio 7.7 RATIO (10-20); Calcium,Total 8.8 mg/dL (8.5-10.1); Chloride 98 mmol/L (98-107); EST Glomerular Filtration Rate 5 mL/min (>60); Est Glom Filt Rate - Afr Amer 6 mL/min (>60); Estimated Creatinine Clearance 6.93 ml/min; Glucose 209 mg/dL (74-106); Potassium 4.8 mmol/L (3.5-5.1); Sodium Level 138 mmol/L (136-145); Troponin-I HS (w/2H Reflex) 159 pg/mL (3.0-78.0)
--- NOTE | 2024-09-17 09:37 | CT_ITS ---
HISTORY: Elevated D-dimer. TECHNIQUE: CT angiogram of the chest was performed after the intravenous administration of 75 mL Isovue-370. Post-processing of the angiographic images was performed with multiplanar reformation and 3D reconstruction. Individualized dose optimization techniques were used for this CT. 1298 images. COMPARISON: XR same day, CT 08/26/2019. FINDINGS: CENTRAL AIRWAYS: Patent. LUNGS: Severe right and moderate left groundglass and alveolar opacities with septal thickening, most confluent with air bronchograms in the lingula and bilateral lower lobes. PLEURA: Mild-moderate bilateral pleural effusions. HEART/PERICARDIUM: Heart within normal limits in size with coronary artery calcification. Midline sternotomy. No pericardial effusion. PULMONARY ARTERIES: No filling defect. AORTA/VESSELS: No thoracic aortic aneurysm or dissection flap. Atherosclerosis present. MEDIASTINUM/KIM: Mildly enlarged left paratracheal and AP window lymph nodes. OSSEOUS STRUCTURES: Degenerative change. Chronic L2 compression fracture. UPPER ABDOMEN: Unremarkable. CT/CTA Chest W/WO Contrast IMPRESSION: No evidence of pulmonary embolism. Mild-moderate bilateral pleural effusions with moderate-severe asymmetric pulmonary edema and pneumonia. Electronically Signed: Gregoria Hewitt MD at 11:42 EDT ,
[2024-09-17] MEDS: Furosemide 40 MG/4 ML Vial IV (10:02)
[2024-09-17] MEDS: Nitroglycerin Oint 1 INCH PACKET TD (10:02)
[2024-09-17 10:27] LABS: International Normalized Ratio 1.1; Prothrombin Time (Protime)PT. 13.9 SECONDS (11.7-14.9)
[2024-09-17 10:28] LABS: Partial Thromboplast Time 26.1 Seconds (24.1-36.2)
[2024-09-17 10:57] LABS: Reflex Troponin-HS? (from REC) Y
[2024-09-17 11:00] LABS: Lactic Acid 1.4 mmol/L (0.4-1.9)
[2024-09-17] MEDS: Ceftriaxone 2 GM in 0.9% Normal Saline (50mL MB+) 50 ML IV (11:25)
[2024-09-17 11:40] LABS: Troponin-I HS 547 pg/mL (3.0-78.0)
--- NOTE | 2024-09-17 11:53 | HP.PCM.HOS_ITS ---
HPI - General General Date of Admission: 09/17/24 Date of Service: 09/17/24 Chief Complaint: shortness of breath HPI Narrative JOSELITO LAWSON, is a 69 M with an extensive PMH as outlined including ESRD on HD TTS who presents via the ED on 09/17/2024 with a complaint of shortness of breath that started on the day of admission. Patient was just discharged on 09/13/2024 after he was admitted with similar complaints. He says he had a full session of dialysis on Monday. However he felt acutely short of breath on the day of admission. He denied any chest pain or palpitations, fever or chills, dizziness or any other symptoms. He is known to be noncompliant with dialysis and was recently admitted for CHF exacerbation in the setting of missed dialysis. He was diuresed and shortness of breath resolved and he went home. He denied any recent travels. Vitals in the ED were blood pressure of 170/82, pulse rate of 92, respiratory rate of 26 and he was on BiPAP at 60% FiO2 and was saturating 92%. CBC showed hemoglobin of 15.3 with WBC of 11 and platelets of 312. D-dimer was 1.78. ABG showed pH of 7.24 with pO2 of 56 and pCO2 of 69.9. Chemistry shows sodium of 138 with potassium of 4.8 and creatinine of 11.2. Initial troponin was 159 and trended up to 547 and subsequently at 4678. BNP was 2707. CT of the chest showed no evidence of PE and showed mild to moderate bilateral pleural effusions with moderate severe asymmetric pulmonary edema and pneumonia. Of note chest x- ray also did show interval worsening of bilateral patchy opacities right greater than left which may flex on combination of edema, pneumonia and atelectasis. He required BiPAP in the ED. He has been admitted to be managed for acute on chronic hypoxic and hypercapnic respiratory failure in the setting of missed dialysis and also due to probable pneumonia. He was admitted to the ICU. COUNT INCLUDES [facility] Medical History (Updated 09/17/24 @ 16:[address] Martha Sandy MD) Bilateral carotid artery stenosis ESRD (end stage renal disease) on dialysis History of non-ST elevation myocardial infarction (NSTEMI) (12/28/20) Chronic systolic (congestive) heart failure Postoperative ileus (01/15/21) Atherosclerotic heart disease of [place] coronary artery without angina pectoris Acute HFrEF (heart failure with reduced ejection fraction) Ischemic cardiomyopathy Flash pulmonary edema Bilateral inguinal hernia without obstruction or gangrene Hypercholesteremia Essential (primary) hypertension White coat syndrome with hypertension Myocardial infarction History of diverticulitis Anxiety Home Medications ?Medication ?Instructions ?Recorded ?Last Taken ?Type sertraline 50 mg tablet 50 mg PO DAILY mood 05/09/19 06/03/24 History aspirin 81 mg chewable tablet 81 mg PO DAILY@0800 cardiac ##90 12/30/20 06/03/24 Rx mv,[id number] 1 cap PO DAILY dialysis 06/16/23 06/03/24 History oil 400 mcg-500 unit capsule (ProRenal QD) amlodipine 10 mg tablet 10 mg PO DAILY heart and BP 06/14/24 Unknown History carvedilol 12.5 mg tablet 12.5 mg PO BID heart and BP 07/01/24 Unknown History Allergy/AdvReac Type Severity Reaction Status Date / Time Seasonal Allergies: Uncoded Allergy Intermediate Unknown Verified 09/11/24 23:27 ezetimibe (From Zetia) AdvReac Intermediate unstable Verified 09/11/24 23:27 gait, myalgia, joint pain isosorbide AdvReac Intermediate Dizziness Verified 09/11/24 23:27 atorvastatin (From Lipitor) AdvReac unstable Verified 09/11/24 23:27 gait, myalgia rosuvastatin (From Crestor) AdvReac unstable Verified 09/11/24 23:27 gait, myalgia Family History Mother Heart disease Father Hypertension Cardiac arrest Surgical History H/O coronary artery bypass surgery (01/11/21) History of left heart catheterization (12/28/20) S/P arteriovenous (AV) fistula creation History of right inguinal hernia repair (01/08/20) History of colonoscopy (2009) History of colostomy reversal History of partial colectomy Social History Smoking Status: Former smoker quit date: 09/25/18 pack-years: 65 how long ago did patient quit smokin years ago alcohol intake: never substance use type: does not use caffeine: Yes Type: coffee Number of servings: 2 what type of physical activity do you participate in: none frequency: does not exercise ROS Review of Systems ROS Unobtainable: Denies due to encephalopathy Constitutional Constitutional: Reports chills, fatigue, malaise and weakness; Denies anorexia or fever(s) Eyes Eyes: Denies change in vision ENT HEENT: Denies dysphagia, headache(s) or sore throat Cardiovascular Cardiovascular: Reports dyspnea on exertion and orthopnea; Denies chest pain, edema, lightheadedness, palpitations, paroxysmal nocturnal dyspnea, rapid heart rate or syncope Respiratory/Chest Respiratory/Chest: Reports cough, dyspnea, productive cough, shortness of breath at rest and shortness of breath with exertion; Denies excessive phlegm production, hemoptysis or wheezing Gastrointestinal Gastrointestinal: Denies abdominal pain, constipation, dyspepsia, melena, nausea or vomiting Genitourinary Genitourinary: Denies difficulty urinating or dysuria Neurologic Neurologic: Denies confusion, dizziness or focal weakness Psychiatric Psychiatric: Denies anxiety or depression Vital Signs Vital Signs Vital Signs: 09/17/24 08:32 09/17/24 08:39 09/17/24 08:40 Temperature 97.3 F L Temperature Source Temporal Pulse Rate 119 H 121 H Respiratory Rate 39 H Respiratory Effort Respiratory Depth Respiratory Pattern Blood Pressure Blood Pressure Mean Pulse Ox 86 86 Oxygen Delivery Method Non-Rebreather Non-Rebreather Bi-pap Oxygen Flow Rate (L/min) 15 15 Fraction of Inspired Oxygen (FIO2) 100 09/17/24 08:45 09/17/24 08:46 09/17/24 08:46 Temperature 98.9 F Temperature Source Oral Pulse Rate 118 H 117 H Respiratory Rate 42 H 44 H Respiratory Effort Respiratory Depth Respiratory Pattern Tachypnea Blood Pressure 132/78 H Blood Pressure Mean 96 Pulse Ox 92 92 Oxygen Delivery Method Bi-pap Bi-pap Oxygen Flow Rate (L/min) Fraction of Inspired Oxygen (FIO2) 100 09/17/24 08:46 09/17/24 09:37 09/17/24 10:00 Temperature 98.9 F Temperature Source Temporal Pulse Rate 116 H 114 H Respiratory Rate 34 H 34 H Respiratory Effort Short of Breath Labored Respiratory Depth Shallow Respiratory Pattern Tachypnea Blood Pressure 210/98 H 202/78 H Blood Pressure Mean 135 119 Pulse Ox 92 94 Oxygen Delivery Method Room Air Bi-pap Bi-pap Oxygen Flow Rate (L/min) Fraction of Inspired Oxygen (FIO2) 09/17/24 10:02 09/17/24 11:00 Temperature 97.8 F Temperature Source Core Pulse Rate 114 H 100 Respiratory Rate 28 H Respiratory Effort Respiratory Depth Respiratory Pattern Blood Pressure 202/88 H 200/98 H Blood Pressure Mean 132 Pulse Ox 100 Oxygen Delivery Method Bi-pap Oxygen Flow Rate (L/min) Fraction of Inspired Oxygen (FIO2) Weight Weight: 198 lb 13.711 oz Body Mass Index (BMI) 28.5 Physical Exam Const alert and oriented x3 Constitutional Narrative: in moderate respiratory distress, on BIPAP HEENT normocephalic, moist oral mucous membranes and oropharynx normal Mouth: oral and palatal mucosa normal Eyes PERRL, EOMs intact bilaterally and conjunctivae normal Neck no lymphadenopathy and supple Resp Resp Narrative: diminished breath sounds bilaterally, bilateral wheezing and crackles. On BIPAP at time of review, tachypneic Cardio regular rate, regular rhythm, S1 normal heart sound, S2 normal heart sound and no murmurs GI normal to inspection, nondistended, normoactive bowel sounds, soft to palpation and non-tender Extremity normal to inspection and full ROM Neuro oriented x3, CN's II-XII intact bilaterally, moves all extremities and no focal motor deficits Motor Exam: strength 5/5 throughout Psych affect normal Results Lab / Micro Data 09/17/24 08:52 09/17/24 08:52 Labs: Laboratory Results - last 24 hr 09/17/24 08:52: WBC 11.0, RBC 4.45 L, Hgb 15.3, Hct 44.3, MCV 99.6 H, MCH 34.4 H , MCHC 34.5, RDW Std Deviation 45.6 H, RDW Coeff of Steven 12.8, Plt Count 312, MPV 10.2, Immature Gran % (Auto) 0.500, Neut % (Auto) 64.3, Lymph % (Auto) 24.5, [place] % (Auto) 6.3, Eos % (Auto) 3.6, Baso % (Auto) 0.8, Absolute Neuts (auto) 7.1, Absolute Lymphs (auto) 2.69, Nucleated RBC % 0, PT 13.9, INR 1.1, APTT 26.1, D-Dimer Quant (PE/DVT) 1.78 H*, Sodium 138, Potassium 4.8, Chloride 98, Carbon Dioxide 27.0, Anion Gap 13, BUN 86 H, Creatinine 11.20 H*, Estim Creat Clear Calc 6.93, Est GFR (MDRD) Af Amer 6 L, Est GFR (MDRD) Non-Af 5 L, B UN/Creatinine Ratio 7.7 L, Glucose 209 H, Calcium 8.8, Troponin I High Sens 159 H*, B-Natriuretic Peptide 2707.0 H 09/17/24 10:20: Lactic Acid 1.4 09/17/24 11:12: Troponin I High Sens 547 H* Micro: Microbiology 09/17/24 08:42 Mucosa - Nasopharyngeal SARS-CoV-2, Influenza & RSV (PCR) - Final Imaging Radiology Impression Chest X-Ray 09/17/24 08:46 IMPRESSION: Interval worsening of bilateral patchy opacities, right greater than left, may reflect some combination of edema, pneumonia and/or atelectasis. Small bilateral pleural effusions. Electronically Signed: Tianna Dominguez MD at 9:37 EDT , Chest CTA 09/17/24 09:37 IMPRESSION: No evidence of pulmonary embolism. Mild-moderate bilateral pleural effusions with moderate-severe asymmetric pulmonary edema and pneumonia. Electronically Signed: Gregoria Hewitt MD at 11:42 EDT , Assessment & Plan Assessment/Plan (1) Pulmonary edema: (2) Pneumonia: (3) Heart failure, systolic, chronic, etiology unknown: (4) Respiratory failure with hypoxia and hypercapnia: PLAN: Plan #Acute hypoxic and hypercapnic respiratory failure due to acute on chronic heart failure and pneumonia * admitted with a complaint of shortness of breath and required on BIPAP at time of review in the ED. * CXR showed interval worsening of bilateral patchy opacities, right greater than left, representing some combination of edema, pneumonia and/or atelectasis, as well as small, bilateral pleural effusions. * was recently admitted for acute exacerbation of heart failure and only discharged on 09/13/2024. * had 2D echo during recent admission * had a cardiac cath on 07/13/2024: * Admit to ICU as he is on BiPAP. Consult pulmonology * Titrate oxygen to maintain saturation above 90%. Nephrology consulted for dialysis as patient is due for dialysis today. I did discuss the reports trend in his * Troponins with peak of 4678 with cardiology. I do think it is likely demand ischemia from the hypoxia cardiology agrees. Recent cath findings as above * Started on IV ceftriaxone and azithromycin due to CT chest findings of pneumonia. Urine for strep and Legionella. Sputum cultures. * #Nonstemi * likely a type 2 nonstemi due to demand ischemia. * Troponins peaked at 4678. * Had cardiac cath on 07/13/2024 which showed coronary artery disease with patent COX to the LAD saphenous vein graft to the RCA being patent with a normal stress test on the perfusion scan and disease also noted in the circumflex artery and saphenous vein graft to the OM was not found. * 2D echo from 09/12/2024 showed EF of 50% with severe concentric left ventricular hypertrophy and stage I diastolic dysfunction * On aspirin. Will continue. Also on carvedilol. * Discussed with cardiology as stated above and plan for medical management as is likely due to demand ischemia. * #Acute on chronic combined heart failure * As above. BNP elevated at 2700. He does have ESRD so this likely causing that also. * 2D echo from 09/12/2024 as above with EF of 50% and stage I diastolic dysfunction * On carvedilol. Due for dialysis today which will help with his fluid overload * #ESRD on hemodialysis * Has a history of noncompliance with dialysis but he says he did attend his last dialysis session on Monday. He had a full session of dialysis then. Has dialysis on Tuesdays and Saturdays * Nephrology consulted. For dialysis today. * #Community-acquired pneumonia: * As above and acute hypoxic respiratory failure * Respiratory panel and blood cultures pending COVID, influenza and RSV test were negative. #Elevated D-dimer: D-dimer is 1.78. He did have CT of the chest which showed no evidence of PE. DVT prophylaxis: heparin SQ Code status: full code * Patient counseled extensively about different types of CODE STATUS including full code, DNR CCA and DNR CCA. * Patient elects to be full code. * Total cpra-mx-rxrv time 17 minutes. Charges/Coding Visit Charges Inpatient E&M: 39935 Init Hosp L3 Procedures Hospitalists Procedures: 09032 Advncd Care Plan 30 Min
[2024-09-17] MEDS: Azithromycin 500 MG in Dextrose 5%-Water (250mL Bag) 250 ML 250 MG IV (11:57)
[2024-09-17] MEDS: Aspirin 81 MG TAB.CHEW 324 MG PO (11:57)
[2024-09-17 14:06] LABS: Allen Test Positive; Base Excess 2 mmol/L (-2 to +2); Bicarbonate 29.6 mmol/L (22-26); Blood Gas Specimen Type ART; Mode Not entered; O2 Delivery Device BiPAP; PEEP 8; PO2 56 mmHG (75-100); RR 12; SITE R Radial; SO2 81 % (95-99); Total Carbon Dioxide 32 mmol/L; pCO2 69.9 mmHg (35-45); pH 7.24 (7.35-7.45)
[2024-09-17 14:09] LABS: Troponin-I HS 4678 pg/mL (3.0-78.0)
[2024-09-17] MEDS: 0.9% Normal Saline 1,000 ML IV.SOLN. 1000 ML OPERA.SITE (14:48)
[2024-09-17] MEDS: PureFlow B 2K Dialysis Soln 1 BAG 6 BAG PF (14:48)
--- NOTE | 2024-09-17 15:19 | CON.PCM.RE_ITS ---
Assessment & Plan Assessment/Plan (1) ESRD (end stage renal disease) on dialysis: PLAN: seen on dialysis, challenge fluid removal as tolerated (2) Essential (primary) hypertension: PLAN: resume home meds (3) Hypoxia: (4) SOB (shortness of breath): (5) Pulmonary edema: HPI Consult Data Date of Consult: 09/17/24 HPI Narrative Reason for Consultation: ESRD on HD TTS HPI Narrative: JOSELITO LAWSON, is a 69 M who presents sudden onset shortness of breath while getting ready for dilaysis. [place] fine yeseterday. Denied chest pain. appetite has been good. Seen on dialysis. Off BIPAP. Fluid removal as tolerated. Denied cough, fever, chills. [facility] Medical History Bilateral carotid artery stenosis ESRD (end stage renal disease) on dialysis History of non-ST elevation myocardial infarction (NSTEMI) (12/28/20) Chronic systolic (congestive) heart failure Postoperative ileus (01/15/21) Atherosclerotic heart disease of [place] coronary artery without angina pectoris Acute HFrEF (heart failure with reduced ejection fraction) Ischemic cardiomyopathy Flash pulmonary edema Bilateral inguinal hernia without obstruction or gangrene Hypercholesteremia Essential (primary) hypertension White coat syndrome with hypertension Myocardial infarction History of diverticulitis Anxiety Home Medications ?Medication ?Instructions ?Recorded ?Last Taken ?Type sertraline 50 mg tablet 50 mg PO DAILY mood 05/09/19 06/03/24 History aspirin 81 mg chewable tablet 81 mg PO DAILY@0800 ##90 12/30/20 06/03/24 Rx mv,[id number] 1 cap PO DAILY 06/16/23 06/03/24 History oil 400 mcg-500 unit capsule (ProRenal QD) amlodipine 10 mg tablet 10 mg PO DAILY 06/14/24 Unknown History carvedilol 12.5 mg tablet 12.5 mg PO BID 07/01/24 Unknown History Allergy/AdvReac Type Severity Reaction Status Date / Time Seasonal Allergies: Uncoded Allergy Intermediate Unknown Verified 09/11/24 23:27 ezetimibe (From Zetia) AdvReac Intermediate unstable Verified 09/11/24 23:27 gait, myalgia, joint pain isosorbide AdvReac Intermediate Dizziness Verified 09/11/24 23:27 atorvastatin (From Lipitor) AdvReac unstable Verified 09/11/24 23:27 gait, myalgia rosuvastatin (From Crestor) AdvReac unstable Verified 09/11/24 23:27 gait, myalgia Family History Mother Heart disease Father Hypertension Cardiac arrest Surgical History H/O coronary artery bypass surgery (01/11/21) History of left heart catheterization (12/28/20) S/P arteriovenous (AV) fistula creation History of right inguinal hernia repair (01/08/20) History of colonoscopy (2009) History of colostomy reversal History of partial colectomy Social History Smoking Status: Former smoker quit date: 09/25/18 pack-years: 65 how long ago did patient quit smokin years ago alcohol intake: never substance use type: does not use caffeine: Yes Type: coffee Number of servings: 2 what type of physical activity do you participate in: none frequency: does not exercise ROS Constitutional Constitutional: Reports weakness; Denies chills or fever(s) Cardiovascular Cardiovascular: Reports dyspnea on exertion; Denies chest pain, diaphoresis or edema Respiratory/Chest Respiratory/Chest: Denies dry cough Gastrointestinal Gastrointestinal: Denies abdominal pain, anorexia, diarrhea, nausea or vomiting Endocrine Endocrinology: Reports fatigue Physical Exam Const alert, oriented x3 and no apparent distress General Appearance: well developed Resp Auscultation: rhonchi Cardio regular rate GI non-tender and non-distended Auscultation: normoactive bowel sounds Palpation: soft Extremity no clubbing, cyanosis or edema General Extremity: AV fistula Neuro CN's II-XII intact bilaterally Lab / Micro Data 09/17/24 08:52 09/17/24 08:52 Labs: Laboratory Results - last 24 hr 09/17/24 08:52: WBC 11.0, RBC 4.45 L, Hgb 15.3, Hct 44.3, MCV 99.6 H, MCH 34.4 H , MCHC 34.5, RDW Std Deviation 45.6 H, RDW Coeff of Steven 12.8, Plt Count 312, MPV 10.2, Immature Gran % (Auto) 0.500, Neut % (Auto) 64.3, Lymph % (Auto) 24.5, [place] % (Auto) 6.3, Eos % (Auto) 3.6, Baso % (Auto) 0.8, Absolute Neuts (auto) 7.1, Absolute Lymphs (auto) 2.69, Nucleated RBC % 0, PT 13.9, INR 1.1, APTT 26.1, D-Dimer Quant (PE/DVT) 1.78 H*, Sodium 138, Potassium 4.8, Chloride 98, Carbon Dioxide 27.0, Anion Gap 13, BUN 86 H, Creatinine 11.20 H*, Estim Creat Clear Calc 6.93, Est GFR (MDRD) Af Amer 6 L, Est GFR (MDRD) Non-Af 5 L, B UN/Creatinine Ratio 7.7 L, Glucose 209 H, Calcium 8.8, Troponin I High Sens 159 H*, B-Natriuretic Peptide 2707.0 H 09/17/24 10:20: Lactic Acid 1.4 09/17/24 11:12: Troponin I High Sens 547 H* 09/17/24 13:40: Troponin I High Sens 4678 H* Micro: Microbiology 09/17/24 08:42 Mucosa - Nasopharyngeal SARS-CoV-2, Influenza & RSV (PCR) - Final ABG Data ABG results: ABG 09/17/24 09:28 Specimen Type ART Sample Site R Radial pH 7.24 L Bicarbonate Actual 29.6 H Total CO2 32 Base Excess 2 O2 Saturation 81 L O2 % 100.0 ABG pCO2 69.9 H* ABG pO2 56 L Sherif Test Positive Respiration Rate 12 O2 Delivery Device BiPAP Vent Mode Not entered POC PEEP 8 Crit Call To/Read Back Yes Blood Gas Notified Whom swager Blood Gas Notified Time 09:30:23 Imaging Radiology Impression Chest X-Ray 09/17/24 08:46 IMPRESSION: Interval worsening of bilateral patchy opacities, right greater than left, may reflect some combination of edema, pneumonia and/or atelectasis. Small bilateral pleural effusions. Electronically Signed: Tianna Dominguez MD at 9:37 EDT Reading Location ID and State: [facility] / [place] Tel , Service support , Chest CTA 09/17/24 09:37 IMPRESSION: No evidence of pulmonary embolism. Mild-moderate bilateral pleural effusions with moderate-severe asymmetric pulmonary edema and pneumonia. Electronically Signed: Gregoria Hewitt MD at 11:42 EDT ,
--- NOTE | 2024-09-17 15:41 | CON.PCM.CC_ITS ---
HPI Consult Data Date of Consult: 09/17/24 HPI Narrative HPI Narrative: JOSELITO LAWSON, is a 69 M who presents [facility] Medical History (Updated 09/17/24 @ 16:[address] Martha Sandy MD) Bilateral carotid artery stenosis ESRD (end stage renal disease) on dialysis History of non-ST elevation myocardial infarction (NSTEMI) (12/28/20) Chronic systolic (congestive) heart failure Postoperative ileus (01/15/21) Atherosclerotic heart disease of [place] coronary artery without angina pectoris Acute HFrEF (heart failure with reduced ejection fraction) Ischemic cardiomyopathy Flash pulmonary edema Bilateral inguinal hernia without obstruction or gangrene Hypercholesteremia Essential (primary) hypertension White coat syndrome with hypertension Myocardial infarction History of diverticulitis Anxiety Home Medications ?Medication ?Instructions ?Recorded ?Last Taken ?Type sertraline 50 mg tablet 50 mg PO DAILY mood 05/09/19 06/03/24 History aspirin 81 mg chewable tablet 81 mg PO DAILY@0800 cardiac ##90 12/30/20 06/03/24 Rx mv,[id number] 1 cap PO DAILY dialysis 06/16/23 06/03/24 History oil 400 mcg-500 unit capsule (ProRenal QD) amlodipine 10 mg tablet 10 mg PO DAILY heart and BP 06/14/24 Unknown History carvedilol 12.5 mg tablet 12.5 mg PO BID heart and BP 07/01/24 Unknown History Allergy/AdvReac Type Severity Reaction Status Date / Time Seasonal Allergies: Uncoded Allergy Intermediate Unknown Verified 09/11/24 23:27 ezetimibe (From Zetia) AdvReac Intermediate unstable Verified 09/11/24 23:27 gait, myalgia, joint pain isosorbide AdvReac Intermediate Dizziness Verified 09/11/24 23:27 atorvastatin (From Lipitor) AdvReac unstable Verified 09/11/24 23:27 gait, myalgia rosuvastatin (From Crestor) AdvReac unstable Verified 09/11/24 23:27 gait, myalgia Family History Mother Heart disease Father Hypertension Cardiac arrest Surgical History H/O coronary artery bypass surgery (01/11/21) History of left heart catheterization (12/28/20) S/P arteriovenous (AV) fistula creation History of right inguinal hernia repair (01/08/20) History of colonoscopy (2009) History of colostomy reversal History of partial colectomy Social History Smoking Status: Former smoker quit date: 09/25/18 pack-years: 64 how long ago did patient quit smokin years ago alcohol intake: never substance use type: does not use caffeine: Yes Type: coffee Number of servings: 2 what type of physical activity do you participate in: none frequency: does not exercise Objective Data Objective Data Vital Signs: Vital Signs Last response 3 Temperature 36.1 C L 09/17/24 12:45 Temperature Source Temporal 09/17/24 12:45 Pulse Rate 74 09/17/24 15:30 Respiratory Rate 20 H 09/17/24 15:30 Respiratory Effort Short of Breath 09/17/24 14:30 Respiratory Depth Normal 09/17/24 14:30 Respiratory Pattern Normal 09/17/24 15:01 Blood Pressure 173/111 H 09/17/24 15:30 Blood Pressure Mean 131 09/17/24 15:30 Blood Pressure Source Monitor 09/17/24 15:30 Blood Pressure Position Semi-Fowlers 09/17/24 15:30 Blood Pressure Location Right Arm 09/17/24 15:30 Pulse Ox 93 09/17/24 15:30 Oxygen Delivery Method Nasal Cannula 09/17/24 15:30 Oxygen Flow Rate (L/min) 4 09/17/24 15:30 Fraction of Inspired Oxygen (FIO2) 60 09/17/24 14:00 I&O: I&O Last 24 Hours 3 09/16/24 09/17/24 09/17/24 23:59 11:59 23:59 Intake Total 305 / 305 Balance 305 / 305 I&O: Total Stay 3 09/17/24 08:31 thru 09/17/24 14:30 Intake Total 305 Balance 305 Current Meds Ordered / Administered: Current meds ordered / Administered 3 Generic Name Dose Route Start Last Admin Trade Name Freq PRN Reason Stop Dose Admin Acetaminophen 650 mg 09/17/24 13:21 Acetaminophen 325 Mg Tablet PO Q6H PRN PRN Pain 1-10 Or Fever >100.7 Albuterol/Ipratropium 3 ml 09/17/24 13:30 Ipratropium/Albuterol Sulfate 3 Ml Ampul.Neb INHALATION Q4HWA.RT SACHA Hemodialysis Solution 6 bag 09/17/24 13:45 09/17/24 14:48 Pureflow B 2k Dialysis Soln 1 Bag PF 09/18/24 01:45 6 bag UD SACHA Administration Protocol Heparin Sodium (Porcine) 5,000 unit 09/17/24 14:00 Heparin Injection (Vial) 5,000 Unit/Ml Vial SC Q8 SACHA Ceftriaxone Sodium 1 gm in 50 mls @ 100 mls/hr 09/18/24 10:00 Rocephin IV Q24 SACHA Azithromycin 500 mg/ Dextrose 255 mls @ 250 mls/hr 09/18/24 10:00 IV Q24 SACHA Morphine Sulfate 2 - 4 mg 09/17/24 13:21 Morphine 2 Mg/Ml Syringe IV Q3H PRN PRN Pain Score 6-10 Nitroglycerin 0.4 mg 09/17/24 13:21 Nitroglycerin (Inpatient Use) 0.4 Mg Tab.Subl SL Q5M PRN CARDIAC/CHEST PAIN Ondansetron HCl 4 mg 09/17/24 13:21 Ondansetron 4 Mg/2 Ml Vial IV Q8H PRN PRN NAUSEA/VOMITING Oxycodone HCl 5 mg 09/17/24 13:21 Oxycodone 5 Mg Tablet PO Q4H PRN PRN Pain Score 4-10 Sodium Chloride 10 - 40 ml 09/17/24 12:41 0.9% Saline Lock 10 Ml Syringe IV UD PRN SALINE FLUSH Sodium Chloride 1,000 ml 09/17/24 13:45 09/17/24 14:48 0.9% Normal Saline 1,000 Ml Iv.Soln. OPERA.SITE 09/18/24 01:44 1,000 ml X1 SACHA Administration Sodium Chloride 200 ml 09/17/24 13:44 0.9% Normal Saline 1,000 Ml Iv.Soln. IV 09/18/24 01:44 X1 PRN to maintain SBP >90mmHg during Dialysis Lab / Micro Data 09/17/24 08:52 09/17/24 08:52 Labs: Laboratory Results - last 24 hr 09/17/24 08:52: WBC 11.0, RBC 4.45 L, Hgb 15.3, Hct 44.3, MCV 99.6 H, MCH 34.4 H , MCHC 34.5, RDW Std Deviation 45.6 H, RDW Coeff of Steven 12.8, Plt Count 312, MPV 10.2, Immature Gran % (Auto) 0.500, Neut % (Auto) 64.3, Lymph % (Auto) 24.5, [place] % (Auto) 6.3, Eos % (Auto) 3.6, Baso % (Auto) 0.8, Absolute Neuts (auto) 7.1, Absolute Lymphs (auto) 2.69, Nucleated RBC % 0, PT 13.9, INR 1.1, APTT 26.1, D-Dimer Quant (PE/DVT) 1.78 H*, Sodium 138, Potassium 4.8, Chloride 98, Carbon Dioxide 27.0, Anion Gap 13, BUN 86 H, Creatinine 11.20 H*, Estim Creat Clear Calc 6.93, Est GFR (MDRD) Af Amer 6 L, Est GFR (MDRD) Non-Af 5 L, B UN/Creatinine Ratio 7.7 L, Glucose 209 H, Calcium 8.8, Troponin I High Sens 159 H*, B-Natriuretic Peptide 2707.0 H 09/17/24 10:20: Lactic Acid 1.4 09/17/24 11:12: Troponin I High Sens 547 H* 09/17/24 13:40: Troponin I High Sens 4678 H* Micro: Microbiology 09/17/24 08:42 Mucosa - Nasopharyngeal SARS-CoV-2, Influenza & RSV (PCR) - Final ABG Data ABG results: ABG 09/17/24 09:28 Specimen Type ART Sample Site R Radial pH 7.24 L Bicarbonate Actual 29.6 H Total CO2 32 Base Excess 2 O2 Saturation 81 L O2 % 100.0 ABG pCO2 69.9 H* ABG pO2 56 L Sherif Test Positive Respiration Rate 12 O2 Delivery Device BiPAP Vent Mode Not entered POC PEEP 8 Crit Call To/Read Back Yes Blood Gas Notified Whom swager Blood Gas Notified Time 09:30:23 Imaging Radiology Impression Chest X-Ray 09/17/24 08:46 IMPRESSION: Interval worsening of bilateral patchy opacities, right greater than left, may reflect some combination of edema, pneumonia and/or atelectasis. Small bilateral pleural effusions. Electronically Signed: Tianna Dominguez MD at 9:37 EDT , Chest CTA 09/17/24 09:37 IMPRESSION: No evidence of pulmonary embolism. Mild-moderate bilateral pleural effusions with moderate-severe asymmetric pulmonary edema and pneumonia. Electronically Signed: Gregoria Hewitt MD at 11:42 EDT , Assessment and Plan . Assessment and plan: HPI 69 yo man w/ ESRD admitted 09/17/24 w/ dyspnea and hypoxemia. He required supplemental O2 and NIV support in the ED. BNP markedly elevated. Troponin initially elevated, but now rising. BP markedly elevated on presentation. He is currently breathing 4 LPM O2 comfortably at rest. HD w/ UF being performed currently. He specifically denies CP. CTA (-) for VTED. There are extensive opacities and effusions. ECG - NSSTTW changes PHYSICAL EXAM GEN NAD VS as above HEENT o/p clear NECK obese COR RRR CHEST coarse ABD soft EXT modest edema SKIN w/d LATA NF ASSESSMENT 1. Acute respiratory failure requiring NIV support and supplemental O2 2. Pulmonary edema 3. ESRD 4. HTN 5. Elevated troponin 6. Former tobacco use TREATMENT PLAN -supplemental O2 -HD w/ UF as tolerated -BP control -sq UFH -ASA -follow troponin -consider getting cardiology opinion -I do not think there is a need for ABX 60 min CCT The entirety of this encounter was done via Telemedicine
[2024-09-17] MEDS: Heparin Injection (Vial) 5,000 UNIT/ML VIAL 5000 UNIT SC ×2 (15:43→21:42)
[2024-09-17] MEDS: amLODIPine 10 MG Tablet PO (16:57)
--- NOTE | 2024-09-17 20:22 | CPS ---
Patient refused PAP therapy for night time use
[2024-09-17] MEDS: Carvedilol 12.5 MG Tablet PO (21:42)
[2024-09-18] VITALS (23 sets, daily range): BP systolic 127–179; BP diastolic 45–98; PULSE 66–88; RESP 16–26; TEMP 36.2–36.7; O2SAT 91–100; BMI 27.1; BMI 27.2
[2024-09-18] MEDS: Heparin Injection (Vial) 5,000 UNIT/ML VIAL 5000 UNIT SC ×3 (05:25→22:16)
[2024-09-18 05:43] LABS: Absolute Lymphocyte Count 1.62 X10^3/uL (0.83-4.51); Absolute Neutrophil Count 5.3 X10^3/uL (2.0-7.7); Basophil# 0.04 X10^3/uL; Basophil% 0.5 % (0-1); Eosinophil# 0.14 X10^3/uL; Eosinophils% 1.8 % (0-5); Hematocrit 36.8 % (40-54); Hemoglobin 12.4 g/dL (13.0-16.5); Lymphocyte # 1.62 X10^3/ul (0.83-4.51); Lymphocyte % 20.9 % (19-41); Mean Corp Hgb Conc 33.7 g/dL (32-36); Mean Corpuscular Hgb 33.2 pg (27.0-32.0); Mean Corpuscular Volume 98.4 fL (80-94); Mean Platelet Vol. 10.3 fl (6.2-12.0); Monocyte# 0.67 X10^3/uL; Monocyte% 8.6 % (0-10); NRBC Flagged by Analyzer 0 % (0-5); Neutrophil # 5.27 X10^3/uL (2.7-7.7); Neutrophil % 67.9 % (47-70); Platelet Count 235 K/mm3 (150-450); RBC Distribution Width CV 12.8 % (11.6-14.6); RBC Distribution Width SD 45.8 fl (35.1-43.9); Red Blood Count 3.74 M/mm3 (4.6-6.2); White Blood Count 7.8 K/mm3 (4.4-11.0)
[2024-09-18 06:07] LABS: Anion Gap 10 (5-15); BUN 68 mg/dL (7-18); BUN/Creat Ratio 7.3 RATIO (10-20); Calcium,Total 8.4 mg/dL (8.5-10.1); Chloride 99 mmol/L (98-107); Creatinine, Serum 9.31 mg/dL (0.70-1.30); EST Glomerular Filtration Rate 6 mL/min (>60); Est Glom Filt Rate - Afr Amer 7 mL/min (>60); Estimated Creatinine Clearance 7.62 ml/min; Glucose 101 mg/dL (74-106); Potassium 4.3 mmol/L (3.5-5.1); Sodium Level 136 mmol/L (136-145)
[2024-09-18] MEDS: Ipratropium/Albuterol Sulfate 3 ML AMPUL.NEB INHALATION ×3 (07:01→20:30)
[2024-09-18] MEDS: Sertraline 50 MG Tablet PO (08:09)
[2024-09-18] MEDS: Aspirin 81 MG TAB.CHEW PO (08:09)
[2024-09-18] MEDS: Carvedilol 12.5 MG Tablet PO ×2 (08:10→22:20)
[2024-09-18] MEDS: amLODIPine 10 MG Tablet PO (08:10)
[2024-09-18] MEDS: Ceftriaxone 1 GM/50 ML BAG IV (08:10)
[2024-09-18] MEDS: Azithromycin 500 MG in Dextrose 5%-Water (250mL Bag) 250 ML 250 MG IV (08:10)
--- NOTE | 2024-09-18 09:28 | CASEMGMT ---
Social Work SW met with pt to discuss advance directives.? Pt confirms he has completed a living will and health care POA naming his .? Pt notified that documents are not on file at [facility] and SW requested they be brought in for scanning into the EMR.? JINA Au
--- NOTE | 2024-09-18 10:09 | PN_ITS ---
Subjective Subjective Patient seen and examined. He felt much better today and had no active complaints. He was down to 2L of oxygen. he denied any cough, chest pain, palpitaitons, dizziness, [place], vomiting or any other symptoms. Review of systems is otherwise negative. He has remained hemodynamically stable. Objective Data Objective Data Vital Signs: Vital Signs Temp Pulse Resp BP Pulse Ox O2 Del Method O2 Flow Rate 97.2 F L 70 22 H 127/61 H 92 Nasal Cannula 2 09/18/24 08:00 09/18/24 09:00 09/18/24 09:00 09/18/24 09:00 09/18/24 09:00 09/18/24 09:00 09/18/24 09:00 FiO2 60 09/17/24 14:00 Oxygen Flow Rate (L/min) 2 Oxygen Delivery Method Nasal Cannula Weight: 190 lb 0.615 oz Body Mass Index (BMI) 27.1 Intake & Output: Intake and Output for Last 24 Hours 09/16/24 09/17/24 09/18/24 23:59 23:59 23:59 Intake Total 665 / 665 545 / 545 Output Total 3645 / 3645 0 / 0 Balance -2980 / -2980 545 / 545 Lab / Micro Data 09/18/24 05:20 09/18/24 05:20 Labs: Laboratory Results - last 24 hr 09/17/24 08:52: PT 13.9, INR 1.1, APTT 26.1 09/17/24 10:20: Lactic Acid 1.4 09/17/24 11:12: Troponin I High Sens 547 H* 09/17/24 13:40: Troponin I High Sens 4678 H* 09/18/24 05:20: WBC 7.8, RBC 3.74 L, Hgb 12.4 L, Hct 36.8 L, MCV 98.4 H, MCH 33.2 H, MCHC 33.7, RDW Std Deviation 45.8 H, RDW Coeff of Steven 12.8, Plt Count 235, MPV 10.3, Immature Gran % (Auto) 0.300, Neut % (Auto) 67.9, Lymph % (Auto) 20.9, [place] % (Auto) 8.6, Eos % (Auto) 1.8, Baso % (Auto) 0.5, Absolute Neuts (auto) 5.3, Absolute Lymphs (auto) 1.62, Nucleated RBC % 0, Sodium 136, Potassium 4.3, Chloride 99, Carbon Dioxide 27.0, Anion Gap 10, BUN 68 H, C reatinine 9.31 H*, Estim Creat Clear Calc 7.62, Est GFR (MDRD) Af Amer 7 L, Est GFR (MDRD) Non-Af 6 L, BUN/Creatinine Ratio 7.3 L, Glucose 101, Calcium 8.4 L Micro: Microbiology 09/17/24 21:50 Urine, Clean Catch Legionella Antigen - Final 09/17/24 21:50 Urine, Clean Catch Streptococcus pneumoniae Antigen (M - Final 09/17/24 14:52 Mucosa - Nasopharyngeal Respiratory Panel (PCR) - Final 09/17/24 08:42 Mucosa - Nasopharyngeal SARS-CoV-2, Influenza & RSV (PCR) - Final ABG Data ABG results: ABG 09/17/24 09:28 Specimen Type ART Sample Site R Radial pH 7.24 L Bicarbonate Actual 29.6 H Total CO2 32 Base Excess 2 O2 Saturation 81 L O2 % 100.0 ABG pCO2 69.9 H* ABG pO2 56 L Sherif Test Positive Respiration Rate 12 O2 Delivery Device BiPAP Vent Mode Not entered POC PEEP 8 Crit Call To/Read Back Yes Blood Gas Notified Whom swager Blood Gas Notified Time 09:30:23 Radiography Diagnostic Testing: Radiology Impression Chest CTA 09/17/24 09:37 IMPRESSION: No evidence of pulmonary embolism. Mild-moderate bilateral pleural effusions with moderate-severe asymmetric pulmonary edema and pneumonia. Electronically Signed: Gregoria Hewitt MD at 11:42 EDT , Physical Exam Const alert, oriented x3 and no apparent distress Constitutional Narrative: on 2L of oxygen General Appearance: cooperative and well developed HEENT normocephalic, head/scalp atraumatic, moist oral mucous membranes and oropharynx normal Eyes PERRL, EOMs intact bilaterally and conjunctivae normal Neck no lymphadenopathy and supple Resp Resp Narrative: diminished breath sounds bilaterally, no wheezes or crackles. on 2L of oxygen by nasal canula Cardio regular rate, regular rhythm, S1 normal heart sound, S2 normal heart sound and no murmurs GI normal to inspection, nondistended, normoactive bowel sounds, soft to palpation and non-tender Extremity normal to inspection and full ROM Neuro oriented x3, CN's II-XII intact bilaterally, moves all extremities and no focal motor deficits Motor Exam: strength 5/5 throughout Psych affect normal Assessment & Plan Assessment/Plan (1) Pulmonary edema: (2) Pneumonia: (3) Heart failure, systolic, chronic, etiology unknown: (4) Respiratory failure with hypoxia and hypercapnia: PLAN: Plan #Acute hypoxic and hypercapnic respiratory failure due to acute on chronic heart failure and pneumonia * now off BIPAP and down to 2L of oxygen * on iV ceftriaxone and azithromycin for presumptive pneumonia * CXR showed interval worsening of bilateral patchy opacities, right greater than left, representing some combination of edema, pneumonia and/or atelectasis, as well as small, bilateral pleural effusions. * had 2D echo during recent admission * had a cardiac cath on 07/13/2024 which showed coronary artery disease with patent COX to the LAD saphenous vein graft to the RCA being patent with a normal stress test on the perfusion scan and disease also noted in the circumflex artery and saphenous vein graft to the OM was not found. * Titrate oxygen to maintain saturation above 90%. Nephrology consulted for dialysis as patient is due for dialysis today. I did discuss the upwards trend in his Troponins with peak of 4678 with cardiology. I do think it is likely demand ischemia from the hypoxia cardiology agrees. Recent cath findings as above * Started on IV ceftriaxone and azithromycin due to CT chest findings of pneumonia. Urine for strep and Legionella. Sputum cultures. * #Nonstemi * likely a type 2 nonstemi due to demand ischemia. * Troponins peaked at 4678. * Had cardiac cath on 07/13/2024 which showed coronary artery disease with patent COX to the LAD saphenous vein graft to the RCA being patent with a normal stress test on the perfusion scan and disease also noted in the circumflex artery and saphenous vein graft to the OM was not found. * 2D echo from 09/12/2024 showed EF of 50% with severe concentric left ventricular hypertrophy and stage I diastolic dysfunction * On aspirin. Will continue. Also on carvedilol. * Discussed with cardiology as stated above and plan for medical management as is likely due to demand ischemia. * EKG showed no acute ST changes * #Acute on chronic combined heart failure * As above. BNP elevated at 2700. He does have ESRD so this likely causing that also. * 2D echo from 09/12/2024 as above with EF of 50% and stage I diastolic dysfunction * On carvedilol. had dialysis yesterday which resulted in resolution of shortness of breath. Now on 2L of oxygen by nasal canula * #ESRD on hemodialysis * Has a history of noncompliance with dialysis but he says he did attend his last dialysis session on Monday. He had a full session of dialysis then. Has dialysis on Tuesdays and Saturdays * Nephrology consulted. Had dialysis yesterday with removal of ~ 3L of fluid * #Community-acquired pneumonia: * As above and acute hypoxic respiratory failure * Respiratory panel and blood cultures pending COVID, influenza and RSV test were negative. #Elevated D-dimer: D-dimer is 1.78. He did have CT of the chest which showed no evidence of PE. DVT prophylaxis: heparin SQ Code status: full code Disposition: transfer out of ICU to PCU today Charges/Coding Visit Charges Inpatient E&M: 65460 Subs Hosp L2
--- NOTE | 2024-09-18 11:56 | CASEMGMT ---
Readmission review completed and documented in the intervention CM: Readmission Intervention. Dane BARONE RN CM
--- NOTE | 2024-09-18 13:02 | PN.CC_ITS ---
Objective Data Objective Data Vital Signs: Vital Signs Last response 3 Temperature 36.4 C L 09/18/24 12:00 Temperature Source Temporal 09/18/24 12:00 Pulse Rate 73 09/18/24 12:00 Pulse Strength Normal (2+) 09/17/24 20:29 Respiratory Rate 20 H 09/18/24 12:00 Respiratory Effort Normal, Non-Labored 09/18/24 12:00 Respiratory Depth Normal 09/18/24 12:00 Respiratory Pattern Normal 09/18/24 12:00 Blood Pressure 141/61 H 09/18/24 12:00 Blood Pressure Mean 87 09/18/24 12:00 Blood Pressure Source Monitor 09/18/24 12:00 Blood Pressure Position Semi-Fowlers 09/18/24 12:00 Blood Pressure Location Right Arm 09/18/24 12:00 Pulse Ox 99 09/18/24 12:00 Oxygen Delivery Method Nasal Cannula 09/18/24 12:00 Oxygen Flow Rate (L/min) 2 09/18/24 12:00 Fraction of Inspired Oxygen (FIO2) 60 09/17/24 14:00 I&O: I&O Last 24 Hours 3 09/17/24 09/18/24 09/18/24 23:59 11:59 23:59 Intake Total 665 / 665 705 / 865 160 / 865 Output Total 3645 / 3645 0 / 0 Balance -2980 / -2980 705 / 865 160 / 865 I&O: Total Stay 3 09/17/24 08:31 thru 09/18/24 12:00 Intake Total 1530 Output Total 3645 Balance -2115 Current Meds Ordered / Administered: Current meds ordered / Administered 3 Generic Name Dose Route Start Last Admin Trade Name Freq PRN Reason Stop Dose Admin Acetaminophen 650 mg 09/17/24 13:21 Acetaminophen 325 Mg Tablet PO Q6H PRN PRN Pain 1-10 Or Fever >100.7 Albuterol/Ipratropium 3 ml 09/17/24 13:30 09/18/24 11:03 Ipratropium/Albuterol Sulfate 3 Ml Ampul.Neb INHALATION 3 ml Q4HWA.RT SACHA Administration Amlodipine Besylate 10 mg 09/17/24 16:40 09/18/24 08:10 Amlodipine 10 Mg Tablet PO 10 mg DAILY SACHA Administration Protocol Aspirin 81 mg 09/18/24 08:00 09/18/24 08:09 Aspirin 81 Mg Tab.Chew PO 81 mg DAILY@0800 [facility] Administration Carvedilol 12.5 mg 09/17/24 22:00 09/18/24 08:10 Carvedilol 12.5 Mg Tablet PO 12.5 mg BID SACHA Administration Protocol Heparin Sodium (Porcine) 5,000 unit 09/17/24 14:00 09/18/24 05:25 Heparin Injection (Vial) 5,000 Unit/Ml Vial SC 5,000 unit Q8 SACHA Administration Hydralazine HCl 10 mg 09/17/24 18:57 Hydralazine 20 Mg/Ml Vial IV Q6H PRN PRN BP >160/110 Protocol Ceftriaxone Sodium 1 gm in 50 mls @ 100 mls/hr 09/18/24 10:00 09/18/24 08:42 Rocephin IV Infused Q24 SACHA Infusion Azithromycin 500 mg/ Dextrose 255 mls @ 250 mls/hr 09/18/24 10:00 09/18/24 09:24 IV Infused Q24 SACHA Infusion Morphine Sulfate 2 - 4 mg 09/17/24 13:21 Morphine 2 Mg/Ml Syringe IV Q3H PRN PRN Pain Score 6-10 Nitroglycerin 0.4 mg 09/17/24 13:21 Nitroglycerin (Inpatient Use) 0.4 Mg Tab.Subl SL Q5M PRN CARDIAC/CHEST PAIN Ondansetron HCl 4 mg 09/17/24 13:21 Ondansetron 4 Mg/2 Ml Vial IV Q8H PRN PRN NAUSEA/VOMITING Oxycodone HCl 5 mg 09/17/24 13:21 Oxycodone 5 Mg Tablet PO Q4H PRN PRN Pain Score 4-10 Sertraline HCl 50 mg 09/18/24 10:00 09/18/24 08:09 Sertraline 50 Mg Tablet PO 50 mg DAILY SACHA Administration Sodium Chloride 10 - 40 ml 09/17/24 12:41 0.9% Saline Lock 10 Ml Syringe IV UD PRN SALINE FLUSH Lab / Micro Data 09/18/24 05:20 09/18/24 05:20 Labs: Laboratory Results - last 24 hr 09/17/24 13:40: Troponin I High Sens 4678 H* 09/18/24 05:20: WBC 7.8, RBC 3.74 L, Hgb 12.4 L, Hct 36.8 L, MCV 98.4 H, MCH 33.2 H, MCHC 33.7, RDW Std Deviation 45.8 H, RDW Coeff of Steven 12.8, Plt Count 235, MPV 10.3, Immature Gran % (Auto) 0.300, Neut % (Auto) 67.9, Lymph % (Auto) 20.9, [place] % (Auto) 8.6, Eos % (Auto) 1.8, Baso % (Auto) 0.5, Absolute Neuts (auto) 5.3, Absolute Lymphs (auto) 1.62, Nucleated RBC % 0, Sodium 136, Potassium 4.3, Chloride 99, Carbon Dioxide 27.0, Anion Gap 10, BUN 68 H, C reatinine 9.31 H*, Estim Creat Clear Calc 7.62, Est GFR (MDRD) Af Amer 7 L, Est GFR (MDRD) Non-Af 6 L, BUN/Creatinine Ratio 7.3 L, Glucose 101, Calcium 8.4 L Micro: Microbiology 09/17/24 21:50 Urine, Clean Catch Legionella Antigen - Final 09/17/24 21:50 Urine, Clean Catch Streptococcus pneumoniae Antigen (M - Final 09/17/24 14:52 Mucosa - Nasopharyngeal Respiratory Panel (PCR) - Final 09/17/24 08:42 Mucosa - Nasopharyngeal SARS-CoV-2, Influenza & RSV (PCR) - Final ABG Data ABG results: ABG 09/17/24 09:28 Specimen Type ART Sample Site R Radial pH 7.24 L Bicarbonate Actual 29.6 H Total CO2 32 Base Excess 2 O2 Saturation 81 L O2 % 100.0 ABG pCO2 69.9 H* ABG pO2 56 L Sherif Test Positive Respiration Rate 12 O2 Delivery Device BiPAP Vent Mode Not entered POC PEEP 8 Crit Call To/Read Back Yes Blood Gas Notified Whom swager Blood Gas Notified Time 09:30:23 Assessment and Plan . Assessment and plan: HPI 69 yo man w/ ESRD admitted 09/17/24 w/ dyspnea and hypoxemia. He required supplemental O2 and NIV support in the ED. BNP markedly elevated. Troponin initially elevated, but now rising. BP markedly elevated on presentation. He is currently breathing 4 LPM O2 comfortably at rest. HD w/ UF being performed currently. He specifically denies CP. CTA (-) for VTED. There are extensive opacities and effusions. ECG - NSSTTW changes 09/18/24 Breathing 2 LPM O2 comfortably HD w/ UF yesterday PHYSICAL EXAM GEN NAD VS as above HEENT o/p clear NECK obese COR RRR CHEST coarse ABD soft EXT modest edema SKIN w/d LATA NF ASSESSMENT 1. Acute respiratory failure requiring NIV support and supplemental O2 2. Pulmonary edema 3. ESRD 4. HTN 5. Elevated troponin 6. Former tobacco use TREATMENT PLAN -supplemental O2 as needed -HD w/ UF -BP control -sq UFH -ASA -follow troponin -consider getting cardiology opinion -I do not think there is a need for ABX We will be available as needed. 50 min CCT The entirety of this encounter was done via Telemedicine
--- NOTE | 2024-09-18 13:07 | CHAPLAIN ---
Type of Pastoral Visit _x__ Initial Visit ___ Follow-up Visit ___ On-call Visit ___ General Patient Visit ___ Spiritual Assessment ___ Family Conference ___ Bereavement ___ Rapid Response ___ Code Blue ___ Other (describe below) Pastoral Care Referral From _x__ Patient ___ Family ___ Nurse ___ Physician ___ Web Services Professional ___ [employer] ___ Other (describe below) Sacrament/Intervention _x__ Active listening ___ Anointing ___ Quaker ___ Bereavement ___ Communion _x__ Deya exploration ___ ___ Life review _x__ Prayer ___ Reconciliation ___ Sacrament of Sick _x__ Supportive presence ___ Wedding ___ Other (describe below) Pastoral Comments patient was seen last week and again this week in a different admission; spouse is with him in the room; pt is more talkative and explains his situation; pt states that he is doing better; pt and spouse talk about their lives, family, and deya community; both are welcoming of presence and prayer support
[2024-09-19] VITALS (16 sets, daily range): BP systolic 131–272; BP diastolic 49–78; PULSE 62–83; RESP 14–18; TEMP 36.3–36.5; O2SAT 94–97; BMI 27.4; BMI 27.1
[2024-09-19] MEDS: Heparin Injection (Vial) 5,000 UNIT/ML VIAL 5000 UNIT SC ×2 (04:29→13:42)
[2024-09-19 06:04] LABS: Absolute Lymphocyte Count 2.19 X10^3/uL (0.83-4.51); Absolute Neutrophil Count 3.1 X10^3/uL (2.0-7.7); Basophil# 0.06 X10^3/uL; Eosinophil# 0.26 X10^3/uL; Eosinophils% 4.2 % (0-5); Lymphocyte # 2.19 X10^3/ul (0.83-4.51); Lymphocyte % 35.1 % (19-41); Mean Corp Hgb Conc 33.3 g/dL (32-36); Mean Corpuscular Hgb 32.4 pg (27.0-32.0); Mean Corpuscular Volume 97.3 fL (80-94); Mean Platelet Vol. 10.5 fl (6.2-12.0); Monocyte# 0.59 X10^3/uL; Monocyte% 9.5 % (0-10); NRBC Flagged by Analyzer 0 % (0-5); Neutrophil # 3.12 X10^3/uL (2.7-7.7); Neutrophil % 49.9 % (47-70); Platelet Count 252 K/mm3 (150-450); RBC Distribution Width CV 12.8 % (11.6-14.6); RBC Distribution Width SD 45.1 fl (35.1-43.9); White Blood Count 6.2 K/mm3 (4.4-11.0)
[2024-09-19 06:31] LABS: Anion Gap 11 (5-15); BUN 87 mg/dL (7-18); BUN/Creat Ratio 7.6 RATIO (10-20); Calcium,Total 8.6 mg/dL (8.5-10.1); Chloride 97 mmol/L (98-107); EST Glomerular Filtration Rate 5 mL/min (>60); Est Glom Filt Rate - Afr Amer 6 mL/min (>60); Estimated Creatinine Clearance 6.23 ml/min; Glucose 98 mg/dL (74-106); Potassium 4.6 mmol/L (3.5-5.1); Sodium Level 134 mmol/L (136-145)
--- NOTE | 2024-09-19 08:13 | PCM.PN.REN ---
Subjective Subjective seen at start of dialysis at 1200, No cough, fever, chills. SOB better Objective Data Objective Data Vital Signs: Vital Signs Temp Pulse Resp BP Pulse Ox O2 Del Method O2 Flow Rate 97.6 F L 72 18 159/49 H 95 Nasal Cannula 2 09/19/24 04:00 09/19/24 04:00 09/19/24 04:00 09/19/24 04:00 09/19/24 08:09 09/19/24 08:09 09/19/24 08:09 FiO2 60 09/17/24 14:00 Oxygen Flow Rate (L/min) 2 Oxygen Delivery Method Nasal Cannula Weight: 86.2 kg Body Mass Index (BMI) 27.2 Intake & Output: Intake and Output for Last 24 Hours 09/17/24 09/18/24 09/19/24 23:59 23:59 23:59 Intake Total 665 / 665 955 / 955 Output Total 3645 / 3645 0 / 0 Balance -2980 / -2980 955 / 955 Lab / Micro Data 09/19/24 05:34 09/19/24 05:34 Labs: Laboratory Results - last 24 hr 09/19/24 05:34: WBC 6.2, RBC 3.70 L, Hgb 12.0 L, Hct 36.0 L, MCV 97.3 H, MCH 32.4 H, MCHC 33.3, RDW Std Deviation 45.1 H, RDW Coeff of Steven 12.8, Plt Count 252, MPV 10.5, Immature Gran % (Auto) 0.300, Neut % (Auto) 49.9, Lymph % (Auto) 35.1, [place] % (Auto) 9.5, Eos % (Auto) 4.2, Baso % (Auto) 1.0, Absolute Neuts (auto) 3.1, Absolute Lymphs (auto) 2.19, Nucleated RBC % 0, Sodium 134 L, Potassium 4.6, Chloride 97 L, Carbon Dioxide 26.0, Anion Gap 11, BUN 87 H, Creatinine 11.40 H*, Estim Creat Clear Calc 6.23, Est GFR (MDRD) Af Amer 6 L, Est GFR (MDRD) Non-Af 5 L, BUN/Creatinine Ratio 7.6 L, Glucose 98, Calcium 8.6 Micro: Microbiology 09/17/24 21:50 Urine, Clean Catch Legionella Antigen - Final 09/17/24 21:50 Urine, Clean Catch Streptococcus pneumoniae Antigen (M - Final 09/17/24 14:52 Mucosa - Nasopharyngeal Respiratory Panel (PCR) - Final 09/17/24 08:42 Mucosa - Nasopharyngeal SARS-CoV-2, Influenza & RSV (PCR) - Final Physical Exam Const alert and oriented x3 Resp clear to auscultation bilaterally Cardio regular rate GI non-tender and non-distended Auscultation: normoactive bowel sounds Palpation: soft Extremity General Extremity: AV fistula Assessment & Plan Assessment/Plan (1) ESRD (end stage renal disease) on dialysis: PLAN: dialysis today (2) Essential (primary) hypertension: PLAN: resume home meds (3) Hypoxia: PLAN: improved (4) SOB (shortness of breath): PLAN: improved (5) Pneumonia: PLAN: dc on antibx
[2024-09-19] MEDS: Aspirin 81 MG TAB.CHEW PO (08:32)
[2024-09-19] MEDS: Carvedilol 12.5 MG Tablet PO (08:32)
[2024-09-19] MEDS: amLODIPine 10 MG Tablet PO (08:33)
[2024-09-19] MEDS: Sertraline 50 MG Tablet PO (08:34)
[2024-09-19] MEDS: Sodium Chloride 0.65% 1 SPRAY SPRAY.BTL NASAL (09:39)
[2024-09-19] MEDS: Azithromycin 500 MG in Dextrose 5%-Water (250mL Bag) 250 ML 250 MG IV (09:41)
[2024-09-19] MEDS: 0.9% Saline Lock 10 ML Syringe IV ×2 (09:43→11:32)
[2024-09-19] MEDS: Ceftriaxone 1 GM/50 ML BAG IV (10:53)
[2024-09-19] MEDS: Ipratropium/Albuterol Sulfate 3 ML AMPUL.NEB INHALATION (11:29)
[2024-09-19] MEDS: PureFlow B 2K Dialysis Soln 1 BAG 6 BAG PF (12:25)
[2024-09-19] MEDS: 0.9% Normal Saline 1,000 ML IV.SOLN. 1000 ML OPERA.SITE (12:25)
--- NOTE | 2024-09-19 13:05 | DS.PCM_ITS ---
Providers Date of Admission: 09/17/24 Date of Discharge: 09/19/24 Primary Care Physician: Dr. Damion Leroy MD Consultations 09/17/24 13:26 Consult: Emergency Medicine Physician Assistant / Pulmonary Medicine Routine Consulting Provider: Intensivists/Pulmonary Med Reason for Consult: acute hypoxic respiratory failure EMERGENT Consult: No MD Notified: Yes Date Notified: 09/17/24 Time Notified: 13:33 Method of Notification: Answering Service Consult: Nephrology Routine Consulting Provider: Karina Ervin Reason for Consult: ESRD, on hemodialysis EMERGENT Consult: No MD Notified: Yes Date Notified: 09/17/24 Time Notified: 13:26 Method of Notification: Text Consult: Nephrology Routine Consulting Provider: Karina Ervin Reason for Consult: need for dialysis EMERGENT Consult: No Notified: Yes Date Notified: 09/17/24 Time Notified: 13:27 Method of Notification: Text Reason For Visit: ACUTE HYPOXIC RESPIRATORY FAILURE, PNEUMONIA Diagnosis Discharge Diagnosis (1) ESRD (end stage renal disease) on dialysis: Status: Chronic Code(s): N18.6 - End stage renal disease; Z99.2 - Dependence on renal dialysis (2) Essential (primary) hypertension: Status: Chronic Code(s): I10 - Essential (primary) hypertension (3) Hypoxia: Status: Acute Code(s): R09.02 - Hypoxemia (4) SOB (shortness of breath): Status: Acute Code(s): R06.02 - Shortness of breath (5) Pneumonia: Status: Acute Code(s): J18.9 - Pneumonia, unspecified organism Plan #Acute hypoxic and hypercapnic respiratory failure due to acute on chronic heart failure and pneumonia * now off BIPAP and down to 2L of oxygen * on iV ceftriaxone and azithromycin for presumptive pneumonia * CXR showed interval worsening of bilateral patchy opacities, right greater than left, representing some combination of edema, pneumonia and/or atelectasis, as well as small, bilateral pleural effusions. * had 2D echo during recent admission * had a cardiac cath on 07/13/2024 which showed coronary artery disease with patent COX to the LAD saphenous vein graft to the RCA being patent with a normal stress test on the perfusion scan and disease also noted in the circumflex artery and saphenous vein graft to the OM was not found. * Titrate oxygen to maintain saturation above 90%. Nephrology consulted for dialysis as patient is due for dialysis today. I did discuss the upwards trend in his Troponins with peak of 4678 with cardiology. I do think it is likely demand ischemia from the hypoxia cardiology agrees. Recent cath findings as above * Started on IV ceftriaxone and azithromycin due to CT chest findings of pneumonia. Urine for strep and Legionella. Sputum cultures. * #Nonstemi * likely a type 2 nonstemi due to demand ischemia. * Troponins peaked at 4678. * Had cardiac cath on 07/13/2024 which showed coronary artery disease with patent COX to the LAD saphenous vein graft to the RCA being patent with a normal stress test on the perfusion scan and disease also noted in the circumflex artery and saphenous vein graft to the OM was not found. * 2D echo from 09/12/2024 showed EF of 50% with severe concentric left ventricular hypertrophy and stage I diastolic dysfunction * On aspirin. Will continue. Also on carvedilol. * Discussed with cardiology as stated above and plan for medical management as is likely due to demand ischemia. * EKG showed no acute ST changes * #Acute on chronic combined heart failure * As above. BNP elevated at 2700. He does have ESRD so this likely causing that also. * 2D echo from 09/12/2024 as above with EF of 50% and stage I diastolic dysfunction * On carvedilol. had dialysis yesterday which resulted in resolution of shortness of breath. Now on 2L of oxygen by nasal canula * #ESRD on hemodialysis * Has a history of noncompliance with dialysis but he says he did attend his last dialysis session on Monday. He had a full session of dialysis then. Has dialysis on Tuesdays and Saturdays * Nephrology consulted. Had dialysis yesterday with removal of ~ 3L of fluid * #Community-acquired pneumonia: * As above and acute hypoxic respiratory failure * Respiratory panel and blood cultures pending COVID, influenza and RSV test were negative. #Elevated D-dimer: D-dimer is 1.78. He did have CT of the chest which showed no evidence of PE. DVT prophylaxis: heparin SQ Code status: full code Disposition: transfer out of ICU to PCU today Medications at Discharge Home Medications sertraline 50 mg tablet 50 mg PO DAILY mood 05/09/19 aspirin 81 mg chewable tablet 81 mg PO DAILY@0800 cardiac ##90 12/30/20 Lena [id number] oil 400 mcg-500 unit capsule (ProRenal QD) 1 cap PO DAILY dialysis 06/16/23 amlodipine 10 mg tablet 10 mg PO DAILY heart and BP 06/14/24 carvedilol 12.5 mg tablet 12.5 mg PO BID heart and BP 07/01/24 doxycycline hyclate 100 mg tablet 100 mg PO BID #14 tabs 09/19/24 Hospital Course Operations None Procedures Dialysis Summary of Care Provided Minutes Spent on Discharge: 55 Hospital Course: JOSELITO LAWSON, is a 69 M with an extensive PMH as outlined including ESRD on HD TTS who presents via the ED on 09/17/2024 with a complaint of shortness of breath that started on the day of admission. Patient was just discharged on 09/13/2024 after he was admitted with similar complaints. He says he had a full session of dialysis on Monday. However he felt acutely short of breath on the day of admission. He denied any chest pain or palpitations, fever or chills, dizziness or any other symptoms. He is known to be noncompliant with dialysis and was recently admitted for CHF exacerbation in the setting of missed dialysis. He was diuresed and shortness of breath resolved and he went home. He denied any recent travels. Vitals in the ED were blood pressure of 170/82, pulse rate of 92, respiratory rate of 26 and he was on BiPAP at 60% FiO2 and was saturating 92%. CBC showed hemoglobin of 15.3 with WBC of 11 and platelets of 312. D-dimer was 1.78. ABG showed pH of 7.24 with pO2 of 56 and pCO2 of 69.9. Chemistry shows sodium of 138 with potassium of 4.8 and creatinine of 11.2. Initial troponin was 159 and trended up to 547 and subsequently at 4678. BNP was 2707. CT of the chest showed no evidence of PE and showed mild to moderate bilateral pleural effusions with moderate severe asymmetric pulmonary edema and pneumonia. Of note chest x- ray also did show interval worsening of bilateral patchy opacities right greater than left which may flex on combination of edema, pneumonia and atelectasis. He required BiPAP in the ED. He was admitted to be managed for acute on chronic hypoxic and hypercapnic respiratory failure in the setting of missed dialysis and also due to probable pneumonia. He was admitted to the ICU initially. Critical care and nephrology were consulted. Patient had dialysis on the day of admission. He was started on broad-spectrum antibiotics. With dialysis and antibiotics as well as breathing treatments he was weaned off of the BiPAP and transition to oxygen by nasal cannula. He was transferred out of the ICU to the regular floor and was weaned down to room air. Urine for strep and Legionella were negative and blood cultures were negative. COVID test was also negative and respiratory panel was negative. He was discharged home on 09/19/2024 on p.o. doxycycline for 5-day course. He is to follow-up with his primary care doctor and nephrology within 1 to 2 weeks. Patient seen and examined prior to discharge. He felt well and had no complaints. Patient was informed that his dialysis session today would be much later in the day as there was about the patient's to 1 before him. He was counseled that he could be discharged to go for dialysis at his outpatient facility. Patient however refused this and preferred to stay in the hospital for dialysis before discharge. Labs and vitals reviewed. Medication reviewed and reconciled. Physical Exam Const alert, oriented x3 and no apparent distress Constitutional Narrative: on room air. General Appearance: cooperative, comfortable, well kempt and well developed Orientation / Consciousness: awake Exam Limitations: no limitations HEENT normocephalic, head/scalp atraumatic, hearing grossly normal bilaterally, moist oral mucous membranes and oropharynx normal Mouth: oral and palatal mucosa normal Eyes PERRL, EOMs intact bilaterally and conjunctivae normal Neck no lymphadenopathy and supple Resp Resp Narrative: diminished breath sounds bilaterally, no wheezes or crackles. on room air. Cardio regular rate, regular rhythm, S1 normal heart sound, S2 normal heart sound and no murmurs GI normal to inspection, nondistended, normoactive bowel sounds, soft to palpation and non-tender Extremity normal to inspection and full ROM Skin no rashes or lesions noted Neuro oriented x3, CN's II-XII intact bilaterally, moves all extremities and no focal motor deficits Motor Exam: strength 5/5 throughout Psych affect normal Weight / BMI Weight Weight: 192 lb 0.362 oz Body Mass Index (BMI) 27.4 ABG / Lab / Microbiology Data 09/19/24 05:34 09/19/24 05:34 Laboratory: Laboratory Results - last 24 hr 09/19/24 05:34: WBC 6.2, RBC 3.70 L, Hgb 12.0 L, Hct 36.0 L, MCV 97.3 H, MCH 32.4 H, MCHC 33.3, RDW Std Deviation 45.1 H, RDW Coeff of Steven 12.8, Plt Count 252, MPV 10.5, Immature Gran % (Auto) 0.300, Neut % (Auto) 49.9, Lymph % (Auto) 35.1, [place] % (Auto) 9.5, Eos % (Auto) 4.2, Baso % (Auto) 1.0, Absolute Neuts (auto) 3.1, Absolute Lymphs (auto) 2.19, Nucleated RBC % 0, Sodium 134 L, Potassium 4.6, Chloride 97 L, Carbon Dioxide 26.0, Anion Gap 11, BUN 87 H, C reatinine 11.40 H*, Estim Creat Clear Calc 6.23, Est GFR (MDRD) Af Amer 6 L, Est GFR (MDRD) Non-Af 5 L, BUN/Creatinine Ratio 7.6 L, Glucose 98, Calcium 8.6 Microbiology: Microbiology 09/17/24 10:20 Blood Culture (Wb) - Anticubital Left Blood Culture - Preliminary No growth in 48 hours. 09/17/24 21:50 Urine, Clean Catch Legionella Antigen - Final 09/17/24 21:50 Urine, Clean Catch Streptococcus pneumoniae Antigen (M - Final 09/17/24 14:52 Mucosa - Nasopharyngeal Respiratory Panel (PCR) - Final 09/17/24 08:42 Mucosa - Nasopharyngeal SARS-CoV-2, Influenza & RSV (PCR) - Final D/C Instructions Discharge Diet: Low fat / Low cholesterol Discharge Activity: Return to Normal Activity Meaningful Use Info Meaningful Use Meaningful Use Diagnoses (Choose all that apply): CHF CHF ANGELINA/ARB ordered at discharge?: No Reason ANGELINA/ARB not ordered?: Worsening renal disease Documented LVEF (%): 50 Ischemic Stroke Statin Dosing Therapy Reference: STATIN DOSE THERAPY REFERENCE: * Patients > 75 years receive moderate or high dose statin therapy. * Patients 75 years or YOUNGER should receive HIGH intensity statin dose unless contraindicated. You will be required to document reason for non-treatment if statin daily dose does not meet guidelines. HIGH DOSE STATIN THERAPY DAILY Atorvastatin > than or = to 40 mg Rosuvastatin > than or = to 20 mg Amlodipine + Atorvastatin > than or = to 2.5/40 mg Ezetimibe + Simvastatin 10/80 mg Simvastatin 80mg Discharge Plan Admission Admit Date/Time: 09/17/24 11:53 Primary Reason for Your Visit: acute hypoxic respiratory failure Attending Provider: Martha Sandy Primary Care Provider: Damion Leroy Chi Consulting Providers: Karina Ervin; Brandon Montgomery; Eduardo Bryant; Telly Rojo; Harpal Woodward; Davis Eastman; Juan Pablo Miranda; Carlos A Marc; Carrol Sarabia; Johan Becerra; Vijay Frausto; Chelsea Foy; Zainab Jenkins; Jack Mckeon; Tahir Howe; Carter Gamez; Enmanuel Dugan; Renzo Egan; Brennen Agustin Instructions Patient Instructions: ED Dyspnea Discharge Orders/Prescriptions Prescriptions: New doxycycline hyclate 100 mg tablet 100 mg PO BID Qty: 14 0RF Continued sertraline 50 mg tablet 50 mg PO DAILY amlodipine 10 mg tablet 10 mg PO DAILY ProRenal QD 400-500 mcg-unit capsule 1 cap PO DAILY Patient Comments: TAKE 1 CAPSULE BY MOUTH EVERY DAY aspirin 81 MG tablet,chewable 81 mg PO DAILY@0800 Qty: 90 0RF carvedilol 12.5 mg tablet 12.5 mg PO BID Referrals / Follow Up: Karina Ervin DO [Med Staff - Consulting] - Within 2 Weeks Damion Leroy Chi, MD [Primary Care Provider] - 09/25/24 1:40 pm Disposition Disposition (needs filled in before D/C Order can be placed): Home, Self Care Charges/Coding Visit Charges Inpatient E&M: 61410 Disch Hosp >30min
--- NOTE | 2024-09-19 14:25 | CASEMGMT ---
Order for DC placed. Pt is currently 97% on RA. ADELITA CM to pt room at this time to discuss disposition needs. Pt is being dialyzed. This RN CM discussed how the pt did with therapy. Pt states that he feels safe discharging home with his today. Pt denies the need for HH, OP Tx, SNF, CCN, or Pt Link. Pt states that he plans to DC home with his and continue his OP HD that is already established. Pt denies further questions or concerns at this time and thanks this RN NATE. Dane BARONE RN, CM
== END 2024-09-19 16:22 | disposition home or self-care (01) | DRG 189 ==
LOC: ED 12:00 → ICU 12:10 → PCU 09-18 20:22
PROVIDERS: Admitting Provider Student in an Organized Health Care Education/Training Program; Emergency Provider Emergency Medicine; PCP Family Medicine Geriatric Medicine; Visit Provider Student in an Organized Health Care Education/Training Program
DX: J96.01 Acute respiratory failure with hypoxia (principal); I50.43 Acute on chronic combined systolic (congestive) and diastolic (congestive) heart failure; N18.6 End stage renal disease; I21.A1 Myocardial infarction type 2; J18.9 Pneumonia, unspecified organism; I13.2 Hypertensive heart and chronic kidney disease with heart failure and with stage 5 chronic kidney disease, or end stage renal disease; J90 Pleural effusion, not elsewhere classified; J96.02 Acute respiratory failure with hypercapnia; Z99.2 Dependence on renal dialysis; I25.10 Atherosclerotic heart disease of native coronary artery without angina pectoris; I25.2 Old myocardial infarction; Z91.158 Patient's noncompliance with renal dialysis for other reason; Z95.1 Presence of aortocoronary bypass graft; Z79.82 Long term (current) use of aspirin; Z79.899 Other long term (current) drug therapy; Z87.891 Personal history of nicotine dependence
CPT/HCPCS: 36415; 36600; 51702; 71045; 71275; 80048; 82803; 83605; 83880; 84484; 85025; 85379; 85610; 85730; 87040; 87449; 87631; 87633; 90937; 93005; 94002; 94640; 94762; 97161; 99252; 99285; J7030; Q9967; A4216; G0257; G0463; J0696; J1940

== ENCOUNTER 2024-09-25 11:01 | Inpatient (IN) | payer MEDICARE, OTHER, SELFPAY ==
[2024-09-25] VITALS (14 sets, daily range): BP systolic 129–176; BP diastolic 57–82; PULSE 71–81; RESP 18–23; TEMP 36–36.9; O2SAT 88–96; BMI 28.8; BMI 28.4
--- NOTE | 2024-09-25 11:15 | EKG12_ITS ---
Test Reason : SOB Blood Pressure : */* mmHG Vent. Rate : 74 BPM Atrial Rate : 74 BPM P-R Int : 156 ms QRS Dur : 118 ms QT Int : 452 ms P-R-T Axes : 66 -36 124 degrees QTcB Int : 501 ms Normal sinus rhythm Possible Left atrial enlargement Left axis deviation Left ventricular hypertrophy with QRS widening ( Mayank product ) ST & T wave abnormality, consider lateral ischemia Prolonged QT Abnormal ECG Confirmed by Riki Muniz ([id number]), assignment desk editor TREY ELIZONDO ([id number]) on 09/26/2024 9:55:55 AM Referred By: TB/BB Confirmed By: Riki Muniz
--- NOTE | 2024-09-25 11:15 | RAD_ITS ---
INDICATION: sob EXAMINATION/TECHNIQUE: X-RAY - XR Chest 2 Views COMPARISON: Prior study dated: 09/17/2024 FINDINGS: LINES/DEVICES: Fracture of the inferior sternotomy wire. LUNGS: The lungs are hyperexpanded. Small bilateral pleural effusions. Interstitial prominence with Sheree B-lines. No pneumothorax. MEDIASTINUM AND CARDIOVASCULAR STRUCTURES: Cardiac silhouette not enlarged. Central airways and mediastinal contour are unremarkable. BONES AND SOFT TISSUES: No acute abnormality. RAD/Chest PA and Lateral IMPRESSION: Small pleural effusions with interstitial edema. Improved aeration compared to prior. Electronically Signed: Silas Oconnell MD at 12:44 EST ,
--- NOTE | 2024-09-25 11:23 | EDS_ITS ---
HPI History of Present Illness Chief Complaint: Shortness of Breath Narrative Narrative: Patient is a 69-year-old male with past medical history of end-stage renal disease on dialysis Monday not missed any recent sessions, CAD status post CABG 4 years ago, hypertension, hypercholesterolemia, heart failure, anxiety who presents to the emergency department chief complaint of shortness of breath. Patient states that this morning he noted that he was short of breath and notes that this progressively worsened throughout the morning prompting him to come here for further evaluation management. Patient states that he is not normally on oxygen and noted that when he checked this at home it was in the mid 80s. They state that when he arrived here his oxygen level was 74% therefore he is on nasal cannula now. [facility] Medical History (Updated 09/25/24 @ 13:[address] Justen Barajas, ) Bilateral carotid artery stenosis ESRD (end stage renal disease) on dialysis History of non-ST elevation myocardial infarction (NSTEMI) (12/28/20) Chronic systolic (congestive) heart failure Postoperative ileus (01/15/21) Atherosclerotic heart disease of [place] coronary artery without angina pectoris Acute HFrEF (heart failure with reduced ejection fraction) Ischemic cardiomyopathy Flash pulmonary edema Bilateral inguinal hernia without obstruction or gangrene Hypercholesteremia Essential (primary) hypertension White coat syndrome with hypertension Myocardial infarction History of diverticulitis Anxiety Home Medications ?Medication ?Instructions ?Recorded ?Last Taken ?Type sertraline 50 mg tablet 50 mg PO DAILY mood 05/09/19 06/03/24 History aspirin 81 mg chewable tablet 81 mg PO DAILY@0800 cardiac ##90 12/30/20 06/03/24 Rx mv,[id number] 1 cap PO DAILY dialysis 06/16/23 06/03/24 History oil 400 mcg-500 unit capsule (ProRenal QD) amlodipine 10 mg tablet 5 mg PO DAILY heart and BP 06/14/24 Unknown History carvedilol 12.5 mg tablet 12.5 mg PO BID heart and BP 07/01/24 Unknown History sucroferric oxyhydroxide 500 mg 500 mg PO TID 09/25/24 Unknown History chewable tablet (Velphoro) Allergy/AdvReac Type Severity Reaction Status Date / Time Seasonal Allergies: Uncoded Allergy Intermediate Unknown Verified 09/25/24 11:03 ezetimibe (From Zetia) AdvReac Intermediate unstable Verified 09/25/24 11:03 gait, myalgia, joint pain isosorbide AdvReac Intermediate Dizziness Verified 09/25/24 11:03 atorvastatin (From Lipitor) AdvReac unstable Verified 09/25/24 11:03 gait, myalgia rosuvastatin (From Crestor) AdvReac unstable Verified 09/25/24 11:03 gait, myalgia Family History Mother Heart disease Father Hypertension Cardiac arrest Surgical History H/O coronary artery bypass surgery (01/11/21) History of left heart catheterization (12/28/20) S/P arteriovenous (AV) fistula creation History of right inguinal hernia repair (01/08/20) History of colonoscopy (2009) History of colostomy reversal History of partial colectomy Social History Smoking Status: Former smoker quit date: 09/25/18 pack-years: 65 how long ago did patient quit smokin years ago alcohol intake: never substance use type: does not use caffeine: Yes Type: coffee Number of servings: 2 what type of physical activity do you participate in: none frequency: does not exercise ROS ROS ED ROS Narrative Constitutional: Denies any fevers, chills, headaches, lightness, dizziness Eyes: Denies change in vision double vision blurry vision Cardiovascular: Denies chest pain or palpitations Respiratory: Complains of shortness of breath as noted above denies coughing wheezing Abdomen: Denies abdominal pain nausea vomiting : Denies any pain phonation, hematuria Neurological: Denies numbness, wheeze, tingling Musculoskeletal: Denies back pain Skin: Denies rashes or lesions EXAM Physical Exam Narrative Exam Narrative: General: Patient lying in bed rest comfortably did not appear to be acute distress Head: atraumatic, normocephalic Eyes: PERRL bilaterally, EOMI bilateral, no conjunctival injection noted Neck: Soft, supple, trachea midline Cardiovascular: Regular rate and rhythm no murmurs gallops rubs noted Respiratory: Clear to auscultation bilaterally no wheezing noted Abdomen: Soft, nondistended, nontender to palpation bowel sounds present x 4 Musculoskeletal: Patient has palpable thrill in fistula noted in his left arm Extremities: +5/5 strength noted in the bilateral lower EXTR, no pedal edema on exam Neurological: Patient follow commands knew that he was at [facility] years 2023 Skin: Warm, dry, intact Const Vital Signs: 09/25/24 11:02 09/25/24 11:03 09/25/24 11:12 Temperature 96.8 F L 98.4 F Temperature Source Temporal Oral Pulse Rate 80 76 Respiratory Rate 22 H 22 H Respiratory Effort Short of Breath Respiratory Depth Shallow Respiratory Pattern Tachypnea Blood Pressure 157/60 H 129/63 H Blood Pressure Mean 92 85 Pulse Ox 89 96 Oxygen Delivery Method Room Air Nasal Cannula Room Air Oxygen Flow Rate (L/min) 09/25/24 11:12 09/25/24 11:13 09/25/24 12:15 Temperature Temperature Source Pulse Rate 72 Respiratory Rate 23 H Respiratory Effort Respiratory Depth Respiratory Pattern Blood Pressure 155/60 H Blood Pressure Mean 87 Pulse Ox 89 96 94 Oxygen Delivery Method Room Air Nasal Cannula Oxygen Flow Rate (L/min) 2 09/25/24 12:16 09/25/24 12:59 Temperature 97.8 F Temperature Source Pulse Rate 72 Respiratory Rate 20 H Respiratory Effort Respiratory Depth Respiratory Pattern Blood Pressure 149/59 H Blood Pressure Mean 89 Pulse Ox 95 Oxygen Delivery Method Nasal Cannula Oxygen Flow Rate (L/min) 2 MDM MDM MDM Narrative Medical decision making narrative: Patient is a 69-year-old male who presented to the emergency department chief complaint of shortness of breath and hypoxia. Patient will have a workup performed here on the differential diagnose includes Melamin to CHF exacerbation, pneumonia, pneumothorax, ACS. Once workup is obtained reviewed he will be reevaluated. Patient's EKG reviewed and showed sinus rhythm rate of 74 bpm and this was compared to a previous EKG on 09/17/2024 which is largely unchanged. Patient CBC reviewed and was largely unremarkable no evidence of leukocytosis white blood count normal at 6.5, hemoglobin is 11.3, platelet count was noted be 241. Patient sodium normal 139, potassium normal 4.2, creatinine is 7.25 will however he is on dialysis chronically, troponin was noted to be 175 a delta troponin is pending. Called and discussed the elevated troponin and his EKG with on-call rn recruitment Dr. Muniz and this is likely type II PA from demand ischemia. Patient's chest x-ray was reviewed by myself and by radiology which showed small pleural effusions with interstitial edema which is improved compared to previous studies. At this point time do believe the patient will warrant admission for his dyspnea on exertion and hypoxia as he is not on oxygen at baseline. Patient case will be discussed with hospitalist. Did discuss case with hospitalist Dr. Sandy who accept patient for admission. Patient was notified as well as significant other at bedside they are agreeable with this plan all question concerns answered Lab Data Labs: Laboratory Results - last 24 hr 09/25/24 11:34 WBC 6.5 RBC 3.28 L Hgb 11.3 L Hct 32.6 L MCV 99.4 H MCH 34.5 H MCHC 34.7 RDW Std Deviation 47.2 H RDW Coeff of Steven 13.2 Plt Count 241 MPV 10.2 Immature Gran % (Auto) 0.300 Neut % (Auto) 61.3 Lymph % (Auto) 23.8 [place] % (Auto) 10.9 H Eos % (Auto) 2.9 Baso % (Auto) 0.8 Absolute Neuts (auto) 4.0 Absolute Lymphs (auto) 1.55 Nucleated RBC % 0 Sodium 139 Potassium 4.2 Chloride 98 Carbon Dioxide 34.0 H Anion Gap 7 BUN 48 H Creatinine 7.25 H Estim Creat Clear Calc 10.75 Est GFR (MDRD) Af Amer 10 L Est GFR (MDRD) Non-Af 8 L BUN/Creatinine Ratio 6.6 L Glucose 127 H Calcium 8.3 L Troponin I High Sens 175 H* Radiography Diagnostic Testing: Clinical Impression(s) from Imaging Studies Chest X-Ray 09/25/24 11:15 IMPRESSION: Small pleural effusions with interstitial edema. Improved aeration compared to prior. Electronically Signed: Silas Oconnell MD at 12:44 EST , Discharge Plan Triage Chief Complaint: Shortness of Breath ED Provider: Justen Barajas Dx/Rx/DC Orders Clinical Impression: Dyspnea on exertion, Acute hypoxic respiratory failure Prescriptions: No Action sertraline 50 mg tablet 50 mg PO DAILY amlodipine 10 mg tablet 5 mg PO DAILY ProRenal QD 400-500 mcg-unit capsule 1 cap PO DAILY Patient Comments: TAKE 1 CAPSULE BY MOUTH EVERY DAY aspirin 81 MG tablet,chewable 81 mg PO DAILY@0800 Qty: 90 0RF carvedilol 12.5 mg tablet 12.5 mg PO BID Velphoro 500 mg tablet,chewable 500 mg PO TID Primary Care Provider: Damion Leroy Chi Referrals: Damion Leroy Chi, MD [Primary Care Provider] - Print Language: Andorran Disposition Disposition: Acute Care Hospital [facility]
[2024-09-25 11:45] LABS: Absolute Lymphocyte Count 1.55 X10^3/uL (0.83-4.51); Basophil# 0.05 X10^3/uL; Basophil% 0.8 % (0-1); Eosinophil# 0.19 X10^3/uL; Eosinophils% 2.9 % (0-5); Hematocrit 32.6 % (40-54); Hemoglobin 11.3 g/dL (13.0-16.5); Lymphocyte # 1.55 X10^3/ul (0.83-4.51); Lymphocyte % 23.8 % (19-41); Mean Corp Hgb Conc 34.7 g/dL (32-36); Mean Corpuscular Hgb 34.5 pg (27.0-32.0); Mean Corpuscular Volume 99.4 fL (80-94); Mean Platelet Vol. 10.2 fl (6.2-12.0); Monocyte# 0.71 X10^3/uL; Monocyte% 10.9 % (0-10); NRBC Flagged by Analyzer 0 % (0-5); Neutrophil # 3.99 X10^3/uL (2.7-7.7); Neutrophil % 61.3 % (47-70); Platelet Count 241 K/mm3 (150-450); RBC Distribution Width CV 13.2 % (11.6-14.6); RBC Distribution Width SD 47.2 fl (35.1-43.9); Red Blood Count 3.28 M/mm3 (4.6-6.2); White Blood Count 6.5 K/mm3 (4.4-11.0)
[2024-09-25 12:12] LABS: Anion Gap 7 (5-15); BUN 48 mg/dL (7-18); BUN/Creat Ratio 6.6 RATIO (10-20); Calcium,Total 8.3 mg/dL (8.5-10.1); Chloride 98 mmol/L (98-107); Creatinine, Serum 7.25 mg/dL (0.70-1.30); EST Glomerular Filtration Rate 8 mL/min (>60); Est Glom Filt Rate - Afr Amer 10 mL/min (>60); Estimated Creatinine Clearance 10.75 ml/min; Glucose 127 mg/dL (74-106); Potassium 4.2 mmol/L (3.5-5.1); Sodium Level 139 mmol/L (136-145); Troponin-I HS (w/2H Reflex) 175 pg/mL (3.0-78.0)
--- NOTE | 2024-09-25 13:02 | HP.PCM.HOS_ITS ---
HPI - General General Date of Admission: 09/25/24 Date of Service: 09/25/24 Chief Complaint: shortness of breath HPI Narrative JOSELITO LAWSON, is a 69 M with a PMH as outlined who presents via the ED on 09/25/2024 with a complaint of shortness of breath which started on the morning of admission. He was recently discharged on after being admitted and managed for similar shortness of breath. He is on dialysis T/T/S. He was discharged home on antibiotics for pneumonia and subsequently came back in the day of admission with a complaint of shortness of breath which started the morning of admission. He says he has been compliant with dialysis. Denies any chest pain, palpitations, dizziness, nausea vomiting or any other symptoms. Review of systems otherwise negative. Vitals in the ED were blood pressure of 149/59, pulse rate of 72, respiratory rate of 20 temperature of 97.8 Fahrenheit. He was saturating at 95% on 2 L of oxygen. CBC showed WBC of 6.5, hemoglobin of 11.3 and platelets of 241. Chemistry shows sodium of 139 with potassium of 4.2 and bicarb of 34. Creatinine was 7.25. Initial troponin was 175. Chest x-ray showed small bilateral pleural effusions with interstitial edema and improved aeration compared to prior. [facility] Medical History (Updated 09/25/24 @ 13:[address] Justen Barajas, ) Bilateral carotid artery stenosis ESRD (end stage renal disease) on dialysis History of non-ST elevation myocardial infarction (NSTEMI) (12/28/20) Chronic systolic (congestive) heart failure Postoperative ileus (01/15/21) Atherosclerotic heart disease of [place] coronary artery without angina pectoris Acute HFrEF (heart failure with reduced ejection fraction) Ischemic cardiomyopathy Flash pulmonary edema Bilateral inguinal hernia without obstruction or gangrene Hypercholesteremia Essential (primary) hypertension White coat syndrome with hypertension Myocardial infarction History of diverticulitis Anxiety Home Medications ?Medication ?Instructions ?Recorded ?Last Taken ?Type sertraline 50 mg tablet 50 mg PO DAILY mood 05/09/19 06/03/24 History aspirin 81 mg chewable tablet 81 mg PO DAILY@0800 cardiac ##90 12/30/20 06/03/24 Rx mv,[id number] 1 cap PO DAILY dialysis 06/16/23 06/03/24 History oil 400 mcg-500 unit capsule (ProRenal QD) amlodipine 10 mg tablet 5 mg PO DAILY heart and BP 06/14/24 Unknown History carvedilol 12.5 mg tablet 12.5 mg PO BID heart and BP 07/01/24 Unknown History doxycycline hyclate 100 mg tablet 100 mg PO BID infection 09/25/24 Unknown History sucroferric oxyhydroxide 500 mg 500 mg PO TID 09/25/24 Unknown History chewable tablet (Velphoro) Allergy/AdvReac Type Severity Reaction Status Date / Time Seasonal Allergies: Uncoded Allergy Intermediate Unknown Verified 09/25/24 11:03 ezetimibe (From Zetia) AdvReac Intermediate unstable Verified 09/25/24 11:03 gait, myalgia, joint pain isosorbide AdvReac Intermediate Dizziness Verified 09/25/24 11:03 atorvastatin (From Lipitor) AdvReac unstable Verified 09/25/24 11:03 gait, myalgia rosuvastatin (From Crestor) AdvReac unstable Verified 09/25/24 11:03 gait, myalgia Family History Mother Heart disease Father Hypertension Cardiac arrest Surgical History H/O coronary artery bypass surgery (01/11/21) History of left heart catheterization (12/28/20) S/P arteriovenous (AV) fistula creation History of right inguinal hernia repair (01/08/20) History of colonoscopy (2009) History of colostomy reversal History of partial colectomy Social History Smoking Status: Former smoker quit date: 09/25/18 pack-years: 65 how long ago did patient quit smokin years ago alcohol intake: never substance use type: does not use caffeine: Yes Type: coffee Number of servings: 2 what type of physical activity do you participate in: none frequency: does not exercise ROS Constitutional Constitutional: Reports fatigue, malaise and weakness; Denies anorexia, chills or fever(s) Eyes Eyes: Denies change in vision ENT HEENT: Denies dysphagia or headache(s) Cardiovascular Cardiovascular: Reports dyspnea on exertion; Denies chest pain, edema, lightheadedness, orthopnea, palpitations, paroxysmal nocturnal dyspnea, rapid heart rate or syncope Respiratory/Chest Respiratory/Chest: Reports cough, dyspnea, shortness of breath at rest and shortness of breath with exertion; Denies excessive phlegm production, hemoptysis, productive cough or wheezing Gastrointestinal Gastrointestinal: Denies abdominal pain, constipation, diarrhea, dyspepsia, melena, nausea or vomiting Genitourinary Genitourinary: Denies burning urination, dysuria or hematuria Musculoskeletal Musculoskeletal: Denies arthralgias or back pain Neurologic Neurologic: Denies confusion, dizziness, focal weakness, headache(s), numbness or paresthesias Psychiatric Psychiatric: Denies anxiety Endocrine Endocrinology: Denies change in body appearance Vital Signs Vital Signs Vital Signs: 09/25/24 11:02 09/25/24 11:03 09/25/24 11:12 Temperature 96.8 F L 98.4 F Temperature Source Temporal Oral Pulse Rate 80 76 Respiratory Rate 22 H 22 H Respiratory Effort Short of Breath Respiratory Depth Shallow Respiratory Pattern Tachypnea Blood Pressure 157/60 H 129/63 H Blood Pressure Mean 92 85 Pulse Ox 89 96 Oxygen Delivery Method Room Air Nasal Cannula Room Air Oxygen Flow Rate (L/min) 09/25/24 11:12 09/25/24 11:13 09/25/24 12:15 Temperature Temperature Source Pulse Rate 72 Respiratory Rate 23 H Respiratory Effort Respiratory Depth Respiratory Pattern Blood Pressure 155/60 H Blood Pressure Mean 87 Pulse Ox 89 96 94 Oxygen Delivery Method Room Air Nasal Cannula Oxygen Flow Rate (L/min) 2 09/25/24 12:16 09/25/24 12:59 Temperature 97.8 F Temperature Source Pulse Rate 72 Respiratory Rate 20 H Respiratory Effort Respiratory Depth Respiratory Pattern Blood Pressure 149/59 H Blood Pressure Mean 89 Pulse Ox 95 Oxygen Delivery Method Nasal Cannula Oxygen Flow Rate (L/min) 2 Weight Weight: 200 lb 8 oz Body Mass Index (BMI) 28.8 Physical Exam Const alert, oriented x3 and no apparent distress General Appearance: cooperative HEENT normocephalic, head/scalp atraumatic and hearing grossly normal bilaterally Mouth: oral and palatal mucosa normal Eyes PERRL, EOMs intact bilaterally and conjunctivae normal Resp Resp Narrative: diminished breath sounds bibasally, no wheezes or crackles. on 3L of oxygen. Cardio regular rate, regular rhythm, S1 normal heart sound, S2 normal heart sound and no murmurs GI normal to inspection, nondistended, normoactive bowel sounds, soft to palpation, non-tender and non-distended Extremity normal to inspection, full ROM and no clubbing, cyanosis or edema Neuro oriented x3, CN's II-XII intact bilaterally, moves all extremities and no focal motor deficits Sensorium / Orientation: awake and alert Motor Exam: strength 5/5 throughout Psych affect normal Results Lab / Micro Data 09/25/24 11:34 09/25/24 11:34 Labs: Laboratory Results - last 24 hr 09/25/24 11:34: WBC 6.5, RBC 3.28 L, Hgb 11.3 L, Hct 32.6 L, MCV 99.4 H, MCH 34.5 H, MCHC 34.7, RDW Std Deviation 47.2 H, RDW Coeff of Steven 13.2, Plt Count 241, MPV 10.2, Immature Gran % (Auto) 0.300, Neut % (Auto) 61.3, Lymph % (Auto) 23.8, [place] % (Auto) 10.9 H, Eos % (Auto) 2.9, Baso % (Auto) 0.8, Absolute Neuts (auto) 4.0, Absolute Lymphs (auto) 1.55, Nucleated RBC % 0, Sodium 139, Potassium 4.2, Chloride 98, Carbon Dioxide 34.0 H, Anion Gap 7, BUN 48 H, C reatinine 7.25 H, Estim Creat Clear Calc 10.75, Est GFR (MDRD) Af Amer 10 L, Est GFR (MDRD) Non-Af 8 L, BUN/Creatinine Ratio 6.6 L, Glucose 127 H, Calcium 8.3 L, Troponin I High Sens 175 H* Imaging Radiology Impression Chest X-Ray 09/25/24 11:15 IMPRESSION: Small pleural effusions with interstitial edema. Improved aeration compared to prior. Electronically Signed: Silas Oconnell MD at 12:44 EST , Assessment & Plan Assessment/Plan (1) Dyspnea on exertion: (2) Hypoxia: PLAN: Plan Hypoxia * patient admitted with a complaint of shortness of breath. He is now on 3L of oxygen. * He was recently admitted with similar complaints and did well after dialysis * he had dialysis on Monday and says about 3.5 L was removed. * Got acutely short of breath this morning. * Chest x-ray shows small pleural effusions with interstitial edema with improved aeration compared to prior * Was discharged home on p.o. doxycycline for pneumonia during his last admission. He has 3 pills left to complete the course. Will continue doxycycline. * Nephrology consulted for dialysis. * His 2D echo during the last admission showed EF of 65% with severe left ventricular hypertrophy. I am concerned about a possible left ventricular outflow tract obstruction. I did speak to sales developer Dr. Muniz who is on- call. He recommended getting a repeat echo with Valsalva maneuver to check for LV outflow tract obstruction. * breathing treatment with bronchodilators * titrate oxygen to maintain sats >90% * #ESRD: on HD TTS. Consult nephrology. Does have a history of noncompliance. Counseled to be compliant with dialysis. #Elevated troponins. * Initial troponin was 175 and came down to 168. * This is likely due to the hypoxia. * He recently had a cardiac cath in June 2024 which showed coronary artery disease with patent COX to the LAD saphenous vein graft to the RCA being patent with a normal stress test on the perfusion scan and disease also noted in the circumflex artery and saphenous vein graft to the OM was not found. * On aspirin and carvedilol. 2D echo from 09/12/2024 showed EF of 50% with severe concentric left ventricular hypertrophy and stage I diastolic dysfunction. * * #History of chronic combined heart failure * Has known EF of 50%. On carvedilol. He says he still makes urine so we will place on IV lasix 40mg daily * dialysis will help with removal of fluids * check BNP * DVT prophylaxis: heparin COde status: full code * Patient counseled extensively about different types of CODE STATUS including full code, DNR CCA and DNR CCA. * Patient elects to be full code. * Total rqaj-it-[id number] time 17 minutes. Charges/Coding Visit Charges Inpatient E&M: 12873 Init Hosp L3 Procedures Hospitalists Procedures: 01303 Advncd Care Plan 30 Min
[2024-09-25 13:36] LABS: Reflex Troponin-HS? (from REC) Y
[2024-09-25 14:14] LABS: Troponin-I HS 168 pg/mL (3.0-78.0)
--- NOTE | 2024-09-25 15:14 | ECHOL_ITS ---
Reason For Study: SHORTNESS OF BREATH Procedure This was a limited 2D transthoracic echocardiogram. Myocardial strain analysis was performed in this exam to aid in the assessment of cardiac function. Exam performed portable in patient room. Left Ventricle Normal LV size. Moderate concentric left ventricular hypertrophy. The left ventricular ejection fraction is 50 %. Right Ventricle Normal right ventricle. Atria The left atrium is severely enlarged. Normal right atrium. Mitral Valve Mild mitral annular calcification. Mildly thickened mitral valve leaflets. Severe mitral valve regurgitation. Tricuspid Valve Mild tricuspid valve insufficiency. Right ventricular systolic pressure estimated to be 59 mmHg. Aortic Valve Trisinus/trileaflet aortic valve. Moderate to severe aortic valve insufficiency. Pulmonic Valve The pulmonic valve is not well visualized. Trivial pulmonic valve insufficiency. Great Vessels Normal sized aortic root. Pericardium/Pleural No pericardial effusion. MMode/2D Measurements & Calculations LVIDd: 5.4 cm IVSd: 1.6 cm LVOT diam: 2.1 cm LVIDs: 4.0 cm LVPWd: 1.4 cm LVOT area: 3.6 cm2 RVDd: 3.3 cm FS: 25.4 % LAV(MOD-bp): 61.6 ml LVAd ap4: 29.7 cm2 LVAd ap2: 34.7 cm2 LAV(MOD-bp) Indexed: 29.6 ml/m2 LVLd ap4: 8.1 cm LVLd ap2: 8.2 cm LAV(MOD-sp2): 102.9 ml EDV(MOD-sp4): 90.5 ml EDV(MOD-sp2): 124.2 ml LAV(MOD-sp4): 31.3 ml EDV(sp4-el): 92.4 ml EDV(sp2-el): 125.5 ml LVAs ap4: 18.1 cm2 LVAs ap2: 22.3 cm2 LVLs ap4: 6.4 cm LVLs ap2: 7.0 cm ESV(MOD-sp4): 42.5 ml ESV(MOD-sp2): 60.5 ml ESV(sp4-el): 43.0 ml ESV(sp2-el): 60.3 ml EF(MOD-sp4): 53.1 % EF(MOD-sp2): 51.3 % EF(sp4-el): 53.4 % SV(MOD-sp4): 48.0 ml SV(MOD-sp2): 63.6 ml SV(sp4-el): 49.4 ml SI(MOD-sp4): 23.1 ml/m2 SI(MOD-sp2): 30.6 ml/m2 Ao sinus diam: 3.[address] Junction: 2.9 cm LA A4 area: 13.4 cm2 LA dimension(2D): 5.1 cm TAPSE: 1.8 cm RA A4 area: 13.1 cm2 Time Measurements MV dec time: 0.13 sec Doppler Measurements & Calculations MV E max nirav: 172.7 cm/sec Lat Peak E' Nirav: 8.6 cm/sec Med Peak E' Nirav: 8.0 cm/sec MV A max nirav: 84.0 cm/sec E/E' lat: 20.1 E/E' med: 21.7 MV E/A: 2.1 MV dec slope: 1288 cm/sec2 Ao V2 max: 136.2 cm/sec AI max nirav: 445.1 cm/sec Ao max P.4 mmHg AI max P.3 mmHg Ao V2 mean: 94.4 cm/sec AI dec slope: 501.9 cm/sec2 Ao mean P.0 mmHg AI P1/2t: 259.7 msec Ao V2 VTI: 27.2 cm AV (velocity ratio): 0.83 AMADOR(I,D): 3.0 cm2 AMADOR(V,D): 2.7 cm2 LV V1 max: 103.5 cm/sec SV(LVOT): 80.6 ml PA V2 max: 105.7 cm/sec LV V1 max P.3 mmHg LV V1 mean P.4 mmHg LV V1 mean: 73.4 cm/sec LV V1 VTI: 22.6 cm PI end-d nirav: 156.6 cm/sec TR max nirav: 330.4 cm/sec TR max P.7 mmHg ECHO/Echo, Limited Study Interpretation Summary Moderate concentric left ventricular hypertrophy. The left ventricular ejection fraction is 50 %. The left atrium is severely enlarged. Mildly thickened mitral valve leaflets. Severe mitral valve regurgitation. Mild tricuspid valve insufficiency. Right ventricular systolic pressure estimated to be 59 mmHg. Moderate to severe aortic valve insufficiency. Ordering Physician: Martha Sandy Referring Physician: Damion Leroy Chi Performed By: Lizabeth Young RDCS
[2024-09-25] MEDS: Ipratropium/Albuterol Sulfate 3 ML AMPUL.NEB INHALATION ×2 (19:10→23:02)
[2024-09-25] MEDS: Doxycycline 100 MG CAPSULE PO (21:38)
[2024-09-25] MEDS: Heparin Injection (Vial) 5,000 UNIT/ML VIAL 5000 UNIT SC (21:38)
[2024-09-25] MEDS: Carvedilol 12.5 MG Tablet PO (21:38)
[2024-09-26] VITALS (14 sets, daily range): BP systolic 151–262; BP diastolic 63–81; PULSE 64–84; RESP 12–19; TEMP 36.4–37.2; O2SAT 86–100; BMI 28.5; BMI 27.4
--- NOTE | 2024-09-26 03:35 | CPS ---
while walking passed pt room ,discovered pt walking alone with multiple cords and tubing to bathroom in a panic and without his oxygen on. pt color was stern RT called for help. Then had ORDNANCE HANDLER jovani RN as well.
[2024-09-26] MEDS: Heparin Injection (Vial) 5,000 UNIT/ML VIAL 5000 UNIT SC ×3 (05:16→20:34)
[2024-09-26 07:10] LABS: Absolute Lymphocyte Count 1.22 X10^3/uL (0.83-4.51); Basophil# 0.06 X10^3/uL; Basophil% 0.8 % (0-1); Eosinophil# 0.19 X10^3/uL; Eosinophils% 2.6 % (0-5); Hematocrit 31.6 % (40-54); Hemoglobin 10.9 g/dL (13.0-16.5); Lymphocyte # 1.22 X10^3/ul (0.83-4.51); Mean Corp Hgb Conc 34.5 g/dL (32-36); Mean Corpuscular Hgb 34.7 pg (27.0-32.0); Mean Corpuscular Volume 100.6 fL (80-94); Mean Platelet Vol. 10.5 fl (6.2-12.0); Monocyte# 0.75 X10^3/uL; Monocyte% 10.4 % (0-10); NRBC Flagged by Analyzer 0 % (0-5); Neutrophil # 4.95 X10^3/uL (2.7-7.7); Neutrophil % 68.9 % (47-70); Platelet Count 245 K/mm3 (150-450); RBC Distribution Width CV 13.1 % (11.6-14.6); RBC Distribution Width SD 46.7 fl (35.1-43.9); Red Blood Count 3.14 M/mm3 (4.6-6.2); White Blood Count 7.2 K/mm3 (4.4-11.0)
[2024-09-26 07:56] LABS: Anion Gap 9 (5-15); BUN 57 mg/dL (7-18); BUN/Creat Ratio 6.6 RATIO (10-20); Calcium,Total 8.2 mg/dL (8.5-10.1); Chloride 97 mmol/L (98-107); Creatinine, Serum 8.68 mg/dL (0.70-1.30); EST Glomerular Filtration Rate 7 mL/min (>60); Est Glom Filt Rate - Afr Amer 8 mL/min (>60); Estimated Creatinine Clearance 8.93 ml/min; Glucose 101 mg/dL (74-106); Potassium 4.6 mmol/L (3.5-5.1); Sodium Level 136 mmol/L (136-145)
[2024-09-26] MEDS: Verapamil SR 240 MG Tablet 120 MG PO (08:16)
[2024-09-26] MEDS: Carvedilol 12.5 MG Tablet PO ×2 (08:17→20:34)
[2024-09-26] MEDS: Aspirin 81 MG TAB.CHEW PO (08:17)
[2024-09-26] MEDS: Sertraline 50 MG Tablet PO (08:17)
[2024-09-26] MEDS: Doxycycline 100 MG CAPSULE PO ×2 (08:17→20:34)
--- NOTE | 2024-09-26 08:17 | PCM.CONS.R ---
Assessment & Plan Assessment/Plan (1) ESRD (end stage renal disease) on dialysis: PLAN: dialyssi TTS, arrange dialysis today with 3L fluid removal. Challenge TW (2) Acute hypoxic respiratory failure: (3) Dyspnea on exertion: (4) Fluid overload: QUALIFIERS: Hypervolemia type: unspecified Qualified Code(s): E87.70 - Fluid overload, unspecified (5) Essential (primary) hypertension: (6) Ischemic cardiomyopathy: HPI Consult Data Date of Consult: 09/26/24 HPI Narrative Reason for Consultation: ESRD HD TTS dialysis mgmt HPI Narrative: JOSELITO LAWSON, is a 69 M who presents with increased dyspnea. CXR with pulmonary edema. Recently discharged from hospital with pneumonia,hypoxia, fluid overload. Decrease appetite. HTN with stable BP. He has ESRD on HD TTS, last dialysis Monday. Discussed with patient challenge fluid removal due to weight loss and fluid overload. [facility] Medical History (Updated 09/25/24 @ 13:[address] Justen Barajas, DO) Bilateral carotid artery stenosis ESRD (end stage renal disease) on dialysis History of non-ST elevation myocardial infarction (NSTEMI) (12/28/20) Chronic systolic (congestive) heart failure Postoperative ileus (01/15/21) Atherosclerotic heart disease of [place] coronary artery without angina pectoris Acute HFrEF (heart failure with reduced ejection fraction) Ischemic cardiomyopathy Flash pulmonary edema Bilateral inguinal hernia without obstruction or gangrene Hypercholesteremia Essential (primary) hypertension White coat syndrome with hypertension Myocardial infarction History of diverticulitis Anxiety Home Medications ?Medication ?Instructions ?Recorded ?Last Taken ?Type sertraline 50 mg tablet 50 mg PO DAILY mood 05/09/19 06/03/24 History aspirin 81 mg chewable tablet 81 mg PO DAILY@0800 cardiac ##90 12/30/20 06/03/24 Rx [id number],[id number] 1 cap PO DAILY dialysis 06/16/23 06/03/24 History oil 400 mcg-500 unit capsule (ProRenal QD) amlodipine 10 mg tablet 5 mg PO DAILY heart and BP 06/14/24 Unknown History carvedilol 12.5 mg tablet 12.5 mg PO BID heart and BP 07/01/24 Unknown History doxycycline hyclate 100 mg tablet 100 mg PO BID infection 09/25/24 Unknown History sucroferric oxyhydroxide 500 mg 500 mg PO TID 09/25/24 Unknown History chewable tablet (Velphoro) Allergy/AdvReac Type Severity Reaction Status Date / Time Seasonal Allergies: Uncoded Allergy Intermediate Unknown Verified 09/25/24 11:03 ezetimibe (From Zetia) AdvReac Intermediate unstable Verified 09/25/24 11:03 gait, myalgia, joint pain isosorbide AdvReac Intermediate Dizziness Verified 09/25/24 11:03 atorvastatin (From Lipitor) AdvReac unstable Verified 09/25/24 11:03 gait, myalgia rosuvastatin (From Crestor) AdvReac unstable Verified 09/25/24 11:03 gait, myalgia Family History Mother Heart disease Father Hypertension Cardiac arrest Surgical History H/O coronary artery bypass surgery (01/11/21) History of left heart catheterization (12/28/20) S/P arteriovenous (AV) fistula creation History of right inguinal hernia repair (01/08/20) History of colonoscopy (2009) History of colostomy reversal History of partial colectomy Social History Smoking Status: Former smoker quit date: 09/25/18 pack-years: 64 how long ago did patient quit smokin years ago alcohol intake: never substance use type: does not use caffeine: Yes Type: coffee Number of servings: 2 what type of physical activity do you participate in: none frequency: does not exercise ROS Constitutional Constitutional: Reports weakness; Denies chills or fever(s) Cardiovascular Cardiovascular: Denies chest pain or syncope Respiratory/Chest Respiratory/Chest: Reports dyspnea on exertion and shortness of breath at rest; Denies dry cough Genitourinary Genitourinary: Denies change in urinary stream Musculoskeletal Musculoskeletal: Denies muscle cramps Neurologic Neurologic: Reports weakness Psychiatric Psychiatric: Denies confusion Hematologic/Lymphatic Hematologic/Lymphatic: Reports anemia Physical Exam Const alert and oriented x3 General Appearance: well developed HEENT normocephalic Resp Auscultation: crackles Cardio regular rate GI non-tender and non-distended Auscultation: normoactive bowel sounds Extremity no clubbing, cyanosis or edema General Extremity: AV fistula Neuro CN's II-XII intact bilaterally Sensorium / Orientation: awake Psych cooperative Lab / Micro Data 09/26/24 06:09 09/26/24 06:09 Labs: Laboratory Results - last 24 hr 09/25/24 11:34: WBC 6.5, RBC 3.28 L, Hgb 11.3 L, Hct 32.6 L, MCV 99.4 H, MCH 34.5 H, MCHC 34.7, RDW Std Deviation 47.2 H, RDW Coeff of Steven 13.2, Plt Count 241, MPV 10.2, Immature Gran % (Auto) 0.300, Neut % (Auto) 61.3, Lymph % (Auto) 23.8, Tyler % (Auto) 10.9 H, Eos % (Auto) 2.9, Baso % (Auto) 0.8, Absolute Neuts (auto) 4.0, Absolute Lymphs (auto) 1.55, Nucleated RBC % 0, Sodium 139, Potassium 4.2, Chloride 98, Carbon Dioxide 34.0 H, Anion Gap 7, BUN 48 H, Creatinine 7.25 H, Estim Creat Clear Calc 10.75, Est GFR (MDRD) Af Amer 10 L, Est GFR (MDRD) Non-Af 8 L, BUN/Creatinine Ratio 6.6 L, Glucose 127 H, Calcium 8.3 L, Troponin I High Sens 175 H* 09/25/24 13:45: Troponin I High Sens 168 H* 09/26/24 06:09: WBC 7.2, RBC 3.14 L, Hgb 10.9 L, Hct 31.6 L, MCV 100.6 H, MCH 34.7 H, MCHC 34.5, RDW Std Deviation 46.7 H, RDW Coeff of Steven 13.1, Plt Count 245, MPV 10.5, Immature Gran % (Auto) 0.300, Neut % (Auto) 68.9, Lymph % (Auto) 17.0 L, Tyler % (Auto) 10.4 H, Eos % (Auto) 2.6, Baso % (Auto) 0.8, Absolute Neuts (auto) 5.0, Absolute Lymphs (auto) 1.22, Nucleated RBC % 0, Sodium 136, Potassium 4.6, Chloride 97 L, Carbon Dioxide 29.0, Anion Gap 9, BUN 57 H, Creatinine 8.68 H*, Estim Creat Clear Calc 8.93, Est GFR (MDRD) Af Amer 8 L, Est GFR (MDRD) Non-Af 7 L, BUN/Creatinine Ratio 6.6 L, Glucose 101, Calcium 8.2 L Imaging Radiology Impression Chest X-Ray 09/25/24 11:15 IMPRESSION: Small pleural effusions with interstitial edema. Improved aeration compared to prior. Electronically Signed: Silas Oconnell MD at 12:44 EST , Echocardiogram 09/25/24 15:14 Interpretation Summary Moderate concentric left ventricular hypertrophy. The left ventricular ejection fraction is 50 %. The left atrium is severely enlarged. Mildly thickened mitral valve leaflets. Severe mitral valve regurgitation. Mild tricuspid valve insufficiency. Right ventricular systolic pressure estimated to be 59 mmHg. Moderate to severe aortic valve insufficiency. Ordering Physician: Martha Sandy Referring Physician: Damion Leroy Chi Performed By: Lizabeth Young RDCS
--- NOTE | 2024-09-26 08:18 | PCM.PN.HOSP ---
Reason for Visit Reason for Visit: Diagnoses Other forms of dyspnea (09/25/24) Hypoxemia (09/25/24) Subjective Subjective Patient with no acute events overnight per self and per nursing report although he does report having had more dyspnea especially with any exertion overnight but upon a.m. evaluation notes he feels improved but is continued on supplemental oxygen therapy. Patient fortunately's been noncompliant and very resistant to aggressive dialysis however this morning following lengthy discussion he notes intention to enable as much dialysis as able to tolerate. He denies any recent increased cough, URI type symptoms or fevers as he is recently been treated for pneumonia and is on the completion therapy of doxycycline. Patient denies fevers, chills, nausea, emesis, abdominal pain, chest pain. Objective Data Objective Data Vital Signs: Vital Signs Temp Pulse Resp BP Pulse Ox O2 Del Method O2 Flow Rate 98.1 F 80 18 158/71 H 95 High Flow 6 09/26/24 02:05 09/26/24 02:05 09/26/24 02:05 09/26/24 02:05 09/26/24 02:05 09/26/24 02:05 09/26/24 02:05 Oxygen Flow Rate (L/min) 6 Oxygen Delivery Method High Flow Weight: 199 lb 1.239 oz Body Mass Index (BMI) 28.5 Intake & Output: Intake and Output for Last 24 Hours 09/24/24 09/25/24 09/26/24 23:59 23:59 23:59 Intake Total 230 / 230 Balance 230 / 230 Lab / Micro Data 09/26/24 06:09 09/26/24 06:09 Labs: Laboratory Results - last 24 hr 09/25/24 11:34: WBC 6.5, RBC 3.28 L, Hgb 11.3 L, Hct 32.6 L, MCV 99.4 H, MCH 34.5 H, MCHC 34.7, RDW Std Deviation 47.2 H, RDW Coeff of Steven 13.2, Plt Count 241, MPV 10.2, Immature Gran % (Auto) 0.300, Neut % (Auto) 61.3, Lymph % (Auto) 23.8, Mcdonough % (Auto) 10.9 H, Eos % (Auto) 2.9, Baso % (Auto) 0.8, Absolute Neuts (auto) 4.0, Absolute Lymphs (auto) 1.55, Nucleated RBC % 0, Sodium 139, Potassium 4.2, Chloride 98, Carbon Dioxide 34.0 H, Anion Gap 7, BUN 48 H, Creatinine 7.25 H, Estim Creat Clear Calc 10.75, Est GFR (MDRD) Af Amer 10 L, Est GFR (MDRD) Non-Af 8 L, BUN/Creatinine Ratio 6.6 L, Glucose 127 H, Calcium 8.3 L, Troponin I High Sens 175 H* 09/25/24 13:45: Troponin I High Sens 168 H* 09/26/24 06:09: WBC 7.2, RBC 3.14 L, Hgb 10.9 L, Hct 31.6 L, MCV 100.6 H, MCH 34.7 H, MCHC 34.5, RDW Std Deviation 46.7 H, RDW Coeff of Steven 13.1, Plt Count 245, MPV 10.5, Immature Gran % (Auto) 0.300, Neut % (Auto) 68.9, Lymph % (Auto) 17.0 L, Mcdonough % (Auto) 10.4 H, Eos % (Auto) 2.6, Baso % (Auto) 0.8, Absolute Neuts (auto) 5.0, Absolute Lymphs (auto) 1.22, Nucleated RBC % 0, Sodium 136, Potassium 4.6, Chloride 97 L, Carbon Dioxide 29.0, Anion Gap 9, BUN 57 H, Creatinine 8.68 H*, Estim Creat Clear Calc 8.93, Est GFR (MDRD) Af Amer 8 L, Est GFR (MDRD) Non-Af 7 L, BUN/Creatinine Ratio 6.6 L, Glucose 101, Calcium 8.2 L Radiography Diagnostic Testing: Radiology Impression Chest X-Ray 09/25/24 11:15 IMPRESSION: Small pleural effusions with interstitial edema. Improved aeration compared to prior. Electronically Signed: Silas Oconnell MD at 12:44 EST , Echocardiogram 09/25/24 15:14 Interpretation Summary Moderate concentric left ventricular hypertrophy. The left ventricular ejection fraction is 50 %. The left atrium is severely enlarged. Mildly thickened mitral valve leaflets. Severe mitral valve regurgitation. Mild tricuspid valve insufficiency. Right ventricular systolic pressure estimated to be 59 mmHg. Moderate to severe aortic valve insufficiency. Ordering Physician: Martha Sandy Referring Physician: Damion Leroy Chi Performed By: Lizabeth Young, RDCHYNA Physical Exam Narrative Physical Examination: General: Awake, alert, oriented x 3 and cooperative, seated upright in PCU bed, fatigued otherwise no acute distress. Skin: Normal color, normal turgor, no icterus, no cyanosis. HEENT: AT/NC, EOMI, PERRLA, MMM. Lungs: Mildly diminished, greater bases, no evidence of distress, mildly increased respiratory rate, bilateral mild rales, no rhonchi or wheezing. Heart: Regular rate and rhythm; no gallop, rub audible. Abdomen: Soft, NTTP, ND, normal BS. Extremities: No cyanosis, clubbing, or edema, LUE AVF w/ + thrill. Neurological: Patient awake, alert, oriented as noted, cognitive function intact; pupils equally reactive to light and accommodation, cranial nerves gross normal, moving all 4 extremities, no focal deficits, strength moderately globally decreased. Psychiatric: Affect appears normal, currently calm, no acute evidence of depressive or anxiety feelings. Assessment & Plan Assessment/Plan (1) Pulmonary edema: PLAN: Plan The patient is a 69 y/o M w/ PMHx: Chronic anemia/AOCD, ESRD on HD T//Mon following w/ Dr. Ervin, HF recovered EF, HTN, HLD, CAD, Anxiety and Depression recent discharged 09/19/2024 with acute hypoxic and hypercapnic respiratory failure secondary to acute on chronic heart failure with recovered EF as well as pneumonia discharged on oral doxycycline with concurrent NSTEMI felt secondary to demand ischemia as well as noncompliance with dialysis who now represents to the [facility] ED on 09/25/24 with history of dyspnea worse with exertion starting on morning of presentation prompting repeat evaluation. #1. Recurrent Acute hypoxia suspected multifactorial, potential volume overload given noncompliance with dialysis with acute on chronic HF exacerbation with combined history with recovered EF as well as suspect component of worsening valvular heart disease in addition to recent pneumonia although clinically seems to be improving but also does have bilateral pleural effusions: Admitted to PCU, nephrology consulted for dialysis, will continue as noted completion course of doxycycline with repeat chest x-ray with no worsening infiltrate appearance, 09/25/2024 echocardiogram with moderate concentric LVH, LVEF 50%, severely enlarged LA, mildly thickened MV leaflets, severe MV regurgitation, mild to cuspid valve insufficiency, RV systolic pressure 59 mm degree, moderate to severe aortic valve insufficiency thus some concern valvular disease associated, cardiology consulted and evaluation pending, continued on breathing treatments and as needed albuterol, continue supplemental oxygen with wean as tolerated, improved oxygenation following dialysis 09/26/2024 however still required 4 L nasal cannula. #2. Recent bilateral pneumonia complicated by mild to moderate bilateral pleural effusions as well as moderate to severe symmetric pulmonary edema: Recent presentation with 09/17/2024 CTA with no evidence of PE but noted mild to moderate bilateral pleural effusions with moderate-severe asymmetric pulmonary edema pneumonia treated with IV agents at that time however upon discharge transition to oral doxycycline, chest x-ray upon current presentation with ongoing effusions with repeat 09/26/2024 chest x-ray PA and lateral with improvement, will continue oral doxycycline to completion. No marked WC elevation or left shift noted. #3. Indeterminate cardiac enzyme, improving, suspected demand given #1: Initial troponin 175, decreased to 168, suspected secondary to demand, most recent presentation with carolyne troponin 09/17/2020 [id number], recent cardiac catheterization as noted, continue on aspirin, Coreg, not on statin therapy secondary to intolerance, cardiology consulted as noted given concern that valvular disease could be contributing as well as heart failure, will continue to maintain on telemetry monitoring. #4. CAD with history of ischemic cardiomyopathy: Status post CABG with COX to LAD and saphenous vein graft to PDA and obtuse marginal branch, status post most recent cardiac catheterization 07/01/2024 with normal left main coronary artery, left anterior descending totally occluded in the midsegment with competitive flow noted, COX to LAD patent, saphenous vein graft to right coronary patent, [place] right coronary artery occluded, [place] circumflex artery first obtuse marginal branch 70 to 80% mid segment stenosis and tortuous vessel, saphenous vein graft to the obtuse marginal branch presumed occluded with recommended ongoing aggressive medical therapy at that time. Will continue aspirin, noted statin allergy, continue Coreg, not on ANGELINA/ARB given underlying renal disease. #5. Chronic anemia, macrocytic/AOCD: Admission hemoglobin 11.3, MCV 99.4, baseline hemoglobin 11-12 range, stable, 09/26/2024 hemoglobin 10.9, MCV 100.6, continue to trend. #6. Hypertension: Continue home regimen including verapamil, Coreg, IV Lasix given he still does make some urine, PRN hydralazine. #7. Hyperlipidemia: Noted statin intolerance. #8. Anxiety and depression: We will continue patient home sertraline regimen. #9. DVT prophylaxis: Heparin #10. CODE status: Full Code. Charges/Coding Visit Charges Inpatient E&M: 67788 Subs Hosp L3
[2024-09-26 10:03] LABS: Phosphorus 5.1 mg/dL (2.5-4.9)
--- NOTE | 2024-09-26 12:40 | CASEMGMT ---
Readmission Note: Index: 09/17/24-09/19/24. Dx: Acute Hypoxic RF, PNA Readmission: 09/25/24. Dx: Acute Hypoxia On index admission, the patient did not qualify for home oxygen, and he was discharged home with his family's support. At the time, the patient denied HH, OP Tx, SNF, CCN, or Pt Link. The patient is established out of [facility] for OP HD TTS. The patient was discharged home with PO ATBs for the PNA. The patient re-presents to [facility] with SOB. ADELITA SULLIVAN to pt room at this time. Pt is currently being dialyzed. Pt states that he was able to get his new Rx and take it as ordered. Pt states that he went to HD on Monday. Pt states that there was not enough time between admissions for him to attend the f/u appts with Dr. Ervin and Dr. Leroy. Pt states that he was able to purchase a pulse ox. Moving forward, the pt states that he plans to DC home with his once he is medically ready. Pt denies the need for HH, OP Tx, SNF, Pt Link, or CCN. 6-Click is 20. However, PT/OT is ordered and pending at this time. Follow evaluations. Pt may qualify for home oxygen during this admission. A verbal list of local in-network DME companies was provided to the pt at this time. Pt prefers [employer] if he qualifies. Pt denies further questions or concerns from this RN CM at this time. Report given to INTERNAL COMBUSTION ENGINEER CM. Dane BARONE RN, CM
[2024-09-26] MEDS: 0.9% Normal Saline 1,000 ML IV.SOLN. 1000 ML OPERA.SITE (13:21)
[2024-09-26] MEDS: PureFlow B 2K Dialysis Soln 1 BAG 6 BAG PF (13:21)
--- NOTE | 2024-09-26 15:39 | CHAPLAIN ---
Type of Pastoral Visit _x__ Initial Visit ___ Follow-up Visit ___ On-call Visit ___ General Patient Visit ___ Spiritual Assessment ___ Family Conference ___ Bereavement ___ Rapid Response ___ Code Blue ___ Other (describe below) Pastoral Care Referral From _x__ Patient _x__ Family ___ Nurse ___ Physician ___ Experimental Mechanic [employer] ___ Superintendent [employer] ___ Other (describe below) Sacrament/Intervention _x__ Active listening ___ Anointing ___ Bahai ___ Bereavement ___ Communion ___ Deya exploration ___ ___ Life review _x__ Prayer ___ Reconciliation ___ Sacrament of Sick _x__ Supportive presence ___ Wedding ___ Other (describe below) Pastoral Comments patient has been seen recently in the hospital; pt and spouse are together as pt is receiving dialysis; pt is resting but awakens after some moments when this gospel worker talks with the spouse; both acknowledge feelings of being weary; pt goal is to get well and breathe better; pt says how this 'all has been so different'; time to listen, pray, and give presence
[2024-09-26] MEDS: Calcium Acetate 667 MG Capsule PO (16:18)
[2024-09-26] MEDS: Furosemide 40 MG/4 ML Vial IV (16:19)
[2024-09-26] MEDS: Ferrous Sulfate 325 MG Tablet PO (16:19)
[2024-09-26] MEDS: 0.9% Saline Lock 10 ML Syringe IV (16:19)
--- NOTE | 2024-09-26 16:45 | CASEMGMT ---
Addendum entered by Devon Lim 09/26/24 16:46: Dr Davila states pt will not be discharging home today. RNDivina, and staff research scientist, Shanell, made aware. Original Note: ADELITA SULLIVAN NOTE: Home O2 ambulatory testing has been completed. Pt requiring 2 l/m @ rest and 4 l/m w/exertion. Dr Davila notified. Brian LOZANO RN CM
--- NOTE | 2024-09-26 16:47 | RAD_ITS ---
EXAM: XR CHEST, 2 VIEWS CLINICAL INDICATION: Dyspnea, hypoxia TECHNIQUE: Frontal and lateral views of the chest. COMPARISON: 09/25/2024 FINDINGS: LUNGS AND PLEURAL SPACES: There has been mild improved aeration in the lung bases. There are small bilateral pleural effusions with bibasilar atelectasis. No pneumothorax. HEART: Unremarkable. Cardiac silhouette not enlarged. MEDIASTINUM: Central airways and mediastinal contour are unremarkable. BONES/JOINTS: There are median sternotomy wires. No acute fracture. SOFT TISSUES: Unremarkable. RAD/Chest PA and Lateral IMPRESSION: Bilateral effusions with bibasilar atelectasis. There has been mild improved aeration from the reference exam. Electronically Signed: Jose Jarvis MD at 18:40 EST ,
[2024-09-27 03:00] VITALS: BP 166/58; PULSE 77; RESP 18; TEMP 37.1; O2SAT 94
[2024-09-27 03:35] VITALS: BMI 27.4
[2024-09-27] MEDS: Heparin Injection (Vial) 5,000 UNIT/ML VIAL 5000 UNIT SC (05:48)
--- NOTE | 2024-09-27 07:00 | PCM.PN.HOSP ---
Reason for Visit Reason for Visit: Diagnoses Chronic pulmonary edema (09/25/24) Other forms of dyspnea (09/25/24) Hypoxemia (09/25/24) Subjective Subjective No issues overnight. Objective Data Objective Data Vital Signs: Vital Signs Temp Pulse Resp BP Pulse Ox O2 Del Method O2 Flow Rate 98.8 F 77 18 166/58 H 94 High Flow 6 09/27/24 03:00 09/27/24 03:00 09/27/24 03:00 09/27/24 03:00 09/27/24 03:00 09/27/24 03:00 09/27/24 03:00 Oxygen Flow Rate (L/min) [ 4 AMBULATING with Oxygen #3] Oxygen Flow Rate (L/min) [ 3 AMBULATING with Oxygen #2] Oxygen Flow Rate (L/min) [ 2 AMBULATING with Oxygen #1] Oxygen Flow Rate (L/min) [At 2 REST with Oxygen] Oxygen Flow Rate (L/min) 6 Oxygen Delivery Method High Flow Weight: 191 lb 12.835 oz Body Mass Index (BMI) 27.4 Intake & Output: Intake and Output for Last 24 Hours 09/25/24 09/26/24 09/27/24 23:59 23:59 23:59 Intake Total 230 / 230 180 / 180 Output Total 7716 / 7716 Balance 230 / 230 -7536 / -7536 Lab / Micro Data 09/26/24 06:09 09/26/24 06:09 Labs: Laboratory Results - last 24 hr 09/26/24 06:09: WBC 7.2, RBC 3.14 L, Hgb 10.9 L, Hct 31.6 L, MCV 100.6 H, MCH 34.7 H, MCHC 34.5, RDW Std Deviation 46.7 H, RDW Coeff of Steven 13.1, Plt Count 245, MPV 10.5, Immature Gran % (Auto) 0.300, Neut % (Auto) 68.9, Lymph % (Auto) 17.0 L, [place] % (Auto) 10.4 H, Eos % (Auto) 2.6, Baso % (Auto) 0.8, Absolute Neuts (auto) 5.0, Absolute Lymphs (auto) 1.22, Nucleated RBC % 0, Sodium 136, Potassium 4.6, Chloride 97 L, Carbon Dioxide 29.0, Anion Gap 9, BUN 57 H, Creatinine 8.68 H*, Estim Creat Clear Calc 8.93, Est GFR (MDRD) Af Amer 8 L, Est GFR (MDRD) Non-Af 7 L, BUN/Creatinine Ratio 6.6 L, Glucose 101, Calcium 8.2 L, Phosphorus 5.1 H Radiography Diagnostic Testing: Radiology Impression Chest X-Ray 09/26/24 16:47 IMPRESSION: Bilateral effusions with bibasilar atelectasis. There has been mild improved aeration from the reference exam. Electronically Signed: Jose Jarvis MD at 18:40 EST , Physical Exam Narrative Physical Examination: General: Awake, alert, oriented x 3 and cooperative, seated upright in PCU bed, fatigued otherwise no acute distress. Skin: Normal color, normal turgor, no icterus, no cyanosis. HEENT: AT/NC, EOMI, PERRLA, MMM. Lungs: Mildly diminished, greater bases, no evidence of distress, mildly increased respiratory rate, bilateral mild rales, no rhonchi or wheezing. Heart: Regular rate and rhythm; no gallop, rub audible. Abdomen: Soft, NTTP, ND, normal BS. Extremities: No cyanosis, clubbing, or edema, LUE AVF w/ + thrill. Neurological: Patient awake, alert, oriented as noted, cognitive function intact; pupils equally reactive to light and accommodation, cranial nerves gross normal, moving all 4 extremities, no focal deficits, strength moderately globally decreased. Psychiatric: Affect appears normal, currently calm, no acute evidence of depressive or anxiety feelings. Assessment & Plan Assessment/Plan (1) Pulmonary edema: PLAN: Plan The patient is a 69 y/o M w/ PMHx: Chronic anemia/AOCD, ESRD on HD T//Mon following w/ Dr. Ervin, HF recovered EF, HTN, HLD, CAD, Anxiety and Depression recent discharged 09/19/2024 with acute hypoxic and hypercapnic respiratory failure secondary to acute on chronic heart failure with recovered EF as well as pneumonia discharged on oral doxycycline with concurrent NSTEMI felt secondary to demand ischemia as well as noncompliance with dialysis who now represents to the [facility] ED on 09/25/24 with history of dyspnea worse with exertion starting on morning of presentation prompting repeat evaluation. #1. Recurrent Acute hypoxia suspected multifactorial, potential volume overload given noncompliance with dialysis with acute on chronic HF exacerbation with combined history with recovered EF as well as suspect component of worsening valvular heart disease in addition to recent pneumonia although clinically seems to be improving but also does have bilateral pleural effusions: Admitted to PCU, nephrology consulted for dialysis, will continue as noted completion course of doxycycline with repeat chest x-ray with no worsening infiltrate appearance, 09/25/2024 echocardiogram with moderate concentric LVH, LVEF 50%, severely enlarged LA, mildly thickened MV leaflets, severe MV regurgitation, mild to cuspid valve insufficiency, RV systolic pressure 59 mm degree, moderate to severe aortic valve insufficiency thus some concern valvular disease associated, cardiology consulted and evaluation pending, continued on breathing treatments and as needed albuterol, continue supplemental oxygen with wean as tolerated, improved oxygenation following dialysis 09/26/2024 however still required 4 L nasal cannula. #2. Recent bilateral pneumonia complicated by mild to moderate bilateral pleural effusions as well as moderate to severe symmetric pulmonary edema: Recent presentation with 09/17/2024 CTA with no evidence of PE but noted mild to moderate bilateral pleural effusions with moderate-severe asymmetric pulmonary edema pneumonia treated with IV agents at that time however upon discharge transition to oral doxycycline, chest x-ray upon current presentation with ongoing effusions with repeat 09/26/2024 chest x-ray PA and lateral with improvement, will continue oral doxycycline to completion. No marked WC elevation or left shift noted. #3. Indeterminate cardiac enzyme, improving, suspected demand given #1: Initial troponin 175, decreased to 168, suspected secondary to demand, most recent presentation with carolyne troponin 09/17/2020 19644, recent cardiac catheterization as noted, continue on aspirin, Coreg, not on statin therapy secondary to intolerance, cardiology consulted as noted given concern that valvular disease could be contributing as well as heart failure, will continue to maintain on telemetry monitoring. #4. CAD with history of ischemic cardiomyopathy: Status post CABG with COX to LAD and saphenous vein graft to PDA and obtuse marginal branch, status post most recent cardiac catheterization 07/01/2024 with normal left main coronary artery, left anterior descending totally occluded in the midsegment with competitive flow noted, COX to LAD patent, saphenous vein graft to right coronary patent, [place] right coronary artery occluded, [place] circumflex artery first obtuse marginal branch 70 to 80% mid segment stenosis and tortuous vessel, saphenous vein graft to the obtuse marginal branch presumed occluded with recommended ongoing aggressive medical therapy at that time. Will continue aspirin, noted statin allergy, continue Coreg, not on ANGELINA/ARB given underlying renal disease. #5. Chronic anemia, macrocytic/AOCD: Admission hemoglobin 11.3, MCV 99.4, baseline hemoglobin 11-12 range, stable, 09/26/2024 hemoglobin 10.9, MCV 100.6, continue to trend. #6. Hypertension: Continue home regimen including verapamil, Coreg, IV Lasix given he still does make some urine, PRN hydralazine. #7. Hyperlipidemia: Noted statin intolerance. #8. Anxiety and depression: We will continue patient home sertraline regimen. #9. DVT prophylaxis: Heparin #10. CODE status: Full Code.
[2024-09-27 08:00] LABS: Absolute Lymphocyte Count 1.99 X10^3/uL (0.83-4.51); Absolute Neutrophil Count 2.6 X10^3/uL (2.0-7.7); Basophil# 0.06 X10^3/uL; Basophil% 1.1 % (0-1); Eosinophil# 0.25 X10^3/uL; Eosinophils% 4.5 % (0-5); Hematocrit 32.1 % (40-54); Hemoglobin 11.1 g/dL (13.0-16.5); Lymphocyte # 1.99 X10^3/ul (0.83-4.51); Lymphocyte % 35.7 % (19-41); Mean Corp Hgb Conc 34.6 g/dL (32-36); Mean Corpuscular Hgb 34.2 pg (27.0-32.0); Mean Corpuscular Volume 98.8 fL (80-94); Monocyte# 0.66 X10^3/uL; Monocyte% 11.8 % (0-10); NRBC Flagged by Analyzer 0 % (0-5); Neutrophil % 46.7 % (47-70); Platelet Count 243 K/mm3 (150-450); RBC Distribution Width SD 46.1 fl (35.1-43.9); Red Blood Count 3.25 M/mm3 (4.6-6.2); White Blood Count 5.6 K/mm3 (4.4-11.0)
[2024-09-27] MEDS: Verapamil SR 240 MG Tablet 120 MG PO (08:29)
[2024-09-27] MEDS: Sertraline 50 MG Tablet PO (08:29)
[2024-09-27] MEDS: Carvedilol 12.5 MG Tablet PO (08:29)
[2024-09-27] MEDS: Doxycycline 100 MG CAPSULE PO (08:29)
[2024-09-27] MEDS: Ferrous Sulfate 325 MG Tablet PO (08:30)
[2024-09-27] MEDS: Aspirin 81 MG TAB.CHEW PO (08:30)
[2024-09-27] MEDS: Calcium Acetate 667 MG Capsule PO ×2 (08:30→12:57)
[2024-09-27 08:33] VITALS: BP 150/51; PULSE 74; RESP 16; TEMP 36.7; O2SAT 97
[2024-09-27] MEDS: Furosemide 40 MG/4 ML Vial IV (08:33)
--- NOTE | 2024-09-27 08:35 | PCM.CONS.C ---
Assessment & Plan Assessment/Plan (1) Acute diastolic (congestive) heart failure: (2) Mitral valvular insufficiency and aortic valvular insufficiency: (3) Atherosclerotic heart disease of [place] coronary artery without angina pectoris: QUALIFIERS: Three Affiliated vs. transplanted heart: [place] heart Qualified Code(s): I25.10 - Atherosclerotic heart disease of [place] coronary artery without angina pectoris (4) H/O coronary artery bypass surgery: (5) ESRD (end stage renal disease) on dialysis: (6) Essential (primary) hypertension: PLAN: Plan Patient's valvular insufficiency is new. It is now moderately severe. When comparing to previous echocardiogram this was not noted in August 2024. Feel that a MURPHY would best benefit patient. He would like to have this done on an outpatient basis. Agreeable with this. This is scheduled for October 07, 2024. Based on findings from his MURPHY will decide further evaluation for valvular insufficiency management. Patient is on dialysis 3 times a week however he is still urinating. Recommend that he be continued with oral Lasix. This can be reevaluated at his office visit after his hospital stay. It appears that his Norvasc was switched to verapamil due to concerns over questionable LVOT. After his MURPHY will reevaluate whether or not he needs to stay on the verapamil or if we can switch him back to Norvasc. His heart rate is controlled. He will also continue with his carvedilol. Patient does have known coronary artery disease. He currently does not have any chest pain. On his recent heart catheterization it was noted that one of his grafts was occluded. For now he will continue with his carvedilol, verapamil, aspirin. HPI Consult Data Date of Consult: 09/27/24 HPI Narrative HPI Narrative: JOSELITO LAWSON, is a 69 M who presented [facility] on 09/25/2024 for increased shortness of breath. Last month he was admitted to [facility] for similar symptoms. He was discharged home on antibiotics for pneumonia. He is on dialysis Monday, , Monday. Chest x-ray on admission this time demonstrated small pleural effusions with interstitial edema with some improvement in aeration when compared to previous. Echocardiogram at last admission demonstrated an ejection fraction of 65% with severe left ventricular hypertrophy. Hospitalist was concerned about left ventricular outflow tract obstruction. He had a limited echocardiogram done on 09/25/2024, this demonstrated moderate concentric LVH with an estimated ejection fraction of 50%. Left atrium severely enlarged, mildly thickened mitral valve leaflets. Severe mitral valve regurgitation, mild tricuspid valve insufficiency, right ventricular systolic pressure 59 mmHg. Moderate to severe aortic valve insufficiency. He was last seen in our office in May 2026. He does have a history of coronary artery disease with bypass surgery in 2020. He had an COX to the LAD, SVG to the obtuse marginal, SVG to the posterior descending. In May he was complaining of fatigue and lack of energy. In June he did undergo a pharmacologic stress test which was negative for ischemia. He did undergo a diagnostic heart catheterization for chest discomfort during his stress test. Heart catheterization demonstrated patent COX to the LAD, SVG graft to the RCA is patent with normal stress test and the perfusion scan. Disease is noted in the circumflex and the SVG to the OM was not found. Maximum medical management was recommended. [facility] Medical History (Updated 09/27/24 @ 14:33 by Adriana Jean-Baptiste PA, PA) Mitral valvular insufficiency and aortic valvular insufficiency Bilateral carotid artery stenosis ESRD (end stage renal disease) on dialysis History of non-ST elevation myocardial infarction (NSTEMI) (12/28/20) Chronic systolic (congestive) heart failure Postoperative ileus (01/15/21) Atherosclerotic heart disease of [place] coronary artery without angina pectoris Acute HFrEF (heart failure with reduced ejection fraction) Ischemic cardiomyopathy Flash pulmonary edema Bilateral inguinal hernia without obstruction or gangrene Hypercholesteremia Essential (primary) hypertension White coat syndrome with hypertension Myocardial infarction History of diverticulitis Anxiety Home Medications ?Medication ?Instructions ?Recorded ?Last Taken ?Type sertraline 50 mg tablet 50 mg PO DAILY mood 05/09/19 06/03/24 History aspirin 81 mg chewable tablet 81 mg PO DAILY@0800 cardiac ##90 12/30/20 06/03/24 Rx mv,[id number] 1 cap PO DAILY dialysis 06/16/23 06/03/24 History oil 400 mcg-500 unit capsule (ProRenal QD) carvedilol 12.5 mg tablet 12.5 mg PO BID heart and BP 07/01/24 Unknown History doxycycline hyclate 100 mg tablet 100 mg PO BID infection 09/25/24 Unknown History sucroferric oxyhydroxide 500 mg 500 mg PO TID 09/25/24 Unknown History chewable tablet (Velphoro) furosemide 40 mg tablet (Lasix) 60 mg (1.5 x 40 mg) PO DAILY 30 09/27/24 Unknown Rx days #45 tabs verapamil 240 mg tablet,extended 120 mg (1/2 x 240 mg) PO DAILY 30 09/27/24 Unknown Rx release days #15 tabs Allergy/AdvReac Type Severity Reaction Status Date / Time Seasonal Allergies: Uncoded Allergy Intermediate Unknown Verified 09/25/24 11:03 ezetimibe (From Zetia) AdvReac Intermediate unstable Verified 09/25/24 11:03 gait, myalgia, joint pain isosorbide AdvReac Intermediate Dizziness Verified 09/25/24 11:03 atorvastatin (From Lipitor) AdvReac unstable Verified 09/25/24 11:03 gait, myalgia rosuvastatin (From Crestor) AdvReac unstable Verified 09/25/24 11:03 gait, myalgia Family History Mother Heart disease Father Hypertension Cardiac arrest Surgical History H/O coronary artery bypass surgery (01/11/21) History of left heart catheterization (12/28/20) S/P arteriovenous (AV) fistula creation History of right inguinal hernia repair (01/08/20) History of colonoscopy (2009) History of colostomy reversal History of partial colectomy Social History Smoking Status: Former smoker quit date: 09/25/18 pack-years: 64 how long ago did patient quit smokin years ago alcohol intake: never substance use type: does not use caffeine: Yes Type: coffee Number of servings: 2 what type of physical activity do you participate in: none frequency: does not exercise ROS Constitutional Constitutional: Reports as per HPI Eyes Eyes: Denies blurry vision or change in vision ENT HEENT: Reports systems reviewed and no addt'l complaints, except as documented Cardiovascular Cardiovascular: Reports dyspnea, dyspnea on exertion, easily tiring during activity and fatigue; Denies chest pain with activity, dyspnea at rest, edema or lightheadedness Respiratory/Chest Respiratory/Chest: Reports dyspnea on exertion Gastrointestinal Gastrointestinal: Reports systems reviewed and no addt'l complaints, except as documented Neurologic Neurologic: Reports systems reviewed and no addt'l complaints, except as documented Physical Exam Const alert, oriented x3 and no apparent distress General Appearance: cooperative and comfortable Orientation / Consciousness: awake Nutritional Appearance: obese HEENT normocephalic and hearing grossly normal bilaterally Nose: external nose normal Mouth: oral and palatal mucosa normal Eyes PERRL, EOMs intact bilaterally, conjunctivae normal and no scleral icterus Resp Auscultation: diminished lung sounds Cardio regular rate, regular rhythm, S1 normal heart sound and S2 normal heart sound Cardio Narrative: distant heart sounds GI normal to inspection, nondistended, normoactive bowel sounds Extremity Extremity Narrative: AV fistula left forearm Neuro oriented x3, CN's II-XII intact bilaterally and moves all extremities Risk Stratification Risk Stratification Applicable: No Charges/Coding Multi Select Codes Visit Charges Office Visit/Consults: 26779 IP Consult L3 Objective Data Vital Signs: Vital Signs Temp Pulse Resp BP Pulse Ox O2 Del Method O2 Flow Rate 98.0 F 74 16 150/51 H 97 Nasal Cannula 4 09/27/24 08:33 09/27/24 08:33 09/27/24 08:33 09/27/24 08:33 09/27/24 08:33 09/27/24 08:33 09/27/24 08:33 Oxygen Flow Rate (L/min) [ 4 AMBULATING with Oxygen #3] Oxygen Flow Rate (L/min) [ 3 AMBULATING with Oxygen #2] Oxygen Flow Rate (L/min) [ 2 AMBULATING with Oxygen #1] Oxygen Flow Rate (L/min) [At 2 REST with Oxygen] Oxygen Flow Rate (L/min) 4 Oxygen Delivery Method Nasal Cannula Weight: 191 lb 12.835 oz Body Mass Index (BMI) 27.4 Intake & Output: Intake and Output for Last 24 Hours 09/25/24 09/26/24 09/27/24 23:59 23:59 23:59 Intake Total 230 / 230 180 / 180 Output Total 7716 / 7716 Balance 230 / 230 -7536 / -7536 Lab / Micro Data 09/27/24 06:56 09/27/24 06:56 Labs: Laboratory Results - last 24 hr 09/26/24 06:09: Phosphorus 5.1 H 09/27/24 06:56: WBC 5.6, RBC 3.25 L, Hgb 11.1 L, Hct 32.1 L, MCV 98.8 H, MCH 34.2 H, MCHC 34.6, RDW Std Deviation 46.1 H, RDW Coeff of Steven 13.0, Plt Count 243, MPV 11.0, Immature Gran % (Auto) 0.200, Neut % (Auto) 46.7 L, Lymph % (Auto) 35.7, [place] % (Auto) 11.8 H, Eos % (Auto) 4.5, Baso % (Auto) 1.1 H, Absolute Neuts (auto) 2.6, Absolute Lymphs (auto) 1.99, Nucleated RBC % 0 Cardiology Labs/Tests 09/26/24 06:09: Phosphorus 5.1 H 09/27/24 06:56: WBC 5.6, RBC 3.25 L, Hgb 11.1 L, Hct 32.1 L, MCV 98.8 H, MCH 34.2 H, MCHC 34.6, Plt Count 243, MPV 11.0, Immature Gran % (Auto) 0.200, Neut % (Auto) 46.7 L, Lymph % (Auto) 35.7, [place] % (Auto) 11.8 H, Eos % (Auto) 4.5, Baso % (Auto) 1.1 H, Absolute Neuts (auto) 2.6, Nucleated RBC % 0 Radiography Diagnostic Testing: Radiology Impression Chest X-Ray 09/26/24 16:47 IMPRESSION: Bilateral effusions with bibasilar atelectasis. There has been mild improved aeration from the reference exam. Electronically Signed: Jose Jarvis MD at 18:40 EST ,
[2024-09-27 08:55] LABS: ALB/GLOB Ratio 0.7 RATIO (0.9-2.4); AST(SGOT) 14 U/L (15-37); Alanine Aminotransfer ALT/SGPT 16 U/L (16-61); Albumin, Serum 2.8 g/dL (3.2-5.0); Alkaline Phosphatase 61 U/L (45-117); Anion Gap 9 (5-15); BUN 53 mg/dL (7-18); BUN/Creat Ratio 6.4 RATIO (10-20); Calcium,Total 8.7 mg/dL (8.5-10.1); Chloride 98 mmol/L (98-107); Creatinine, Serum 8.26 mg/dL (0.70-1.30); EST Glomerular Filtration Rate 7 mL/min (>60); Est Glom Filt Rate - Afr Amer 8 mL/min (>60); Estimated Creatinine Clearance 8.59 ml/min; Globulin 3.8 g/dL (2.2-4.2); Glucose 87 mg/dL (74-106); Potassium 4.4 mmol/L (3.5-5.1); Protein, Total 6.6 g/dL (6.4-8.2); Sodium Level 137 mmol/L (136-145)
--- NOTE | 2024-09-27 09:31 | PCM.PN.REN ---
Subjective Subjective breathing better with 3.8L fluid removal on HD yesterday, continue to challenge fluid removal on dialysis Objective Data Objective Data Vital Signs: Vital Signs Temp Pulse Resp BP Pulse Ox O2 Del Method O2 Flow Rate 98.0 F 74 16 150/51 H 97 Nasal Cannula 4 09/27/24 08:33 09/27/24 08:33 09/27/24 08:33 09/27/24 08:33 09/27/24 08:33 09/27/24 08:33 09/27/24 08:33 Oxygen Flow Rate (L/min) [ 4 AMBULATING with Oxygen #3] Oxygen Flow Rate (L/min) [ 3 AMBULATING with Oxygen #2] Oxygen Flow Rate (L/min) [ 2 AMBULATING with Oxygen #1] Oxygen Flow Rate (L/min) [At 2 REST with Oxygen] Oxygen Flow Rate (L/min) 4 Oxygen Delivery Method Nasal Cannula Weight: 87 kg Body Mass Index (BMI) 27.4 Intake & Output: Intake and Output for Last 24 Hours 09/25/24 09/26/24 09/27/24 23:59 23:59 23:59 Intake Total 230 / 230 180 / 180 Output Total 7716 / 7716 Balance 230 / 230 -7536 / -7536 Lab / Micro Data 09/27/24 06:56 09/27/24 06:56 Labs: Laboratory Results - last 24 hr 09/26/24 06:09: Phosphorus 5.1 H 09/27/24 06:56: WBC 5.6, RBC 3.25 L, Hgb 11.1 L, Hct 32.1 L, MCV 98.8 H, MCH 34.2 H, MCHC 34.6, RDW Std Deviation 46.1 H, RDW Coeff of Steven 13.0, Plt Count 243, MPV 11.0, Immature Gran % (Auto) 0.200, Neut % (Auto) 46.7 L, Lymph % (Auto) 35.7, [place] % (Auto) 11.8 H, Eos % (Auto) 4.5, Baso % (Auto) 1.1 H, Absolute Neuts (auto) 2.6, Absolute Lymphs (auto) 1.99, Nucleated RBC % 0, Sodium 137, Potassium 4.4, Chloride 98, Carbon Dioxide 30.0, Anion Gap 9, BUN 53 H, Creatinine 8.26 H*, Estim Creat Clear Calc 8.59, Est GFR (MDRD) Af Amer 8 L, Est GFR (MDRD) Non-Af 7 L, BUN/Creatinine Ratio 6.4 L, Glucose 87, Calcium 8.7, Total Bilirubin 0.60, AST 14 L, ALT 16, Alkaline Phosphatase 61, Total Protein 6.6, Albumin 2.8 L, Globulin 3.8, Albumin/Globulin Ratio 0.7 L Radiography Diagnostic Testing: Radiology Impression Chest X-Ray 09/26/24 16:47 IMPRESSION: Bilateral effusions with bibasilar atelectasis. There has been mild improved aeration from the reference exam. Electronically Signed: Jose Jarvis MD at 18:40 EST , Physical Exam Const alert and oriented x3 Resp Resp Narrative: decreased breath sounds rt base, faint crackles left base GI non-tender and non-distended Auscultation: normoactive bowel sounds Palpation: soft Extremity no clubbing, cyanosis or edema General Extremity: AV fistula Assessment & Plan Assessment/Plan (1) ESRD (end stage renal disease) on dialysis: PLAN: dialyssi TTS, Challenge fluid removal as tolerated for pulmonary edema (2) Acute hypoxic respiratory failure: PLAN: improved with fluid removal (3) Dyspnea on exertion: (4) Fluid overload: QUALIFIERS: Hypervolemia type: unspecified Qualified Code(s): E87.70 - Fluid overload, unspecified (5) Essential (primary) hypertension: (6) Ischemic cardiomyopathy: PLAN: cardiology following
[2024-09-27 10:23] VITALS: O2SAT 92
--- NOTE | 2024-09-27 10:30 | CASEMGMT ---
Addendum entered by Devon Lim 09/27/24 15:04: Discharge order is in. Home O2 testing has been completed. Pt qualifies for Home O2 @ 2 L/M w/exertion. Script has been obtained and sent to [facility] via [employer]. Stevie from [employer] aware and will deliver O2 to pt's room. ADELITA SULLIVAN to room. Pt resting in bed. Pt denies wanting/needing any therapy and denies having any discharge needs/concerns. Original Note: ADELITA SULLIVAN note: Call placed to [facility] and spoke w/Tanisha. She was made aware anticipate pt to discharge home today and pt to go to next OP HD @ [facility] 09/28. She states pt's scheduled arrival time is 10:40 AM. Brian LOZANO RN, CM
[2024-09-27 12:53] VITALS: O2SAT 87; O2SAT 88; O2SAT 91; O2SAT 92
--- NOTE | 2024-09-27 14:09 | DCINST_ITS ---
Discharge Instructions Diet Discharge Diet: Low fat / Low cholesterol Activity Discharge Activity: - (Continue usage of supplemental oxygen as written. Routine walking activity in the home recommended.) May resume sexual activity in: 10-14 days Weight Bearing Status: Weight bearing as tolerated Dressing / Incision Call your doctor if you observe: Fever of 101 or Higher, Numbness or Tingling, Shortness of breath, Dizziness, Chest pain, Increased palpitations (irregular heartbeat), Calf discomfort and Uncontrolled pain Follow Up Care Test Results: Test results from this visit will be discussed in further detail at your follow- up appointment, if applicable. Discharge Plan Admission Admit Date/Time: 09/25/24 13:16 Primary Reason for Your Visit: Acute Hypoxia, Suspected Overload w/ missed HD, Valvular Heart Disease Attending Provider: Ruby Davila Primary Care Provider: Damion Leroy Chi Consulting Providers: Karina Ervin; Martha Sandy; Princess Davis Instructions Patient Instructions: Heart Valve Problems Additional Instructions / Restrictions: ADDITIONAL DISCHARGE REVIEW: Your presentation with shortness of breath and low oxygenation is felt multifactorial including from missed dialysis with fluid/volume overload, still recovering from recent pneumonia in addition to new notable valvular heart disease. Please aggressively follow-up with Cardiology as arranged for planned continued evaluation, adjustment of cardiac medications including lasix and verapamil recently started in addition to planned transesophageal echocardiogram to better view your valves and decide next best step in course of care. Please continue your oxygen supplementation until you are appropriately weaned per your physician to room air. Please assure you continue to make your dialysis sessions and we strongly encourage aggressive fluid removal during these sessions given concern valvular disease is strongly involved in your disease process. Please finish your doxycycline regimen to completion. Discharge Orders/Prescriptions Prescriptions: New furosemide [Lasix] 40 mg tablet 60 mg PO DAILY 30 Days Qty: 45 0RF verapamil 240 mg Tablet Extended Release 120 mg PO DAILY 30 Days Qty: 15 0RF Continued sertraline 50 mg tablet 50 mg PO DAILY ProRenal QD 400-500 mcg-unit capsule 1 cap PO DAILY Patient Comments: TAKE 1 CAPSULE BY MOUTH EVERY DAY aspirin 81 MG tablet,chewable 81 mg PO DAILY@0800 Qty: 90 0RF carvedilol 12.5 mg tablet 12.5 mg PO BID Velphoro 500 mg tablet,chewable 500 mg PO TID doxycycline hyclate 100 mg tablet 100 mg PO BID Discontinued amlodipine 10 mg tablet 5 mg PO DAILY Referrals / Follow Up: [facility] [Provider Group] - 09/30/24 11:00 am (for transesophageal echocardiogram) Karina Ervin DO [Med Staff - Consulting] - (Follow-up as previously arranged with next HD session on 09/28/24.) Damion Leroy Chi, MD [Primary Care Provider] - (Follow-up within 3-5 days to review admission and plan of care.) Adriana Jean-Baptiste PA [Med Staff - Adv Practice Prof] - (Please follow-up with Cardiology, per their request, on October 11 at 2:30 pm) Disposition Disposition (needs filled in before D/C Order can be placed): Home Health Service
--- NOTE | 2024-09-27 14:36 | PCM.DC.SUM ---
Providers Date of Admission: 09/25/24 Date of Discharge: 09/27/24 Primary Care Physician: Dr. Damion Leroy MD Consultations 09/25/24 15:01 Consult: Nephrology Routine Consulting Provider: Karina Ervin Reason for Consult: ESRD on hemodialysis EMERGENT Consult: No Notified: Yes Date Notified: 09/25/24 Time Notified: 15:06 Method of Notification: Text 09/27/24 07:00 Consult: Cardiology Routine Consulting Provider: Princess Davis Reason for Consult: Hypoxia, suspect component valvular heart disease EMERGENT Consult: No Notified: Yes Date Notified: 09/26/24 Time Notified: 08:19 Method of Notification: Text Reason For Visit: ACUTE HYPOXIA Diagnosis Discharge Diagnosis (1) ESRD (end stage renal disease) on dialysis: Status: Chronic Code(s): N18.6 - End stage renal disease; Z99.2 - Dependence on renal dialysis (2) Acute hypoxic respiratory failure: Status: Acute Code(s): J96.01 - Acute respiratory failure with hypoxia (3) Dyspnea on exertion: Status: Acute Code(s): R06.09 - Other forms of dyspnea (4) Fluid overload: Status: Acute Code(s): E87.70 - Fluid overload, unspecified Qualifiers: Hypervolemia type: unspecified Qualified Code(s): E87.70 - Fluid overload, unspecified (5) Essential (primary) hypertension: Status: Chronic Code(s): I10 - Essential (primary) hypertension (6) Ischemic cardiomyopathy: Status: Chronic Code(s): I25.5 - Ischemic cardiomyopathy Plan: DISCHARGE DIAGNOSES: #1. Recurrent Acute hypoxia suspected multifactorial, potential volume overload (HFpEF exacerbation) given noncompliance with dialysis with acute on chronic HF exacerbation with combined history with recovered EF as well as suspect component of worsening valvular heart disease in addition to recent pneumonia although clinically seems to be improving but also does have bilateral pleural effusions #2. Recent bilateral pneumonia complicated by mild to moderate bilateral pleural effusions as well as moderate to severe symmetric pulmonary edema #3. Indeterminate cardiac enzyme, improving, suspected demand given #1 #4. CAD with history of ischemic cardiomyopathy, Status post CABG with [facility] to LAD and saphenous vein graft to PDA and obtuse marginal branch, status post most recent cardiac catheterization 07/01/2024 #5. Chronic anemia, macrocytic/AOCD #6. Hypertension #7. Hyperlipidemia #8. Anxiety and depression #9. CODE status: Full Code. Medications at Discharge Home Medications sertraline 50 mg tablet 50 mg PO DAILY mood 05/09/19 aspirin 81 mg chewable tablet 81 mg PO DAILY@0800 cardiac ##90 12/30/20 mv,[id number] oil 400 mcg-500 unit capsule (ProRenal QD) 1 cap PO DAILY dialysis 06/16/23 carvedilol 12.5 mg tablet 12.5 mg PO BID heart and BP 07/01/24 doxycycline hyclate 100 mg tablet 100 mg PO BID infection 09/25/24 sucroferric oxyhydroxide 500 mg chewable tablet (Velphoro) 500 mg PO TID 09/25/24 furosemide 40 mg tablet (Lasix) 60 mg (1.5 x 40 mg) PO DAILY 30 days #45 tabs 09/27/24 verapamil 240 mg tablet,extended release 120 mg (1/2 x 240 mg) PO DAILY 30 days #15 tabs 09/27/24 Hospital Course Operations None Procedures 2-D Echocardiogram, Dialysis and EKG Summary of Care Provided Minutes Spent on Discharge: 35 Hospital Course: The patient is a 69 y/o M w/ PMHx: Chronic anemia/AOCD, ESRD on HD T//Mon following w/ Dr. Ervin, HF recovered EF, HTN, HLD, CAD, Anxiety and Depression recent discharged 09/19/2024 with acute hypoxic and hypercapnic respiratory failure secondary to acute on chronic heart failure with recovered EF as well as pneumonia discharged on oral doxycycline with concurrent NSTEMI felt secondary to demand ischemia as well as noncompliance with dialysis who represented to the [facility] ED on 09/25/24 with history of dyspnea worse with exertion starting on morning of presentation prompting repeat evaluation. Admitted to PCU, nephrology consulted for dialysis, continued doxycycline with repeat chest x-ray with no worsening infiltrate appearance, 09/25/2024 echocardiogram with moderate concentric LVH, LVEF 50%, severely enlarged LA, mildly thickened MV leaflets, severe MV regurgitation, mild to cuspid valve insufficiency, RV systolic pressure 59 mm degree, moderate to severe aortic valve insufficiency thus some concern valvular disease associated, cardiology consulted and evaluation pending, continued on breathing treatments and as needed albuterol, continued supplemental oxygen with wean as tolerated, improved oxygenation following dialysis 09/26/2024 however still required oxygen supplementation. Patient maintained on IV lasix initially given still history of some urine output and transitioned to oral lasix per Cardiology recommendation at discharge. Patient also transitioned from norvasc to verapamil during admission. Initial troponin 175, decreased to 168, suspected secondary to demand, most recent presentation with carolyne troponin 09/17/2020 [id number], recent cardiac catheterization with medical management decision. Maintained on aspirin, Coreg, not on statin therapy secondary to intolerance. Patient underwent HD upon admission and tolerated with plan for ongoing dialysis next 09/28/[address] Ervin. Given clinical improvement decision with patient and cardiology to continue outpatient follow-up with planned outpatient 10/07/24 MURPHY to decide next step in course/valvular insufficiency management, continuation on oral lasix, planned continued verapamil until MURPHY assessment. Given patient stability and outpatient plan solidified patient discharged to home in stable condition with discharge with oxygen assessment performed per nursing staff reviewed (91% on room air at rest, ambulating 80% on 1 L, ambulating on room air 87%, improved to 92% on 2 L nasal cannula) and patient qualifies for home equipment and portability with the patient noted to be mobile in the home and in the community. Case management/SW consulted and assisted in set-up of home supply needs. DAY OF DISCHARGE PROGRESS NOTE: Subjective: Patient without acute event overnight per self and nursing report. Patient continues to feel less dyspneic. Repeat oxygenation assessment improved today in the AM. Discussed at length suspected valvular disease as component and his current dyspneic situation with plan for ongoing aggressive dialysis, change of medications and further valvular evaluation outpatient which patient is amenable. Patient denies fever, chills, nausea, emesis, abdominal pain, chest pain or worsened dyspnea. Patient agreeable to discharge to home with plan as noted. Patient will be discharged with follow-up with primary care physician, nephrology with dialysis as previously arranged 09/28/2024 and close early follow-up with cardiology and planned outpatient MURPHY. Objective: T98.2, heart rate 66, BP 151/66, respiratory rate 16, 96% on 2 L nasal cannula. Physical Examination: General: Awake, alert, oriented x 3 and cooperative, seated upright in PCU bed, notes no current dyspnea, feeling well. Skin: Normal color, normal turgor, no icterus, no cyanosis. HEENT: AT/NC, EOMI, PERRLA, MMM. Lungs: Mildly diminished, greater bases, no evidence of distress, mild rales bases, no rhonchi or wheezing. Heart: Regular rate and rhythm; no gallop, rub audible. Abdomen: Soft, NTTP, ND, normal BS. Extremities: No cyanosis, clubbing, or edema, LUE AVF w/ + thrill. Neurological: Patient awake, alert, oriented as noted, cognitive function intact; pupils equally reactive to light and accommodation, cranial nerves gross normal, moving all 4 extremities, no focal deficits, strength moderately globally decreased. Psychiatric: Affect appears normal, improved, mildly to no acute evidence of depressive or anxiety feelings. Assessment and Plan: Please see hospital summary above. Weight / BMI Weight Weight: 191 lb 12.835 oz Body Mass Index (BMI) 27.4 ABG / Lab / Microbiology Data 09/27/24 06:56 09/27/24 06:56 Laboratory: Laboratory Results - last 24 hr 09/27/24 06:56: WBC 5.6, RBC 3.25 L, Hgb 11.1 L, Hct 32.1 L, MCV 98.8 H, MCH 34.2 H, MCHC 34.6, RDW Std Deviation 46.1 H, RDW Coeff of Steven 13.0, Plt Count 243, MPV 11.0, Immature Gran % (Auto) 0.200, Neut % (Auto) 46.7 L, Lymph % (Auto) 35.7, [place] % (Auto) 11.8 H, Eos % (Auto) 4.5, Baso % (Auto) 1.1 H, Absolute Neuts (auto) 2.6, Absolute Lymphs (auto) 1.99, Nucleated RBC % 0, Sodium 137, Potassium 4.4, Chloride 98, Carbon Dioxide 30.0, Anion Gap 9, BUN 53 H, Creatinine 8.26 H*, Estim Creat Clear Calc 8.59, Est GFR (MDRD) Af Amer 8 L, Est GFR (MDRD) Non-Af 7 L, BUN/Creatinine Ratio 6.4 L, Glucose 87, Calcium 8.7, Total Bilirubin 0.60, AST 14 L, ALT 16, Alkaline Phosphatase 61, Total Protein 6.6, Albumin 2.8 L, Globulin 3.8, Albumin/Globulin Ratio 0.7 L Radiography Diagnostic Testing: Radiology Impression Chest X-Ray 09/26/24 16:47 IMPRESSION: Bilateral effusions with bibasilar atelectasis. There has been mild improved aeration from the reference exam. Electronically Signed: Jose Jarvis MD at 18:40 EST , D/C Instructions Discharge Diet: Low fat / Low cholesterol May resume sexual activity in: 10-14 days Weight Bearing Status: Weight bearing as tolerated Call your doctor if you observe: Fever of 101 or Higher, Numbness or Tingling, Shortness of breath, Dizziness, Chest pain, Increased palpitations (irregular heartbeat), Calf discomfort and Uncontrolled pain Meaningful Use Info Meaningful Use Meaningful Use Diagnoses (Choose all that apply): CHF CHF ANGELINA/ARB ordered at discharge?: No Reason ANGELINA/ARB not ordered?: Worsening renal disease Documented LVEF (%): 50 Ischemic Stroke Statin Dosing Therapy Reference: STATIN DOSE THERAPY REFERENCE: * Patients > 75 years receive moderate or high dose statin therapy. * Patients 75 years or YOUNGER should receive HIGH intensity statin dose unless contraindicated. You will be required to document reason for non-treatment if statin daily dose does not meet guidelines. HIGH DOSE STATIN THERAPY DAILY Atorvastatin > than or = to 40 mg Rosuvastatin > than or = to 20 mg Amlodipine + Atorvastatin > than or = to 2.5/40 mg Ezetimibe + Simvastatin 10/80 mg Simvastatin 80mg Discharge Plan Admission Admit Date/Time: 09/25/24 13:16 Primary Reason for Your Visit: Acute Hypoxia, Suspected Overload w/ missed HD, Valvular Heart Disease Attending Provider: Ruby Davila Primary Care Provider: Damion Leroy Chi Consulting Providers: Karina Ervin; Martha Sandy; Princess Davis Instructions Patient Instructions: Heart Valve Problems Additional Instructions / Restrictions: ADDITIONAL DISCHARGE REVIEW: Your presentation with shortness of breath and low oxygenation is felt multifactorial including from missed dialysis with fluid/volume overload, still recovering from recent pneumonia in addition to new notable valvular heart disease. Please aggressively follow-up with Cardiology as arranged for planned continued evaluation, adjustment of cardiac medications including lasix and verapamil recently started in addition to planned transesophageal echocardiogram to better view your valves and decide next best step in course of care. Please continue your oxygen supplementation until you are appropriately weaned per your physician to room air. Please assure you continue to make your dialysis sessions and we strongly encourage aggressive fluid removal during these sessions given concern valvular disease is strongly involved in your disease process. Please finish your doxycycline regimen to completion. Discharge Orders/Prescriptions Prescriptions: New furosemide [Lasix] 40 mg tablet 60 mg PO DAILY 30 Days Qty: 45 0RF verapamil 240 mg Tablet Extended Release 120 mg PO DAILY 30 Days Qty: 15 0RF Continued sertraline 50 mg tablet 50 mg PO DAILY ProRenal QD 400-500 mcg-unit capsule 1 cap PO DAILY Patient Comments: TAKE 1 CAPSULE BY MOUTH EVERY DAY aspirin 81 MG tablet,chewable 81 mg PO DAILY@0800 Qty: 90 0RF carvedilol 12.5 mg tablet 12.5 mg PO BID Velphoro 500 mg tablet,chewable 500 mg PO TID doxycycline hyclate 100 mg tablet 100 mg PO BID Discontinued amlodipine 10 mg tablet 5 mg PO DAILY Referrals / Follow Up: [facility] [Provider Group] - 09/30/24 11:00 am (for transesophageal echocardiogram) Karina Ervin DO [Med Staff - Consulting] - (Follow-up as previously arranged with next HD session on 09/28/24.) Damion Leroy Chi, MD [Primary Care Provider] - (Follow-up within 3-5 days to review admission and plan of care.) Adriana Jean-Baptiste PA [Med Staff - Adv Practice Prof] - 10/11/24 2:30 pm (Please follow-up with Cardiology, per their request, on October 11 at 2:30 pm) Disposition Disposition (needs filled in before D/C Order can be placed): Home, Self Care Charges/Coding Visit Charges Inpatient E&M: 89515 Disch Hosp >30min
[2024-09-27 15:55] VITALS: BP 151/66; PULSE 66; RESP 16; TEMP 36.8; O2SAT 96
== END 2024-09-27 16:22 | disposition home or self-care (01) | DRG 291 ==
LOC: ED 13:07 → PCU 13:26
PROVIDERS: Internal Medicine Nephrology; Admitting Provider Student in an Organized Health Care Education/Training Program; Emergency Provider Emergency Medicine; PCP Family Medicine Geriatric Medicine; Visit Provider Family Medicine
DX: I13.2 Hypertensive heart and chronic kidney disease with heart failure and with stage 5 chronic kidney disease, or end stage renal disease (principal); N18.6 End stage renal disease; J18.9 Pneumonia, unspecified organism; I50.33 Acute on chronic diastolic (congestive) heart failure; I24.89 Other forms of acute ischemic heart disease; J90 Pleural effusion, not elsewhere classified; D63.1 Anemia in chronic kidney disease; F32.A Depression, unspecified; I08.0 Rheumatic disorders of both mitral and aortic valves; E87.79 Other fluid overload; Z99.2 Dependence on renal dialysis; I25.10 Atherosclerotic heart disease of native coronary artery without angina pectoris; E78.00 Pure hypercholesterolemia, unspecified; I25.5 Ischemic cardiomyopathy; I25.2 Old myocardial infarction; F41.9 Anxiety disorder, unspecified; Z91.158 Patient's noncompliance with renal dialysis for other reason; R09.02 Hypoxemia; Z95.1 Presence of aortocoronary bypass graft; Z79.82 Long term (current) use of aspirin; Z79.899 Other long term (current) drug therapy; Z87.891 Personal history of nicotine dependence
CPT/HCPCS: 36415; 71046; 80048; 80053; 84100; 84484; 85025; 90937; 93005; 93308; 94762; 97162; 97165; 99285; A4216; G0257; J1940

== ENCOUNTER → 2024-10-07 | Outpatient (CLI) | payer MEDICARE, OTHER, SELFPAY ==
--- NOTE | 2024-10-07 09:59 | ECHOTEE_ITS ---
Version 2 Reason For Study: MITRAL/AORTIC REGURGITATION Medication MURPHY probe 6VT-[id number] (SN [id number]) passed without difficulty. No complications were noted. Cetacaine Topical [place] given X3 orally. Versed 2 mg given slow IVP. Fentanyl 50 mcg given slow IVP. Performed a rapid injection of agitated mix of 9 cc saline and 1cc air to assess for atrial septal defect. Left Ventricle Normal LV size. Left ventricular systolic function is normal. The left ventricular ejection fraction is 60 %. No regional wall motion abnormalities noted. Right Ventricle Normal RV size. Normal systolic function. Atria Normal atrial septum. Intact atrial septum. The left atrium is moderately enlarged. No thrombus is detected in the left atrial appendage. Normal right atrium. Mitral Valve Bileaflet diffuse mitral valve thickening. Eccentric moderately severe mitral regurgitation possibly secondary to mitral papillary muscle dysfunction. Moderately severe (3+) eccentric mitral valve insufficiency. Tricuspid Valve Normal tricuspid valve. Aortic Valve Trisinus/trileaflet aortic valve. Mild (1+) aortic valve insufficiency. Pulmonic Valve Normal pulmonic valve. Trivial pulmonic valve insufficiency. Vessels Moderate atherosclerosis of the ascending aorta. Severe atherosclerosis of the aortic arch. Mobile atheroma(s)of the aortic arch/descending aorta. The pulmonary artery is normal size. Pulmonary venous flow normal. Pericardium No pericardial effusion. ECHO/Echo Transesophageal (MURPHY) Interpretation Summary Normal LV size. Left ventricular systolic function is normal. The left ventricular ejection fraction is 60 %. Bileaflet diffuse mitral valve thickening. Eccentric moderately severe mitral regurgitation possibly secondary to mitral p apillary muscle dysfunction Mild (1+) aortic valve insufficiency. Severe atherosclerosis of the aortic arch. Mobile atheroma(s)of the aortic arch/descending aorta. Ordering Physician: Adriana Jean-Baptiste Referring Physician: Damion Leroy Chi Performed By: Lizabeth Young, RDCHYNA
== END | disposition home or self-care (01) ==
LOC: CVS 10:34
PROVIDERS: PCP Family Medicine Geriatric Medicine; Referring Provider Physician Assistant Medical; Visit Provider Physician Assistant Medical
DX: I08.0 Rheumatic disorders of both mitral and aortic valves (principal)
CPT/HCPCS: 93312; 93320; 93325; A4216

== ENCOUNTER 2024-10-22 05:03 | Inpatient (IN) | payer MEDICARE, OTHER, SELFPAY ==
[2024-10-22] VITALS (44 sets, daily range): BP systolic 107–245; BP diastolic 55–99; PULSE 64–117; RESP 12–44; TEMP 36.4–36.8; O2SAT 90–100; BMI 28.9; BMI 28.2; BMI 26.8
--- NOTE | 2024-10-22 05:21 | EKG12_ITS ---
Test Reason : Blood Pressure : */* mmHG Vent. Rate : 109 BPM Atrial Rate : 109 BPM P-R Int : 208 ms QRS Dur : 134 ms QT Int : 344 ms P-R-T Axes : * -49 104 degrees QTcB Int : 463 ms Sinus tachycardia Left axis deviation Non-specific intra-ventricular conduction block Minimal voltage criteria for LVH, may be normal variant ( Cannot rule out Anterior infarct Nonspecific ST-T wave changes, possible ischemia Abnormal ECG Confirmed by Riki Muniz ([id number]), food expeditor TREY ELIZONDO ([id number]) on 10/23/2024 6:34:46 AM Referred By: Confirmed By: Riki Muniz
--- NOTE | 2024-10-22 05:22 | EDS_ITS ---
HPI History of Present Illness Chief Complaint: Shortness of Breath Informant: patient Onset/Context/Timing Onset: Today and Hours Context: sudden Timing: Continuous Quality: Positive for Orthopnea Current Severity: Severe Maximum Severity: Severe Worsened by: Nothing Relieved by: Nothing Associated Symptoms cough and yellow sputum Chest Pain: Positive for None Narrative Narrative: 69-year-old male history of end-stage renal disease gets dialysis on since Monday last dialysis was 2+ days ago on Monday. He said he had a full run. He also has a history of CHF. States this morning he woke up around 3 AM with shortness of breath. Denies any chest pain. Yellowish sputum. No history of COPD he is on 3 L of oxygen at home. Denies any leg pain or swelling. No fever. PE Risk Factors: Negative for Cancer, OCP + Smoking + > 35, Prior DVT or PE, Recent immobilization, Recent surgery or Recent travel Prior similar symptoms: Yes Recent Illness/Hospitalization: Yes [facility] Medical History Mitral valvular insufficiency and aortic valvular insufficiency Bilateral carotid artery stenosis ESRD (end stage renal disease) on dialysis History of non-ST elevation myocardial infarction (NSTEMI) (12/28/20) Chronic systolic (congestive) heart failure Postoperative ileus (01/15/21) Atherosclerotic heart disease of [place] coronary artery without angina pectoris Acute HFrEF (heart failure with reduced ejection fraction) Ischemic cardiomyopathy Flash pulmonary edema Bilateral inguinal hernia without obstruction or gangrene Hypercholesteremia Essential (primary) hypertension White coat syndrome with hypertension Myocardial infarction History of diverticulitis Anxiety Home Medications ?Medication ?Instructions ?Recorded ?Last Taken ?Type sertraline 50 mg tablet 50 mg PO DAILY mood 05/09/19 06/03/24 History aspirin 81 mg chewable tablet 81 mg PO DAILY@0800 cardiac ##90 12/30/20 06/03/24 Rx [id number],[id number] 1 cap PO DAILY dialysis 06/16/23 06/03/24 History oil 400 mcg-500 unit capsule (ProRenal QD) carvedilol 12.5 mg tablet 12.5 mg PO BID heart and BP 07/01/24 Unknown History sucroferric oxyhydroxide 500 mg 500 mg PO TID 09/25/24 Unknown History chewable tablet (Velphoro) furosemide 40 mg tablet (Lasix) 60 mg (1.5 x 40 mg) PO DAILY 30 09/27/24 Unknown Rx days #45 tabs verapamil 240 mg tablet,extended 120 mg (1/2 x 240 mg) PO DAILY 30 09/27/24 Unknown Rx release days #15 tabs amlodipine 10 mg tablet 10 mg PO DAILY 10/22/24 Unknown History Allergy/AdvReac Type Severity Reaction Status Date / Time Seasonal Allergies: Uncoded Allergy Intermediate Unknown Verified 10/22/24 05:04 ezetimibe (From Zetia) AdvReac Intermediate unstable Verified 10/22/24 05:04 gait, myalgia, joint pain isosorbide AdvReac Intermediate Dizziness Verified 10/22/24 05:04 atorvastatin (From Lipitor) AdvReac unstable Verified 10/22/24 05:04 gait, myalgia rosuvastatin (From Crestor) AdvReac unstable Verified 10/22/24 05:04 gait, myalgia Family History Mother Heart disease Father Hypertension Cardiac arrest Surgical History H/O coronary artery bypass surgery (01/11/21) History of left heart catheterization (12/28/20) S/P arteriovenous (AV) fistula creation History of right inguinal hernia repair (01/08/20) History of colonoscopy (2009) History of colostomy reversal History of partial colectomy Social History Smoking Status: Former smoker quit date: 09/25/18 pack-years: 65 how long ago did patient quit smokin years ago alcohol intake: never substance use type: does not use caffeine: Yes Type: coffee Number of servings: 2 what type of physical activity do you participate in: none frequency: does not exercise ROS ROS ED ROS Narrative Shortness of breath last few hours. Cough of yellowish sputum. Constitutional Constitutional ED: Denies chills or fever(s) Eyes Eyes: Denies blurry vision ENT ENT ED: Denies ear pain Cardiovascular Cardiovascular: Denies chest pain Respiratory/Chest Respiratory/Chest: Reports cough, dyspnea and sputum Gastrointestinal Gastrointestinal: Denies abdominal pain, nausea or vomiting Genitourinary Genitourinary ED: Denies dysuria or hematuria Musculoskeletal Musculoskeletal: Denies arthralgias Integumentary Denies abscess Neurologic Neurologic: Denies headache(s) Psychiatric Psychiatric: Denies anxiety Endocrine Endocrinology: Denies cold intolerance Hematologic/Lymphatic Hematologic/Lymphatic: Denies easy bleeding Allergic/Immunologic Allergic/Immunologic ED: Denies mouth swelling EXAM Physical Exam Narrative Exam Narrative: 69-year-old male sitting upright in bed respiratory distress. Accelerated respiratory rate and tachycardic. Respiratory personnel is in the room. He is being placed on BiPAP. H EENT exam unremarked. Neck nontender JVD. Lungs Rales bilaterally. Increased respiratory rate. Respiratory distress. Heart tachycardic rate of 115 no murmur. Chest wall ribs nontender. Abdomen soft nontender. Moving all 4 extremities. Calves are nontender without edema or cords. Normal dorsi plantarflexion. Normal abalone fisherman strength. Dialysis shunt in his left forearm with good thrill. Back nontender. He is awake and alert. Answering questions following commands. Const Vital Signs: 10/22/24 05:04 10/22/24 05:08 10/22/24 05:09 Temperature 97.9 F 97.9 F Temperature Source Axillary Axillary Pulse Rate 115 H 117 H Respiratory Rate 44 H 44 H Respiratory Effort Labored Accessory Muscle Use Blood Pressure 183/99 H 183/99 H Blood Pressure Mean 127 127 Pulse Ox 90 90 Oxygen Delivery Method Non-Rebreather Non-Rebreather Non-Rebreather Oxygen Flow Rate (L/min) 12 15 15 Fraction of Inspired Oxygen (FIO2) 10/22/24 05:21 10/22/24 05:21 10/22/24 05:44 Temperature Temperature Source Pulse Rate 105 H 102 H Respiratory Rate 37 H 36 H Respiratory Effort Blood Pressure 194/89 H Blood Pressure Mean 124 Pulse Ox 93 93 92 Oxygen Delivery Method Non-Rebreather Bi-pap Oxygen Flow Rate (L/min) 15 50 Fraction of Inspired Oxygen (FIO2) 50 Positive well nourished and well developed; Negative for obese, cachectic, contractures or unkempt General Appearance ED: well developed; Negative for unkempt, cachectic, contractures or NAD Nutritional Appearance: Negative for cachectic or obese HEENT Reports moist mucous membranes atraumatic; Negative for trauma or tenderness Eyes EOMs intact bilaterally Neck no lymphadenopathy, supple, no meningeal signs and no JVD Resp No normal respiratory effort and No clear to auscultation bilaterally Resp Narrative: Respiratory distress. Bilateral rales. Exam consistent with pulmonary edema. Auscultation: rales Cardio S1 normal heart sound, S2 normal heart sound and no murmurs; Negative for regular rate Rate: tachycardic GI non-tender, non-distended and no masses Palpation: soft; Negative for tender, guarding or rebound tenderness present Back/Spine no CVA tenderness and normal to inspection Extremity normal to inspection General Extremety ED: Negative for edema or tenderness General Extremity: Negative for edema Neuro oriented x3 and CN's II-XII intact bilaterally Sensorium / Orientation: alert, oriented to person, oriented to place and oriented to time; Negative for orientation impaired or confused Speech: speech normal Motor Exam: strength 5/5 throughout Psych mental status grossly normal Appearance: Negative for unkempt Thought Process: normal thought process Skin no wounds and skin turgor normal Lesions: no lesions Rashes: no rashes MDM MDM MDM Narrative Medical decision making narrative: 69-year-old male with CHF and end-stage renal disease dialysis. Was last dialyzed 2+ days ago. Had acute respiratory distress this morning about 3 AM. Exam is consistent with respiratory distress and pulmonary edema. He will be given IV Lasix. Placed on BiPAP and have a cardiac workup. Patient treated for congestive heart failure. Given IV Lasix. He is currently on BiPAP 20/10. He is slowly improving. On repeat exam at 5:53 AM he is improved from his initial presentation. I have the hospitalist on page for admission. He will most likely need dialysis also. History & Record Review Discussion w/independent historian: Patient Additional record(s) reviewed:: Prior inpatient record, Prior outpatient record and Prior ED visit Lab Data Attestation: I reviewed the patient's lab results. Lab results narrative: CBC shows a white 11.4. H&H 14 and 44. Platelets 223. Chest x-ray consistent with pulmonary edema. CHF. BMP shows a sodium 135. Potassium 5.7. Gap 15. BUN of 99. Creatinine 11.9 consistent with his end-stage renal disease. Glucose 247. Troponin 65. BNP 1,502. Labs: Laboratory Results - last 24 hr 10/22/24 05:14 WBC 11.4 H RBC 4.30 L Hgb 14.8 Hct 44.7 MCV 104.0 H MCH 34.4 H MCHC 33.1 RDW Std Deviation 60.3 H RDW Coeff of Steven 16.2 H Plt Count 223 MPV 10.8 Immature Gran % (Auto) 0.300 Neut % (Auto) 60.4 Lymph % (Auto) 28.3 [place] % (Auto) 6.8 Eos % (Auto) 3.2 Baso % (Auto) 1.0 Absolute Neuts (auto) 6.9 Absolute Lymphs (auto) 3.22 Nucleated RBC % 0 Sodium 135 L Potassium 5.7 H Chloride 94 L Carbon Dioxide 26.0 Anion Gap 15 BUN 99 H Creatinine 11.90 H* Estim Creat Clear Calc 6.57 Est GFR (MDRD) Af Amer 5 L Est GFR (MDRD) Non-Af 5 L BUN/Creatinine Ratio 8.3 L Glucose 247 H Calcium 9.1 Troponin I High Sens 65 B-Natriuretic Peptide 1502.0 H Radiography Chest X-Ray - ED: 1 View, Read by ED Physician, Normal, Mediastinum, Bony Structures, Chronic Changes and CHF Diagnostic Testing: Chest x-ray, portable, single view interpreted by myself shows prior sternotomy and sternal wires. Cardiomegaly. Bilateral pulmonary edema consistent with CHF. No obvious pneumonia. No effusions. Rhythm Strip Rhythm Strip: Sinus Tach Rate: 109 Ectopy: None EKG Initial EKG: Attestation: I personally reviewed and interpreted this EKG as follows: Interpretation: No Acute Injury Pattern and Sinus Tachycardia Comments: Sinus tachycardia rate of 109. LVH. No acute signs of ST elevation or significant depression. Critical Care Time Critical Care Time: Yes Critical care time (excluding procedures): 30-74 minutes, Including time spent:, Discussing w/Patient &/or Family/Jewelry Making Instructor, Discussing w/Consultants, Arranging Admission or Transfer, Performing Direct Patient Care at Bedside and - (37 minutes.) Discharge Plan Dx/Rx/DC Orders Clinical Impression: Acute dyspnea, Hypoxia, Congestive heart failure, History of end stage renal disease, History of renal dialysis Disposition Disposition: [facility]
[2024-10-22 05:30] LABS: Absolute Lymphocyte Count 3.22 X10^3/uL (0.83-4.51); Absolute Neutrophil Count 6.9 X10^3/uL (2.0-7.7); Basophil# 0.11 X10^3/uL; Eosinophil# 0.36 X10^3/uL; Eosinophils% 3.2 % (0-5); Hematocrit 44.7 % (40-54); Hemoglobin 14.8 g/dL (13.0-16.5); Lymphocyte # 3.22 X10^3/ul (0.83-4.51); Lymphocyte % 28.3 % (19-41); Mean Corp Hgb Conc 33.1 g/dL (32-36); Mean Corpuscular Hgb 34.4 pg (27.0-32.0); Mean Platelet Vol. 10.8 fl (6.2-12.0); Monocyte# 0.77 X10^3/uL; Monocyte% 6.8 % (0-10); NRBC Flagged by Analyzer 0 % (0-5); Neutrophil # 6.89 X10^3/uL (2.7-7.7); Neutrophil % 60.4 % (47-70); Platelet Count 223 K/mm3 (150-450); RBC Distribution Width CV 16.2 % (11.6-14.6); RBC Distribution Width SD 60.3 fl (35.1-43.9); White Blood Count 11.4 K/mm3 (4.4-11.0)
[2024-10-22] MEDS: Furosemide 40 MG/4 ML Vial IV ×3 (05:30→18:30)
--- NOTE | 2024-10-22 05:30 | RAD_ITS ---
INDICATION: chest pain EXAMINATION/TECHNIQUE: X-RAY - XR Chest 1 View AP portable. 5:30 AM COMPARISON: Prior study dated: 09/26/2024 FINDINGS: LINES/DEVICES: None. LUNGS: Alveolar infiltrates throughout both lungs. Small bilateral pleural effusion, greater on the right. No consolidation. No pneumothorax. MEDIASTINUM: Unremarkable. CARDIAC SILHOUETTE: Not enlarged. Sternal wires. BONES AND SOFT TISSUES: No acute abnormalities. RAD/Chest 1 View (Portable) IMPRESSION: Bilateral airspace disease and small pleural effusions, likely pulmonary edema. Electronically Signed: Talia Oliver MD at 6:47 EST ,
[2024-10-22 05:51] LABS: Anion Gap 15 (5-15); BUN 99 mg/dL (7-18); BUN/Creat Ratio 8.3 RATIO (10-20); Calcium,Total 9.1 mg/dL (8.5-10.1); Chloride 94 mmol/L (98-107); EST Glomerular Filtration Rate 5 mL/min (>60); Est Glom Filt Rate - Afr Amer 5 mL/min (>60); Estimated Creatinine Clearance 6.57 ml/min; Glucose 247 mg/dL (74-106); Potassium 5.7 mmol/L (3.5-5.1); Sodium Level 135 mmol/L (136-145); Troponin-I HS 65 pg/mL (3.0-78.0)
--- NOTE | 2024-10-22 05:59 | HP.PCM.HOS_ITS ---
[facility] - General General Date of Admission: 10/22/24 Date of Service: 10/22/24 Chief Complaint: SOB. HPI Narrative JOSELITO FRAZIER, is a 69 M with a past medical history of essential hypertension; on amlodipine, carvedilol and verapamil, hyperlipidemia; with intolerance to statins (myalgias) and allergy to ezetimibe (unstable gait, myalgia and joint pain), overweight; with BMI of 29 this admission, former chronic tobacco abuse (quit 2017), CAD; s/p NSTEMI (2020) and CABG x 3 (2020), history of ischemic cardiomyopathy, history of diastolic CHF; with preserved LVEF ~60% with moderately severe 3+ mitral insufficiency due to suspected papillary muscle dysfunction on recent MURPHY with a mobile atheroma of the aortic arch/descending aorta with mild 1+ aortic valve insufficiency (10/07/2024) ESRD on HD; (-Mon) s/p AVF on velphoro, history of bilateral carotid stenosis, history of flash pulmonary edema with hypoxic and hypercapnic respiratory failure; on 3L NC at home, history of pneumonia, history of diverticulitis, history of partial colectomy with subsequent reversal of colostomy, history of postoperative ileus (2020), history of Right inguinal hernia repair (2019), depression with anxiety; on sertraline and history of medical noncompliance who presents to [facility] ER complaining of shortness of breath. Mr. Frazier reports his symptoms began approximately 3:00 AM with the abrupt-onset of SOB. He also admits to cough productive of yellowish sputum. He states his symptoms are not made better or worse by anything. He denies associated fever, chills, chest pain, lower extremity edema, abdominal pain, nausea, vomiting, diaphoresis or headache. In the ER he was noted to have a highly elevated blood pressure of 194/89 mmHg shortly after admission consistent with Hypertensive Emergency complicated by clinical evidence of [id number] Hypoxic Respiratory Failure; requiring BiPAP with an elevated BNP of 1,502 pg/mL present on admission consistent with suspected AE of Chronic Diastolic CHF; with preserved LVEF in the setting of known moderately severe 3+ mitral insufficiency due to suspected papillary muscle dysfunction on recent MURPHY with a mobile atheroma of the aortic arch/descending aorta with mild 1+ aortic valve insufficiency compounded by Leukocytosis of 11.4K present on admission with cough productive of yellowish sputum suspicious for Pneumonia along with laboratory evidence of Hyperkalemia of 5.7 mmol/L present on admission with a good response to emergent treatment with IV Lasix in the ER and he was then admitted to the ICU for ongoing care for a stay that is expected to extend beyond 2 midnights. [facility] Medical History Mitral valvular insufficiency and aortic valvular insufficiency Bilateral carotid artery stenosis ESRD (end stage renal disease) on dialysis History of non-ST elevation myocardial infarction (NSTEMI) (12/28/20) Chronic systolic (congestive) heart failure Postoperative ileus (01/15/21) Atherosclerotic heart disease of [place] coronary artery without angina pectoris Acute HFrEF (heart failure with reduced ejection fraction) Ischemic cardiomyopathy Flash pulmonary edema Bilateral inguinal hernia without obstruction or gangrene Hypercholesteremia Essential (primary) hypertension White coat syndrome with hypertension Myocardial infarction History of diverticulitis Anxiety Home Medications ?Medication ?Instructions ?Recorded ?Last Taken ?Type sertraline 50 mg tablet 50 mg PO DAILY mood 05/09/19 06/03/24 History aspirin 81 mg chewable tablet 81 mg PO DAILY@0800 cardiac ##90 12/30/20 06/03/24 Rx mv,[id number] 1 cap PO DAILY dialysis 06/16/23 06/03/24 History oil 400 mcg-500 unit capsule (ProRenal QD) carvedilol 12.5 mg tablet 12.5 mg PO BID heart and BP 07/01/24 Unknown History sucroferric oxyhydroxide 500 mg 500 mg PO TID 09/25/24 Unknown History chewable tablet (Velphoro) furosemide 40 mg tablet (Lasix) 60 mg (1.5 x 40 mg) PO DAILY 30 09/27/24 Unknown Rx days #45 tabs verapamil 240 mg tablet,extended 120 mg (1/2 x 240 mg) PO DAILY 30 09/27/24 Unknown Rx release days #15 tabs amlodipine 10 mg tablet 10 mg PO DAILY 10/22/24 Unknown History Allergy/AdvReac Type Severity Reaction Status Date / Time Seasonal Allergies: Uncoded Allergy Intermediate Unknown Verified 10/22/24 05:04 ezetimibe (From Zetia) AdvReac Intermediate unstable Verified 10/22/24 05:04 gait, myalgia, joint pain isosorbide AdvReac Intermediate Dizziness Verified 10/22/24 05:04 atorvastatin (From Lipitor) AdvReac unstable Verified 10/22/24 05:04 gait, myalgia rosuvastatin (From Crestor) AdvReac unstable Verified 10/22/24 05:04 gait, myalgia Family History Mother Heart disease Father Hypertension Cardiac arrest Surgical History H/O coronary artery bypass surgery (01/11/21) History of left heart catheterization (12/28/20) S/P arteriovenous (AV) fistula creation History of right inguinal hernia repair (01/08/20) History of colonoscopy (2009) History of colostomy reversal History of partial colectomy Social History Smoking Status: Former smoker quit date: 09/25/18 pack-years: 65 how long ago did patient quit smokin years ago alcohol intake: never substance use type: does not use caffeine: Yes Type: coffee Number of servings: 2 what type of physical activity do you participate in: none frequency: does not exercise ROS ROS Narrative Review of Systems: Constitutional: Patient denies fever or chills. Eyes: Patient denies changes in vision or discharge from eyes. ENT: Patient denies runny nose, sore throat or ear pain. Resp: Patient admits to severe SOB at rest with cough productive of yellowish sputum as per HPI. CV: Patient denies chest pain, palpitations or heart racing. GI: Patient denies abdominal pain, nausea, vomiting, diarrhea or constipation. : Patient denies dysuria or hematuria. MSK: Patient denies arthralgias or myalgias. Skin: Patient denies rash, abscess or jaundice. Psych: Patient denies symptoms of uncontrolled depression or anxiety. Neuro: Patient denies headache, paresthesias or focal neurologic deficits. Allergy: Patient denies lip swelling, tongue swelling or urticaria. Hematology: Patient denies easy bleeding or easy bruisability. Endocrinology: Patient denies polyuria, polydipsia or polyphagia. 14 point ROS otherwise negative except for positives noted above in HPI. Vital Signs Vital Signs Vital Signs: 10/22/24 05:04 10/22/24 05:08 10/22/24 05:09 Temperature 97.9 F 97.9 F Temperature Source Axillary Axillary Pulse Rate 115 H 117 H Respiratory Rate 44 H 44 H Respiratory Effort Labored Accessory Muscle Use Blood Pressure 183/99 H 183/99 H Blood Pressure Mean 127 127 Pulse Ox 90 90 Oxygen Delivery Method Non-Rebreather Non-Rebreather Non-Rebreather Oxygen Flow Rate (L/min) 12 15 15 Fraction of Inspired Oxygen (FIO2) 10/22/24 05:21 10/22/24 05:21 10/22/24 05:44 Temperature Temperature Source Pulse Rate 105 H 102 H Respiratory Rate 37 H 36 H Respiratory Effort Blood Pressure 194/89 H Blood Pressure Mean 124 Pulse Ox 93 93 92 Oxygen Delivery Method Non-Rebreather Bi-pap Oxygen Flow Rate (L/min) 15 50 Fraction of Inspired Oxygen (FIO2) 50 Weight Weight: 201 lb 12.8 oz Body Mass Index (BMI) 28.9 Physical Exam Const alert and oriented x3 Constitutional Narrative: Patient appears comfortable on BiPAP. General Appearance: cooperative HEENT normocephalic, head/scalp atraumatic, hearing grossly normal bilaterally and moist oral mucous membranes Eyes PERRL and EOMs intact bilaterally Neck no lymphadenopathy and supple Neck Narrative: +JVD Resp Resp Narrative: Bibasilar rales throughout. Auscultation: rales Cardio regular rate and regular rhythm GI normal to inspection, nondistended, normoactive bowel sounds, soft to palpation and non-tender Extremity normal to inspection, full ROM and no clubbing, cyanosis or edema Skin Skin Narrative: Patient has no evidence of rash, abscess or jaundice. Neuro oriented x3, CN's II-XII intact bilaterally, moves all extremities and no focal motor deficits Sensorium / Orientation: awake, alert, oriented to person, oriented to place and oriented to time Speech: speech normal Psych affect normal Results Medical Records Data Attestation: I reviewed the patient's medical records Lab / Micro Data Attestation: I reviewed the patient's lab results. 10/22/24 05:14 10/22/24 05:14 Labs: Laboratory Results - last 24 hr 10/22/24 05:14: WBC 11.4 H, RBC 4.30 L, Hgb 14.8, Hct 44.7, MCV 104.0 H, MCH 34.4 H, MCHC 33.1, RDW Std Deviation 60.3 H, RDW Coeff of Steven 16.2 H, Plt Count 223, MPV 10.8, Immature Gran % (Auto) 0.300, Neut % (Auto) 60.4, Lymph % (Auto) 28.3, [place] % (Auto) 6.8, Eos % (Auto) 3.2, Baso % (Auto) 1.0, Absolute Neuts (auto) 6.9, Absolute Lymphs (auto) 3.22, Nucleated RBC % 0, Sodium 135 L, P otassium 5.7 H, Chloride 94 L, Carbon Dioxide 26.0, Anion Gap 15, BUN 99 H, C reatinine 11.90 H*, Estim Creat Clear Calc 6.57, Est GFR (MDRD) Af Amer 5 L, Est GFR (MDRD) Non-Af 5 L, BUN/Creatinine Ratio 8.3 L, Glucose 247 H, Calcium 9.1, Troponin I High Sens 65, B-Natriuretic Peptide 1502.0 H Rhythm Strip Rhythm Strip: Sinus Tach Rate: 109 Ectopy: None Assessment & Plan Assessment/Plan (1) Acute diastolic (congestive) heart failure: (2) Pneumonia: QUALIFIERS: Laterality: bilateral Lung location: unspecified part of lung Pneumonia type: due to unspecified organism Qualified Code(s): J18.9 - Pneumonia, unspecified organism (3) Hypertensive emergency: (4) Acute hypoxic respiratory failure: (5) History of end stage renal disease: (6) Hyperkalemia: (7) Overweight (BMI 25.0-29.9): PLAN: Plan 1. AE of Chronic Diastolic CHF; with preserved LVEF in the setting of known moderately severe 3+ mitral insufficiency due to suspected papillary muscle dysfunction on recent MURPHY with a mobile atheroma of the aortic arch/descending aorta with mild 1+ aortic valve insufficiency with elevated BNP of 1,502 pg/mL present on admission in the setting of a known history of flash pulmonary edema with hypoxic and hypercapnic respiratory failure; on 3L NC at home - Admit to ICU. Continue IV Lasix begun in the ER. Recheck BNP and CXR to follow response to treatment. 2. Suspected superimposed Pneumonia with cough productive of yellowish sputum and Leukocytosis of 11.4K present on admission complicating #1 - Start empiric IV Doxycycline. Check urinary antigens for Streptococcus pneumonia and Legionella. We will also start probiotic to replace normal keshav. 3. Highly elevated blood pressure of 194/89 mmHg shortly after admission consistent with Hypertensive Emergency compounding #1 & #2 - Continue home regimen plus give prn IV Hydralazine for systolic blood pressure > 160 mmHg. 4. Thiyx-yh-ncpomiv Hypoxic Respiratory Failure; requiring BiPAP arising from #1 - #3 - Wean BiPAP as tolerated back to baseline 3L NC as tolerated. 5. Hyperkalemia of 5.7 mmol/L present on admission in the setting of ESRD on HD; (--Mon) s/p AVF on velphoro adding to the medical complexity of #1 - #4 - Patient started on IV Lasix in the ER which will be continued. Give Kayexalate 30g PO once. Recheck BMP at noon to follow trend. 6. Overweight; with BMI of 29 this admission - Weight loss will be recommended. Check TSH. This complicates his case and may hamper his recovery. 7. Hyperlipidemia; with intolerance to statins (myalgias) and allergy to ezetimibe (unstable gait, myalgia and joint pain) - Noted. 8. Former chronic tobacco abuse (quit 2017) - Noted. 9. CAD; s/p NSTEMI (2020) and CABG x 3 (2020) - Stable with normal troponin noted on admission and no reports of chest pain. 10. History of ischemic cardiomyopathy - Noted. 11. History of bilateral carotid stenosis - Noted. 12. History of pneumonia - Noted. 13. History of diverticulitis - Noted. 14. History of partial colectomy with subsequent reversal of colostomy - Noted. 15. History of postoperative ileus (2020) - Noted. 16. History of Right inguinal hernia repair (2019) - Noted. 17. Depression with anxiety; on sertraline - Resume sertraline as before. 18. History of medical noncompliance - Noted. 19. DVT prophylaxis - Heparin 5,000 units sq. BID plus SCD's. Total time: Approximately (but not less than) 75 minutes. Charges/Coding Visit Charges Inpatient E&M: 56786 Init Hosp L3
[2024-10-22 06:45] LABS: Allen Test Positive; Base Excess 0 mmol/L (-2 to +2); Bicarbonate 26.5 mmol/L (22-26); Blood Gas Specimen Type ART; Comment 20/10; Mode Not entered; O2 Delivery Device BiPAP; PO2 34 mmHG (75-100); RR 12; SITE R Radial; SO2 60 % (95-99); Total Carbon Dioxide 28 mmol/L; pCO2 52.4 mmHg (35-45); pH 7.31 (7.35-7.45)
[2024-10-22 08:02] LABS: Magnesium 3.2 mg/dL (1.6-2.6)
--- NOTE | 2024-10-22 11:53 | CASEMGMT ---
This RN CM to pt room to discuss readmission chart review. Pt is currently receiving HD and is on BiPAP and requests this RN CM to return at a later time. Will follow.
--- NOTE | 2024-10-22 12:48 | CON.PCM.RE_ITS ---
Assessment & Plan Assessment/Plan (1) Hyperkalemia: (2) History of end stage renal disease: PLAN: on hemodialysis Monday, , Monday schedule. Seen on dialysis today. 4 hours, 2K solution. Will plan for 4 to 5 L of fluid removal. Reassess breathing status after dialysis. Depending on breathing status tomorrow, we may plan for isolated ultrafiltration. Hyperkalemia. Dialysis on 2K bath. HPI Consult Data Date of Consult: 10/22/24 HPI Narrative Reason for Consultation: esrd HPI Narrative: JOSELITO LAWSON, is a 69 M who presents to the hospital with sudden onset of shortness of breath. History of ESRD, on hemodialysis Monday, , Monday. Last dialysis was Monday, uneventful. He says about 3.5 to 4 L was removed. An average fluid removal is about 3 and half to 4 L. Sudden onset of shortness of breath yesterday, chest x-ray on admission consistent with fluid overload. Currently on BiPAP, seen on dialysis. Blood pressure is also high, 170 systolic. Minimal lower extremity edema. [facility] Medical History Mitral valvular insufficiency and aortic valvular insufficiency Bilateral carotid artery stenosis ESRD (end stage renal disease) on dialysis History of non-ST elevation myocardial infarction (NSTEMI) (12/28/20) Chronic systolic (congestive) heart failure Postoperative ileus (01/15/21) Atherosclerotic heart disease of [place] coronary artery without angina pectoris Acute HFrEF (heart failure with reduced ejection fraction) Ischemic cardiomyopathy Flash pulmonary edema Bilateral inguinal hernia without obstruction or gangrene Hypercholesteremia Essential (primary) hypertension White coat syndrome with hypertension Myocardial infarction History of diverticulitis Anxiety Home Medications ?Medication ?Instructions ?Recorded ?Last Taken ?Type sertraline 50 mg tablet 50 mg PO DAILY mood 05/09/19 06/03/24 History aspirin 81 mg chewable tablet 81 mg PO DAILY@0800 cardiac ##90 12/30/20 06/03/24 Rx mv,[id number] 1 cap PO DAILY dialysis 06/16/23 06/03/24 History oil 400 mcg-500 unit capsule (ProRenal QD) carvedilol 12.5 mg tablet 12.5 mg PO BID heart and BP 07/01/24 Unknown History sucroferric oxyhydroxide 500 mg 500 mg PO TID 09/25/24 Unknown History chewable tablet (Velphoro) furosemide 40 mg tablet (Lasix) 60 mg (1.5 x 40 mg) PO DAILY 30 09/27/24 Unknown Rx days #45 tabs verapamil 240 mg tablet,extended 120 mg (1/2 x 240 mg) PO DAILY 30 09/27/24 Unknown Rx release days #15 tabs Allergy/AdvReac Type Severity Reaction Status Date / Time Seasonal Allergies: Uncoded Allergy Intermediate Unknown Verified 10/22/24 05:04 ezetimibe (From Zetia) AdvReac Intermediate unstable Verified 10/22/24 05:04 gait, myalgia, joint pain isosorbide AdvReac Intermediate Dizziness Verified 10/22/24 05:04 atorvastatin (From Lipitor) AdvReac unstable Verified 10/22/24 05:04 gait, myalgia rosuvastatin (From Crestor) AdvReac unstable Verified 10/22/24 05:04 gait, myalgia Family History Mother Heart disease Father Hypertension Cardiac arrest Surgical History H/O coronary artery bypass surgery (01/11/21) History of left heart catheterization (12/28/20) S/P arteriovenous (AV) fistula creation History of right inguinal hernia repair (01/08/20) History of colonoscopy (2009) History of colostomy reversal History of partial colectomy Social History Smoking Status: Former smoker quit date: 09/25/18 pack-years: 65 how long ago did patient quit smokin years ago alcohol intake: never substance use type: does not use caffeine: Yes Type: coffee Number of servings: 2 what type of physical activity do you participate in: none frequency: does not exercise ROS ROS Narrative negative except above Physical Exam Narrative Alert awake oriented x 3 no obvious distress no pallor no icterus no JVD s1s2 no murmurs lungs clear abdomen soft no organomegaly Lab / Micro Data 10/22/24 05:14 10/22/24 05:14 Labs: Laboratory Results - last 24 hr 10/22/24 05:14: WBC 11.4 H, RBC 4.30 L, Hgb 14.8, Hct 44.7, MCV 104.0 H, MCH 34.4 H, MCHC 33.1, RDW Std Deviation 60.3 H, RDW Coeff of Steven 16.2 H, Plt Count 223, MPV 10.8, Immature Gran % (Auto) 0.300, Neut % (Auto) 60.4, Lymph % (Auto) 28.3, [place] % (Auto) 6.8, Eos % (Auto) 3.2, Baso % (Auto) 1.0, Absolute Neuts (auto) 6.9, Absolute Lymphs (auto) 3.22, Nucleated RBC % 0, Sodium 135 L, P otassium 5.7 H, Chloride 94 L, Carbon Dioxide 26.0, Anion Gap 15, BUN 99 H, C reatinine 11.90 H*, Estim Creat Clear Calc 6.57, Est GFR (MDRD) Af Amer 5 L, Est GFR (MDRD) Non-Af 5 L, BUN/Creatinine Ratio 8.3 L, Glucose 247 H, Calcium 9.1, M agnesium 3.2 H, Troponin I High Sens 65, B-Natriuretic Peptide 1502.0 H, TSH 2.000 ABG Data ABG results: ABG 10/22/24 06:41 Specimen Type ART Sample Site R Radial pH 7.31 L Bicarbonate Actual 26.5 H Total CO2 28 Base Excess 0 O2 Saturation 60 L O2 % 50.0 ABG pCO2 52.4 H ABG pO2 34 L* Sherif Test Positive Respiration Rate 12 O2 Delivery Device BiPAP Vent Mode Not entered Crit Call To/Read Back Yes Blood Gas Notified Time 06:43:33 Clinical Comments 08/09 Rhythm Strip Rhythm Strip: Sinus Tach Rate: 109 Ectopy: None Imaging Radiology Impression Chest X-Ray 10/22/24 05:30 IMPRESSION: Bilateral airspace disease and small pleural effusions, likely pulmonary edema. Electronically Signed: Talia Oliver MD at 6:47 EST ,
[2024-10-22] MEDS: 0.9% Normal Saline 1,000 ML IV.SOLN. 1000 ML OPERA.SITE (12:59)
[2024-10-22] MEDS: PureFlow B 2K Dialysis Soln 1 BAG 6 BAG PF (12:59)
[2024-10-22] MEDS: Ascorbic Acid 500 MG Tablet 1000 MG PO ×2 (13:08→18:31)
[2024-10-22] MEDS: Sertraline 50 MG Tablet PO (13:08)
[2024-10-22] MEDS: guaiFENesin 600 MG Tablet PO ×2 (13:08→20:16)
[2024-10-22] MEDS: Carvedilol 12.5 MG Tablet PO ×2 (13:09→18:30)
[2024-10-22] MEDS: Magnesium Chloride 64 MG Delay Rel.Tablet 128 MG PO (13:09)
[2024-10-22] MEDS: Aspirin 81 MG TAB.CHEW PO (13:09)
[2024-10-22] MEDS: Cholecalciferol (Vit D3) 125 MCG CAPSULE (5,000 UNITS) PO (13:09)
[2024-10-22] MEDS: Folic Acid/Vitamin B Comp W-C 1 Capsule 1 CAP PO (13:09)
[2024-10-22] MEDS: Verapamil SR 240 MG Tablet 120 MG PO (13:10)
[2024-10-22] MEDS: Lactobacillis Acidophilus 1 CAP PO ×4 (13:10→20:16)
[2024-10-22] MEDS: Heparin Injection (Vial) 5,000 UNIT/ML VIAL 5000 UNIT SC ×2 (13:10→20:16)
[2024-10-22] MEDS: Zinc Sulfate 50 mg zinc (220 mg) ORAL capsule PO (13:10)
[2024-10-22] MEDS: Doxycycline 100 MG in Dextrose 5%-Water (250mL Bag) 250 ML 250 MG IV ×2 (13:45→20:14)
--- NOTE | 2024-10-22 14:27 | CASEMGMT ---
Readmission Chart Review Index: 09/25-09/27/24. Dx: Acute Hypoxia Current Admission: 10/22/24. Dx: AE CHF, Suspected PNA From index admission, the patient was discharged home with his and qualified for home oxygen through [employer] at 2L per minute with exertion. Patient re-presents to [facility] with respiratory distress, CHF, and end-stage renal disease. This air traffic control manager to the patient room at this time. Patient states that he was able to attend outpatient hemodialysis every Monday at 10:30. Patient states that he is independent and that he drives himself to this. Patient states that he was wearing more oxygen than what his current prescription states. Patient states that he was wearing 3 L continuous and was periodically checking his oxygen saturation levels with his pulse oximeter. Patient states that all appropriate equipment was delivered including the concentrator and portable tanks. Patient states that he was able to get his two new prescriptions and take them as ordered. Patient states that he has a follow-up appointment with the heart group on the sixth. Patient states that he was able to follow up with his PCP. Moving forward, patient states that he plans to discharge home with his once he is medically ready. Patient plans to continue going to outpatient hemodialysis. Patient reports that he is independent and does not need or want any home healthcare or outpatient therapy. Patient was educated about [facility] as well as [facility] and that these are free services but the patient refused both of these programs at this time. Patient states that he does not feel like he needs the services. automotive service management teacher will follow for an updated oxygen prescription as needed. Patient denies any further questions or concerns at this time. Care management to continue to follow. Dane BARONE RN CM
[2024-10-22 14:33] LABS: Anion Gap 8 (5-15); BUN 63 mg/dL (7-18); Calcium,Total 9.8 mg/dL (8.5-10.1); Chloride 97 mmol/L (98-107); Creatinine, Serum 7.86 mg/dL (0.70-1.30); EST Glomerular Filtration Rate 7 mL/min (>60); Est Glom Filt Rate - Afr Amer 9 mL/min (>60); Estimated Creatinine Clearance 9.03 ml/min; Glucose 89 mg/dL (74-106); Potassium 5.8 mmol/L (3.5-5.1); Sodium Level 135 mmol/L (136-145)
--- NOTE | 2024-10-22 15:49 | CHAPLAIN ---
Type of Pastoral Visit _x__ Initial Visit ___ Follow-up Visit ___ On-call Visit ___ General Patient Visit ___ Spiritual Assessment ___ Family Conference ___ Bereavement ___ Rapid Response ___ Code Blue ___ Other (describe below) Pastoral Care Referral From _x__ Patient ___ Family ___ Nurse ___ Physician ___ Fraud Analyst ___ Structural Steel Erector ___ Other (describe below) Sacrament/Intervention _x__ Active listening ___ Anointing ___ Nondenominational ___ Bereavement ___ Communion ___ Deya exploration ___ ___ Life review ___ Prayer ___ Reconciliation ___ Sacrament of Sick ___ Supportive presence ___ Wedding ___ Other (describe below) Pastoral Comments patient has been seen in several recent admissions; pt welcomes this textile colorist formulator into the room and for giving support; pt was just taken off of the bi-pap and reports doing much better than early today; several family members are in the room at this time; offer of presence and support;
--- NOTE | 2024-10-22 15:50 | PCM.HOSP.N ---
Hospitalist Note Patient was admitted early this morning for shortness of breath, this was felt to be associated with volume overload and he underwent dialysis today. At the time of this dictation, he is currently on 3 L of oxygen via nasal cannula. Patient's pulse ox will continue to be monitored. Continue present medications as ordered on admission.
[2024-10-22 15:56] LABS: Hemoglobin A1c 4.8 % (3.8-5.6)
--- NOTE | 2024-10-22 22:25 | CPS ---
Pt states he doesn't need to wear BiPAP for tonight.
[2024-10-23] VITALS (7 sets, daily range): BP systolic 105–165; BP diastolic 47–66; PULSE 73–79; RESP 16–18; TEMP 36.7–36.8; O2SAT 95–97
--- NOTE | 2024-10-23 05:55 | RAD_ITS ---
INDICATION: AE CHF and suspected Pneumonia. EXAMINATION/TECHNIQUE: X-RAY - XR Chest 1 View COMPARISON: 09/22/2024 FINDINGS: LINES/DEVICES: None. LUNGS: No consolidation, edema or effusion. No pneumothorax. MEDIASTINUM AND CARDIOVASCULAR STRUCTURES: Cardiac silhouette is moderately enlarged. Central airways and mediastinal contour are unremarkable. BONES AND SOFT TISSUES: Unremarkable. RAD/Chest 1 View (Portable) IMPRESSION: Moderate cardiomegaly. Markedly improved CHF. Electronically Signed: Jag Blanca MD at 7:28 EST ,
[2024-10-23 07:31] LABS: Absolute Lymphocyte Count 2.13 X10^3/uL (0.83-4.51); Absolute Neutrophil Count 3.4 X10^3/uL (2.0-7.7); Basophil# 0.04 X10^3/uL; Basophil% 0.6 % (0-1); Eosinophil# 0.12 X10^3/uL; Eosinophils% 1.9 % (0-5); Hematocrit 41.6 % (40-54); Hemoglobin 13.9 g/dL (13.0-16.5); Lymphocyte # 2.13 X10^3/ul (0.83-4.51); Lymphocyte % 33.3 % (19-41); Mean Corp Hgb Conc 33.4 g/dL (32-36); Mean Corpuscular Hgb 34.1 pg (27.0-32.0); Mean Platelet Vol. 11.8 fl (6.2-12.0); Monocyte# 0.73 X10^3/uL; Monocyte% 11.4 % (0-10); NRBC Flagged by Analyzer 0 % (0-5); Neutrophil # 3.37 X10^3/uL (2.7-7.7); Neutrophil % 52.6 % (47-70); Platelet Count 167 K/mm3 (150-450); RBC Distribution Width CV 16.4 % (11.6-14.6); RBC Distribution Width SD 60.4 fl (35.1-43.9); Red Blood Count 4.08 M/mm3 (4.6-6.2); White Blood Count 6.4 K/mm3 (4.4-11.0)
[2024-10-23 08:42] LABS: ALB/GLOB Ratio 0.9 RATIO (0.9-2.4); AST(SGOT) 18 U/L (15-37); Alanine Aminotransfer ALT/SGPT 16 U/L (16-61); Albumin, Serum 3.5 g/dL (3.2-5.0); Alkaline Phosphatase 69 U/L (45-117); Anion Gap 14 (5-15); BUN 74 mg/dL (7-18); BUN/Creat Ratio 7.9 RATIO (10-20); Calcium,Total 9.3 mg/dL (8.5-10.1); Chloride 95 mmol/L (98-107); Creatinine, Serum 9.35 mg/dL (0.70-1.30); EST Glomerular Filtration Rate 6 mL/min (>60); Est Glom Filt Rate - Afr Amer 7 mL/min (>60); Estimated Creatinine Clearance 7.59 ml/min; Glucose 100 mg/dL (74-106); Potassium 4.9 mmol/L (3.5-5.1); Protein, Total 7.5 g/dL (6.4-8.2); Sodium Level 133 mmol/L (136-145)
[2024-10-23] MEDS: Ascorbic Acid 500 MG Tablet 1000 MG PO (09:11)
[2024-10-23] MEDS: Verapamil SR 240 MG Tablet 120 MG PO (09:11)
[2024-10-23] MEDS: Heparin Injection (Vial) 5,000 UNIT/ML VIAL 5000 UNIT SC (09:12)
[2024-10-23] MEDS: Aspirin 81 MG TAB.CHEW PO (09:12)
[2024-10-23] MEDS: Cholecalciferol (Vit D3) 125 MCG CAPSULE (5,000 UNITS) PO (09:12)
[2024-10-23] MEDS: Furosemide 40 MG/4 ML Vial IV (09:12)
[2024-10-23] MEDS: Lactobacillis Acidophilus 1 CAP PO ×2 (09:12→14:05)
[2024-10-23] MEDS: guaiFENesin 600 MG Tablet PO (09:12)
[2024-10-23] MEDS: Zinc Sulfate 50 mg zinc (220 mg) ORAL capsule PO (09:12)
[2024-10-23] MEDS: Folic Acid/Vitamin B Comp W-C 1 Capsule 1 CAP PO (09:12)
[2024-10-23] MEDS: Magnesium Chloride 64 MG Delay Rel.Tablet 128 MG PO (09:12)
[2024-10-23] MEDS: Sertraline 50 MG Tablet PO (09:13)
[2024-10-23] MEDS: Carvedilol 12.5 MG Tablet PO (09:13)
[2024-10-23] MEDS: 0.9% Saline Lock 10 ML Syringe IV (09:13)
[2024-10-23] MEDS: Docusate Sodium 100 MG Capsule PO (09:14)
[2024-10-23] MEDS: Doxycycline 100 MG in Dextrose 5%-Water (250mL Bag) 250 ML 250 MG IV (09:52)
[2024-10-23 10:13] LABS: BNP,B-Type NATRIURETIC PEPTIDE 662.7 pg/mL (0-100)
--- NOTE | 2024-10-23 11:59 | PN.RENAL_ITS ---
Subjective Subjective no new complaints he is actually off all O2 Objective Data Objective Data Vital Signs: Vital Signs Temp Pulse Resp BP Pulse Ox O2 Del Method O2 Flow Rate 98.0 F 78 17 146/53 H 95 Room Air 2 10/23/24 10:28 10/23/24 10:28 10/23/24 10:28 10/23/24 10:28 10/23/24 10:28 10/23/24 10:28 10/23/24 09:10 FiO2 50 10/22/24 12:59 Oxygen Flow Rate (L/min) 2 Oxygen Delivery Method Room Air Weight: 85 kg Body Mass Index (BMI) 26.8 Intake & Output: Intake and Output for Last 24 Hours 10/21/24 10/22/24 10/23/24 23:59 23:59 23:59 Intake Total 520 / 520 260 / 260 Output Total 4750 / 4750 0 / 0 Balance -4230 / -4230 260 / 260 Lab / Micro Data 10/23/24 04:25 10/23/24 04:25 Labs: Laboratory Results - last 24 hr 10/22/24 13:55: Sodium 135 L, Potassium 5.8 H, Chloride 97 L, Carbon Dioxide 30.0, Anion Gap 8, BUN 63 H, Creatinine 7.86 H*, Estim Creat Clear Calc 9.03, E st GFR (MDRD) Af Amer 9 L, Est GFR (MDRD) Non-Af 7 L, BUN/Creatinine Ratio 8.0 L , Glucose 89, Hemoglobin A1c 4.8, Calcium 9.8 10/23/24 04:25: WBC 6.4, RBC 4.08 L, Hgb 13.9, Hct 41.6, MCV 102.0 H, MCH 34.1 H , MCHC 33.4, RDW Std Deviation 60.4 H, RDW Coeff of Steven 16.4 H, Plt Count 167, MPV 11.8, Immature Gran % (Auto) 0.200, Neut % (Auto) 52.6, Lymph % (Auto) 33.3, [place] % (Auto) 11.4 H, Eos % (Auto) 1.9, Baso % (Auto) 0.6, Absolute Neuts (auto) 3.4, Absolute Lymphs (auto) 2.13, Nucleated RBC % 0, Sodium 133 L, Potassium 4.9, Chloride 95 L, Carbon Dioxide 24.0, Anion Gap 14, BUN 74 H, Creatinine 9.35 H*, Estim Creat Clear Calc 7.59, Est GFR (MDRD) Af Amer 7 L, Est GFR (MDRD) Non- Af 6 L, BUN/Creatinine Ratio 7.9 L, Glucose 100, Calcium 9.3, Total Bilirubin 1.00, AST 18, ALT 16, Alkaline Phosphatase 69, B-Natriuretic Peptide 662.7 H, Total Protein 7.5, Albumin 3.5, Globulin 4.0, Albumin/Globulin Ratio 0.9 Micro: Microbiology 10/22/24 07:37 Mucosa - Nose Respiratory Panel (PCR) - Final Radiography Diagnostic Testing: Radiology Impression Chest X-Ray 10/23/24 05:55 IMPRESSION: Moderate cardiomegaly. Markedly improved CHF. Electronically Signed: Jag Blanca MD at 7:28 EST Reading Location ID and State: [facility] / [place] Tel , Service support , Rhythm Strip Rhythm Strip: Sinus Tach Rate: 109 Ectopy: None Physical Exam Narrative Alert awake oriented x 3 no obvious distress no pallor no icterus no JVD s1s2 no murmurs lungs clear abdomen soft no organomegaly Assessment & Plan Assessment/Plan (1) Hyperkalemia: (2) History of end stage renal disease: PLAN: on HD TTS schedule. s/p HD yesterday. breathing is much better. Bp is better overall. off O2. was started on O2 recently. no peripheral edema. may need dry weight adjusted. Dr Ervin back on service tomorrow. Hyperkalemia. better
--- NOTE | 2024-10-23 15:09 | DCINST_ITS ---
Discharge Instructions Diet Discharge Diet: No restrictions DC O2, CPAP, BIPAP needs PSN CPAP & BiPAP: BiPAP & CPAP Settings per PSN Mode BiPAP 10/22/24 09:32 Bipap Delivery Device Face Mask 10/22/24 09:32 BiPAP Inspiratory Pressure 20 10/22/24 09:32 BiPAP Expiratory Pressure 10 10/22/24 09:32 BiPAP Rate 12 10/22/24 09:32 Fraction of Inspired Oxygen ( 50 10/22/24 12:59 FIO2) Additional Home O2 Discharge instructions: No Dressing / Incision Discharge Activity: Return to Normal Activity Weight Bearing Status: Full weight bearing Follow Up Care Test Results: Test results from this visit will be discussed in further detail at your follow- up appointment, if applicable. Discharge Plan Admission Admit Date/Time: 10/22/24 06:43 Primary Reason for Your Visit: fluid overload, hypoxia Attending Provider: Rubin Vee Primary Care Provider: Damion Leroy Chi Consulting Providers: Davis Davies; Kevin Boo Discharge Orders/Prescriptions Prescriptions: Continued sertraline 50 mg tablet 50 mg PO DAILY ProRenal QD 400-500 mcg-unit capsule 1 cap PO DAILY Patient Comments: TAKE 1 CAPSULE BY MOUTH EVERY DAY aspirin 81 MG tablet,chewable 81 mg PO DAILY@0800 Qty: 90 0RF carvedilol 12.5 mg tablet 12.5 mg PO BID Velphoro 500 mg tablet,chewable 500 mg PO TID furosemide [Lasix] 40 mg tablet 60 mg PO DAILY 30 Days Qty: 45 0RF verapamil 240 mg Tablet Extended Release 120 mg PO DAILY 30 Days Qty: 15 0RF Referrals / Follow Up: Damion Leroy Chi, MD [Primary Care Provider] - Disposition Disposition (needs filled in before D/C Order can be placed): Home, Self Care
--- NOTE | 2024-10-23 15:15 | PCM.DC.SUM ---
Providers Date of Admission: 10/22/24 Date of Discharge: 10/23/24 Primary Care Physician: Dr. Damion Leroy MD Consultations 10/22/24 07:21 Consult: Nephrology Routine Consulting Provider: Kevin Boo Reason for Consult: ESRD on HD with AE CHF. EMERGENT Consult: No MD Notified: Yes Date Notified: 10/22/24 Time Notified: 07:45 Method of Notification: Answering Service Reason For Visit: AE CHF,suspected pneumonia [id number] Diagnosis Discharge Diagnosis (1) Hyperkalemia: Status: Acute Code(s): E87.5 - Hyperkalemia (2) History of end stage renal disease: Status: Acute Code(s): Z87.448 - Personal history of other diseases of urinary system Plan 1. Acute on chronic diastolic congestive heart failure #2 severe mitral regurg #3 end-stage renal disease #4 acute on chronic hypoxic respiratory failure secondary to #1 #5 coronary artery disease Medications at Discharge Home Medications sertraline 50 mg tablet 50 mg PO DAILY mood 05/09/19 aspirin 81 mg chewable tablet 81 mg PO DAILY@0800 cardiac ##90 12/30/20 mv,Ff-[id number]-[id number] oil 400 mcg-500 unit capsule (ProRenal QD) 1 cap PO DAILY dialysis 06/16/23 carvedilol 12.5 mg tablet 12.5 mg PO BID heart and BP 07/01/24 sucroferric oxyhydroxide 500 mg chewable tablet (Velphoro) 500 mg PO TID 09/25/24 furosemide 40 mg tablet (Lasix) 60 mg (1.5 x 40 mg) PO DAILY 30 days #45 tabs 09/27/24 verapamil 240 mg tablet,extended release 120 mg (1/2 x 240 mg) PO DAILY 30 days #15 tabs 09/27/24 Hospital Course Operations None Procedures Dialysis Summary of Care Provided Minutes Spent on Discharge: 32 Hospital Course: This 69-year-old white male was seen in the emergency room at [facility] with a chief complaint of shortness of breath. Patient is on 3 L of oxygen at home. Patient required oxygen with a nonrebreather in the emergency room to maintain his pulse ox above 90%, white blood cell count was 11.4, chemistry profile showed an increased potassium of 5.7 creatinine was 11.9 and BUN was 99. Patient's beta natruretic peptide was 1502. Chest x-ray showed bilateral pulmonary edema consistent with congestive heart failure. Patient was admitted to ICU, he underwent dialysis and his oxygen demand improved. On 10/23/2024, patient was seen and examined: On examination he appeared in good health and spirits. Vital signs as documented. Skin warm and dry and without overt rashes. Neck without JVD, neck was supple, trachea midline, thyroid was normal. Lungs clear bilaterally, normal air movement was noted. Heart exam notable for regular rhythm, normal sounds and absence of murmurs, rubs or gallops. Abdomen unremarkable and without evidence of organomegaly, masses, or abdominal aortic enlargement. Bowel sounds are present, abdomen is not distended. Extremities nonedematous, no cyanosis was noted, no clubbing was noted. Neuro: Cranial nerves II through XII are grossly intact, no focal motor deficits were noted, sensation to light touch and pinprick intact, motor exam 5/5 throughout. Psych: Patient is alert and oriented x3, he does not appear anxious or depressed, he does not appear agitated. Patient was discharged home in stable condition on 10/23/2024 on his home oxygen settings. Weight / BMI Weight Weight: 85 kg Body Mass Index (BMI) 26.8 ABG / Lab / Microbiology Data 10/23/24 04:25 10/23/24 04:25 Laboratory: Laboratory Results - last 24 hr 10/22/24 13:55: Hemoglobin A1c 4.8 10/23/24 04:25: WBC 6.4, RBC 4.08 L, Hgb 13.9, Hct 41.6, MCV 102.0 H, MCH 34.1 H, MCHC 33.4, RDW Std Deviation 60.4 H, RDW Coeff of Steven 16.4 H, Plt Count 167, MPV 11.8, Immature Gran % (Auto) 0.200, Neut % (Auto) 52.6, Lymph % (Auto) 33.3, [place] % (Auto) 11.4 H, Eos % (Auto) 1.9, Baso % (Auto) 0.6, Absolute Neuts (auto) 3.4, Absolute Lymphs (auto) 2.13, Nucleated RBC % 0, Sodium 133 L, Potassium 4.9, Chloride 95 L, Carbon Dioxide 24.0, Anion Gap 14, BUN 74 H, Creatinine 9.35 H*, Estim Creat Clear Calc 7.59, Est GFR (MDRD) Af Amer 7 L, Est GFR (MDRD) Non-Af 6 L, BUN/Creatinine Ratio 7.9 L, Glucose 100, Calcium 9.3, Total Bilirubin 1.00, AST 18, ALT 16, Alkaline Phosphatase 69, B-Natriuretic Peptide 662.7 H, Total Protein 7.5, Albumin 3.5, Globulin 4.0, Albumin/Globulin Ratio 0.9 Microbiology: Microbiology 10/22/24 07:37 Mucosa - Nose Respiratory Panel (PCR) - Final Radiography Diagnostic Testing: Radiology Impression Chest X-Ray 10/23/24 05:55 IMPRESSION: Moderate cardiomegaly. Markedly improved CHF. Electronically Signed: Jag Blanca MD at 7:28 EST Reading Location ID and State: [address] [place] [address] Tel , Service support , D/C Instructions Discharge Diet: No restrictions Weight Bearing Status: Full weight bearing DC O2, CPAP, BIPAP Needs PSN CPAP & BiPAP: BiPAP & CPAP Settings per PSN Mode BiPAP 10/22/24 09:32 Bipap Delivery Device Face Mask 10/22/24 09:32 BiPAP Inspiratory Pressure 20 10/22/24 09:32 BiPAP Expiratory Pressure 10 10/22/24 09:32 BiPAP Rate 12 10/22/24 09:32 Fraction of Inspired Oxygen ( 50 10/22/24 12:59 FIO2) Additional Home O2 Discharge instructions: No DC home with Oxygen: No Meaningful Use Info Meaningful Use Meaningful Use Diagnoses (Choose all that apply): CHF CHF ANGELINA/ARB ordered at discharge?: No Reason ANGELINA/ARB not ordered?: Not indicated Documented LVEF (%): 60 Ischemic Stroke Statin Dosing Therapy Reference: STATIN DOSE THERAPY REFERENCE: * Patients > 75 years receive moderate or high dose statin therapy. * Patients 75 years or YOUNGER should receive HIGH intensity statin dose unless contraindicated. You will be required to document reason for non-treatment if statin daily dose does not meet guidelines. HIGH DOSE STATIN THERAPY DAILY Atorvastatin > than or = to 40 mg Rosuvastatin > than or = to 20 mg Amlodipine + Atorvastatin > than or = to 2.5/40 mg Ezetimibe + Simvastatin 10/80 mg Simvastatin 80mg Discharge Plan Admission Admit Date/Time: 10/22/24 06:43 Primary Reason for Your Visit: fluid overload, hypoxia Attending Provider: Rubin Vee Primary Care Provider: Damion Leroy Chi Consulting Providers: Davis Davies; Kevin Boo Discharge Orders/Prescriptions Prescriptions: Continued sertraline 50 mg tablet 50 mg PO DAILY ProRenal QD 400-500 mcg-unit capsule 1 cap PO DAILY Patient Comments: TAKE 1 CAPSULE BY MOUTH EVERY DAY aspirin 81 MG tablet,chewable 81 mg PO DAILY@0800 Qty: 90 0RF carvedilol 12.5 mg tablet 12.5 mg PO BID Velphoro 500 mg tablet,chewable 500 mg PO TID furosemide [Lasix] 40 mg tablet 60 mg PO DAILY 30 Days Qty: 45 0RF verapamil 240 mg Tablet Extended Release 120 mg PO DAILY 30 Days Qty: 15 0RF Referrals / Follow Up: Damion Leroy Chi, MD [Primary Care Provider] - Disposition Disposition (needs filled in before D/C Order can be placed): Home, Self Care Charges/Coding Visit Charges Inpatient E&M: 36316 Disch Hosp >30min
== END 2024-10-23 15:30 | disposition home or self-care (01) | DRG 291 ==
LOC: ED 05:50 → ICU 06:28
PROVIDERS: Admitting Provider Internal Medicine; Emergency Provider Emergency Medicine; PCP Family Medicine Geriatric Medicine; Visit Provider Internal Medicine
DX: I13.2 Hypertensive heart and chronic kidney disease with heart failure and with stage 5 chronic kidney disease, or end stage renal disease (principal); J96.21 Acute and chronic respiratory failure with hypoxia; N18.6 End stage renal disease; J18.9 Pneumonia, unspecified organism; I50.33 Acute on chronic diastolic (congestive) heart failure; I16.1 Hypertensive emergency; Z99.2 Dependence on renal dialysis; Z95.1 Presence of aortocoronary bypass graft; I08.0 Rheumatic disorders of both mitral and aortic valves; F32.A Depression, unspecified; E87.5 Hyperkalemia; I25.5 Ischemic cardiomyopathy; E78.00 Pure hypercholesterolemia, unspecified; M79.10 Myalgia, unspecified site; I25.10 Atherosclerotic heart disease of native coronary artery without angina pectoris; I25.2 Old myocardial infarction; F41.9 Anxiety disorder, unspecified; E66.3 Overweight; Z68.29 Body mass index [BMI] 29.0-29.9, adult; Z99.81 Dependence on supplemental oxygen; Z79.82 Long term (current) use of aspirin; Z79.899 Other long term (current) drug therapy; Z87.891 Personal history of nicotine dependence
CPT/HCPCS: 36600; 71045; 80048; 80053; 82803; 83036; 83735; 83880; 84443; 84484; 85025; 87633; 90937; 93005; 94002; 94762; 99285; J7030; A4216; G0257; J1940

== ENCOUNTER → 2025-02-07 | Outpatient (CLI) | payer MEDICARE, OTHER, SELFPAY ==
[2025-02-07 18:05] LABS: PSA,Total- Diagnostic 5.75 ng/mL (0.00-4.00)
== END | disposition home or self-care (01) ==
PROVIDERS: PCP Family Medicine Geriatric Medicine; Referring Provider Urology; Visit Provider Urology
DX: C61 Malignant neoplasm of prostate (principal)
CPT/HCPCS: 36415; 84153

== ENCOUNTER 2025-03-19 08:32 | Inpatient (IN) | payer MEDICARE, OTHER, SELFPAY ==
[2025-03-19] VITALS (42 sets, daily range): BP systolic 115–239; BP diastolic 45–118; PULSE 77–124; RESP 14–44; TEMP 35.6–37.4; O2SAT 91–99; BMI 32.4; BMI 29.2; BMI 29.1; BMI 27.8
--- NOTE | 2025-03-19 08:40 | EKG12_ITS ---
Test Reason : SOB Blood Pressure : */* mmHG Vent. Rate : 107 BPM Atrial Rate : 107 BPM P-R Int : 174 ms QRS Dur : 136 ms QT Int : 356 ms P-R-T Axes : 40 -59 97 degrees QTcB Int : 475 ms Sinus tachycardia Possible Left atrial enlargement Left axis deviation Left ventricular hypertrophy with QRS widening and repolarization abnormality ( Mayank product ) Abnormal ECG Confirmed by CARMEN LIVE, ANNIKA ([id number]), online editor TREY ELIZONDO ([id number]) on 03/20/2025 1:24:39 PM Referred By: Confirmed By: ANNIKA MORALES MD
--- NOTE | 2025-03-19 08:43 | ED.VIS.DYS ---
HPI History of Present Illness Chief Complaint: Shortness of Breath Informant: patient Narrative Narrative: Worsening dyspnea this morning where EMS was contacted. End-stage renal disease on dialysis Saturdays followed by Dr. Karina Ervin. States he missed dialysis yesterday due to not feeling well therefore last dialysis was 5 days ago. He makes very minimal urine. Does not get leg swelling. He has reported cough like sputum production no fever or chills. Reported nausea vomiting however could not tell me when this occurred. He denies choking on his vomit. He wears chronic 3 L oxygen at night only. He has required BiPAP in the past however he states he does not like it. EMS arrival was 70% on room air he was brought in on nonrebreather. Prior similar symptoms: Yes PFSH PFS Medical History Overweight (BMI 25.0-29.9) Hyperkalemia Acute hypoxic respiratory failure Hypertensive emergency History of end stage renal disease Acute diastolic (congestive) heart failure Pneumonia Mitral valvular insufficiency and aortic valvular insufficiency Bilateral carotid artery stenosis ESRD (end stage renal disease) on dialysis History of non-ST elevation myocardial infarction (NSTEMI) (12/28/20) Chronic systolic (congestive) heart failure Postoperative ileus (01/15/21) Atherosclerotic heart disease of [place] coronary artery without angina pectoris Acute HFrEF (heart failure with reduced ejection fraction) Ischemic cardiomyopathy Flash pulmonary edema Bilateral inguinal hernia without obstruction or gangrene Hypercholesteremia Essential (primary) hypertension White coat syndrome with hypertension Myocardial infarction History of diverticulitis Anxiety Home Medications ?Medication ?Instructions ?Recorded ?Last Taken ?Type sertraline 50 mg tablet 50 mg PO DAILY mood 05/09/19 03/18/25 History aspirin 81 mg chewable tablet 81 mg PO DAILY@0800 cardiac ##90 12/30/20 03/18/25 Rx mv,[id number] 1 cap PO DAILY dialysis 06/16/23 03/18/25 History oil 400 mcg-500 unit capsule (ProRenal QD) carvedilol 12.5 mg tablet 12.5 mg PO BID heart and BP #180 11/25/24 03/18/25 Rx tabs sevelamer carbonate 800 mg tablet 2,400 mg PO TID 03/19/25 03/18/25 History Allergy/AdvReac Type Severity Reaction Status Date / Time Seasonal Allergies: Uncoded Allergy Intermediate Unknown Verified 03/19/25 08:33 ezetimibe (From Zetia) AdvReac Intermediate unstable Verified 03/19/25 08:33 gait, myalgia, joint pain isosorbide AdvReac Intermediate Dizziness Verified 03/19/25 08:33 atorvastatin (From Lipitor) AdvReac unstable Verified 03/19/25 08:33 gait, myalgia rosuvastatin (From Crestor) AdvReac unstable Verified 03/19/25 08:33 gait, myalgia Family History Mother Heart disease Father Hypertension Cardiac arrest Surgical History H/O coronary artery bypass surgery (01/11/21) History of left heart catheterization (12/28/20) S/P arteriovenous (AV) fistula creation History of right inguinal hernia repair (01/08/20) History of colonoscopy (2009) History of colostomy reversal History of partial colectomy Social History Smoking Status: Former smoker quit date: 09/25/18 pack-years: 64 how long ago did patient quit smokin years ago alcohol intake: never substance use type: does not use caffeine: Yes Type: coffee Number of servings: 2 what type of physical activity do you participate in: none frequency: does not exercise ROS ROS ED Constitutional Constitutional ED: Denies chills, fever(s) or sweats ENT ENT ED: Denies sore throat Cardiovascular Cardiovascular: Denies chest pain, leg edema, palpitations or racing heartbeat Respiratory/Chest Respiratory/Chest: Reports cough and dyspnea; Denies dyspnea on exertion Gastrointestinal Gastrointestinal: Reports nausea and vomiting; Denies abdominal pain or diarrhea Genitourinary Genitourinary ED: Reports other Details: Oligoanuric Musculoskeletal Musculoskeletal: Denies back pain, extremity pain or neck pain Integumentary Denies rash or wounds Neurologic Neurologic: Denies headache(s), paresthesias or weakness EXAM Physical Exam Const Vital Signs: 03/19/25 08:33 03/19/25 08:38 03/19/25 08:38 Temperature 96.1 F L 96.1 F L Temperature Source Temporal Temporal Pulse Rate 124 H 124 H Respiratory Rate 42 H 40 H Respiratory Effort Short of Breath Labored Respiratory Depth Shallow Respiratory Pattern Tachypnea Blood Pressure 232/92 H 232/92 H Blood Pressure Mean 138 138 Pulse Ox 92 92 Oxygen Delivery Method Non-Rebreather Non-Rebreather Non-Rebreather Oxygen Flow Rate (L/min) 15 15 15 Fraction of Inspired Oxygen (FIO2) 03/19/25 08:41 03/19/25 08:50 03/19/25 09:04 Temperature Temperature Source Pulse Rate 115 H Respiratory Rate 44 H Respiratory Effort Respiratory Depth Respiratory Pattern Tachypnea Blood Pressure Blood Pressure Mean Pulse Ox 92 91 98 Oxygen Delivery Method Non-Rebreather Non-Rebreather Oxygen Flow Rate (L/min) 15 15 Fraction of Inspired Oxygen (FIO2) 75 03/19/25 09:04 03/19/25 09:04 03/19/25 09:15 Temperature 98.9 F Temperature Source Pulse Rate 96 85 Respiratory Rate 34 H 28 H Respiratory Effort Respiratory Depth Respiratory Pattern Blood Pressure 180/91 H 152/60 H Blood Pressure Mean 120 90 Pulse Ox 98 95 97 Oxygen Delivery Method Bi-pap Bi-pap Oxygen Flow Rate (L/min) Fraction of Inspired Oxygen (FIO2) 75 03/19/25 09:30 03/19/25 09:37 03/19/25 10:00 Temperature Temperature Source Pulse Rate 95 93 85 Respiratory Rate 27 H 26 H 26 H Respiratory Effort Respiratory Depth Respiratory Pattern Tachypnea Blood Pressure 147/63 H 152/60 H Blood Pressure Mean 91 90 Pulse Ox 96 95 96 Oxygen Delivery Method Bi-pap Bi-pap Oxygen Flow Rate (L/min) Fraction of Inspired Oxygen (FIO2) 65 03/19/25 10:30 Temperature Temperature Source Pulse Rate 98 Respiratory Rate 18 Respiratory Effort Respiratory Depth Respiratory Pattern Blood Pressure 141/76 H Blood Pressure Mean 97 Pulse Ox 97 Oxygen Delivery Method Bi-pap Oxygen Flow Rate (L/min) Fraction of Inspired Oxygen (FIO2) Positive well nourished and well developed Constitutional Narrative: Nonrebreather mask speaking in very short sentences. General Appearance ED: well developed HEENT Reports moist mucous membranes normocephalic and atraumatic Eyes General Eye ED: Yes normal appearance of both eyes Neck full ROM Chest Wall Chest: Negative for tenderness Resp Resp Narrative: Tachypnea on exam, breath sounds was heard down to the bases. Effort and Inspection: symmetric chest movement Cardio regular rhythm and no murmurs Rate: tachycardic Peripheral Pulses: pulses 2+ throughout GI normal to inspection, nondistended, normoactive bowel sounds and non-tender Palpation: Negative for guarding or rebound tenderness present Extremity normal to inspection Extremity Narrative: Left forearm fistula with a positive thrill. General Extremety ED: Negative for edema or tenderness General Extremity: Negative for edema Neuro oriented x3 and no sensory deficits noted Sensorium / Orientation: awake and alert Skin no rashes or lesions noted and no wounds Sepsis Attestation Sepsis Alert: Yes Sepsis Attestation: Agree w/Sepsis Date exam was performed: 03/19/25 Time exam was performed: 08:43 Possible Source of Sepsis: Pulmonary Sepsis Organ Dysfunction Criteria Present: SBP decrease of more than 40 mmHg, Acute Respiratory Failure (New need for BiPAP/CPAP or MV) and Creatinine > 2.0 mg/dL Fluid Resuscitation Reason for lesser fluid bolus:: Concern for fluid overload Sepsis Note Date exam was performed: 03/19/25 Time exam was performed: 09:44 Sepsis Attestation: Sepsis re-evaluation was performed MDM MDM MDM Narrative Medical decision making narrative: Interventions / MDM: Differential diagnosis: Pneumonia, fluid overload, end-stage renal disease on hemodialysis, missed dialysis, electrolyte abnormalities Diagnosis considered but do not suspect: N/A My EKG interpretation: Sinus rate of 107, no ST changes. Appears to have peaked T waves lateral leads. New compared to September 2024. Imaging independently reviewed and interpreted by myself: 1 view chest x-ray: Consolidation right lower lobe. Mild pleural effusion Right side. Per radiology concerns for increasing vascular markings with fluid overload External documents reviewed: N/A Test considered but not ordered:N/A ED course: Patient tachycardic tachypneic blood pressure 232/92. Temp 96.1. Sepsis labs ordered nasal swabs. Chest x-ray. EKG. BiPAP ordered. With his anxiety and being on BiPAP he was given low-dose Ativan 0.5 mg IV. ABG at 90% oxygenation pH 7.268, LPL903 pO2 98 bicarb 23. Respiratory tuned down the oxygen to 75%. 0900: EKG with peaked T waves. Labs are pending with him missing dialysis I will order calcium gluconate for cardiac stabilization awaiting for potassium results. 0904: 1 view chest x-ray reviewed bedside interpreted concerns for consolidation right lower lobe. No large effusions noted. White count returned at 14. I will cover him with Zosyn and vancomycin. 0910: Tolerating BiPAP well at this time blood pressure systolic 180s heart rate in the 90s. Per spouse now in the room states he has had increasing moist cough. He has never required emergent intubation. 0930: Radiology read concerns for increased vascular congestion with possible underlying filtrates. 0940: Much more comfortable with BiPAP. Oxygenation 75%. Heart rate down in the 80s blood pressure systolic 140s. Awaiting for electrolytes. However will require admission and likely plan dialysis. I will speak with hospitalist service. I spoke with Dr. Leonardo, will plan for ICU if potassium is elevated. I spoke with his river transportation worker Dr. Karina Ervin also reporting patient history of noncompliance. She will plan for dialysis as soon as electrolyte results are obtained. 1052: Discussed with the lab as there is hemolysis initially. Currently potassium is again resulted at 7.5. I will order aerosols to help with shifting. Potassium was 7.5 creatinine 13.6 BUN of 138. Lactic acid normal at 1.9. Backline information to medicine and nephrology. No additional medicines for potassium this time as they are setting up for dialysis in the ICU. Patient admitted to ICU for further management. Re-evaluation: stable Disposition discussed with patient/family/significant other: Patient and spouse Case discussed with consulting clinician: Hospitalist, nephrology This note was generated with [employer] dictation software. It may contain incorrect words, spelling, and punctuation that were not noted in checking the note before signing. Lab Data Attestation: I reviewed the patient's lab results. Labs: Laboratory Results - last 24 hr 03/19/25 03/19/25 03/19/25 08:44 09:25 10:02 WBC 14.4 H RBC 4.02 L Hgb 14.3 Hct 40.9 MCV 101.7 H MCH 35.6 H MCHC 35.0 RDW Std Deviation 52.0 H RDW Coeff of Steven 14.6 Plt Count 188 MPV 11.4 Immature Gran % (Auto) 0.600 Neut % (Auto) 78.2 H Lymph % (Auto) 12.8 L [place] % (Auto) 7.0 Eos % (Auto) 1.0 Baso % (Auto) 0.4 Absolute Neuts (auto) 11.3 H Absolute Lymphs (auto) 1.85 Nucleated RBC % 0 PT Cancelled 16.7 H INR Cancelled 1.3 APTT Cancelled 28.0 Sodium Cancelled 135 Potassium Cancelled 7.5 H* Chloride Cancelled 89 L Carbon Dioxide Cancelled 19.8 L Anion Gap Cancelled 27 H BUN Cancelled 138 H* Creatinine Cancelled 13.60 H* Estim Creat Clear Calc Cancelled 6.07 L* Est GFR (MDRD) Non-Af Cancelled 4 L BUN/Creatinine Ratio Cancelled 10.1 Glucose Cancelled 136 H Lactic Acid 1.9 Calcium Cancelled 8.9 Total Bilirubin Cancelled 0.45 AST Cancelled 31 ALT Cancelled 28 Alkaline Phosphatase Cancelled 70 Total Protein Cancelled 7.1 Albumin Cancelled 3.8 Globulin Cancelled 3.3 Albumin/Globulin Ratio Cancelled 1.2 ABG Data ABG results: ABG 03/19/25 08:51 Specimen Type ART Sample Site R Radial pH 7.28 L Bicarbonate Actual 23.0 Total CO2 25 Base Excess -4 L O2 Saturation 97 O2 % 90.0 ABG pCO2 49.1 H ABG pO2 98 Sherif Test Positive Respiration Rate 14 O2 Delivery Device BiPAP Vent Mode Not entered POC PEEP 8 Radiography Diagnostic Testing: Clinical Impression(s) from Imaging Studies Chest X-Ray 03/19/25 08:58 IMPRESSION: There is moderate cardiomegaly with increased central vascular markings and increased interstitial markings consistent with CHF. An overlying interstitial infiltrate is not excluded. Reading Location: [facility] Critical Care Time Critical Care Time: Yes Critical care time (excluding procedures): 30-74 minutes, Discussing w/Patient &/or Family/Pool Hand, Discussing w/Consultants, Arranging Admission or Transfer, Performing Direct Patient Care at Bedside and - (40 minutes) Discharge Plan Dx/Rx/DC Orders Clinical Impression: Pneumonia, Missed dialysis, Fluid overload, ESRD on hemodialysis, Acute and chronic respiratory failure with hypoxia, Acute hyperkalemia Disposition Disposition: [facility] Discharge Date/Time: 03/19/25 11:23
[2025-03-19] MEDS: Lorazepam 2 MG/ML WCH Syringe 0.5 MG IV (08:47)
[2025-03-19 08:54] LABS: Allen Test Positive; Base Excess -4 mmol/L (-2 to +2); Blood Gas Specimen Type ART; Mode Not entered; O2 Delivery Device BiPAP; PEEP 8; PO2 98 mmHG (75-100); RR 14; SITE R Radial; SO2 97 % (95-99); Total Carbon Dioxide 25 mmol/L; pCO2 49.1 mmHg (35-45); pH 7.28 (7.35-7.45)
--- NOTE | 2025-03-19 08:58 | RAD_ITS ---
PROCEDURE: CHEST 1 VIEW (PORTABLE) 03/19/2025 REASON FOR EXAM: SOB TECHNIQUE: Frontal view of the chest. COMPARISON: October 23, 2024 FINDINGS: Sternotomy wires are noted. There is moderate cardiomegaly with increased central vascular markings and increased interstitial markings consistent with CHF. An overlying interstitial infiltrate is not excluded. There is no pneumothorax or significant effusion. There is no visible acute bony abnormality. RAD/Chest 1 View (Portable) IMPRESSION: There is moderate cardiomegaly with increased central vascular markings and inc reased interstitial markings consistent with CHF. An overlying interstitial infiltrate is not excluded. Reading Location: [facility]
[2025-03-19 08:59] LABS: Absolute Lymphocyte Count 1.85 X10^3/uL (0.83-4.51); Absolute Neutrophil Count 11.3 X10^3/uL (2.0-7.7); Basophil# 0.06 X10^3/uL; Basophil% 0.4 % (0-1); Eosinophil# 0.14 X10^3/uL; Hematocrit 40.9 % (40-54); Hemoglobin 14.3 g/dL (13.0-16.5); Lymphocyte # 1.85 X10^3/ul (0.83-4.51); Lymphocyte % 12.8 % (19-41); Mean Corpuscular Hgb 35.6 pg (27.0-32.0); Mean Corpuscular Volume 101.7 fL (80-94); Mean Platelet Vol. 11.4 fl (6.2-12.0); Monocyte# 1.01 X10^3/uL; NRBC Flagged by Analyzer 0 % (0-5); Neutrophil % 78.2 % (47-70); Platelet Count 188 K/mm3 (150-450); RBC Distribution Width CV 14.6 % (11.6-14.6); Red Blood Count 4.02 M/mm3 (4.6-6.2); White Blood Count 14.4 K/mm3 (4.4-11.0)
--- NOTE | 2025-03-19 09:06 | CPS ---
patient has a cut under his lip, previously there before placing bipap mask on patient
[2025-03-19] MEDS: Calcium Gluconate 1 GM/10 ML Vial IVP (09:19)
[2025-03-19] MEDS: Vancomycin HCl 2,000 MG in 0.9% Normal Saline (500mL Bag) 500 ML 250 MG IV (09:24)
[2025-03-19] MEDS: Piperacil/Tazobactam 4.5 GM in 0.9% Normal Saline (100mL MB+) 100 ML IV (09:24)
[2025-03-19 09:39] LABS: Lactic Acid 1.9 mmol/L (0.0-2.0)
[2025-03-19 09:46] LABS: International Normalized Ratio 1.3; Prothrombin Time (Protime)PT. 16.7 SECONDS (11.7-14.9)
--- NOTE | 2025-03-19 09:49 | PCM.HP.STD ---
HPI - General HPI Narrative JOSELITO LAWSON, is a 69 M with past medical history significant for essential hypertension, coronary artery disease status post CABG, end-stage renal disease on hemodialysis Tuesdays and Saturdays who presented to the emergency department with shortness of breath. Per patient he admits his last dialysis as a result of being sick. He did complain of generalized bodyaches, sinus congestion subjective fever as well as chills also had nausea and vomited. Presented to the emergency department when he developed significant shortness of breath on the morning of his presentation. In the ED patient was found to have bilateral vascular congestion on his chest x-ray as well as superimposed right lower lobe infiltrate. Was also found to have leukocytosis. On further questioning patient did admit to productive cough. An assessment of acute hypoxic respiratory failure was made patient was placed on BiPAP admitted to the intensive care unit for further management. [facility] Medical History Overweight (BMI 25.0-29.9) Hyperkalemia Acute hypoxic respiratory failure Hypertensive emergency History of end stage renal disease Acute diastolic (congestive) heart failure Pneumonia Mitral valvular insufficiency and aortic valvular insufficiency Bilateral carotid artery stenosis ESRD (end stage renal disease) on dialysis History of non-ST elevation myocardial infarction (NSTEMI) (12/28/20) Chronic systolic (congestive) heart failure Postoperative ileus (01/15/21) Atherosclerotic heart disease of [place] coronary artery without angina pectoris Acute HFrEF (heart failure with reduced ejection fraction) Ischemic cardiomyopathy Flash pulmonary edema Bilateral inguinal hernia without obstruction or gangrene Hypercholesteremia Essential (primary) hypertension White coat syndrome with hypertension Myocardial infarction History of diverticulitis Anxiety Home Medications ?Medication ?Instructions ?Recorded ?Last Taken ?Type sertraline 50 mg tablet 50 mg PO DAILY mood 05/09/19 03/18/25 History aspirin 81 mg chewable tablet 81 mg PO DAILY@0800 cardiac ##90 12/30/20 03/18/25 Rx mv,[id number] 1 cap PO DAILY dialysis 06/16/23 03/18/25 History oil 400 mcg-500 unit capsule (ProRenal QD) carvedilol 12.5 mg tablet 12.5 mg PO BID heart and BP #180 11/25/24 03/18/25 Rx tabs sevelamer carbonate 800 mg tablet 2,400 mg PO TID 03/19/25 03/18/25 History Allergy/AdvReac Type Severity Reaction Status Date / Time Seasonal Allergies: Uncoded Allergy Intermediate Unknown Verified 03/19/25 08:33 ezetimibe (From Zetia) AdvReac Intermediate unstable Verified 03/19/25 08:33 gait, myalgia, joint pain isosorbide AdvReac Intermediate Dizziness Verified 03/19/25 08:33 atorvastatin (From Lipitor) AdvReac unstable Verified 03/19/25 08:33 gait, myalgia rosuvastatin (From Crestor) AdvReac unstable Verified 03/19/25 08:33 gait, myalgia Family History Mother Heart disease Father Hypertension Cardiac arrest Surgical History H/O coronary artery bypass surgery (01/11/21) History of left heart catheterization (12/28/20) S/P arteriovenous (AV) fistula creation History of right inguinal hernia repair (01/08/20) History of colonoscopy (2009) History of colostomy reversal History of partial colectomy Social History Smoking Status: Former smoker quit date: 09/25/18 pack-years: 65 how long ago did patient quit smokin years ago alcohol intake: never substance use type: does not use caffeine: Yes Type: coffee Number of servings: 2 what type of physical activity do you participate in: none frequency: does not exercise ROS ROS Narrative GENERAL: Subjective fever, chills, HEENT: headache, sinus congestion, or drainage, RESPIRATORY: cough, sputum production, shortness of breath, dyspnea on exertion CARDIAC: denies chest pain, palpitations, orthopnea, PND GASTROINTESTINAL: nausea, vomiting, GENITOURINARY: denies dysuria, urgency, frequency, EXTREMITY: denies swelling MUSCULOSKELETAL: denies current joint pain or tenderness NEUROLOGIC: denies focal numbness, weakness, tingling HEMATOLOGIC: denies easy bruising and/or hemorrhage INTEGUMENT: denies rashes PSYCHIATRIC: denies suicidal or homicidal ideation Vital Signs Vital Signs Vital Signs: 03/19/25 08:33 03/19/25 08:38 03/19/25 08:38 Temperature 96.1 F L 96.1 F L Temperature Source Temporal Temporal Pulse Rate 124 H 124 H Respiratory Rate 42 H 40 H Respiratory Effort Short of Breath Labored Respiratory Depth Shallow Respiratory Pattern Tachypnea Blood Pressure 232/92 H 232/92 H Blood Pressure Mean 138 138 Pulse Ox 92 92 Oxygen Delivery Method Non-Rebreather Non-Rebreather Non-Rebreather Oxygen Flow Rate (L/min) 15 15 15 Fraction of Inspired Oxygen (FIO2) 03/19/25 08:41 03/19/25 08:50 03/19/25 09:04 Temperature Temperature Source Pulse Rate 115 H Respiratory Rate 44 H Respiratory Effort Respiratory Depth Respiratory Pattern Tachypnea Blood Pressure Blood Pressure Mean Pulse Ox 92 91 98 Oxygen Delivery Method Non-Rebreather Non-Rebreather Oxygen Flow Rate (L/min) 15 15 Fraction of Inspired Oxygen (FIO2) 75 03/19/25 09:04 03/19/25 09:04 03/19/25 09:30 Temperature Temperature Source Pulse Rate 96 95 Respiratory Rate 34 H 27 H Respiratory Effort Respiratory Depth Respiratory Pattern Blood Pressure 180/91 H 147/63 H Blood Pressure Mean 120 91 Pulse Ox 98 95 96 Oxygen Delivery Method Bi-pap Bi-pap Bi-pap Oxygen Flow Rate (L/min) Fraction of Inspired Oxygen (FIO2) 75 03/19/25 09:37 Temperature Temperature Source Pulse Rate 93 Respiratory Rate 26 H Respiratory Effort Respiratory Depth Respiratory Pattern Tachypnea Blood Pressure Blood Pressure Mean Pulse Ox 95 Oxygen Delivery Method Oxygen Flow Rate (L/min) Fraction of Inspired Oxygen (FIO2) 65 Weight Weight: 102.7 kg Body Mass Index (BMI) 32.4 Physical Exam Narrative GENERAL: Patient is on BiPAP. Dyspneic at rest HEENT: Atraumatic; normocephalic EYES; Anicteric, Normal Conjunctiva NECK; supple, normal thyroid, RESPIRATORY: Diminished to auscultation bibasilar Rales CARDIOVASCULAR: Regular S1 S2, GI: soft, normoactive bowel sounds, : No Renal angle tenderness; EXTREMITIES: Trace bipedal edema, no clubbing, MUSCULOSKELETAL: no muscle wasting NEURO: Awake; no lateralizing signs. SKIN: No Rash PSYCH; Flat affect Results Lab / Micro Data 03/19/25 08:44 03/19/25 10:02 Labs: Laboratory Results - last 24 hr 03/19/25 08:44: WBC 14.4 H, RBC 4.02 L, Hgb 14.3, Hct 40.9, MCV 101.7 H, MCH 35.6 H, MCHC 35.0, RDW Std Deviation 52.0 H, RDW Coeff of Steven 14.6, Plt Count 188, MPV 11.4, Immature Gran % (Auto) 0.600, Neut % (Auto) 78.2 H, Lymph % (Auto) 12.8 L, [place] % (Auto) 7.0, Eos % (Auto) 1.0, Baso % (Auto) 0.4, Absolute Neuts (auto) 11.3 H, Absolute Lymphs (auto) 1.85, Nucleated RBC % 0, PT Cancelled, INR Cancelled, APTT Cancelled, Lactic Acid 1.9 03/19/25 09:25: PT 16.7 H, INR 1.3, APTT 28.0 ABG Data ABG results: ABG 03/19/25 08:51 Specimen Type ART Sample Site R Radial pH 7.28 L Bicarbonate Actual 23.0 Total CO2 25 Base Excess -4 L O2 Saturation 97 O2 % 90.0 ABG pCO2 49.1 H ABG pO2 98 Sherif Test Positive Respiration Rate 14 O2 Delivery Device BiPAP Vent Mode Not entered POC PEEP 8 Imaging Radiology Impression Chest X-Ray 03/19/25 08:58 IMPRESSION: There is moderate cardiomegaly with increased central vascular markings and increased interstitial markings consistent with CHF. An overlying interstitial infiltrate is not excluded. Reading Location: [facility] Assessment & Plan Assessment/Plan (1) Acute hyperkalemia: (2) Acute and chronic respiratory failure with hypoxia: (3) ESRD on hemodialysis: (4) Fluid overload: (5) Pneumonia: PLAN: Plan Patient is a 69-year-old gentleman presenting with progressive shortness of breath. Was found to have bilateral pleural effusion as well as with superimposed right-sided infiltrate. Was placed on BiPAP admitted to the intensive care unit 1. Acute hypoxic respiratory failure ? Due to combination of fluid overload from patient having missed dialysis, congestive heart failure as well as pneumonia. Patient was placed on noninvasive ventilation BiPAP admitted to the intensive care unit with treatment of patient underlying etiology. Consult was placed to [employer] sales consultant 2. End-stage renal disease ? Patient is on dialysis on Tuesdays as well as Saturdays. Patient had apparently missed his last session as a result of being ill. Patient was found to have hyperkalemia with potassium of 7.5 with EKG changes. Admitted to the intensive care unit nephrology?Dr. Cinda Ervin consulted from the ED for emergency dialysis 3. Hyperkalemia ? Secondary to patient ESRD and patient having missed dialysis plan is for patient to undergo emergency dialysis 4. Pneumonia - Suspected to be pneumonia with suspected gram-negative organisms/gram-positive organisms/atypical, Blood and sputum cultures sent. Patient placed on Zosyn and Zithromax and placed on oxygen titrated to keep Pulse Ox greater than 90. As part of patient's management ordered viral respiratory panel as well as SARS-CoV-2 assay 5. Acute on chronic congestive heart failure with preserved ejection fraction ? Plan is to manage patient fluid status with dialysis ordered echo for EF assessment 6. Coronary artery disease with previous CABG COX to LAD, SVG to OM, SVG to RPDA in 2020 7. Valvular heart disease ? With history of mitral regurgitation as well as aortic regurgitation 8. Renal bone disease ? Patient is on Sevelamer 9. Hypertension ? Blood pressure controlled, home medications continued with dose adjustment as needed 10. Dyslipidemia ? Patient not on statin therapy due to reported side effect?significant myalgias 11. Class I Obesity with BMI of 32.4 ? Complicating care weight loss advised 12. DVT prophylaxis ? Subcu heparin Advance planning; did discuss with the patient and family (patient's in the room at the time of my assessment) regarding advanced directives as well as CODE STATUS. Did explain the various scenarios involved ( FULL CODE, DNR CCA, DNR CCA with no intubation, and DNR CC and what each meant) patient elected to be DNR CCA no intubation. Order was placed. Time spent on discussion 18 minutes. Charges/Coding Multi Select Codes Visit Charges Visit Charges: 13267 Init Hosp Hospitalists' Procedures Procedures: 14780 Advncd Care Plan 30 Min
[2025-03-19 11:03] LABS: ALB/GLOB Ratio 1.2 RATIO (0.9-2.4); AST(SGOT) 31 U/L (<=37); Alanine Aminotransfer ALT/SGPT 28 U/L (<=46); Albumin, Serum 3.8 g/dL (3.4-4.8); Alkaline Phosphatase 70 U/L (40-129); Anion Gap 27 (5-15); Calcium,Total 8.9 mg/dL (7.6-11.0); Carbon Dioxide 19.8 mmol/L (21.0-32.0); Chloride 89 mmol/L (98-108); EST Glomerular Filtration Rate 4 (>60); Estimated Creatinine Clearance 6.07 ml/min (50-250); Globulin 3.3 g/dL (2.2-4.2); Glucose 136 mg/dL (70-99); Protein, Total 7.1 g/dL (5.9-8.4); Sodium Level 135 mmol/L (133-145); Total Bilirubin 0.45 mg/dL (0.00-1.30)
[2025-03-19] MEDS: Albuterol *CONC* 2.5mg/0.5mL VIAL.NEB. 10 MG INHALATION (11:13)
[2025-03-19 11:21] LABS: BUN 138 mg/dL (4-19); Potassium 7.5 mmol/L (3.3-5.1)
[2025-03-19 11:22] LABS: BUN/Creat Ratio 10.1 RATIO (10-20)
--- NOTE | 2025-03-19 11:43 | ECHOD_ITS ---
Reason For Study Reason For Study: CHF Procedure This was a 2D Doppler, Color Flow transthoracic echocardiogram. Exam performed portable in ICU/CCU. Left Ventricle Moderate concentric left ventricular hypertrophy. Normal LV size. The estimated ejection fraction is 55 %. Stage 2 diastolic dysfunction. Inferior wall is hypokinetic. Right Ventricle Normal RV size. Normal systolic function. Atria The left atrium is mildly enlarged. Normal right atrium. Mitral Valve Mild mitral annular calcification. Mild-Moderate (1-2+) mitral valve insufficiency. Tricuspid Valve Normal tricuspid valve. Aortic Valve Trisinus/trileaflet aortic valve. Mild focal aortic valve calcification. Mild (1+) aortic valve insufficiency. Pulmonic Valve Normal pulmonic valve. Trivial pulmonic valve insufficiency. Great Vessels Normal sized aortic root. Pericardium/Pleural No pericardial effusion. MMode/2D Measurements & Calculations LVIDd: 5.3 cm IVSd: 1.7 cm Ao root diam: 3.2 cm LVIDs: 3.3 cm LVPWd: 1.3 cm FS: 38.1 % LAV(MOD-bp): 88.8 ml LVAd ap4: 33.3 cm2 LVAd ap2: 32.9 cm2 LAV(MOD-bp) Indexed: 40.4 ml/m2 LVLd ap4: 8.4 cm LVLd ap2: 8.3 cm LAV(MOD-sp2): 85.4 ml EDV(MOD-sp4): 112.2 ml EDV(MOD-sp2): 113.8 ml LAV(MOD-sp4): 88.3 ml EDV(sp4-el): 111.5 ml EDV(sp2-el): 110.3 ml LVAs ap4: 20.2 cm2 LVAs ap2: 23.5 cm2 LVLs ap4: 7.3 cm LVLs ap2: 7.5 cm ESV(MOD-sp4): 50.1 ml ESV(MOD-sp2): 66.4 ml ESV(sp4-el): 47.5 ml ESV(sp2-el): 63.1 ml EF(MOD-sp4): 55.4 % EF(MOD-sp2): 41.6 % EF(sp4-el): 57.4 % SV(MOD-sp4): 62.1 ml SV(MOD-sp2): 47.4 ml SV(sp4-el): 64.0 ml SI(MOD-sp4): 28.2 ml/m2 SI(MOD-sp2): 21.5 ml/m2 LA A4 area: 26.4 cm2 LA dimension(2D): 4.0 cm RA A4 area: 15.5 cm2 TAPSE: 1.9 cm Time Measurements MV dec time: 0.16 sec Doppler Measurements & Calculations MV E max nirav: 88.8 cm/sec Lat Peak E' Nirav: 8.3 cm/sec Med Peak E' Nirav: 4.0 cm/sec MV A max nirav: 111.3 cm/sec E/E' lat: 10.7 E/E' med: 22.2 MV E/A: 0.80 MV V2 max: 125.3 cm/sec MV P1/2t max nirav: 97.4 cm/sec Ao V2 max: 156.3 cm/sec MV max P.3 mmHg MV P1/2t: 47.5 msec Ao max P.8 mmHg MV V2 mean: 75.6 cm/sec Ao V2 mean: 112.3 cm/sec MV mean P.5 mmHg MV dec slope: 601.0 cm/sec2 Ao mean P.6 mmHg MV V2 VTI: 28.0 cm MVA(P1/2t): 4.6 cm2 Ao V2 VTI: 27.4 cm AV (velocity ratio): 0.74 AI max nirav: 416.4 cm/sec LV V1 max: 112.8 cm/sec MR max nirav: 524.1 cm/sec AI max P.4 mmHg LV V1 max P.1 mmHg MR max P.9 mmHg LV V1 mean P.7 mmHg AI dec slope: 291.5 cm/sec2 LV V1 mean: 78.2 cm/sec AI P1/2t: 418.4 msec LV V1 VTI: 20.4 cm PA V2 max: 115.0 cm/sec PA V2 mean: 78.6 cm/sec ECHO/Echo Complete Interpretation Summary The estimated ejection fraction is 55 %. Inferior wall is hypokinetic. Stage 2 diastolic dysfunction. The left atrium is mildly enlarged. Mild mitral annular calcification. Mild-Moderate (1-2+) mitral valve insufficiency. Mild focal aortic valve calcification. Mild (1+) aortic valve insufficiency. Ordering Physician: Davis Leonardo Referring Physician: Kwok. Damion Mchugh Performed By: Natasha Mcdaniel, LIBBY, RVT
--- NOTE | 2025-03-19 12:15 | EX.PCM.CONCC ---
Assessment & Plan Assessment/Plan (1) Acute and chronic respiratory failure with hypoxia: PLAN: Plan RECOMMENDATIONS: 1. Dialysis support per nephrology recommendations. 2. Continue to wean supplemental oxygen to maintain saturations at or above 90%. 3. Encourage incentive spirometer use and mobilize patient as tolerated. 4. Antimicrobials can likely be discontinued. 5. The patient is otherwise clinically stable. Will sign off from a critical care perspective. IMPRESSIONS: 1. Acute hypoxemic respiratory failure Appears secondary to pulmonary vascular congestion/volume overload in the setting of missed hemodialysis sessions. I have a low index of suspicion for underlying pneumonia. The patient is currently afebrile. Recommend continuing current supportive care with volume removal via dialysis per nephrology recommendations. The patient's supplemental oxygen has already been weaned to 4 L/min via nasal cannula. Unclear need for ongoing ICU level of care. Encourage incentive spirometer use and mobilize patient as tolerated. 2. End-stage renal disease on hemodialysis/hyperkalemia Dialysis support per nephrology recommendations. 3. History of coronary artery disease status post CABG/valvular heart disease/hypertension/hyperlipidemia Complicates care, management, recovery and prognosis. Continue supportive measures as noted above. This note was generated with [employer] dictation software. It may contain incorrect words, spelling, and punctuation that were not noted in checking the note before signing. HPI Consult Data Date of Consult: 03/20/25 HPI Narrative Reason for Consultation: Respiratory failure HPI Narrative: The patient is a 69-year-old male, with a history as outlined below, who presented to the emergency department on March 19 with progressive shortness of breath. The patient has a known history of end-stage renal disease on hemodialysis. The patient reported that he missed several recent dialysis sessions due to not feeling well. The patient reported that he chronically utilizes supplemental oxygen at 3 L/min on a nightly basis. He last received dialysis on Monday. On presentation to the emergency department, the patient was documented to be afebrile but was hypertensive, tachycardic and tachypneic. Laboratory evaluation revealed a white blood cell count of 14,000. Chemistry profile was notable for a potassium of 7.5 with elevated BUN and creatinine. Lactate was within normal limits. Chest x-ray demonstrated evidence of cardiomegaly with stigmata of congestive heart failure. The patient was initially placed on BiPAP and admitted to the medical intensive care unit to undergo dialysis. At the time of my evaluation of the patient, he was submits to receiving dialysis and had already noted an improvement in his breathing quality. His supplemental oxygen had been weaned to 4 L/min via nasal cannula. He is otherwise hemodynamically and clinically stable. CODE STATUS was confirmed to be DNR CCA without intubation. [facility] Medical History Overweight (BMI 25.0-29.9) Hyperkalemia Acute hypoxic respiratory failure Hypertensive emergency History of end stage renal disease Acute diastolic (congestive) heart failure Pneumonia Mitral valvular insufficiency and aortic valvular insufficiency Bilateral carotid artery stenosis ESRD (end stage renal disease) on dialysis History of non-ST elevation myocardial infarction (NSTEMI) (12/28/20) Chronic systolic (congestive) heart failure Postoperative ileus (01/15/21) Atherosclerotic heart disease of [place] coronary artery without angina pectoris Acute HFrEF (heart failure with reduced ejection fraction) Ischemic cardiomyopathy Flash pulmonary edema Bilateral inguinal hernia without obstruction or gangrene Hypercholesteremia Essential (primary) hypertension White coat syndrome with hypertension Myocardial infarction History of diverticulitis Anxiety Home Medications ?Medication ?Instructions ?Recorded ?Last Taken ?Type sertraline 50 mg tablet 50 mg PO DAILY mood 05/09/19 03/18/25 History aspirin 81 mg chewable tablet 81 mg PO DAILY@0800 cardiac ##90 12/30/20 03/18/25 Rx mv,[id number] 1 cap PO DAILY dialysis 06/16/23 03/18/25 History oil 400 mcg-500 unit capsule (ProRenal QD) carvedilol 12.5 mg tablet 12.5 mg PO BID heart and BP #180 11/25/24 03/18/25 Rx tabs sevelamer carbonate 800 mg tablet 2,400 mg PO TID 03/19/25 03/18/25 History Allergy/AdvReac Type Severity Reaction Status Date / Time Seasonal Allergies: Uncoded Allergy Intermediate Unknown Verified 03/19/25 08:33 ezetimibe (From Zetia) AdvReac Intermediate unstable Verified 03/19/25 08:33 gait, myalgia, joint pain isosorbide AdvReac Intermediate Dizziness Verified 03/19/25 08:33 atorvastatin (From Lipitor) AdvReac unstable Verified 03/19/25 08:33 gait, myalgia rosuvastatin (From Crestor) AdvReac unstable Verified 03/19/25 08:33 gait, myalgia Family History Mother Heart disease Father Hypertension Cardiac arrest Surgical History H/O coronary artery bypass surgery (01/11/21) History of left heart catheterization (12/28/20) S/P arteriovenous (AV) fistula creation History of right inguinal hernia repair (01/08/20) History of colonoscopy (2009) History of colostomy reversal History of partial colectomy Social History Smoking Status: Former smoker quit date: 09/25/18 pack-years: 64 how long ago did patient quit smokin years ago alcohol intake: never substance use type: does not use caffeine: Yes Type: coffee Number of servings: 2 what type of physical activity do you participate in: none frequency: does not exercise ROS ROS Narrative 10 systems were reviewed with pertinent positives as noted in the HPI above. Physical Exam Const alert and no apparent distress General Appearance: cooperative HEENT normocephalic, head/scalp atraumatic and moist oral mucous membranes Eyes PERRL, EOMs intact bilaterally and conjunctivae normal Neck supple General: trachea midline Chest inspection of chest normal Resp normal respiratory effort Auscultation: rales and diminished lung sounds Cardio regular rate and regular rhythm GI normal to inspection, nondistended, normoactive bowel sounds Extremity General Extremity: edema; Negative for clubbing Skin no rashes or lesions noted Neuro CN's II-XII intact bilaterally, moves all extremities and no focal motor deficits Psych cooperative and affect normal Lab / Micro Data 03/20/25 04:10 03/20/25 05:10 Labs: Laboratory Results - last 24 hr 03/19/25 08:44: WBC 14.4 H, RBC 4.02 L, Hgb 14.3, Hct 40.9, MCV 101.7 H, MCH 35.6 H, MCHC 35.0, RDW Std Deviation 52.0 H, RDW Coeff of Steven 14.6, Plt Count 188, MPV 11.4, Immature Gran % (Auto) 0.600, Neut % (Auto) 78.2 H, Lymph % (Auto) 12.8 L, [place] % (Auto) 7.0, Eos % (Auto) 1.0, Baso % (Auto) 0.4, Absolute Neuts (auto) 11.3 H, Absolute Lymphs (auto) 1.85, Nucleated RBC % 0, PT Cancelled, INR Cancelled, APTT Cancelled, Sodium Cancelled, Potassium Cancelled, Chloride Cancelled, Carbon Dioxide Cancelled, Anion Gap Cancelled, BUN Cancelled, Creatinine Cancelled, Estim Creat Clear Calc Cancelled, Est GFR (MDRD) Non-Af Cancelled, BUN/Creatinine Ratio Cancelled, Glucose Cancelled, Lactic Acid 1.9, Calcium Cancelled, Total Bilirubin Cancelled, AST Cancelled, ALT Cancelled, Alkaline Phosphatase Cancelled, Total Protein Cancelled, Albumin Cancelled, Globulin Cancelled, Albumin/Globulin Ratio Cancelled 03/19/25 09:25: PT 16.7 H, INR 1.3, APTT 28.0 03/19/25 10:02: Sodium 135, Potassium 7.5 H*, Chloride 89 L, Carbon Dioxide 19.8 L, Anion Gap 27 H, BUN 138 H*, Creatinine 13.60 H*, Estim Creat Clear Calc 6.07 L*, Est GFR (MDRD) Non-Af 4 L, BUN/Creatinine Ratio 10.1, Glucose 136 H, Calcium 8.9, Total Bilirubin 0.45, AST 31, ALT 28, Alkaline Phosphatase 70, Total Protein 7.1, Albumin 3.8, Globulin 3.3, Albumin/Globulin Ratio 1.2 Micro: Microbiology 03/19/25 08:40 Mucosa - Nose SARS-CoV-2, Influenza & RSV (PCR) - Final ABG Data ABG results: ABG 03/19/25 08:51 Specimen Type ART Sample Site R Radial pH 7.28 L Bicarbonate Actual 23.0 Total CO2 25 Base Excess -4 L O2 Saturation 97 O2 % 90.0 ABG pCO2 49.1 H ABG pO2 98 Sherif Test Positive Respiration Rate 14 O2 Delivery Device BiPAP Vent Mode Not entered POC PEEP 8 Imaging Radiology Impression Chest X-Ray 03/19/25 08:58 IMPRESSION: There is moderate cardiomegaly with increased central vascular markings and increased interstitial markings consistent with CHF. An overlying interstitial infiltrate is not excluded. Reading Location: [facility] Charges/Coding Visit Charges Inpatient E&M: 66953 Init Hosp L2
[2025-03-19] MEDS: PureFlow B 2K Dialysis Soln 1 BAG 6 BAG PF (12:32)
[2025-03-19] MEDS: 0.9% Normal Saline 1,000 ML IV.SOLN. 1000 ML OPERA.SITE (12:32)
[2025-03-19] MEDS: 0.9% Normal Saline (100mL Bag) 100 ML 15 ML IV (16:03)
[2025-03-19] MEDS: Azithromycin 500 MG in 0.9% Normal Saline (250mL Bag) 250 ML 255 MG IV (16:05)
[2025-03-19] MEDS: Carvedilol 12.5 MG Tablet PO (16:11)
[2025-03-19] MEDS: Piperacil/Tazobactam 3.375 GM in 0.9% Normal Saline (50mL MB+) 50 ML IV (21:55)
[2025-03-19] MEDS: Heparin Injection (Vial) 5,000 UNIT/ML VIAL 5000 UNIT SC (21:55)
--- NOTE | 2025-03-19 22:05 | PCM.HOSP.N ---
Hospitalist Note Micro reported blood culture growth with gram-positive cocci specifically verified to be in chains. Patient is already on Zosyn antibiotic therapy. Will continue.
[2025-03-20] VITALS (26 sets, daily range): BP systolic 103–237; BP diastolic 50–144; PULSE 68–86; RESP 15–25; TEMP 36.2–37.2; O2SAT 94–100; BMI 27.3; BMI 26.6
[2025-03-20] MEDS: 0.9% Saline Lock 10 ML Syringe IV ×2 (04:10→11:13)
[2025-03-20 04:24] LABS: Absolute Neutrophil Count 4.7 X10^3/uL (2.0-7.7); Basophil# 0.03 X10^3/uL; Basophil% 0.4 % (0-1); Eosinophil# 0.06 X10^3/uL; Eosinophils% 0.9 % (0-5); Hemoglobin 11.8 g/dL (13.0-16.5); Lymphocyte % 17.6 % (19-41); Mean Corp Hgb Conc 34.7 g/dL (32-36); Mean Corpuscular Hgb 34.3 pg (27.0-32.0); Mean Corpuscular Volume 98.8 fL (80-94); Mean Platelet Vol. 10.9 fl (6.2-12.0); Monocyte% 11.7 % (0-10); NRBC Flagged by Analyzer 0 % (0-5); Neutrophil # 4.71 X10^3/uL (2.7-7.7); Platelet Count 166 K/mm3 (150-450); RBC Distribution Width CV 14.2 % (11.6-14.6); RBC Distribution Width SD 51.4 fl (35.1-43.9); Red Blood Count 3.44 M/mm3 (4.6-6.2); White Blood Count 6.8 K/mm3 (4.4-11.0)
[2025-03-20 05:44] LABS: Magnesium 2.8 mg/dL (1.5-2.2)
[2025-03-20 05:50] LABS: Anion Gap 20 (5-15); BUN 100 mg/dL (4-19); BUN/Creat Ratio 8.8 RATIO (10-20); Calcium,Total 8.9 mg/dL (7.6-11.0); Carbon Dioxide 22.6 mmol/L (21.0-32.0); Chloride 94 mmol/L (98-108); EST Glomerular Filtration Rate 4 (>60); Estimated Creatinine Clearance 6.28 ml/min (50-250); Glucose 100 mg/dL (70-99); Potassium 5.5 mmol/L (3.3-5.1); Sodium Level 137 mmol/L (133-145)
--- NOTE | 2025-03-20 08:14 | PCM.PN.HOSP ---
Reason for Visit Reason for Visit: Diagnoses Hyperkalemia (03/19/25) Fluid overload, unspecified (03/19/25) Pneumonia, unspecified organism (03/19/25) Acute and chronic respiratory failure with hypoxia (03/19/25) End stage renal disease (03/19/25) Dependence on renal dialysis (03/19/25) Subjective Subjective Patient is a 69-year-old gentleman presenting with progressive shortness of breath. Was found to have bilateral pleural effusion as well as with superimposed right-sided infiltrate. Was placed on BiPAP admitted to the intensive care unit. Patient has since been weaned off BiPAP. Blood cultures so far positive for gram-positive cocci plan identification and sensitivities pending Objective Data Objective Data Vital Signs: Vital Signs Temp Pulse Resp BP Pulse Ox O2 Del Method O2 Flow Rate 97.1 F L 75 20 H 153/60 H 98 Nasal Cannula 2 03/20/25 08:00 03/20/25 08:00 03/20/25 08:00 03/20/25 08:00 03/20/25 08:00 03/20/25 08:00 03/20/25 08:00 FiO2 45 03/19/25 10:57 Oxygen Flow Rate (L/min) 2 Oxygen Delivery Method Nasal Cannula Weight: 86.8 kg Body Mass Index (BMI) 27.3 Intake & Output: Intake and Output for Last 24 Hours 03/18/25 03/19/25 03/20/25 23:59 23:59 23:59 Intake Total 934.00 / 934.00 300 / 300 Output Total 5010 / 5010 Balance -4076.00 / -4076.00 300 / 300 Lab / Micro Data 03/20/25 04:10 03/20/25 05:10 Labs: Laboratory Results - last 24 hr 03/19/25 08:44: WBC 14.4 H, RBC 4.02 L, Hgb 14.3, Hct 40.9, MCV 101.7 H, MCH 35.6 H, MCHC 35.0, RDW Std Deviation 52.0 H, RDW Coeff of Steven 14.6, Plt Count 188, MPV 11.4, Immature Gran % (Auto) 0.600, Neut % (Auto) 78.2 H, Lymph % (Auto) 12.8 L, [place] % (Auto) 7.0, Eos % (Auto) 1.0, Baso % (Auto) 0.4, Absolute Neuts (auto) 11.3 H, Absolute Lymphs (auto) 1.85, Nucleated RBC % 0, PT Cancelled, INR Cancelled, APTT Cancelled, Sodium Cancelled, Potassium Cancelled, Chloride Cancelled, Carbon Dioxide Cancelled, Anion Gap Cancelled, BUN Cancelled, Creatinine Cancelled, Estim Creat Clear Calc Cancelled, Est GFR (MDRD) Non-Af Cancelled, BUN/Creatinine Ratio Cancelled, Glucose Cancelled, Lactic Acid 1.9, Calcium Cancelled, Total Bilirubin Cancelled, AST Cancelled, ALT Cancelled, Alkaline Phosphatase Cancelled, Total Protein Cancelled, Albumin Cancelled, Globulin Cancelled, Albumin/Globulin Ratio Cancelled 03/19/25 09:25: PT 16.7 H, INR 1.3, APTT 28.0 03/19/25 10:02: Sodium 135, Potassium 7.5 H*, Chloride 89 L, Carbon Dioxide 19.8 L, Anion Gap 27 H, BUN 138 H*, Creatinine 13.60 H*, Estim Creat Clear Calc 6.07 L*, Est GFR (MDRD) Non-Af 4 L, BUN/Creatinine Ratio 10.1, Glucose 136 H, Calcium 8.9, Total Bilirubin 0.45, AST 31, ALT 28, Alkaline Phosphatase 70, Total Protein 7.1, Albumin 3.8, Globulin 3.3, Albumin/Globulin Ratio 1.2 03/20/25 04:10: WBC 6.8, RBC 3.44 L, Hgb 11.8 L, Hct 34.0 L, MCV 98.8 H, MCH 34.3 H, MCHC 34.7, RDW Std Deviation 51.4 H, RDW Coeff of Steven 14.2, Plt Count 166, MPV 10.9, Immature Gran % (Auto) 0.400, Neut % (Auto) 69.0, Lymph % (Auto) 17.6 L, [place] % (Auto) 11.7 H, Eos % (Auto) 0.9, Baso % (Auto) 0.4, Absolute Neuts (auto) 4.7, Absolute Lymphs (auto) 1.20, Nucleated RBC % 0, Sodium Cancelled, Potassium Cancelled, Chloride Cancelled, Carbon Dioxide Cancelled, Anion Gap Cancelled, BUN Cancelled, Creatinine Cancelled, Estim Creat Clear Calc Cancelled, Est GFR (MDRD) Non-Af Cancelled, BUN/Creatinine Ratio Cancelled, Glucose Cancelled, Calcium Cancelled, Phosphorus Cancelled, Magnesium Cancelled 03/20/25 05:10: Sodium 137, Potassium 5.5 H, Chloride 94 L, Carbon Dioxide 22.6, Anion Gap 20 H, BUN 100 H, Creatinine 11.30 H*, Estim Creat Clear Calc 6.28 L*, Est GFR (MDRD) Non-Af 4 L, BUN/Creatinine Ratio 8.8 L, Glucose 100 H, Calcium 8.9, Phosphorus 7.0 H, Magnesium 2.8 H Micro: Microbiology 03/19/25 17:35 Blood Culture (Wb) - Venous Bacteria Detection (PCR) - Final Staphylococcus epidermidis 03/19/25 17:35 Blood Culture (Wb) - Venous Blood Culture - Preliminary 03/19/25 12:45 Mucosa - Nasopharyngeal Respiratory Panel (PCR) - Final 03/19/25 12:35 Nasal Secretion MRSA (PCR) - Final 03/19/25 08:40 Mucosa - Nose SARS-CoV-2, Influenza & RSV (PCR) - Final ABG Data ABG results: ABG 03/19/25 08:51 Specimen Type ART Sample Site R Radial pH 7.28 L Bicarbonate Actual 23.0 Total CO2 25 Base Excess -4 L O2 Saturation 97 O2 % 90.0 ABG pCO2 49.1 H ABG pO2 98 Sherif Test Positive Respiration Rate 14 O2 Delivery Device BiPAP Vent Mode Not entered POC PEEP 8 Radiography Diagnostic Testing: Radiology Impression Chest X-Ray 03/19/25 08:58 IMPRESSION: There is moderate cardiomegaly with increased central vascular markings and increased interstitial markings consistent with CHF. An overlying interstitial infiltrate is not excluded. [facility] Exam Narrative GENERAL: Patient is on BiPAP. Dyspneic at rest HEENT: Atraumatic; normocephalic EYES; Anicteric, Normal Conjunctiva NECK; supple, normal thyroid, RESPIRATORY: Diminished to auscultation bibasilar Rales CARDIOVASCULAR: Regular S1 S2, GI: soft, normoactive bowel sounds, : No Renal angle tenderness; EXTREMITIES: Trace bipedal edema, no clubbing, MUSCULOSKELETAL: no muscle wasting NEURO: Awake; no lateralizing signs. SKIN: No Rash PSYCH; Flat affect Assessment & Plan Assessment/Plan (1) Acute hyperkalemia: (2) Acute and chronic respiratory failure with hypoxia: (3) ESRD on hemodialysis: (4) Fluid overload: (5) Pneumonia: PLAN: Plan Patient is a 69-year-old gentleman presenting with progressive shortness of breath. Was found to have bilateral pleural effusion as well as with superimposed right-sided infiltrate. Was placed on BiPAP admitted to the intensive care unit 1. Acute hypoxic respiratory failure ? Due to combination of fluid overload from patient having missed dialysis, congestive heart failure as well as pneumonia. Patient was placed on noninvasive ventilation BiPAP admitted to the intensive care unit with treatment of patient underlying etiology. Consult was placed to sales hunter ? 03/20/2025. Patient has been weaned off noninvasive ventilation by BiPAP currently on nasal cannula 4 L flow per minute 2. End-stage renal disease ? Patient is on dialysis on Tuesdays as well as Saturdays. Patient had apparently missed his last session as a result of being ill. Patient was found to have hyperkalemia with potassium of 7.5 with EKG changes. Admitted to the intensive care unit nephrology?Dr. Karina Ervin consulted from the ED for emergency dialysis ? 03/20/2025; patient underwent emergency dialysis the day prior currently undergoing repeat dialysis 3. Hyperkalemia ? Secondary to patient ESRD and patient having missed dialysis plan is for patient to undergo emergency dialysis ? 03/20/2025; potassium down to 5.5 further management through dialysis. 4. Pneumonia - Suspected to be pneumonia with suspected gram-negative organisms/gram-positive organisms/atypical, Blood and sputum cultures sent. Patient placed on Zosyn and Zithromax and placed on oxygen titrated to keep Pulse Ox greater than 90. As part of patient's management ordered viral respiratory panel as well as SARS-CoV-2 assay ? 03/20/2025 patient blood cultures positive for gram-positive cocci added vancomycin to therapy awaiting final identification and sensitivity 5. Acute on chronic congestive heart failure with preserved ejection fraction ? Plan is to manage patient fluid status with dialysis ordered echo for EF assessment 6. Coronary artery disease with previous CABG COX to LAD, SVG to OM, SVG to RPDA in 2020 7. Valvular heart disease ? With history of mitral regurgitation as well as aortic regurgitation 8. Renal bone disease ? Patient is on Sevelamer 9. Hypertension ? Blood pressure controlled, home medications continued with dose adjustment as needed 10. Dyslipidemia ? Patient not on statin therapy due to reported side effect?significant myalgias 11. Class I Obesity with BMI of 32.4 ? Complicating care weight loss advised 12. DVT prophylaxis ? Subcu heparin Time spent in the patient's overall evaluation,decision-making process, review of diagnostic data, adjustment of management, discussion with other providers, nursing nursing and ancillary staff involved in patient's care documentation, 50 Minutes Charges/Coding Visit Charges Inpatient E&M: 30937 [facility] Hosp L3
[2025-03-20] MEDS: SEVELAMER CARBONATE 800 MG TABLET 2400 MG PO ×3 (08:15→16:10)
[2025-03-20] MEDS: 0.9% Normal Saline 1,000 ML IV.SOLN. 1000 ML OPERA.SITE (08:29)
[2025-03-20] MEDS: PureFlow B 2K Dialysis Soln 1 BAG 6 BAG PF (08:29)
--- NOTE | 2025-03-20 09:32 | CASEMGMT ---
ADELITA SULLIVAN Assessment Face to Face with patient for initial transition planning/care coordination assessment. RN NATE introduced self and role at [facility], pt voices understanding. Pt is A&Ox4 and is resting comfortably in bed and is calm. Pt is currently getting dialyzed. Care providers, pharmacy, and demographics verified. Admitting dx: JERO CONTE Strata: 3 PCP: Rad Specialists: Arcadio (Nephro), Fei LOWE (Vascular) Preferred Pharmacy: [facility] Insurance:[facility] A/B, [employer] Prescription Benefit: Yes LNOK: Nikkie Frazier (W), Swati Frazier (Daughter) Living Arrangements: Pt lives with his in a single story home with 3 steps to enter with a handrail ADLs/IADLs: Pt states that he is independent but is currently feeling weak. Pt states that he would like PT to work with him today after HD. This was coordinated with the pt RN and PT. Transportation:Self, . Denies concerns DME: Home oxygen through [employer]. E-Mail sent to [employer] liaison for current oxygen order verification. Pt states that he has a concentrator, portable tanks ( will bring in @ DC), and a pulse ox. Pt also reports that he has a BP machine and grab bars. HHC/SNF: Reports HHC x 10 years ago but cannot recall the name of the agency HD: Pt attends OP HD @ [facility] in [facility] at 1015. Pt states that he missed recently due to not feeling well. Pt is aware that missing HD will only further complicate matters. Pt states understanding and denies transportation issues and plans to attend as scheduled moving forward. Pt?s goal: Home with Plan: Home with OP Tx, continuation of OP HD, follow for updated O2 Rx. Pt denies the need for HHC but states that he would like to attend OP PT for strengthening. Pt states that he would like to make his own appt. CM to provide Rx. Pt denies further questions, concerns, or needs at this time. CM to follow. Dane Self RN, CM
[2025-03-20] MEDS: Azithromycin 500 MG in 0.9% Normal Saline (250mL Bag) 250 ML 255 MG IV (11:09)
[2025-03-20] MEDS: Sertraline 50 MG Tablet PO (11:09)
[2025-03-20] MEDS: Aspirin 81 MG TAB.CHEW PO (11:09)
[2025-03-20] MEDS: Carvedilol 12.5 MG Tablet PO ×2 (11:09→21:05)
[2025-03-20] MEDS: Heparin Injection (Vial) 5,000 UNIT/ML VIAL 5000 UNIT SC ×2 (11:10→21:05)
[2025-03-20 11:16] LABS: Vancomycin, Random Level 12.8 ug/mL (0.0-15.0)
[2025-03-20] MEDS: Piperacil/Tazobactam 3.375 GM in 0.9% Normal Saline (50mL MB+) 50 ML IV (11:31)
--- NOTE | 2025-03-20 11:37 | CHAPLAIN ---
Type of Pastoral Visit _x__ Initial Visit ___ Follow-up Visit ___ On-call Visit ___ General Patient Visit ___ Spiritual Assessment ___ Family Conference ___ Bereavement ___ Rapid Response ___ Code Blue ___ Other (describe below) Pastoral Care Referral From _x__ Patient ___ Family ___ Nurse ___ Physician ___ Air Quality Technician ___ Segment Producer ___ Other (describe below) Sacrament/Intervention _x__ Active listening ___ Anointing ___ Hinduism ___ Bereavement ___ Communion ___ Deya exploration ___ _x__ Life review _x__ Prayer ___ Reconciliation ___ Sacrament of Sick ___ Supportive presence ___ Wedding ___ Other (describe below) Pastoral Comments patient has been seen before and is very welcoming; pt explains the situation he was in and how he needed emergent help; pt speaks of his health and family but also asks questions of the jig builder on a casual conversation; comes into the room; patient finished dialysis; pt expressed thanks for [facility] support and prayer which was given
--- NOTE | 2025-03-20 12:07 | PCM.RX.CS ---
Consult Antibiotic Management Pharmacy has been consulted to manage selected antibiotic: Vancomycin Type of Intervention Type of Consult: New start Suspected Infection Suspected Infection: Bacteremia Prior Doses of Antibiotics Prior Doses of Antibiotics Received/Current Regimen: Vancomycin 2000 mg IV x 1 given 03/19/25 @ 0924 Labs Labs: Sodium 137 mmol/L (133-145) 03/20/25 05:10 Potassium 5.5 mmol/L (3.3-5.1) H 03/20/25 05:10 Chloride 94 mmol/L (98-108) L 03/20/25 05:10 Carbon Dioxide 22.6 mmol/L (21.0-32.0) 03/20/25 05:10 Anion Gap 20 (5-15) H 03/20/25 05:10 BUN 100 mg/dL (4-19) H 03/20/25 05:10 Creatinine 11.30 mg/dL (0.70-1.20) H* 03/20/25 05:10 Est GFR (MDRD) Non-Af 4 (>60) L 03/20/25 05:10 BUN/Creatinine Ratio 8.8 RATIO (10-20) L 03/20/25 05:10 Glucose 100 mg/dL (70-99) H 03/20/25 05:10 Random Vancomycin 12.8 ug/mL (0.0-15.0) 03/20/25 10:25 Microbiology Microbiology: Microbiology 03/19/25 17:35 Blood Culture (Wb) - Venous Bacteria Detection (PCR) - Final Staphylococcus epidermidis 03/19/25 17:35 Blood Culture (Wb) - Venous Blood Culture - Preliminary 03/19/25 12:45 Mucosa - Nasopharyngeal Respiratory Panel (PCR) - Final 03/19/25 12:35 Nasal Secretion MRSA (PCR) - Final 03/19/25 08:40 Mucosa - Nose SARS-CoV-2, Influenza & RSV (PCR) - Final Dosing Weight Weight used for dosin.5 kg Estimated Creatinine Clearance Estimated Creatinine Clearance: esrd on HD Goal Trough Goal Trough: 10-15 mcg/mL Pharmacy Plan for Drug Dosing Pharmacy Plan for Drug Dosing: Vancomycin level 12.8 this AM, prior to or during HD, given 750 mg IV x 1 following HD, recheck random level on 03/22/25 in AM. Pharmacy Service will continue to monitor and adjust dosing as required. Follow-Up Labs Follow-Up Labs: Trough: Vancomycin Date/Time Labs Ordered Labs to be done on [date and time ordered]: 03/22/25 @ 0600
[2025-03-20] MEDS: Vancomycin HCl 750 MG in 0.9% Normal Saline (250mL Bag) 250 ML 250 MG IV (15:28)
[2025-03-20] MEDS: 0.9% Normal Saline (100mL Bag) 100 ML 15 ML IV (15:28)
--- NOTE | 2025-03-20 17:19 | PCM.CONS.R ---
Assessment & Plan Assessment/Plan (1) ESRD on hemodialysis: PLAN: urgent dialysis yesterday for missed treatment on Monday and hyperkalemia, dialysis today and TTS (2) Acute and chronic respiratory failure with hypoxia: PLAN: due to fluid overload from noncomplaince with dialysis treatments (3) Hyperkalemia: PLAN: resolved with dialysis (4) Viral gastroenteritis: (5) Noncompliance of patient with renal dialysis: (6) PAD (peripheral artery disease): (7) Atherosclerotic heart disease of [place] coronary artery without angina pectoris: QUALIFIERS: Three Affiliated vs. transplanted heart: black[place] heart Qualified Code(s): I25.10 - Atherosclerotic heart disease of [place] coronary artery without angina pectoris (8) H/O coronary artery bypass surgery: (9) CAD (coronary artery disease): HPI Consult Data Date of Consult: 03/20/25 HPI Narrative Reason for Consultation: ESRD HD TTS HPI Narrative: JOSELITO LAWSON, is a 69 M with ESRD HD TTS presents to ED with hyperkalemia 7.5 emergently dialyzed upon admission to ICU with EKG changes. He has been noncompliant with dialysis with treatments last week. States had the flu last week with myalgias, nausea, vomiting. Resp panel negative. This week called off dialysis Monday and refused to reschedule. BUN elevated at 138 Creatinine 13.6. He was treated for possible pneumonia, hypoxia on BIPAP in ED. Blood cx with GPC, WBC 14K. Appetite poor. Breathing better now after 7L fluid removal with 2 days of dialysis. at bedside. Discussed importance of coming in for his dialysis treatments. He was given Lokelma weekly for chronically elevated potassium levels. [facility] Medical History Overweight (BMI 25.0-29.9) Hyperkalemia Acute hypoxic respiratory failure Hypertensive emergency History of end stage renal disease Acute diastolic (congestive) heart failure Pneumonia Mitral valvular insufficiency and aortic valvular insufficiency Bilateral carotid artery stenosis ESRD (end stage renal disease) on dialysis History of non-ST elevation myocardial infarction (NSTEMI) (12/28/20) Chronic systolic (congestive) heart failure Postoperative ileus (01/15/21) Atherosclerotic heart disease of [place] coronary artery without angina pectoris Acute HFrEF (heart failure with reduced ejection fraction) Ischemic cardiomyopathy Flash pulmonary edema Bilateral inguinal hernia without obstruction or gangrene Hypercholesteremia Essential (primary) hypertension White coat syndrome with hypertension Myocardial infarction History of diverticulitis Anxiety Home Medications ?Medication ?Instructions ?Recorded ?Last Taken ?Type sertraline 50 mg tablet 50 mg PO DAILY mood 05/09/19 03/18/25 History aspirin 81 mg chewable tablet 81 mg PO DAILY@0800 cardiac ##90 12/30/20 03/18/25 Rx mv,[id number] 1 cap PO DAILY dialysis 06/16/23 03/18/25 History oil 400 mcg-500 unit capsule (ProRenal QD) carvedilol 12.5 mg tablet 12.5 mg PO BID heart and BP #180 11/25/24 03/18/25 Rx tabs sevelamer carbonate 800 mg tablet 2,400 mg PO TID 03/19/25 03/18/25 History Allergy/AdvReac Type Severity Reaction Status Date / Time Seasonal Allergies: Uncoded Allergy Intermediate Unknown Verified 03/19/25 08:33 ezetimibe (From Zetia) AdvReac Intermediate unstable Verified 03/19/25 08:33 gait, myalgia, joint pain isosorbide AdvReac Intermediate Dizziness Verified 03/19/25 08:33 atorvastatin (From Lipitor) AdvReac unstable Verified 03/19/25 08:33 gait, myalgia rosuvastatin (From Crestor) AdvReac unstable Verified 03/19/25 08:33 gait, myalgia Family History Mother Heart disease Father Hypertension Cardiac arrest Surgical History H/O coronary artery bypass surgery (01/11/21) History of left heart catheterization (12/28/20) S/P arteriovenous (AV) fistula creation History of right inguinal hernia repair (01/08/20) History of colonoscopy (2009) History of colostomy reversal History of partial colectomy Social History Smoking Status: Former smoker quit date: 09/25/18 pack-years: 64 how long ago did patient quit smokin years ago alcohol intake: never substance use type: does not use caffeine: Yes Type: coffee Number of servings: 2 what type of physical activity do you participate in: none frequency: does not exercise ROS Constitutional Constitutional: Reports malaise and weakness Cardiovascular Cardiovascular: Denies chest pain Respiratory/Chest Respiratory/Chest: Reports dry cough, dyspnea on exertion and shortness of breath at rest Gastrointestinal Gastrointestinal: Reports anorexia, nausea and vomiting Musculoskeletal Musculoskeletal: Reports myalgias Integumentary Integumentary: Denies rash Neurologic Neurologic: Denies confusion Psychiatric Psychiatric: Denies confusion or depression Physical Exam Const alert and oriented x3 General Appearance: well developed Resp clear to auscultation bilaterally Cardio regular rate GI non-tender and non-distended Auscultation: normoactive bowel sounds Palpation: soft Extremity General Extremity: AV fistula Neuro CN's II-XII intact bilaterally Psych cooperative Lab / Micro Data 03/20/25 04:10 03/20/25 05:10 Labs: Laboratory Results - last 24 hr 03/20/25 04:10: WBC 6.8, RBC 3.44 L, Hgb 11.8 L, Hct 34.0 L, MCV 98.8 H, MCH 34.3 H, MCHC 34.7, RDW Std Deviation 51.4 H, RDW Coeff of Steven 14.2, Plt Count 166, MPV 10.9, Immature Gran % (Auto) 0.400, Neut % (Auto) 69.0, Lymph % (Auto) 17.6 L, [place] % (Auto) 11.7 H, Eos % (Auto) 0.9, Baso % (Auto) 0.4, Absolute Neuts (auto) 4.7, Absolute Lymphs (auto) 1.20, Nucleated RBC % 0, Sodium Cancelled, Potassium Cancelled, Chloride Cancelled, Carbon Dioxide Cancelled, Anion Gap Cancelled, BUN Cancelled, Creatinine Cancelled, Estim Creat Clear Calc Cancelled, Est GFR (MDRD) Non-Af Cancelled, BUN/Creatinine Ratio Cancelled, Glucose Cancelled, Calcium Cancelled, Phosphorus Cancelled, Magnesium Cancelled 03/20/25 05:10: Sodium 137, Potassium 5.5 H, Chloride 94 L, Carbon Dioxide 22.6, Anion Gap 20 H, BUN 100 H, Creatinine 11.30 H*, Estim Creat Clear Calc 6.28 L*, Est GFR (MDRD) Non-Af 4 L, BUN/Creatinine Ratio 8.8 L, Glucose 100 H, Calcium 8.9, Phosphorus 7.0 H, Magnesium 2.8 H 03/20/25 10:25: Random Vancomycin 12.8 Micro: Microbiology 03/20/25 09:05 Sputum, Expectorated/Coughed Gram Stain - Final 03/19/25 17:35 Blood Culture (Wb) - Venous Bacteria Detection (PCR) - Final Staphylococcus epidermidis 03/19/25 17:35 Blood Culture (Wb) - Venous Blood Culture - Preliminary 03/19/25 12:45 Mucosa - Nasopharyngeal Respiratory Panel (PCR) - Final 03/19/25 12:35 Nasal Secretion MRSA (PCR) - Final Imaging Radiology Impression Echocardiogram 03/19/25 11:43 Interpretation Summary The estimated ejection fraction is 55 %. Inferior wall is hypokinetic. Stage 2 diastolic dysfunction. The left atrium is mildly enlarged. Mild mitral annular calcification. Mild-Moderate (1-2+) mitral valve insufficiency. Mild focal aortic valve calcification. Mild (1+) aortic valve insufficiency. Ordering Physician: Davis Leonardo Referring Physician: Rad. Damion Chi Performed By: Natasha Mcdaniel, LIBBY, RVT
[2025-03-20] MEDS: Piperacil/Tazobactam 3.375 GM/50 ML ML IV (21:05)
[2025-03-21 03:00] VITALS: PULSE 74
[2025-03-21 03:10] VITALS: BP 148/57; PULSE 73; RESP 18; TEMP 36.3; O2SAT 99
[2025-03-21 05:17] VITALS: BMI 27.4
[2025-03-21] MEDS: 0.9% Saline Lock 10 ML Syringe IV (05:18)
[2025-03-21 05:21] LABS: Absolute Lymphocyte Count 1.38 X10^3/uL (0.83-4.51); Absolute Neutrophil Count 2.5 X10^3/uL (2.0-7.7); Basophil# 0.05 X10^3/uL; Eosinophil# 0.29 X10^3/uL; Eosinophils% 5.9 % (0-5); Hematocrit 37.5 % (40-54); Hemoglobin 12.8 g/dL (13.0-16.5); Lymphocyte # 1.38 X10^3/ul (0.83-4.51); Lymphocyte % 28.2 % (19-41); Mean Corp Hgb Conc 34.1 g/dL (32-36); Mean Corpuscular Volume 99.5 fL (80-94); Mean Platelet Vol. 11.2 fl (6.2-12.0); Monocyte# 0.64 X10^3/uL; Monocyte% 13.1 % (0-10); NRBC Flagged by Analyzer 0 % (0-5); Neutrophil # 2.52 X10^3/uL (2.7-7.7); Neutrophil % 51.6 % (47-70); Platelet Count 194 K/mm3 (150-450); RBC Distribution Width CV 13.7 % (11.6-14.6); RBC Distribution Width SD 49.5 fl (35.1-43.9); Red Blood Count 3.77 M/mm3 (4.6-6.2); White Blood Count 4.9 K/mm3 (4.4-11.0)
[2025-03-21 06:12] LABS: Anion Gap 20 (5-15); BUN 80 mg/dL (4-19); Calcium,Total 8.9 mg/dL (7.6-11.0); Chloride 96 mmol/L (98-108); EST Glomerular Filtration Rate 6 (>60); Estimated Creatinine Clearance 7.66 ml/min (50-250); Glucose 86 mg/dL (70-99); Potassium 5.5 mmol/L (3.3-5.1); Sodium Level 136 mmol/L (133-145)
[2025-03-21 06:16] LABS: BUN/Creat Ratio 8.7 RATIO (10-20); Creatinine, Serum 9.26 mg/dL (0.70-1.20)
--- NOTE | 2025-03-21 07:14 | PN.HOSP_ITS ---
Reason for Visit Reason for Visit: Diagnoses Viral intestinal infection, unspecified (03/19/25) Hyperkalemia (03/19/25) Fluid overload, unspecified (03/19/25) Atherosclerotic heart disease of [place] coronary artery without angina pectoris (03/19/25) Peripheral vascular disease, unspecified (03/19/25) Pneumonia, unspecified organism (03/19/25) Acute and chronic respiratory failure with hypoxia (03/19/25) End stage renal disease (03/19/25) Patient's noncompliance with renal dialysis for other reason (03/19/25) Presence of aortocoronary bypass graft (03/19/25) Dependence on renal dialysis (03/19/25) Subjective Subjective Patient blood cultures came back positive for gram-positive cocci final identification did show staph epi possibly contaminant. Objective Data Objective Data Vital Signs: Vital Signs Temp Pulse Resp BP Pulse Ox O2 Del Method O2 Flow Rate 97.3 F L 73 18 148/57 H 99 Room Air 2 03/21/25 03:10 03/21/25 03:10 03/21/25 03:10 03/21/25 03:10 03/21/25 03:10 03/21/25 03:10 03/20/25 11:30 FiO2 45 03/19/25 10:57 Oxygen Flow Rate (L/min) 2 Oxygen Delivery Method Room Air Weight: 87 kg Body Mass Index (BMI) 27.4 Intake & Output: Intake and Output for Last 24 Hours 03/19/25 03/20/25 03/21/25 23:59 23:59 23:59 Intake Total 934.00 / 934.00 2119.5 / 2119.5 200 / 200 Output Total 5010 / 5010 2330 / 2330 Balance -4076.00 / -4076.00 -210.5 / -210.5 200 / 200 Lab / Micro Data 03/21/25 05:10 03/21/25 05:10 Labs: Laboratory Results - last 24 hr 03/20/25 10:25: Random Vancomycin 12.8 03/21/25 05:10: WBC 4.9, RBC 3.77 L, Hgb 12.8 L, Hct 37.5 L, MCV 99.5 H, MCH 34.0 H, MCHC 34.1, RDW Std Deviation 49.5 H, RDW Coeff of Steven 13.7, Plt Count 194, MPV 11.2, Immature Gran % (Auto) 0.200, Neut % (Auto) 51.6, Lymph % (Auto) 28.2, [place] % (Auto) 13.1 H, Eos % (Auto) 5.9 H, Baso % (Auto) 1.0, Absolute Neuts (auto) 2.5, Absolute Lymphs (auto) 1.38, Nucleated RBC % 0, Sodium 136, P otassium 5.5 H, Chloride 96 L, Carbon Dioxide 21.0, Anion Gap 20 H, BUN 80 H, C reatinine 9.26 H*, Estim Creat Clear Calc 7.66 L*, Est GFR (MDRD) Non-Af 6 L, B UN/Creatinine Ratio 8.7 L, Glucose 86, Calcium 8.9 Micro: Microbiology 03/20/25 09:05 Sputum, Expectorated/Coughed Gram Stain - Final 03/19/25 17:35 Blood Culture (Wb) - Venous Bacteria Detection (PCR) - Final Staphylococcus epidermidis 03/19/25 17:35 Blood Culture (Wb) - Venous Blood Culture - Preliminary 03/19/25 12:45 Mucosa - Nasopharyngeal Respiratory Panel (PCR) - Final 03/19/25 12:35 Nasal Secretion MRSA (PCR) - Final 03/19/25 08:40 Mucosa - Nose SARS-CoV-2, Influenza & RSV (PCR) - Final Radiography Diagnostic Testing: Radiology Impression Echocardiogram 03/19/25 11:43 Interpretation Summary The estimated ejection fraction is 55 %. Inferior wall is hypokinetic. Stage 2 diastolic dysfunction. The left atrium is mildly enlarged. Mild mitral annular calcification. Mild-Moderate (1-2+) mitral valve insufficiency. Mild focal aortic valve calcification. Mild (1+) aortic valve insufficiency. Ordering Physician: Davis Leonardo Referring Physician: Kwok. Damion Mchugh Performed By: Natasha Mcdaniel RDCS, RVT Physical Exam Narrative GENERAL: Cooperative HEENT: Atraumatic; normocephalic EYES; Anicteric, Normal Conjunctiva NECK; supple, normal thyroid, RESPIRATORY: Diminished to auscultation bibasilar Rales CARDIOVASCULAR: Regular S1 S2, GI: soft, normoactive bowel sounds, : No Renal angle tenderness; EXTREMITIES: Trace bipedal edema, no clubbing, MUSCULOSKELETAL: no muscle wasting NEURO: Awake; no lateralizing signs. SKIN: No Rash PSYCH; Flat affect Assessment & Plan Assessment/Plan (1) Acute hyperkalemia: (2) Acute and chronic respiratory failure with hypoxia: (3) ESRD on hemodialysis: (4) Fluid overload: (5) Pneumonia: PLAN: Plan Patient is a 69-year-old gentleman presenting with progressive shortness of breath. Was found to have bilateral pleural effusion as well as with superimposed right-sided infiltrate. Was placed on BiPAP admitted to the intensive care unit 1. Acute hypoxic respiratory failure ? Due to combination of fluid overload from patient having missed dialysis, congestive heart failure as well as pneumonia. Patient was placed on noninvasive ventilation BiPAP admitted to the intensive care unit with treatment of patient underlying etiology. Consult was placed to admitting counselor ? 03/20/2025. Patient has been weaned off noninvasive ventilation by BiPAP currently on nasal cannula 4 L flow per minute 2. End-stage renal disease ? Patient is on dialysis on Tuesdays as well as Saturdays. Patient had apparently missed his last session as a result of being ill. Patient was found to have hyperkalemia with potassium of 7.5 with EKG changes. Admitted to the intensive care unit nephrology?Dr. Karina Ervin consulted from the ED for emergency dialysis ? 03/20/2025; patient underwent emergency dialysis the day prior currently undergoing repeat dialysis 3. Hyperkalemia ? Secondary to patient ESRD and patient having missed dialysis plan is for patient to undergo emergency dialysis ? 03/20/2025; potassium down to 5.5 further management through dialysis. 4. Pneumonia - Suspected to be pneumonia with suspected gram-negative organisms/gram-positive organisms/atypical, Blood and sputum cultures sent. Patient placed on Zosyn and Zithromax and placed on oxygen titrated to keep Pulse Ox greater than 90. As part of patient's management ordered viral respiratory panel as well as SARS-CoV-2 assay ? 03/20/2025 patient blood cultures positive for gram-positive cocci added vancomycin to therapy awaiting final identification and sensitivity ? 03/21/2025; blood cultures did show staph epi possibly contaminant. 5. Acute on chronic congestive heart failure with preserved ejection fraction ? Plan is to manage patient fluid status with dialysis ordered echo for EF assessment. ? 03/24/2025; 2D echo did show The estimated ejection fraction is 55 %. Inferior wall is hypokinetic. Stage 2 diastolic dysfunction. The left atrium is mildly enlarged. Mild mitral annular calcification. Mild-Moderate (1-2+) mitral valve insufficiency. Mild focal aortic valve calcification. Mild (1+) aortic valve insufficiency. 6. Coronary artery disease with previous CABG COX to LAD, SVG to OM, SVG to RPDA in 2020 7. Valvular heart disease ? With history of mitral regurgitation as well as aortic regurgitation 8. Renal bone disease ? Patient is on Sevelamer 9. Hypertension ? Blood pressure controlled, home medications continued with dose adjustment as needed 10. Dyslipidemia ? Patient not on statin therapy due to reported side effect?significant myalgias 11. Class I Obesity with BMI of 32.4 ? Complicating care weight loss advised 12. DVT prophylaxis ? Subcu heparin Time spent in the patient's overall evaluation,decision-making process, review of diagnostic data, adjustment of management, discussion with other providers, nursing nursing and ancillary staff involved in patient's care documentation, 50 Minutes
[2025-03-21 07:24] VITALS: PULSE 60
[2025-03-21 07:39] VITALS: BP 154/61; PULSE 69; RESP 15; TEMP 36.3; O2SAT 94
[2025-03-21] MEDS: Aspirin 81 MG TAB.CHEW PO (08:32)
[2025-03-21] MEDS: Carvedilol 12.5 MG Tablet PO (08:32)
[2025-03-21] MEDS: Sertraline 50 MG Tablet PO (08:32)
[2025-03-21] MEDS: SEVELAMER CARBONATE 800 MG TABLET 2400 MG PO ×2 (08:32→11:29)
[2025-03-21 09:10] VITALS: O2SAT 92; O2SAT 94
[2025-03-21] MEDS: Heparin Injection (Vial) 5,000 UNIT/ML VIAL 5000 UNIT SC (09:50)
[2025-03-21] MEDS: Azithromycin 500 MG in 0.9% Normal Saline (250mL Bag) 250 ML 255 MG IV (09:55)
--- NOTE | 2025-03-21 10:30 | PCM.DC.SUM ---
Providers Date of Admission: 03/19/25 Date of Discharge: 03/21/25 Primary Care Physician: Dr. Damion Leroy MD Consultations 03/19/25 10:55 Consult: Nephrology Routine Consulting Provider: Karina Ervin Reason for Consult: ESRD EMERGENT Consult: No Notified: Yes Date Notified: 03/19/25 Time Notified: 10:55 Method of Notification: ED Physician Initiated 03/19/25 11:43 Consult: Medicare Insurance Specialist / Pulmonary Medicine Routine Consulting Provider: Pulmonary Medicine awilda [place] Reason for Consult: Respiratory failure EMERGENT Consult: No Notified: Yes Date Notified: 03/19/25 Time Notified: 10:38 Method of Notification: Text Reason For Visit: RESPIRATORY FAILURE Diagnosis Discharge Diagnosis (1) Acute hyperkalemia: Status: Acute Code(s): E87.5 - Hyperkalemia (2) Acute and chronic respiratory failure with hypoxia: Status: Chronic Code(s): J96.21 - Acute and chronic respiratory failure with hypoxia (3) ESRD on hemodialysis: Status: Acute Code(s): N18.6 - End stage renal disease; Z99.2 - Dependence on renal dialysis (4) Fluid overload: Status: Acute Code(s): E87.70 - Fluid overload, unspecified (5) Pneumonia: Status: Acute Code(s): J18.9 - Pneumonia, unspecified organism Plan Patient is a 69-year-old gentleman presenting with progressive shortness of breath. Was found to have bilateral pleural effusion as well as with superimposed right-sided infiltrate. Was placed on BiPAP admitted to the intensive care unit 1. Acute hypoxic respiratory failure ? Due to combination of fluid overload from patient having missed dialysis, congestive heart failure as well as pneumonia. Patient was placed on noninvasive ventilation BiPAP admitted to the intensive care unit with treatment of patient underlying etiology. Consult was placed to programming coordinator ? 03/20/2025. Patient has been weaned off noninvasive ventilation by BiPAP currently on nasal cannula 4 L flow per minute 2. End-stage renal disease ? Patient is on dialysis on Tuesdays as well as Saturdays. Patient had apparently missed his last session as a result of being ill. Patient was found to have hyperkalemia with potassium of 7.5 with EKG changes. Admitted to the intensive care unit nephrology?Dr. Karina Ervin consulted from the ED for emergency dialysis ? 03/20/2025; patient underwent emergency dialysis the day prior currently undergoing repeat dialysis 3. Hyperkalemia ? Secondary to patient ESRD and patient having missed dialysis plan is for patient to undergo emergency dialysis ? 03/20/2025; potassium down to 5.5 further management through dialysis. 4. Pneumonia - Suspected to be pneumonia with suspected gram-negative organisms/gram-positive organisms/atypical, Blood and sputum cultures sent. Patient placed on Zosyn and Zithromax and placed on oxygen titrated to keep Pulse Ox greater than 90. As part of patient's management ordered viral respiratory panel as well as SARS-CoV-2 assay ? 03/20/2025 patient blood cultures positive for gram-positive cocci added vancomycin to therapy awaiting final identification and sensitivity ? 03/21/2025; blood cultures did show staph epi possibly contaminant. 5. Acute on chronic congestive heart failure with preserved ejection fraction ? Plan is to manage patient fluid status with dialysis ordered echo for EF assessment. ? 03/24/2025; 2D echo did show The estimated ejection fraction is 55 %. Inferior wall is hypokinetic. Stage 2 diastolic dysfunction. The left atrium is mildly enlarged. Mild mitral annular calcification. Mild-Moderate (1-2+) mitral valve insufficiency. Mild focal aortic valve calcification. Mild (1+) aortic valve insufficiency. 6. Coronary artery disease with previous CABG COX to LAD, SVG to OM, SVG to RPDA in 2020 7. Valvular heart disease ? With history of mitral regurgitation as well as aortic regurgitation 8. Renal bone disease ? Patient is on Sevelamer 9. Hypertension ? Blood pressure controlled, home medications continued with dose adjustment as needed 10. Dyslipidemia ? Patient not on statin therapy due to reported side effect?significant myalgias 11. Class I Obesity with BMI of 32.4 ? Complicating care weight loss advised 12. DVT prophylaxis ? Subcu heparin Time spent in the patient's overall evaluation,decision-making process, review of diagnostic data, adjustment of management, discussion with other providers, nursing nursing and ancillary staff involved in patient's care documentation, 36 Minutes Medications at Discharge Home Medications sertraline 50 mg tablet 50 mg PO DAILY mood 05/09/19 aspirin 81 mg chewable tablet 81 mg PO DAILY@0800 cardiac ##90 12/30/20 mv,[id number] oil 400 mcg-500 unit capsule (ProRenal QD) 1 cap PO DAILY dialysis 06/16/23 carvedilol 12.5 mg tablet 12.5 mg PO BID heart and BP #180 tabs 11/25/24 sevelamer carbonate 800 mg tablet 2,400 mg PO TID 03/19/25 doxycycline hyclate 100 mg capsule 100 mg PO BID #14 caps 03/21/25 sodium chloride 0.65 % nasal spray aerosol (Deep Sea Nasal) 1 spray NASAL Q2H PRN NASAL DRYNESS #44 mL 03/21/25 Physical Exam Narrative GENERAL: Cooperative HEENT: Atraumatic; normocephalic EYES; Anicteric, Normal Conjunctiva NECK; supple, normal thyroid, RESPIRATORY: Diminished to auscultation bibasilar Rales CARDIOVASCULAR: Regular S1 S2, GI: soft, normoactive bowel sounds, : No Renal angle tenderness; EXTREMITIES: Trace bipedal edema, no clubbing, MUSCULOSKELETAL: no muscle wasting NEURO: Awake; no lateralizing signs. SKIN: No Rash PSYCH; Flat affect Weight / BMI Weight Weight: 87 kg Body Mass Index (BMI) 27.4 ABG / Lab / Microbiology Data 03/21/25 05:10 03/21/25 05:10 Laboratory: Laboratory Results - last 24 hr 03/20/25 10:25: Random Vancomycin 12.8 03/21/25 05:10: WBC 4.9, RBC 3.77 L, Hgb 12.8 L, Hct 37.5 L, MCV 99.5 H, MCH 34.0 H, MCHC 34.1, RDW Std Deviation 49.5 H, RDW Coeff of Steven 13.7, Plt Count 194, MPV 11.2, Immature Gran % (Auto) 0.200, Neut % (Auto) 51.6, Lymph % (Auto) 28.2, [place] % (Auto) 13.1 H, Eos % (Auto) 5.9 H, Baso % (Auto) 1.0, Absolute Neuts (auto) 2.5, Absolute Lymphs (auto) 1.38, Nucleated RBC % 0, Sodium 136, Potassium 5.5 H, Chloride 96 L, Carbon Dioxide 21.0, Anion Gap 20 H, BUN 80 H, Creatinine 9.26 H*, Estim Creat Clear Calc 7.66 L*, Est GFR (MDRD) Non-Af 6 L, BUN/Creatinine Ratio 8.7 L, Glucose 86, Calcium 8.9 Microbiology: Microbiology 03/19/25 17:35 Blood Culture (Wb) - Venous Bacteria Detection (PCR) - Final Staphylococcus epidermidis 03/19/25 17:35 Blood Culture (Wb) - Venous Blood Culture - Preliminary Coag Negative Staph Alpha hemolytic organism 03/20/25 09:05 Sputum, Expectorated/Coughed Gram Stain - Final 03/19/25 12:45 Mucosa - Nasopharyngeal Respiratory Panel (PCR) - Final 03/19/25 12:35 Nasal Secretion MRSA (PCR) - Final 03/19/25 08:40 Mucosa - Nose SARS-CoV-2, Influenza & RSV (PCR) - Final Radiography Diagnostic Testing: Radiology Impression Echocardiogram 03/19/25 11:43 Interpretation Summary The estimated ejection fraction is 55 %. Inferior wall is hypokinetic. Stage 2 diastolic dysfunction. The left atrium is mildly enlarged. Mild mitral annular calcification. Mild-Moderate (1-2+) mitral valve insufficiency. Mild focal aortic valve calcification. Mild (1+) aortic valve insufficiency. Ordering Physician: Davis Leonardo Referring Physician: Rad. Damion Chi Performed By: Natasha Mcdaniel, LIBBY, RVT D/C Instructions Discharge Diet: Renal Diet Discharge Activity: Return to Normal Activity Call your doctor if you observe: Fever of 101 or Higher, Shortness of breath, Fainting spells and Chest pain DC O2, CPAP, BIPAP Needs Home O2 Discharge instructions: Yes Type of respiratory needs?: Oxygen (2) Oxygen frequency: With Ambulation Oxygen liters per minute during Ambulation: 2 DC home with Oxygen: Yes Home O2 MD Review: I have reviewed the oxygen testing, and the patient qualifies for home oxygen equipment and portability. The patient is mobile in the home and the community. Meaningful Use Info Meaningful Use Meaningful Use Diagnoses (Choose all that apply): CHF CHF ANGELINA/ARB ordered at discharge?: No Reason ANGELINA/ARB not ordered?: Not indicated Documented LVEF (%): 55 Ischemic Stroke Statin Dosing Therapy Reference: STATIN DOSE THERAPY REFERENCE: * Patients > 75 years receive moderate or high dose statin therapy. * Patients 75 years or YOUNGER should receive HIGH intensity statin dose unless contraindicated. You will be required to document reason for non-treatment if statin daily dose does not meet guidelines. HIGH DOSE STATIN THERAPY DAILY Atorvastatin > than or = to 40 mg Rosuvastatin > than or = to 20 mg Amlodipine + Atorvastatin > than or = to 2.5/40 mg Ezetimibe + Simvastatin 10/80 mg Simvastatin 80mg Discharge Plan Admission Admit Date/Time: 03/19/25 10:33 Attending Provider: Davis Leonardo Primary Care Provider: Damion Leroy Chi Consulting Providers: Karina Ervin Discharge Orders/Prescriptions Prescriptions: New Deep Sea Nasal 0.65 % Aerosol,[place] 1 spray NASAL Q2H PRN (Reason: NASAL DRYNESS) Qty: 44 0RF doxycycline hyclate 100 mg capsule 100 mg PO BID Qty: 14 0RF Continued sertraline 50 mg tablet 50 mg PO DAILY ProRenal QD 400-500 mcg-unit capsule 1 cap PO DAILY carvedilol 12.5 mg tablet 12.5 mg PO BID Qty: 180 3RF aspirin 81 MG tablet,chewable 81 mg PO DAILY@0800 Qty: 90 0RF sevelamer carbonate 800 mg tablet 2,400 mg PO TID Referrals / Follow Up: Karina Ervin DO [Med Staff - Consulting] - (For dialysis) Damion Leroy Chi, MD [Primary Care Provider] - Within 2 Weeks Disposition Disposition (needs filled in before D/C Order can be placed): Home, Self Care Charges/Coding Visit Charges Inpatient E&M: 30652 Disch Hosp >30min
[2025-03-21] MEDS: Piperacil/Tazobactam 3.375 GM/50 ML ML IV (11:17)
[2025-03-21] MEDS: Sodium Chloride 0.65% 1 SPRAY SPRAY.BTL NASAL (11:17)
[2025-03-21 11:24] VITALS: PULSE 67
--- NOTE | 2025-03-21 11:28 | CASEMGMT ---
Pt has an order for DC placed. Pt was cleared by PT, see notes. At this time, the pt states that he feels safe returning home with his and denies concerns. Pt states that he is still interested in attending OP PT. Pt states that he is unsure of what facility he will go to but will call and make his own appt. Rx signed by Dr Leonardo. Rx given to the pt at this time. Per the RN O2 testing, the pt does not qualify for an increased amount of oxygen compared to his active script for 2L with exertion. Per the testing shaking shipping, the pt was 92% with ambulation. 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 Pt states that he has a pulse ox to monitor his oxygen levels. Pt was encouraged to get established with a Underwater Photographer and/or to f/u with his PCP for further oxygen testing if he would ever be interested in getting his oxygen equipment revoked. Pt states understanding and denies further needs regarding his oxygen. Moving forward, the pt states that he plans to attend HD tomorrow and denies further DC needs. Pt RN updated.
== END 2025-03-21 12:58 | disposition home or self-care (01) | DRG 871 ==
LOC: ED 10:44 → ICU 11:00
PROVIDERS: Admitting Provider Internal Medicine; Emergency Provider Emergency Medicine; PCP Family Medicine Geriatric Medicine; Visit Provider Internal Medicine
DX: A41.1 Sepsis due to other specified staphylococcus (principal); J15.29 Pneumonia due to other staphylococcus; J96.01 Acute respiratory failure with hypoxia; I50.33 Acute on chronic diastolic (congestive) heart failure; N18.6 End stage renal disease; I13.2 Hypertensive heart and chronic kidney disease with heart failure and with stage 5 chronic kidney disease, or end stage renal disease; I25.5 Ischemic cardiomyopathy; I73.9 Peripheral vascular disease, unspecified; I08.0 Rheumatic disorders of both mitral and aortic valves; E66.811 Obesity, class 1; E87.79 Other fluid overload; E78.00 Pure hypercholesterolemia, unspecified; I25.10 Atherosclerotic heart disease of native coronary artery without angina pectoris; F41.9 Anxiety disorder, unspecified; E87.5 Hyperkalemia; Z99.2 Dependence on renal dialysis; I25.2 Old myocardial infarction; Z66 Do not resuscitate; Z95.1 Presence of aortocoronary bypass graft; N25.0 Renal osteodystrophy; Z68.32 Body mass index [BMI] 32.0-32.9, adult; Z90.49 Acquired absence of other specified parts of digestive tract; Z79.2 Long term (current) use of antibiotics; Z79.82 Long term (current) use of aspirin; Z79.899 Other long term (current) drug therapy; Z87.891 Personal history of nicotine dependence
CPT/HCPCS: 36600; 71045; 80048; 80053; 80202; 82803; 83605; 83735; 84100; 85025; 85610; 85730; 87040; 87070; 87077; 87149; 87186; 87205; 87631; 87633; 87641; 90937; 93005; 93306; 94002; 94762; 97161; 97165; 97802; 99252; 99285; A4216; G0257; G0463; J0612

== ENCOUNTER 2025-05-17 10:00 | Emergency (ER) | payer MEDICARE, OTHER, SELFPAY ==
[2025-05-17] VITALS (11 sets, daily range): BP systolic 170–194; BP diastolic 58–78; PULSE 74–86; RESP 16–30; TEMP 36.8–37; O2SAT 90–97; BMI 31.2
--- NOTE | 2025-05-17 10:24 | EX.ED.DYSGE1 ---
HPI History of Present Illness Chief Complaint: Shortness of Breath Narrative Narrative: Patient is a 70-year-old male with past medical history of chronic kidney disease on dialysis Monday, , Monday, CHF, carotid artery stenosis bilaterally, hypertension, hypercholesteremia, peripheral arterial disease, CAD who presents to the emergency department chief complaint shortness of breath. Patient states that he missed his dialysis session on secondary to him not feeling well overall. He states that he has had worsening shortness of breath and noted that he was going to go to dialysis today however the nurse at the dialysis center advised him to come to the emergency department to be evaluated further given that he was having shortness of breath. Patient denies any travel history denies any history of blood clots. Patient states that he makes basically no urine at this point in time. [facility] Medical History Overweight (BMI 25.0-29.9) Hyperkalemia Acute hypoxic respiratory failure Hypertensive emergency History of end stage renal disease Acute diastolic (congestive) heart failure Pneumonia Mitral valvular insufficiency and aortic valvular insufficiency Bilateral carotid artery stenosis ESRD (end stage renal disease) on dialysis History of non-ST elevation myocardial infarction (NSTEMI) (12/28/20) Chronic systolic (congestive) heart failure Postoperative ileus (01/15/21) Atherosclerotic heart disease of [place] coronary artery without angina pectoris Acute HFrEF (heart failure with reduced ejection fraction) Ischemic cardiomyopathy Flash pulmonary edema Bilateral inguinal hernia without obstruction or gangrene Hypercholesteremia Essential (primary) hypertension White coat syndrome with hypertension Myocardial infarction History of diverticulitis Anxiety Home Medications ?Medication ?Instructions ?Recorded ?Last Taken ?Type sertraline 50 mg tablet 50 mg PO DAILY mood 05/09/19 03/18/25 History aspirin 81 mg chewable tablet 81 mg PO DAILY@0800 cardiac ##90 12/30/20 03/18/25 Rx mv,[id number]-[id number] 1 cap PO DAILY dialysis 06/16/23 03/18/25 History oil 400 mcg-500 unit capsule (ProRenal QD) carvedilol 12.5 mg tablet 12.5 mg PO BID heart and BP #180 11/25/24 03/18/25 Rx tabs sevelamer carbonate 800 mg tablet 2,400 mg PO TID 03/19/25 03/18/25 History doxycycline hyclate 100 mg capsule 100 mg PO BID #14 caps 03/21/25 Unknown Rx sodium chloride 0.65 % nasal spray 1 spray NASAL Q2H PRN NASAL 03/21/25 Unknown Rx aerosol (Deep Sea Nasal) DRYNESS #44 mL Allergy/AdvReac Type Severity Reaction Status Date / Time Seasonal Allergies: Uncoded Allergy Intermediate Unknown Verified 03/19/25 08:33 ezetimibe (From Zetia) AdvReac Intermediate unstable Verified 03/19/25 08:33 gait, myalgia, joint pain isosorbide AdvReac Intermediate Dizziness Verified 03/19/25 08:33 atorvastatin (From Lipitor) AdvReac unstable Verified 03/19/25 08:33 gait, myalgia rosuvastatin (From Crestor) AdvReac unstable Verified 03/19/25 08:33 gait, myalgia Family History Mother Heart disease Father Hypertension Cardiac arrest Surgical History H/O coronary artery bypass surgery (01/11/21) History of left heart catheterization (12/28/20) S/P arteriovenous (AV) fistula creation History of right inguinal hernia repair (01/08/20) History of colonoscopy (2009) History of colostomy reversal History of partial colectomy Social History Smoking Status: Former smoker quit date: 09/25/18 pack-years: 64 how long ago did patient quit smokin years ago alcohol intake: never substance use type: does not use caffeine: Yes Type: coffee Number of servings: 2 what type of physical activity do you participate in: none frequency: does not exercise ROS ROS ED ROS Narrative Constitutional: Denies fevers, chills, headaches Eyes: Denies change in vision double vision blurry vision Cardiovascular: Denies chest pain Respiratory: Complains shortness of breath as noted above denies coughing wheezing Abdomen: Denies nausea vomiting diarrhea : States that he makes little to no urine at this point in time Neurological: Denies any new numbness, weakness, tingling Musculoskeletal: Denies back pain Skin: Denies any rashes or lesions EXAM Physical Exam Narrative Exam Narrative: General: Patient lying in bed rest comfortably not appear to be in acute distress Head: Atraumatic, normocephalic Eyes: PERRL bilaterally, EOMI bilateral, no conjunctival injection noted Neck: Soft, supple, trachea midline Cardiovascular: Regular rate and rhythm Respiratory: Clear to auscultation bilaterally no wheezing noted Abdomen: Soft, nondistended, nontender to palpation Extremities: +5/5 strength noted in the bilateral upper and lower extremities, patient has thrill over his fistula in his left forearm Neurological: Patient following commands knew that he was at [facility] the year is 2024 Skin: Warm, dry, intact no rashes or lesions noted Const Vital Signs: 05/17/25 10:01 05/17/25 10:29 05/17/25 10:29 Temperature 98.2 F Temperature Source Oral Pulse Rate 81 Respiratory Rate 20 H Respiratory Effort Non-Labored Respiratory Depth Normal Respiratory Pattern Normal Blood Pressure 174/58 H Blood Pressure Mean 96 Pulse Ox 95 Oxygen Delivery Method Room Air Room Air Oxygen Flow Rate (L/min) 05/17/25 10:53 05/17/25 11:09 05/17/25 12:37 Temperature Temperature Source Pulse Rate 77 79 Respiratory Rate 26 H 30 H Respiratory Effort Respiratory Depth Respiratory Pattern Blood Pressure 174/69 H 170/61 H Blood Pressure Mean 104 97 Pulse Ox 94 97 96 Oxygen Delivery Method Nasal Cannula Nasal Cannula Oxygen Flow Rate (L/min) 3 3 05/17/25 13:00 Temperature Temperature Source Pulse Rate 83 Respiratory Rate 25 H Respiratory Effort Respiratory Depth Respiratory Pattern Blood Pressure 182/67 H Blood Pressure Mean 99 Pulse Ox 94 Oxygen Delivery Method Oxygen Flow Rate (L/min) MDM MDM MDM Narrative Medical decision making narrative: Patient is a 70-year-old male who presented to the emergency department with chief complaint shortness of breath. On the differential diagnosis includes but not limited to shortness of breath secondary to missed dialysis session and due for dialysis today, pneumothorax, CHF exacerbation. Once workup is obtained reviewed he will be reevaluated. Patient CBC reviewed showed no evidence leukocytosis white blood count 8.8, hemoglobin 13.4, plate count 189. Patient's sodium was noted to be normal at 135, potassium elevated to 7.2 indicating hyperkalemia this was repeated and was noted be 7.8, anion gap 24, BUN 130 and a creatinine of 12.80 he is end-stage renal disease on dialysis, glucose was 96. Patient was ordered hyperkalemia cocktail. Patient chest x-ray reviewed by myself by radiology showed improved mild pulmonary edema with moderate cardiomegaly superimposed focal consolidations not excluded. Patient's EKG reviewed which showed sinus rhythm with a rate of 76 bpm with evidence of left bundle branch block with ST depression noted in V5 V6 however this was compared to March 19, 2025 and remains unchanged patient's QTc is actually slightly better when compared to the previous EKG at 470. We do not have dialysis capabilities at [facility] over the weekend therefore transfer will be required. I discussed this with the patient and he would like to go to [facility]. Discussed case with hospitalist Dr. Sutton who accept patient for transfer. Patient was notified is agreeable with this plan all questions and concerns answered at bedside Lab Data Labs: Laboratory Results - last 24 hr 05/17/25 05/17/25 10:26 11:41 WBC 8.8 RBC 3.86 L Hgb 13.4 Hct 38.6 L MCV 100.0 H MCH 34.7 H MCHC 34.7 RDW Std Deviation 53.1 H RDW Coeff of Steven 14.7 H Plt Count 189 MPV 10.7 Immature Gran % (Auto) 0.300 Neut % (Auto) 75.1 H Lymph % (Auto) 13.6 L [place] % (Auto) 7.3 Eos % (Auto) 3.2 Baso % (Auto) 0.5 Absolute Neuts (auto) 6.6 Absolute Lymphs (auto) 1.19 Nucleated RBC % 0 Sodium 135 136 Potassium 7.2 H* 7.8 H* Chloride 90 L 90 L Carbon Dioxide 19.7 L 21.7 Anion Gap 25 H 24 H BUN 129 H* 130 H* Creatinine 12.50 H* 12.80 H* Estim Creat Clear Calc 6.24 L* Est GFR (MDRD) Non-Af 4 L 4 L BUN/Creatinine Ratio 10.3 10.2 Glucose 92 96 Calcium 8.7 8.6 Radiography Diagnostic Testing: Clinical Impression(s) from Imaging Studies Chest X-Ray 05/17/25 10:45 IMPRESSION: Improved mild pulmonary edema with moderate cardiomegaly. Superimposed focal consolidations not excluded. Reading Location: [facility] Discharge Plan Triage Chief Complaint: Shortness of Breath ED Provider: Justen Barajas Dx/Rx/DC Orders Clinical Impression: Shortness of breath, Hyperkalemia, End stage chronic kidney disease Prescriptions: No Action sertraline 50 mg tablet 50 mg PO DAILY ProRenal QD 400-500 mcg-unit capsule 1 cap PO DAILY carvedilol 12.5 mg tablet 12.5 mg PO BID Qty: 180 3RF aspirin 81 MG tablet,chewable 81 mg PO DAILY@0800 Qty: 90 0RF sevelamer carbonate 800 mg tablet 2,400 mg PO TID Deep Sea Nasal 0.65 % Aerosol,[place] 1 spray NASAL Q2H PRN (Reason: NASAL DRYNESS) Qty: 44 0RF doxycycline hyclate 100 mg capsule 100 mg PO BID Qty: 14 0RF Primary Care Provider: Damion Leroy Chi Referrals: Damion Leroy Chi, MD [Primary Care Provider] - Print Language: Slovak Disposition Disposition: DC/Tx to Another Type of HCF
[2025-05-17 10:39] LABS: Absolute Lymphocyte Count 1.19 X10^3/uL (0.83-4.51); Absolute Neutrophil Count 6.6 X10^3/uL (2.0-7.7); Basophil# 0.04 X10^3/uL; Basophil% 0.5 % (0-1); Eosinophil# 0.28 X10^3/uL; Eosinophils% 3.2 % (0-5); Hematocrit 38.6 % (40-54); Hemoglobin 13.4 g/dL (13.0-16.5); Lymphocyte # 1.19 X10^3/ul (0.83-4.51); Lymphocyte % 13.6 % (19-41); Mean Corp Hgb Conc 34.7 g/dL (32-36); Mean Corpuscular Hgb 34.7 pg (27.0-32.0); Mean Platelet Vol. 10.7 fl (6.2-12.0); Monocyte# 0.64 X10^3/uL; Monocyte% 7.3 % (0-10); NRBC Flagged by Analyzer 0 % (0-5); Neutrophil # 6.57 X10^3/uL (2.7-7.7); Neutrophil % 75.1 % (47-70); Platelet Count 189 K/mm3 (150-450); RBC Distribution Width CV 14.7 % (11.6-14.6); RBC Distribution Width SD 53.1 fl (35.1-43.9); Red Blood Count 3.86 M/mm3 (4.6-6.2); White Blood Count 8.8 K/mm3 (4.4-11.0)
--- NOTE | 2025-05-17 10:45 | RAD_ITS ---
PROCEDURE: CHEST PA AND LATERAL 05/17/2025 REASON FOR EXAM: SOB TECHNIQUE: CHEST PA AND LATERAL COMPARISON: 03/19/2025 FINDINGS: There is moderate cardiomegaly with improved mild central vascular markings and improved mild interstitial lung markings diffusely. Superimposed focal consolidations not excluded. Trace bibasilar pleural effusions. No pneumothorax. Median sternotomy wires. Calcified aortic arch. RAD/Chest PA and Lateral IMPRESSION: Improved mild pulmonary edema with moderate cardiomegaly. Superimposed focal c onsolidations not excluded. Reading Location: [id number]
[2025-05-17 11:14] LABS: Anion Gap 25 (5-15); BUN 129 mg/dL (4-19); BUN/Creat Ratio 10.3 RATIO (10-20); Calcium,Total 8.7 mg/dL (7.6-11.0); Carbon Dioxide 19.7 mmol/L (21.0-32.0); Chloride 90 mmol/L (98-108); EST Glomerular Filtration Rate 4 (>60); Glucose 92 mg/dL (70-99); Potassium 7.2 mmol/L (3.3-5.1); Sodium Level 135 mmol/L (133-145)
--- NOTE | 2025-05-17 12:38 | PCA ---
CALLED [facility] @ 1159 DENIED @ 1219, BUT FAMILY REQUESTED TO GO TO [facility]. i CALLED THEM @ 1219 WAITING FOR CALL BACK. PUSHED IMAGE UP AND FAXED FACE SHEET.
[2025-05-17 12:55] LABS: Anion Gap 24 (5-15); BUN 130 mg/dL (4-19); BUN/Creat Ratio 10.2 RATIO (10-20); Calcium,Total 8.6 mg/dL (7.6-11.0); Carbon Dioxide 21.7 mmol/L (21.0-32.0); Chloride 90 mmol/L (98-108); EST Glomerular Filtration Rate 4 (>60); Estimated Creatinine Clearance 6.24 ml/min (50-250); Glucose 96 mg/dL (70-99); Potassium 7.8 mmol/L (3.3-5.1); Sodium Level 136 mmol/L (133-145)
[2025-05-17] MEDS: Dextrose 10%-Water 250 ML 999 ML IV (13:24)
[2025-05-17] MEDS: Insulin Lispro 10 UNIT in Syringe 0 ML 6 UNIT IV (13:24)
[2025-05-17] MEDS: Calcium Gluconate IV 3 GM in Syringe 1 EACH IV (13:24)
[2025-05-17] MEDS: Ondansetron 4 MG/2 ML Vial IV (13:40)
--- NOTE | 2025-05-17 13:45 | PCA ---
CC CALLED WITH A BED @ 1336. GOING TO [address] [place] [address] BED 2 PHYSICIANS CALLED @ 1337 WILL BE HERE @ [id number]
[2025-05-17] MEDS: Dextrose 10%-Water 250 ML 40 ML IV (14:42)
[2025-05-17 16:39] LABS: Bedside Glucose 125 mg/dL (74-106)
== END 2025-05-17 16:30 | disposition other institution (70) ==
PROVIDERS: Emergency Provider Emergency Medicine; PCP Family Medicine Geriatric Medicine; Visit Provider Emergency Medicine
DX: I12.0 Hypertensive chronic kidney disease with stage 5 chronic kidney disease or end stage renal disease (principal); N18.6 End stage renal disease; I25.10 Atherosclerotic heart disease of native coronary artery without angina pectoris; I25.2 Old myocardial infarction; E87.5 Hyperkalemia; Z99.2 Dependence on renal dialysis; Z95.1 Presence of aortocoronary bypass graft; Z79.82 Long term (current) use of aspirin; Z79.899 Other long term (current) drug therapy; Z87.891 Personal history of nicotine dependence
CPT/HCPCS: 71046; 80048; 82962; 85025; 93005; 96361; 96365; 96375; 99284; A4216; J0612; J2405

== ENCOUNTER → 2025-07-02 | Outpatient (CLI) | payer MEDICARE, OTHER, SELFPAY ==
[2025-07-02 14:29] LABS: Hematocrit 45.5 % (40-54); Hemoglobin 15.4 g/dL (13.0-16.5); Immature Granulocytes Count 0.010 X10^3/uL (0.0-0.0); Mean Corp Hgb Conc 33.8 g/dL (32-36); Mean Corpuscular Volume 100.2 fL (80-94); Mean Platelet Vol. 10.7 fl (6.2-12.0); NRBC Flagged by Analyzer 0 % (0-5); Platelet Count 233 K/mm3 (150-450); RBC Distribution Width CV 14.7 % (11.6-14.6); RBC Distribution Width SD 53.4 fl (35.1-43.9); Red Blood Count 4.54 M/mm3 (4.6-6.2); White Blood Count 5.8 K/mm3 (4.4-11.0)
[2025-07-02 15:32] LABS: Vitamin D,25 Hydroxy 41.0 ng/mL (30-100)
[2025-07-02 16:27] LABS: AST(SGOT) 25 U/L (<=37); Alanine Aminotransfer ALT/SGPT 9 U/L (<=46); Albumin, Serum 4.3 g/dL (3.4-4.8); Alkaline Phosphatase 86 U/L (40-129); Anion Gap 18 (5-15); BUN 62 mg/dL (4-19); BUN/Creat Ratio 7.4 RATIO (10-20); Calcium,Total 9.5 mg/dL (7.6-11.0); Carbon Dioxide 27.8 mmol/L (21.0-32.0); Chloride 92 mmol/L (98-108); Globulin 3.5 g/dL (2.2-4.2); Glucose 101 mg/dL (70-99); Potassium 5.4 mmol/L (3.3-5.1)
== END | disposition home or self-care (01) ==
LOC: LAB 13:57
PROVIDERS: PCP Family Medicine Geriatric Medicine; Referring Provider Family Medicine Geriatric Medicine; Visit Provider Family Medicine Geriatric Medicine
DX: I10 Essential (primary) hypertension (principal); E55.9 Vitamin D deficiency, unspecified
CPT/HCPCS: 36415; 80053; 82306; 84443; 85025

== ENCOUNTER → 2025-07-30 | Outpatient (CLI) | payer MEDICARE, OTHER, SELFPAY ==
[2025-07-30 17:39] LABS: AST(SGOT) 13 U/L (<=37); Alanine Aminotransfer ALT/SGPT 7 U/L (<=46); Albumin, Serum 4.2 g/dL (3.4-4.8); Alkaline Phosphatase 76 U/L (40-129); Anion Gap 20 (5-15); BUN 71 mg/dL (4-19); BUN/Creat Ratio 8.0 RATIO (10-20); Calcium,Total 9.3 mg/dL (7.6-11.0); Carbon Dioxide 28.2 mmol/L (21.0-32.0); Chloride 91 mmol/L (98-108); Globulin 3.1 g/dL (2.2-4.2); Glucose 116 mg/dL (70-99); Potassium 5.6 mmol/L (3.3-5.1)
== END | disposition home or self-care (01) ==
LOC: LAB 15:04
PROVIDERS: PCP Family Medicine Geriatric Medicine; Referring Provider Family Medicine Geriatric Medicine; Visit Provider Family Medicine Geriatric Medicine
DX: I10 Essential (primary) hypertension (principal); E78.5 Hyperlipidemia, unspecified
CPT/HCPCS: 36415; 80053

== ENCOUNTER → 2025-08-13 | Outpatient (CLI) | payer MEDICARE, OTHER, SELFPAY ==
[2025-08-13 17:03] LABS: PSA,Total- Diagnostic 6.43 ng/mL (0.00-4.00)
== END | disposition home or self-care (01) ==
LOC: LAB 15:54
PROVIDERS: PCP Family Medicine Geriatric Medicine; Referring Provider Nurse Practitioner; Visit Provider Nurse Practitioner
DX: C61 Malignant neoplasm of prostate (principal)
CPT/HCPCS: 36415; 84153